=== PATIENT | female | born 1960 | race Caucasian/White ===

== ENCOUNTER 2018-01-29 14:08 | Outpatient (RCR) | payer SELFPAY | END 2018-01-29 23:59 | disposition home or self-care (01) | LOC: CR 14:08 | PROVIDERS: PCP Family Medicine; Visit Provider Family Medicine | DX: Z51.89 Encounter for other specified aftercare (principal) | CPT/HCPCS: S9472 ==

== ENCOUNTER 2018-02-26 13:18 | Outpatient (RCR) | payer SELFPAY | END 2018-02-28 23:59 | disposition home or self-care (01) | LOC: CR 13:18 | PROVIDERS: PCP Family Medicine; Visit Provider Family Medicine | DX: Z51.89 Encounter for other specified aftercare (principal) | CPT/HCPCS: S9472 ==

== ENCOUNTER 2018-03-31 13:00 | Outpatient (RCR) | payer SELFPAY | END 2018-03-31 23:59 | disposition home or self-care (01) | LOC: CR 13:00 | PROVIDERS: PCP Family Medicine; Visit Provider Family Medicine | DX: Z51.89 Encounter for other specified aftercare (principal) | CPT/HCPCS: S9472 ==

== ENCOUNTER 2018-04-28 13:00 | Outpatient (RCR) | payer SELFPAY | END 2018-04-30 23:59 | disposition home or self-care (01) | LOC: CR 13:00 | PROVIDERS: PCP Family Medicine; Visit Provider Family Medicine | DX: Z51.89 Encounter for other specified aftercare (principal) | CPT/HCPCS: S9472 ==

== ENCOUNTER 2018-05-10 00:51 | Outpatient (CLI) | payer MEDICARE, SELFPAY ==
--- NOTE | 2018-05-10 10:24 | MERGE_ITS ---
*[facility]* *[facility]* [address] [place] [address] Date of study: 05/10/2018 Transthoracic Echocardiography M-mode, complete 2D, complete spectral Doppler, and color Doppler *STUDY CONCLUSIONS* Summary: 1. Left ventricle: The cavity size was normal. The estimated ejection fraction was 50%. Some parameters suggest diastolic dysfunction. There was no evidence of elevated ventricular filling pressure by Doppler parameters. 2. Right ventricle: The cavity size was normal. Wall thickness was normal. Systolic function was normal. 3. Atrial septum: No defect or patent foramen ovale was identified. 4. Pulmonary arteries: Pulmonary systolic pressure was in the range of 30mm Hg to 40mm Hg. 5. Inferior vena cava: The vessel was patent and normal in size. The respirophasic diameter changes were in the normal range (greater than or equal to 50%), consistent with normal central venous pressure. *PATIENT PRESENTATION* Height: 165.1cm ((65in) ) S/D Pressure: 95 / 57 Weight: 84.4kg ((185.6lb) ) BSA: 2m^2 Test start time: 10:40 AM. Test stop time: 11:40 AM. ORDERING Regan Luo REFERRING Regan Luo PERFORMING Unknown PERFORMING [facility] [employer] RT Kar Chen)(ROBB)ZANE *PROCEDURE DATA* Procedure information: The patient was identified by two identifiers. This study was interpreted by [facility]. Pertinent images and digital data are archived for permanent storage and are available for subsequent review. Comparison was made to the study of 01/16/2016. Study status: Routine. Transthoracic echocardiography. M-mode, complete 2D, complete spectral Doppler, and color Doppler. A Transthoracic Echocardiogram was performed. Scanning was performed from the parasternal, apical, subcostal, and suprasternal notch acoustic windows. Images were obtained using an [id number] cardiac ultrasound machine. Image quality was good. Study completion: The patient tolerated the procedure well. History: PMH: Cardiomyopathy. *CARDIAC ANATOMY* Left ventricle: The cavity size was normal. The estimated ejection fraction was 50%. The tissue Doppler parameters were abnormal. Some parameters suggest diastolic dysfunction. There was no evidence of elevated ventricular filling pressure by Doppler parameters. Aortic valve: Trileaflet. Doppler: There was no stenosis. There was no regurgitation. VTI ratio of LVOT to aortic valve: 0.66. Valve area (VTI): 2.6cm^2. Indexed valve area (VTI): 1.3cm^2/m^2. Peak velocity ratio of LVOT to aortic valve: 0.71. Valve area (Vmax): 2.8cm^2. Indexed valve area (Vmax): 1.4cm^2/m^2. Mean velocity ratio of LVOT to aortic valve: 0.68. Valve area (Vmean): 2.7cm^2. Indexed valve area (Vmean): 1.3cm^2/m^2. Mean gradient (S): 2.9mm Hg. Peak gradient (S): 4.2mm Hg. Aorta: Aortic root: The aortic root was normal in size. Ascending aorta: The ascending aorta was moderately dilated. Mitral valve: Doppler: There was no evidence for stenosis. There was trivial regurgitation. Valve area by pressure half-time: 2.8cm^2. Indexed valve area by pressure half-time: 1.4cm^2/m^2. Left atrium: The atrium was normal in size. Atrial septum: No defect or patent foramen ovale was identified. Right ventricle: The cavity size was normal. Wall thickness was normal. Systolic function was normal. Pulmonic valve: Doppler: There was no evidence for stenosis. There was mild regurgitation. Peak gradient (S): 1.5mm Hg. Tricuspid valve: Doppler: There was mild regurgitation. Pulmonary artery: Poorly visualized. Pulmonary systolic pressure was in the range of 30mm Hg to 40mm Hg. Right atrium: The atrium was normal in size. Pericardium: There was no pericardial effusion. Systemic veins: Inferior vena cava: Well visualized. The vessel was patent and normal in size. The respirophasic diameter changes were in the normal range (greater than or equal to 50%), consistent with normal central venous pressure. Baseline ECG: Normal sinus rhythm. Measurements Left ventricle Value Reference LV ID, ED, PLAX 5.1 cm 3.5 - 6.0 LV ID, ES, PLAX 3.8 cm 2.1 - 4.0 LV PW thickness, ED, PLAX 0.8 cm LV end-diastolic volume, 1-p A2C 64 ml LV ejection fraction, 1-p A2C 47 % LV end-diastolic volume, 1-p A4C 62 ml LV ejection fraction, 1-p A4C 51 % LV e', lateral 0.057 m/sec LV E/e', lateral 8 LV e', medial 0.039 m/sec LV E/e', medial 12 LV e', average 0.048 m/sec LV E/e', average 10 Ventricular septum Value Reference IVS thickness, ED, PLAX 0.8 cm LVOT Value Reference LVOT ID, A-P 2.2 cm LVOT area 3.9 cm^2 LVOT peak velocity, S 0.73 m/sec LVOT mean velocity, S 0.57 m/sec LVOT VTI, S 15.1 cm LVOT peak gradient, S 2.2 mm Hg LVOT mean gradient, S 1.4 mm Hg Stroke volume (SV), LVOT DP 59 ml Stroke index (SV/bsa), LVOT DP 30 ml/m^2 Aortic valve Value Reference Aortic valve peak velocity, S 1 m/sec Aortic valve mean velocity, S 0.84 m/sec Aortic valve VTI, S 23.0 cm Aortic mean gradient, S 2.9 mm Hg Aortic peak gradient, S 4.2 mm Hg VTI ratio, LVOT/AV 0.66 Aortic valve area, VTI 2.6 cm^2 Velocity ratio, peak, LVOT/AV 0.71 Aortic valve area, peak velocity 2.8 cm^2 Velocity ratio, mean, LVOT/AV 0.68 Aortic valve area, mean velocity 2.7 cm^2 Aortic valve area/bsa, mean velocity 1.3 cm^2/m^2 Aorta Value Reference Aortic root ID, ED 3.4 cm Ascending aorta ID, A-P, S 3.8 cm Left atrium Value Reference LA ID, A-P, ES 3.5 cm LA ID/bsa, A-P 1.7 cm/m^2 <=2.2 LA area, ES, A4C 16.2 cm^2 8.8 - 23.4 LA area, ES, A2C 17 cm^2 LA volume/bsa, ES, 1-p A4C 21 ml/m^2 LA volume, ES, 2-p 45 ml LA volume/bsa, ES, 2-p 22 ml/m^2 LA/aortic root ratio 1.01 Mitral valve Value Reference Mitral E-wave peak velocity 0.47 m/sec Mitral A-wave peak velocity 0.67 m/sec Mitral deceleration time (H) 267 ms 150 - 230 Mitral pressure half-time 77 ms Mitral E/A ratio, peak 0.71 Mitral valve area, PHT, DP 2.8 cm^2 Pulmonary veins Value Reference Pulmonary vein peak velocity, S 0.59 m/sec Pulmonary vein peak velocity, D 0.36 m/sec Pulmonary vein velocity ratio, peak, 1.63 S/D Pulmonary vein A-wave reversal peak 0.32 m/sec velocity Tricuspid valve Value Reference Tricuspid regurg peak velocity 2.8 m/sec Tricuspid peak RV-RA gradient 31.3 mm Hg Right atrium Value Reference RA area, ES, A4C 11.1 cm^2 8.3 - 19.5 Pulmonic valve Value Reference Pulmonic peak gradient, S 1.5 mm Hg Legend: (L) and (H) reji values outside specified reference range. I have personally reviewed the images and have reviewed and edited the reported findings. Electronically signed by Manuel Rhodes MD 05/10/2018 15:58
== END 2018-05-10 01:11 ==
PROVIDERS: PCP Family Medicine; Visit Provider Internal Medicine Cardiovascular Disease
DX: I42.9 Cardiomyopathy, unspecified (principal); I47.2 Ventricular tachycardia; I10 Essential (primary) hypertension
CPT/HCPCS: 93306

== ENCOUNTER 2018-05-14 13:00 | Outpatient (RCR) | payer SELFPAY | END 2018-05-31 23:59 | LOC: CR 13:00 | PROVIDERS: PCP Family Medicine; Visit Provider Family Medicine | DX: Z51.89 Encounter for other specified aftercare (principal) | CPT/HCPCS: S9472 ==

== ENCOUNTER → 2018-05-21 13:16 | Outpatient (BNVA) | payer MEDICARE, SELFPAY | PROVIDERS: PCP Family Medicine; Visit Provider Internal Medicine Cardiovascular Disease | DX: I50.32 Chronic diastolic (congestive) heart failure (principal); E78.5 Hyperlipidemia, unspecified; E03.9 Hypothyroidism, unspecified; E66.9 Obesity, unspecified; I47.2 Ventricular tachycardia; I49.3 Ventricular premature depolarization | CPT/HCPCS: 99213 ==

== ENCOUNTER 2018-06-30 13:00 | Outpatient (RCR) | payer SELFPAY | END 2018-07-01 23:59 | disposition home or self-care (01) | LOC: CR 13:00 | PROVIDERS: PCP Family Medicine; Visit Provider Family Medicine | DX: Z51.89 Encounter for other specified aftercare (principal) | CPT/HCPCS: S9472 ==

== ENCOUNTER 2018-07-20 00:38 | Outpatient (CLI) | payer MEDICARE, SELFPAY | END 2018-07-20 00:58 | PROVIDERS: PCP Family Medicine; Visit Provider Family Medicine | DX: E03.9 Hypothyroidism, unspecified (principal) | CPT/HCPCS: 36415; 84443 ==

== ENCOUNTER 2018-07-26 13:00 | Outpatient (RCR) | payer SELFPAY | END 2018-07-29 23:59 | disposition home or self-care (01) | LOC: CR 13:00 | PROVIDERS: PCP Family Medicine; Visit Provider Family Medicine | DX: Z51.89 Encounter for other specified aftercare (principal) | CPT/HCPCS: S9472 ==

== ENCOUNTER 2018-08-27 15:20 | Outpatient (RCR) | payer SELFPAY | END 2018-08-29 23:59 | disposition home or self-care (01) | LOC: CR 15:20 | PROVIDERS: PCP Family Medicine; Visit Provider Family Medicine | DX: Z51.89 Encounter for other specified aftercare (principal) | CPT/HCPCS: S9472 ==

== ENCOUNTER 2018-09-22 13:00 | Outpatient (RCR) | payer SELFPAY | END 2018-09-28 23:59 | disposition home or self-care (01) | LOC: CR 13:00 | PROVIDERS: PCP Family Medicine; Visit Provider Family Medicine | DX: Z51.89 Encounter for other specified aftercare (principal) | CPT/HCPCS: S9472 ==

== ENCOUNTER 2018-10-29 13:15 | Outpatient (RCR) | payer SELFPAY | END 2018-10-29 23:59 | disposition home or self-care (01) | LOC: CR 13:15 | PROVIDERS: PCP Family Medicine; Visit Provider Family Medicine | DX: Z51.89 Encounter for other specified aftercare (principal) | CPT/HCPCS: S9472 ==

== ENCOUNTER → 2018-11-11 12:47 | Outpatient (BNVA) | payer MEDICARE, SELFPAY | PROVIDERS: PCP Family Medicine; Visit Provider Internal Medicine Cardiovascular Disease | DX: I50.32 Chronic diastolic (congestive) heart failure (principal); I47.2 Ventricular tachycardia; I49.3 Ventricular premature depolarization; I43 Cardiomyopathy in diseases classified elsewhere; E03.9 Hypothyroidism, unspecified; E78.1 Pure hyperglyceridemia | CPT/HCPCS: 99214 ==

== ENCOUNTER 2018-11-19 13:00 | Outpatient (RCR) | payer SELFPAY | END 2018-11-28 23:59 | disposition home or self-care (01) | LOC: CR 13:00 | PROVIDERS: PCP Family Medicine; Visit Provider Family Medicine | DX: Z51.89 Encounter for other specified aftercare (principal) | CPT/HCPCS: S9472 ==

== ENCOUNTER 2018-12-29 13:39 | Outpatient (RCR) | payer SELFPAY | END 2018-12-29 23:59 | disposition home or self-care (01) | LOC: CR 13:39 | PROVIDERS: PCP Family Medicine; Visit Provider Family Medicine | DX: Z51.89 Encounter for other specified aftercare (principal) | CPT/HCPCS: S9472 ==

== ENCOUNTER 2019-01-26 13:00 | Outpatient (RCR) | payer SELFPAY | END 2019-01-29 23:59 | disposition home or self-care (01) | LOC: CR 13:00 | PROVIDERS: PCP Family Medicine; Visit Provider Family Medicine | DX: Z51.89 Encounter for other specified aftercare (principal) | CPT/HCPCS: S9472 ==

== ENCOUNTER 2019-02-16 13:15 | Outpatient (RCR) | payer SELFPAY | END 2019-02-28 23:59 | disposition home or self-care (01) | LOC: CR 13:15 | PROVIDERS: PCP Family Medicine; Visit Provider Family Medicine | DX: Z51.89 Encounter for other specified aftercare (principal) | CPT/HCPCS: S9472 ==

== ENCOUNTER 2019-03-30 13:29 | Outpatient (RCR) | payer SELFPAY | END 2019-03-31 23:59 | disposition home or self-care (01) | LOC: CR 13:29 | PROVIDERS: PCP Family Medicine; Visit Provider Family Medicine | DX: Z51.89 Encounter for other specified aftercare (principal) | CPT/HCPCS: S9472 ==

== ENCOUNTER 2019-04-27 13:32 | Outpatient (RCR) | payer SELFPAY | END 2019-04-30 23:59 | disposition home or self-care (01) | LOC: CR 13:32 | PROVIDERS: PCP Family Medicine; Visit Provider Family Medicine | DX: Z51.89 Encounter for other specified aftercare (principal) | CPT/HCPCS: S9472 ==

== ENCOUNTER 2019-05-01 06:51 | Outpatient (RCR) | payer SELFPAY | END 2019-05-31 23:59 | disposition home or self-care (01) | LOC: CR 06:51 | PROVIDERS: PCP Family Medicine; Visit Provider Family Medicine | DX: Z51.89 Encounter for other specified aftercare (principal) ==

== ENCOUNTER 2019-06-17 09:34 | Outpatient (CLI) | payer MEDICARE, SELFPAY ==
[2019-06-17 13:04] LABS: Anion Gap 8.5 mmol/L (3-11); BUN 8 mg/dL (7-18); CO2 31.5 mmol/L (21.0-32.0); CREATININE 0.68 mg/dL (0.55-1.02); Calculated LDL 111 mg/dL; Chloride 103 mmol/L (98-107); Cholesterol 220 mg/dL (<200); Glucose 108 mg/dL (74-106); HDL Cholesterol 50 mg/dL (40-60); Potassium 3.6 mmol/L (3.5-5.1); Sodium 143 mmol/L (136-145); TSH (W/Ref FT4) 2.45 uIU/mL (0.36-3.74); Triglyceride 299 mg/dL (<150)
== END 2019-06-17 09:54 ==
PROVIDERS: PCP Family Medicine; Visit Provider Family Medicine
DX: E03.9 Hypothyroidism, unspecified (principal); E78.1 Pure hyperglyceridemia; R60.9 Edema, unspecified
CPT/HCPCS: 36415; 80048; 80061; 84443

== ENCOUNTER 2019-07-01 12:59 | Outpatient (RCR) | payer SELFPAY | END 2019-07-01 23:59 | disposition home or self-care (01) | LOC: CR 12:59 | PROVIDERS: PCP Family Medicine; Visit Provider Family Medicine | DX: Z51.89 Encounter for other specified aftercare (principal) | CPT/HCPCS: S9472 ==

== ENCOUNTER 2019-07-29 13:35 | Outpatient (RCR) | payer SELFPAY | END 2019-07-30 23:59 | disposition home or self-care (01) | LOC: CR 13:35 | PROVIDERS: PCP Family Medicine; Visit Provider Family Medicine | DX: Z51.89 Encounter for other specified aftercare (principal) | CPT/HCPCS: S9472 ==

== ENCOUNTER 2019-08-08 13:00 | Outpatient (RCR) | payer SELFPAY | END 2019-08-30 23:59 | disposition home or self-care (01) | LOC: CR 13:00 | PROVIDERS: PCP Family Medicine; Visit Provider Family Medicine | DX: Z51.89 Encounter for other specified aftercare (principal) | CPT/HCPCS: S9472 ==

== ENCOUNTER 2019-12-07 01:59 | Outpatient (CLI) | payer MEDICARE, SELFPAY ==
--- NOTE | 2019-12-07 07:45 | DI.MAMMO_ITS ---
EXAM: MAMMO SCREENING CLINICAL HISTORY: screening, Z12.39 TECHNIQUE: Mammograms were interpreted according to the usual protocol including computer analysis w Sellaround CAD system, tomosynthesis and C-view imaging. COMPARISON: 2009 through 2017 FINDINGS: The breasts are composed of scattered fibroglandular densities, Breast Density category B. No suspicious masses or suspicious microcalcifications are seen. No skin thickening or abnormal axillary lymph nodes are seen. There has been no significant change from prior exams. IMPRESSION: BI-RADS Category 1 - Negative Yearly screening mammography is recommended. Breast Density Category B, scattered fibroglandular densities.
== END 2019-12-07 02:19 ==
PROVIDERS: PCP Family Medicine; Visit Provider Family Medicine
DX: Z12.31 Encounter for screening mammogram for malignant neoplasm of breast (principal)
CPT/HCPCS: 77063; 77067

== ENCOUNTER 2020-06-21 05:06 | Outpatient (CLI) | payer MEDICARE, SELFPAY ==
[2020-06-21 09:19] LABS: Hemoglobin A1C 5.9 % (<5.7)
[2020-06-21 10:05] LABS: CREATININE 0.84 mg/dL (0.55-1.02); Calculated LDL 129 mg/dL (<100); Cholesterol 220 mg/dL (<200); HDL Cholesterol 57 mg/dL (40-60); Potassium 3.8 mmol/L (3.5-5.1); Triglyceride 174 mg/dL (<150)
== END 2020-06-21 05:26 ==
PROVIDERS: PCP Family Medicine; Visit Provider Family Medicine
DX: E03.9 Hypothyroidism, unspecified (principal); I10 Essential (primary) hypertension; E78.5 Hyperlipidemia, unspecified; R73.9 Hyperglycemia, unspecified
CPT/HCPCS: 36415; 80061; 82565; 83036; 84132; 84443

== ENCOUNTER 2021-07-02 02:03 | Outpatient (CLI) | payer MEDICARE, SELFPAY ==
[2021-07-02 08:52] LABS: CREATININE 0.8 mg/dL (0.55-1.02); Calculated LDL 145 mg/dL (<100); Cholesterol 234 mg/dL (<200); HDL Cholesterol 57 mg/dL (40-60); Potassium 4.1 mmol/L (3.5-5.1); Triglyceride 162 mg/dL (<150)
== END 2021-07-02 02:04 | disposition home or self-care (01) ==
LOC: LBO 02:03
PROVIDERS: PCP Family Medicine; Visit Provider Family Medicine
DX: E03.9 Hypothyroidism, unspecified (principal); E78.5 Hyperlipidemia, unspecified; I10 Essential (primary) hypertension
CPT/HCPCS: 36415; 80061; 82565; 84132; 84443

== ENCOUNTER → 2021-12-09 02:11 | Outpatient (CLI) | payer MEDICARE, SELFPAY ==
--- NOTE | 2021-12-09 06:45 | DI.MAMMO_ITS ---
Exam(s) MAMMO SCREENING EXAM: MAMMO SCREENING CLINICAL HISTORY: screening,Z12.39. TECHNIQUE: Bilateral full field digital CC and MLO mammographic images were obtained with 3D tomosyn thesis and utilizing computer aided detection (CAD). COMPARISON: Prior mammograms were reviewed, the most recent being November 2019. FINDINGS: No new significant radiograph findings in left breast. In the right breast there is an asymmetric density seen on the CC view approximately 5 cm in from the nipple, slightly lateral of center. No malignant-appearing microcalcification groups is region or elsewhere in either breast. IMPRESSION: 1. No radiographic evidence of malignancy in the left breast 2. Asymmetric density right breast. Spot compression CC view and breast ultrasound recommended. BI-RADS Category 0 - Assessment Incomplete: Need additional imaging evaluation Breast Density - Category B - Scattered areas of fibroglandular density Breast density Category C or D implies that the patient has dense breast tissue. Dense breast tissue can make it harder to find cancer on a mammogram. Dense breast tissue is also associated with an incr eased risk of breast cancer. This information about the result of the mammogram report was provided to the patient to raise their awareness. Use this report when you speak with the patient about their risks for breast cancer, which includes their family history. At that time, you may recommend additional screening tests (Ultrasoun d or MRI) as these tests may add significant information. A negative radiographic report should not delay biopsy if a dominant or clinically suspicious mass is present. Up to ten percent of cancers are not identified on mammography. A negative report may reinforce clinical impression. Adenosis and dense breasts may obscure an underlying neoplasm. False positive reports average 6 to 10%. Patient will receive a letter notifying them of these results.
== END ==
PROVIDERS: PCP Family Medicine; Visit Provider Family Medicine
DX: Z12.31 Encounter for screening mammogram for malignant neoplasm of breast (principal); R92.8 Other abnormal and inconclusive findings on diagnostic imaging of breast
CPT/HCPCS: 77063; 77067

== ENCOUNTER → 2021-12-16 00:45 | Outpatient (CLI) | payer MEDICARE, SELFPAY ==
--- NOTE | 2021-12-16 | DI.US_ITS ---
Exam(s) MG MAMMO SCREEN CALL BACK UNI US BREAST RT LIMITED EXAM: MG MAMMO SCREEN CALL BACK UNI CLINICAL HISTORY: F/U MAMMO, ASYMMETRIC DENSITY RT BREAST. TECHNIQUE: Craniocaudal and mediolateral oblique spot compression digital Mammography views of the r ight breast with Computer Aided Diagnosis followed by Tomosynthesis and right breast ultrasound. COMPARISON: US RIGHT BREAST ULTRASOUND {[id number]} from 06/29/2014 MG R. Spot - Same Day from 06/29/2014 MG Diagnostic Right Mammo from 12/26/2014 MG Screening Bilat Mammo from 07/02/2015 MG MG MAMMO SCREENING from 12/07/2019 MG MG MAMMO SCREENING from 12/09/2021 US US BREAST RT LIMITED from 12/16/2021 FINDINGS: Mammography/Tomosynthesis: Masses/Architectural Distortion: None seen. Microcalcifictions: No suspicious pleomorphic-type are seen. Skin Thickening/Nipple Retraction: None. Right breast US: Echotexture: Normal appearance of the glandular tissue. Shadowing: No suspicious foci. Cyst: None. Solid lesions: None seen. Ductal dilation: None. IMPRESSION: 1. No evidence of malignancy is noted. 2. Unless there is more urgent need, follow-up screening mammography is recommended, as per [place] [employer] guidelines. . BI-RADS Category 1 - Negative Breast Density - Category B - Scattered areas of fibroglandular density A mammogram that demonstrates density of C or D indicates the patient's breast tissue is dense. Dense breast tissue is very common and is not abnormal, but dense breast tissue can make it harder to find cancer on a mammogram. Also, dense breast tissue may increase their breast cancer risk. This informa tion about the result of the mammogram report was provided to the patient to raise their awareness. U se this report when you speak with the patient about their risks for breast cancer, which includes th eir family history. At that time, you may recommend for more screening tests (Ultrasound or MRI) as t hey might be useful based on their risk. A negative radiographic report should not delay biopsy if a dominant or clinically suspicious mass is present. Up to ten percent of cancers are not identified on mammography. A negative report may reinforce clinical impression. Adenosis and dense breasts may obscure an underlying neoplasm. False positive reports average 6 to 10%. Patient will receive a letter notifying them of these results.
--- OUTSIDE RECORDS SUMMARY | 2021-12-16 00:48 | XMS_ITS | Encounter Summary ---
:1960 Author Organization [facility] Address [address] [place] [address] Care Team Providers Name Role Phone Arlin Gandara MD Primary Care Provider Reason for Visit Reason Onset Date Comments Update 09/22/2012 Pt calling with gabriela mijares after seeing dentist yesterday Encounter Details Date Type Department Care Team Description 09/22/2012 Telephone [facility] Aj Cantu (Pt calling Cardiology - Jessika Erickson MD with update after [address] [facility] seeing dentist So [facility], [place], ) [address] [place] [address] (Wo rk) Social History Tobacco Use Types Packs/Day Years Used Date Never Smoker Smokeless Tobacco: Never Used Alcohol Use Standard Drinks/Week Comments No 0 (1 standard drink = 0.6 oz pure alcoho l) Sex Assigned at Date Recorded Not on file documented as of this encounter Functional Status Cognitive Status Response Date of Assessment Because of a physical, mental, or emotional condition, do Ye s 03/18/2012 you have serious difficulty concentrating, remembering, or making decisions? (5 years old or older) documented as of this encounter Miscellaneous Notes Telephone Encounter - Jes Florence RN - 09/22/[address] Cantu, okay to proceed w/ ablation on 09/29. Pt called w/ update. elephone Encounter - Jeff Pedraza - 09/22/2012 0844 EDT Pt called to report she had her tooth fixed yesterday, and her dentist said to tell Dr. Cantu this was a routine filling. Pt is hopeful it will not interfere with her pending EPS procedure on 09/29. Pt can be reached today on her cell at [phone]. documented in this encounter Plan of Treatment Upcoming Encounters Date Type Specialty Care Team Description 09/05/2022 Office Visit Cardiology Regan Luo MD [address] [place] [address] [address] [place] [address] (Wo rk) documented as of this encounter Visit Diagnoses Not on filedocumented in this encounter Care Teams Cut Off Worker Relationship Specialty Start Date End Date Arlin Gandara MD PCP - General 03/17/12 [address] [place], [place] [id number] documented as of this encounter
--- OUTSIDE RECORDS SUMMARY | 2021-12-16 00:48 | XMS_ITS | Encounter Summary ---
:1960 Author Organization [facility] Address [address] [place] [address] Care Team Providers Name Role Phone Arlin Gandara MD Primary Care Provider Regan Luo MD Unavailable Reason for Visit Reason Comments Other Encounter Details Date Type Department Care Team Description 08/01/2020 Refill [facility] - [facility] Regan Carrasquillo MD Other Cardiology Clinic [address] [place] [address] [place] [address] (Wo rk) Social History Tobacco Use Types Packs/Day Years Used Date Never Smoker Smokeless Tobacco: Never Used Alcohol Use Standard Drinks/Week Comments No 0 (1 standard drink = 0.6 oz pure alcoho l) Sex Assigned at Date Recorded Not on file documented as of this encounter Functional Status Functional Status Response Date of Assessment Are you deaf or do you have serious difficulty hearing? No 11/25/2013 Are you blind or do you have serious difficulty seeing, No 11/25/2013 even when wearing glasses? Do you have serious difficulty walking or climbing No 11/25/2013 stairs? (5 years old or older) Do you have difficulty dressing or bathing? (5 years old No 11/25/2013 or older) Because of a physical, mental, or emotional condition, do No 11/25/2013 you have difficulty doing errands alone such as visiting a doctor's office or shopping? (15 years old or older) Cognitive Status Response Date of Assessment Because of a physical, mental, or emotional condition, do Ye s 11/25/2013 you have serious difficulty concentrating, remembering, or making decisions? (5 years old or older) documented as of this encounter Ordered Prescriptions Prescription Sig Dispensed Refills Start Date End Date lisinopriL (PRINIVIL) 5 mg TAKE ONE TABLET BY 90 Tab 3 0 08/02/2020 07/22/2021 tablet MOUTH EVERY DAY documented in this encounter Plan of Treatment Upcoming Encounters Date Type Specialty Care Team Description 09/05/2022 Office Visit Cardiology Regan Luo MD [address] [place] [phone] (Wo rk) documented as of this encounter Visit Diagnoses Not on filedocumented in this encounter Discontinued Medications Medication Sig Discontinue Reason Start Date End Date lisinopriL (PRINIVIL) 5 Take 1 Tab by mouth 02/08/2020 08/02/2020 mg tablet daily. documented as of this encounter Care Teams Rescue Boat Operator Relationship Specialty Start Date End Date Arlin Gandara MD PCP - General 03/17/[address] [place] [phone] Regan Luo MD Cardiovascular Disease 05/17/[address] [place] [address] [phone] documented as of this encounter
--- OUTSIDE RECORDS SUMMARY | 2021-12-16 00:48 | XMS_ITS | Clinical Summary ---
:1960 Author Organization [facility] [place] [address] Care Team Providers Name Role Phone Arlin Gandara MD Primary Care Provider Allergies Active Allergy Reactions Severity Noted Date Comments Adhesive Tape CIS - burned s kin, CIS - burned skin Penicillins High CIS - Hives, CI S - Hives Sulfa (Sulfonamide CIS - nos ebleed, CIS - Antibiotics) nosebleed Medications Medication Sig Dispensed Refills Start Date End Date Status clopidogrel (PLAVIX) 75 0 08/12/2010 Active mg tablet multivitamin (THERAGRAN) 0 08/12/2010 Active tablet CALCIUM CITRATE/VITAMIN 0 08/12/2010 Active D3 (CALCITRATE-VITAMIN D) 315-250 mg-unit Tab aspirin (BABY ASPIRIN) 0 08/12/2010 Active 81 mg chewable tablet nitroGLYcerin 0 08/12/2010 Activ e (NITROSTAT) 0.4 mg SL tablet metoprolol succinate 50 MG = 1 0 08/12/2010 Active (TOPROL-XL) 50 mg 24 hr Tablet(s), PO, tablet Once daily Immunizations Name Administration Dates Next Due Td, adult 04/24/2003 Social History Tobacco Use Types Packs/Day Years Used Date Never Assessed Sex Assigned at Date Recorded Not on file Plan of Treatment Health Maintenance Due Date Last Done Comments Covid-19 Vaccine (#1) 1964 HIV screen 1977 Hepatitis C Screening 1977 Tdap adult 1978 HPV test 1989 PAP Smear 1989 Breast Cancer Share Decision Needed 1999 Colonoscopy 2004 Breast Cancer screening 2009 Zoster vaccine (1 of 2) 2009 Tetanus vaccine 04/24/2013 04/24/2003 Influenza (Flu) vaccine (1 of 1 - Influenza standard 01/30/2022 series) Care Teams Clinical Psychology Professor Relationship Specialty Start Date End Date Arlin Gandara MD PCP - General 04/23/10 [address] [place] [address]
--- OUTSIDE RECORDS SUMMARY | 2021-12-16 00:48 | XMS_ITS | Encounter Summary ---
:1960 Author Organization [facility] Address [address] [place] [address] Care Team Providers Name Role Phone Arlin Gandara MD Primary Care Provider Regan Luo MD Unavailable [phone] Reason for Visit Reason Comments Other Encounter Details Date Type Department Care Team Description 07/21/[address] [facility] Regan Carrasquillo MD Other Cardiology Clinic [address] [place] [address] [place] [address] (Wo rk) Social History Tobacco [...] Sig Dispensed Refills Start Date End Date potassium chloride CR TAKE ONE TABLET BY 180 Tablet 3 2021 (KLOR-CON) 10 mEq tablet MOUTH TWICE A DAY extended release lisinopriL (PRINIVIL) 5 mg TAKE ONE TABLET BY 90 Tablet 3 0 07/22/2021 tablet MOUTH EVERY DAY documented in this encounter Plan of Treatment Upcoming Encounters Date Type Specialty Care Team Description 09/05/2022 Office Visit Cardiology Regan Luo MD [address] [place] [phone] (Wo rk) documented as of this encounter Visit Diagnoses Not on filedocumented in this encounter Discontinued Medications Medication Sig Discontinue Reason Start Date End Date lisinopriL (PRINIVIL) 5 TAKE ONE TABLET BY 08/02/2020 07/22/2021 mg tablet MOUTH EVERY DAY potassium chloride CR TAKE ONE TABLET BY 07/30/2020 07/22/2021 (KLOR-CON) 10 mEq tablet MOUTH TWICE A DAY extended release documented as of this encounter Care Teams Sweet Potato Disintegrator Relationship Specialty Start Date End Date Arlin Gandara MD PCP - General 03/17/[address] [id number] Regan Luo MD Cardiovascular Disease 05/17/[address] [place] [address] [phone] documented as of this encounter
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
--- OUTSIDE RECORDS SUMMARY | 2021-12-16 00:48 | XMS_ITS | Encounter Summary ---
:1960 Author Organization [facility] Address [address] [place] [address] Care Team Providers Name Role Phone Arlin Gandara MD Primary Care Provider Reason for Visit Reason Onset Date Comments Medication Problem 03/19/2012 tylenol # ordered in patient Encounter Details Date Type Department Care Team Description 03/19/2012 Refill [facility] Yogi Head MD Medication Problem Cardiology - [place] [employer] (tylenol # ordered [address] inpatient) [place], [place] [address] [place] [id number] (Wo rk) Social History Tobacco Use Types [...] this encounter Miscellaneous Notes Telephone Encounter - Renata Van NP - 03/19/2012 1644 EDT Prescription for Tylenol #3 called to pharmacy elephone Encounter - Sheryl Gentile - 03/19/2012 1523 EDT Pt just d/c from ablation states was given a RX from being inpatient for tylenol # 3- 1 to 2 tabs x4hrs PRN for pain, #30, she states brought RX to pharmacy and the script doesn't have her name on it so the pharmacy is refusing to fill documented in this encounter Plan of Treatment Upcoming Encounters Date Type Specialty Care Team Description 09/05/2022 Office Visit Cardiology Regan Luo MD [address] [place] [address] [address] [place], [place] [address] (Wo rk) documented as of this encounter Visit Diagnoses Diagnosis Symptomatic PVCs - Primary Other premature beats documented in this encounter Care Teams Shift Nurse Manager Relationship Specialty Start Date End Date Arlin Gandara MD PCP - General 03/17/12 [address] [place], [place] [address] documented as of this encounter
--- OUTSIDE RECORDS SUMMARY | 2021-12-16 00:48 | XMS_ITS | Encounter Summary ---
:1960 Author Organization [facility] Address [address] [place] [address] Care Team Providers Name Role Phone Arlin Gandara MD Primary Care Provider Reason for Visit Reason Onset Date Comments Medications Refill 12/17/2020 pt out Encounter Details Date Type Department Care Team Description 12/17/2020 Telephone [facility] - Regan Luo ications Refill ([place] [facility] [place] [facility] out) [address] [place] [address] [address] [place] [address] (Wo rk) Social History Tobacco [...] Sig Dispensed Refills Start Date End Date furosemide (LASIX) 40 mg Take 1 Tablet by 90 Tablet 3 12/1701/18/2021 tablet mouth daily. Change to one tab daily documented in this encounter Miscellaneous Notes Telephone Encounter - Varsha Graf RN - 12/17/2020 0849 EDT Refill request from patient. He is an active patient in the office and has a follow up appointment with Dr. Luo. RX sent to pharmacy. elephone Encounter - Patricio Buchanan - 12/17/2020 0840 EDT Last DOS 06/04/20 Furosemide [facility] documented in this encounter Plan of Treatment Upcoming Encounters Date Type Specialty Care Team Description 09/05/2022 Office Visit Cardiology Regan Luo MD [address] [place] [address] [address] [place], [place] [phone] (Wo rk) documented as of this encounter Visit Diagnoses Not on filedocumented in this encounter Discontinued Medications Medication Sig Discontinue Reason Start Date End Date furosemide (LASIX) 40 mg Take 1 Tab by mouth Reorder 3 12/17/2020 tablet daily. Change to one tab daily documented as of this encounter Care Teams Fitness Services Manager Relationship Specialty Start Date End Date Arlin Gandara MD PCP - General 03/17/12 [address] [place], [place] [address] documented as of this encounter
--- OUTSIDE RECORDS SUMMARY | 2021-12-16 00:48 | XMS_ITS | Encounter Summary ---
:1960 Author Organization [facility] Address [address] [place] [address] Care Team Providers Name Role Phone Arlin Gandara MD Primary Care Provider Reason for Visit Reason Onset Date Comments Medication Problem 10/14/2012 Mexiletine Encounter Details Date Type Department Care Team Description 10/14/2012 Telephone [facility] Aj Cantu ication Problem Cardiology - Jessika Erickson MD (Mexiletine) [address] [place] [address] (Wo rk) Social History Tobacco [...] mental, or emotional condition, do Ye s 09/29/2012 you have serious difficulty concentrating, remembering, or making decisions? (5 years old or older) documented as of this encounter Miscellaneous Notes Telephone Encounter - Jes Florence RN - 10/14/2012 1345 EDT Pt started taking mexilitine on 09/29 and symptoms started yesterday. BP checked while on phone w/ me and bp = 103/62 which is customary for pt. I advised pt to treat symptoms w/ mary beth allyson or whatever works for pt for treating nausea and call tomorrow if still having problems. Will try to arrange appt for her in Dr. Gandara's office if indicated. Pt agrees w/ this plan. elephone Encounter - Whitley Kan - 10/14/2012 1320 EDT Patient is having some side effects (dizziness and nausea) Mexiletine which was prescribed while patient was in the hospital. Side effects started last night. Should patient continue to take medication. Please call patient. documented in this encounter Plan of Treatment Upcoming Encounters Date Type Specialty Care Team Description 09/05/2022 Office Visit Cardiology Regan Luo MD [address] [place] [address] [address] (Wo rk) documented as of this encounter Visit Diagnoses Not on filedocumented in this encounter Care Teams Technical Staff Engineer Relationship Specialty Start Date End Date Arlin Gandara MD PCP - General 03/17/12 [address] [place], [place] [address] documented as of this encounter
--- OUTSIDE RECORDS SUMMARY | 2021-12-16 00:48 | XMS_ITS | Encounter Summary ---
:1960 Author Organization [facility] Address [address] [place] [address] Care Team Providers Name Role Phone Arlin Gandara MD Primary Care Provider Reason for Visit Reason Onset Date Comments Medications Refill 01/18/2021 Encounter Details Date Type Department Care Team Description 01/18/2021 Refill [facility] Varsha Graf R N Medications Refill Cardiology Clinic [address] [place] [address] Social History Tobacco Use Types Packs/Day Years [...] Take 1 Tablet by 90 Tablet 3 01/18 tablet mouth daily. Change to one tab daily metoprolol SUCCinate Take 1 Tablet by 90 Tablet 3 12/03/2021 (TOPROL-XL) 50 mg tablet mouth daily. documented in this encounter Miscellaneous Notes Telephone Encounter - Varsha Graf RN - 01/18/2021 0969 EDT Refill request received by patient. Active in the office with an upcoming appointment scheduled. RX sent to pharmacy. documented in this encounter Plan of Treatment Upcoming Encounters Date Type Specialty Care Team Description 09/05/2022 Office Visit Cardiology Regan Luo MD [address] [place] [phone] (Wo rk) documented as of this encounter Visit Diagnoses Not on filedocumented in this encounter Discontinued Medications Medication Sig Discontinue Reason Start Date End Date metoprolol XL Take 1 Tab by mouth Reorder 01/27/2020 021 (TOPROL-XL) 50 mg tablet daily. furosemide (LASIX) 40 mg Take 1 Tablet by Reorder 12/17/2020 01/18/2021 tablet mouth daily. Change to one tab daily documented as of this encounter Care Teams Guest Relations Officer Relationship Specialty Start Date End Date Arlin Gandara MD PCP - General 03/17/12 [address] [place], [place] [address] documented as of this encounter
--- OUTSIDE RECORDS SUMMARY | 2021-12-16 00:48 | XMS_ITS | Encounter Summary ---
:1960 Author Organization [facility] Address [address] [place] [address] Care Team Providers Name Role Phone Arlin Gandara MD Primary Care Provider Reason for Referral Cardiology (Routine/Next Available) - Closed Specialty Diagnoses / Procedures Referred By Contact Refer red To Contact Diagnoses Premature ventricular contractions (PVCs) (VPCs) Aj Cantu Procedures ELECTROPHYSIOLOGY STUDY MD Dre [address] [phone] Referral ID Status Reason Start Date Expiration Date Visits Requ ested Visits Authorized [id number] Closed 09/20/2012 1 1 Encounter Details Date Type Department Care Team Description 09/20/2012 Orders Only [facility] Aj Cantu Pre mature ventricular Cardiology - Jessika Erickson MD contractions (PVCs) 62 Jessika Beltran [address] [place] (VPCs) (Primary Dx) So [place], [place] [id number] [place] [address], [address] [phone] (Wo rk) Social History Tobacco Use [...] or older) documented as of this encounter Plan of Treatment Upcoming Encounters Date Type Specialty Care Team Description 09/05/2022 Office Visit Cardiology Regan Luo MD [address] [place] [address] [address] [place] [address] (Wo rk) documented as of this encounter Procedures Procedure Name Priority Date/Time Associated Comments Diagnosis ELECTROPHYSIOLOGY STUDY Routine 09/29/2012 9:18 Premature R esults for this EDT ventricular procedure are i n contractions (PVCs) the resu lts (VPCs) section. documented in this encounter Results ELECTROPHYSIOLOGY STUDY (09/29/2012 9:18 EDT) Specimen Narrative CARDIOLOGY - 10/01/2012 9:48 EDT *Cardiology* [address] [place] [id number] Electrophysiology Study with Ablation Patient: Apolonia Vazquez ?Ignacio dy Date: ? 09/29/2012 ?Accession #: ?[id number] : ? 1960 Referring: Arlin Gandara Attending: Aj Cantu MD, PhD Fellow: ?Aj clancy Sa, MD Assisting: David Mcintosh Copies: SUMMARY OF PROCEDURE: - Baseline rhythm sinus rhythm. - Epicardial PVC mapping - Abaltion not performed as earliest foc us in close ??proximity to the LAD/ramus. - There were no complications. HISTORY AND INDICATIONS: ??52 y.o. femal e with daily frequent symptomatic PVC despite use of metoprolo l. She also has PVC inducible LV dysfunction and chronic systolic hear t failure. An ablation was performed last fall and suggested epicar dial focus. Metoprolol was discontinued last week in anticipation f or the procedure. PVCs ANESTHESIA: Procedure was started with consious francisco tion and local anestheia. The anesthesiology department provided monit ored anesthesia care during epicardial acces. However due to ongoing chest pain, general anesthesia was used. PROCEDURE: The risks, benefits, and alternatives to the procedure were explained and informed consent was obtained. The patient name, date of , surgica l site, and procedure were verified prior to the procedure. The pat ient was brought to electrophysiology laboratory in the fast ing state. The groin was prepped and draped in the usual sterile manner. ??Local anesthestic was administered to the access site. The rig ht femoral vein, right femoral vein, and right femoral artery were ente red under fluoroscopic guidance . ??Sheath and catheter detail( s) in table below. All catheters were placed under fluoroscopic guidance. The attending physician was physically present for the entire Electrophysiology Study and/or Ablation procedure. ?? The sub-xiphoid area was prepped and draped in the usual sterile manner. ??Local anesthestic was administered to the chest. A Tuohy needl e was slowly advanced towards the pericardium under fluoroscopic lyly nce. Access to the pericardial space was difficult and required multipl e attempts. At one point, the left pleural pace was entered. Finally a posterior pericardial access was obtained with a long needle and conf irmed by injecting a small amount of contrast. An 8 Fr Arrow sheath was then advanced into the pericardial space over the guidewire, wh ich was subsequently withdrawn. 140 cc of blood were aspirate d shortly after obtaining pericardial access. Several fluoroscopic views confirmed epicardial position. VASCULAR ACCESS AND CATHETER PROPERTIES: + +---------+ --+ + Entry site ? Sheath ?? Location s ? Catheter ? + +---------+ --+ + L femoral vein ?? 7Fr ? RA eliana izquierdo ?? 6 Fr hexapolar ? electrode ? catheter (2 mm ? spacing; ? proximal ring ? 25 cm from tip) + +---------+ --+ + L femoral vein ?? 7Fr ? RV/Para- Hisian 7 Fr ? deflectable ? quadrapolar ? electrode ? catheter (2mm ? spacing) ? + +---------+ --+ + L femoral vein ?? 8.5Fr ? Coronary sinus Bard Decapole ? 2-5-2 (eldridge), ? 6F ? + +---------+ --+ + R femoral vein ?? 8.5Fr ? --------- ----- + +---------+ --+ + R femoral artery 8Fr ? --------- ----- + +---------+ --+ + Percutaneous ? 8Fr, long Ablation ? Navistar SF ? epicardial ? Thermocool ? Bidirectional ? (DF ) 3.5mm ? + +---------+ --+ + Percutaneous ? 8Fr, long ---- Pig tail ? epicardial ? catheter for ? drainage ? + +---------+ --+ + EP STUDY: A comprehensive electrophysiology study with attempted induction was performed. Testing was done at baseline. Protocols included decremental pacing. Pacing and recording were carried out from the right atrial, right ventricular, coronar y sinus, and His bundle sites . AV MAYUR/HIS-PURKINJE CONDUCTION INTERVA LS: + + + State ? Baseline ? + + + Rhythm ? Sinus wi th frequent PVCs ? + + + Cycle length ? 730msec ? + + + A-H ? 55ms ? + + + H-V ? 55ms ? + + + A-V 1:1 ? 380ms ? + + + AV Wejossuekebach ? 370ms ? + + + V-A conduction ? Concentric ? + + + Dual AV mayur pathways No ? + + + Pre-excitation ? No ? + + + Comments ? There was 1:1 VA conduction to less ? than 310 ms. ? + + + Description of induced arrhythmia: Arrhythmia induction: ??Patient had mode rate ventricular ectopy at baseline. Frequency of ectopy was not af fected by sedation or general anesthesia. Burst RV pacing could induce ectopy, up to triplets. PVCs were positive in inferior leads with a L BBB pattern and postive in all precordial leads. There was a slugsh ini tial deflection, conssitent with suspected epicardial focus. Mapping: During initial catheter manipulation, th e sheath came out of the pericardial space - with the abaltion ca theter in the pericardium. Attempts to advance sheath over catheter failed, therefore we elected to obtain a separate epicardial access f or drainage. A second posterior epicardial acces was obtained using the same technique as described above. The mapping catheter was advanced into t he pericardial space and a 3-dimensional activation map of the clin ical PVCs was created using Carto. Points were also obtained from th e distal coronary sinus. The earliest recorded activation was at the LV summit. Activation there preceeded the onet of the QRS by 27 ms a nd unipolar had a QS morphology. Pace map had a 12/12 match. Of note, the timing on that area was similar to obtained on the jerod cent CS catheter, however the unipolar postentials were sharper. At th is point, Dr. Anthony scrubbed and performed left coronary art maria del rosario angiogram. Unfortunately, this demonstrated that the epicardial ta rget was next to the LAD and ramus, as was the distal coronary sinus. In light of that, abaltion would carry a very high risk of arterial damage and the procedure was aborted. Of note, previous mapping on th e LV and LVOT had not found any potential prior to QRS. One dose of intravenous verapamil was given without significant impact on the the ectopy frequency. Femoral artery angiogram demonstrated a high bifurcation and we opted for manual hold. Hemostasis. At the conclusions of the pr ocedure all venous and the arterial sheaths and catheters were evon karmen. Manual compression was applied to the puncture sites. Groin sit es were intact with no hematoma. The first epicardial sheath was removed. The second sheath was left in place for monitoring. No further epicard ial bleeding was seen. STUDY COMPLETION - Isovue Contrast: 60ml. - Intake: 2200ml - Output: 350ml - Estimated blood loss: 300ml. Clinical Trial: ??The patient is not enr olled in a clinical trial. At the completion of the procedure, find ings, results, any complications, and treatment plan were c ommunicated to the patient and reinforced after recovery from anesthesi a. With the patient's consent, the attending physician communicated fin dings, results, any complications, and treatment plan to [facility] and patient support persons who were present at the conclusion of the procedure. ?? Electronically signed by Aj Cantu MD, PhD 10/01/2012 09:47 Procedure Note 10/01/2012 *Cardiology* [address] [place] [address] Electrophysiology Study with Ablation Patient: Apolonia Vazquez Study Date: : 1960 Referring: Arlin Gandara Attending: Aj Cantu MD, PhD Fellow: Aj clancy Sa, MD Assisting: David Mcintosh Copies: SUMMARY OF PROCEDURE: - Baseline rhythm sinus rhythm. - Epicardial PVC mapping - Abaltion not performed as earliest foc us in close proximity to the LAD/ramus. - There were no complications. HISTORY AND INDICATIONS: 52 y.o. female with daily frequent symptomatic PVC despite use of metoprolo l. She also has PVC inducible LV dysfunction and chronic systolic hear t failure. An ablation was performed last fall and suggested epicar dial focus. Metoprolol was discontinued last week in anticipation f or the procedure. PVCs ANESTHESIA: Procedure was started with consious francisco tion and local anestheia. The anesthesiology department provided monit ored anesthesia care during epicardial acces. However due to ongoing chest pain, general anesthesia was used. PROCEDURE: The risks, benefits, and alternatives to the procedure were explained and informed consent was obtained. The patient name, date of , surgica l site, and procedure were verified prior to the procedure. The pat ient was brought to electrophysiology laboratory in the fast ing state. The groin was prepped and draped in the usual sterile manner. Local anesthestic was administered to the access site. The rig ht femoral vein, right femoral vein, and right femoral artery were ente red under fluoroscopic guidance . Sheath and catheter detail(s) in table below. All catheters were placed under fluoroscopic guidance. The attending physician was physically present for the entire Electrophysiology Study and/or Ablation procedure. The sub -xiphoid area was prepped and draped in the usual sterile manner. Local anesthestic was administered to the chest. A Tuohy needl e was slowly advanced towards the pericardium under fluoroscopic lyly nce. Access to the pericardial space was difficult and required multipl e attempts. At one point, the left pleural pace was entered. Finally a posterior pericardial access was obtained with a long needle and conf irmed by injecting a small amount of contrast. An 8 Fr Arrow sheath was then advanced into the pericardial space over the guidewire, wh ich was subsequently withdrawn. 140 cc of blood were aspirate d shortly after obtaining pericardial access. Several fluoroscopic views confirmed epicardial position. VASCULAR ACCESS AND CATHETER PROPERTIES: + +---------+ --+ + Entry site Sheath Locations Catheter + +---------+ --+ + L femoral vein 7Fr RA appendage 6 Fr hexapolar electrode catheter (2 mm spacing; proximal ring 25 cm from tip) + +---------+ --+ + L femoral vein 7Fr RV/Para-Hisian 7 F r deflectable quadrapolar electrode catheter (2mm spacing) + +---------+ --+ + L femoral vein 8.5Fr Coronary sinus B saundra Decapole 2-5-2 (VMTurbo), 6F + +---------+ --+ + R femoral vein 8.5Fr - + +---------+ --+ + R femoral artery 8Fr -- + +---------+ --+ + Percutaneous 8Fr, long Ablation Julesis tar SF epicardial Thermocool Bidirectional (DF ) 3.5mm + +---------+ --+ + Percutaneous 8Fr, long Pig tail epicardial catheter for drainage + +---------+ --+ + EP STUDY: A comprehensive electrophysiology study with attempted induction was performed. Testing was done at baseline. Protocols included decremental pacing. Pacing and recording were carried out from the right atrial, right ventricular, coronar y sinus, and His bundle sites . AV MAYUR/HIS-PURKINJE CONDUCTION INTERVA LS: + + + State Baseline + + + Rhythm Sinus with frequent PVCs + + + Cycle length 730msec + + + A-H 55ms + + + H-V 55ms + + + A-V 1:1 380ms + + + AV Aaronkebach 370ms + + + V-A conduction Concentric + + + Dual AV mayur pathways No + + + Pre-excitation No + + + Comments There was 1:1 VA conduction t o less than 310 ms. + + + Description of induced arrhythmia: Arrhythmia induction: Patient had modera te ventricular ectopy at baseline. Frequency of ectopy was not af fected by sedation or general anesthesia. Burst RV pacing could induce ectopy, up to triplets. PVCs were positive in inferior leads with a L BBB pattern and postive in all precordial leads. There was a slugsh ini tial deflection, conssitent with suspected epicardial focus. Mapping: During initial catheter manipulation, th e sheath came out of the pericardial space - with the abaltion ca theter in the pericardium. Attempts to advance sheath over catheter failed, therefore we elected to obtain a separate epicardial access f or drainage. A second posterior epicardial acces was obtained using the same technique as described above. The mapping catheter was advanced into t he pericardial space and a 3-dimensional activation map of the clin ical PVCs was created using Carto. Points were also obtained from th e distal coronary sinus. The earliest recorded activation was at the LV summit. Activation there preceeded the onet of the QRS by 27 ms a nd unipolar had a QS morphology. Pace map had a 12/12 match. Of note, the timing on that area was similar to obtained on the jerod cent CS catheter, however the unipolar postentials were sharper. At th is point, Dr. Anthony scrubbed and performed left coronary art maria del rosario angiogram. Unfortunately, this demonstrated that the epicardial ta rget was next to the LAD and ramus, as was the distal coronary sinus. In light of that, abaltion would carry a very high risk of arterial damage and the procedure was aborted. Of note, previous mapping on th e LV and LVOT had not found any potential prior to QRS. One dose of intravenous verapamil was given without significant impact on the the ectopy frequency. Femoral artery angiogram demonstrated a high bifurcation and we opted for manual hold. Hemostasis. At the conclusions of the pr ocedure all venous and the arterial sheaths and catheters were evon karmen. Manual compression was applied to the puncture sites. Groin sit es were intact with no hematoma. The first epicardial sheath was removed. The second sheath was left in place for monitoring. No further epicard ial bleeding was seen. STUDY COMPLETION - Isovue Contrast: 60ml. - Intake: 2200ml - Output: 350ml - Estimated blood loss: 300ml. Clinical Trial: The patient is not enrol led in a clinical trial. At the completion of the procedure, find ings, results, any complications, and treatment plan were c ommunicated to the patient and reinforced after recovery from anesthesi a. With the patient's consent, the attending physician communicated fin dings, results, any complications, and treatment plan to [facility] members and patient support persons who were present at the conclusion of the procedure. Electronically signed by Aj Cantu MD, PhD 10/01/2012 09:47 Performing Organization Address City/State/ZIP Code Phon e Number [facility] documented in this encounter Visit Diagnoses Diagnosis Premature ventricular contractions (PVCs ) (VPCs) - Primary Other premature beats documented in this encounter Care Teams [employer] Relationship Specialty Start Date End Date Arlin Gandara MD PCP - General 03/17/12 [address] [place] [address] documented as of this encounter
--- OUTSIDE RECORDS SUMMARY | 2021-12-16 00:48 | XMS_ITS | Encounter Summary ---
:1960 Author Organization [facility] Address [address] [place] [address] Care Team Providers Name Role Phone Arlin Gandara MD Primary Care Provider Reason for Visit Reason Comments Other PVCs Encounter Details Date Type Department Care Team Description 10/18/2012 Office Visit [facility] Aj Cantu Atr ial fibrillation Cardiology - Jessika Erickson MD ([facility]) (Primary [address]) [place], [place] [address] [place] [address], [facility] [address] [place] [address] (Wo rk) Social History Tobacco Use Types Packs/Day Years Used Date Never Smoker Smokeless Tobacco: Never Used Alcohol Use Standard Drinks/Week Comments No 0 (1 standard drink = 0.6 oz pure alcoho l) Sex Assigned at Date Recorded Not on file documented as of this encounter Last Filed Vital Signs Vital Sign Reading Time Taken Comments Blood Pressure 112/76 10/18/2012 1552 EDT Pulse 64 10/18/2012 1552 EDT Temperature - - Respiratory Rate - - Oxygen Saturation - - Inhaled Oxygen Concentration - - Weight 81.6 kg (180 lb) 10/18/2012 1552 EDT Height 165.1 cm (5' 5) 10/18/2012 1552 EDT Body Mass Index 29.95 10/18/2012 1552 EDT documented in this encounter Functional Status Cognitive Status Response Date of Assessment Because of a physical, mental, or emotional condition, do Ye s 09/29/2012 you have serious difficulty concentrating, remembering, or making decisions? (5 years old or older) documented as of this encounter Patient Instructions Patient InstructionsAj Cantu MD - 10/18/2012 17:09 EDT 1. Continue the metoprolol and mexitil 2. F/u with Dr. Luo and speak with him in detail regarding work related issues 3. Dr. Luo will contact me if we need to consider other options. 4. Start to advance your activity now via cardiorehab phase 3 at [facility] documented in this encounter Discharge Disposition Disposition Code Departure Means Destination Auto Discharge documented in this encounter Progress Notes Aj Cantu MD - 10/18/2012 1721 EDT Apolonia Vazquez is a 52 y.o.yo female presenting in clinic today status post EP study with epicardial mapping revealing PVC focus immediately adjacent to a large ramus branch. Patient was subsequently placed on metoprolol and mexiletine and feels somewhat better. She has some continued but not severe abdominal discomfort at the pericardial access sites. She has not otherwise had any chest pain chest pressure hemoptysis pain swallowing fevers night sweats chills exertional dyspnea. Chief Complaint Patient presents with ??? Other PVCs Past Medical History Diagnosis Date ??? Symptomatic PVCs ??? Blood transfusion 2000 ??? Macular degeneration ??? Fluid retention ??? History of blood transfusion ??? S/P ablation of ventricular arrhythmia mar 2012 Patient Active Problem List Diagnoses Date Noted ??? Symptomatic premature ventricular contractions 03/11/2012 Past Surgical History Procedure Date ??? Hysterectomy 2001 ??? Foot surgery right great toe tendon surgery x 2 ??? Cyst removal right neck No family history on file. History Social History ??? Marital Status: Spouse Name: N/A Number of Children: N/A ??? Years of Education: N/A Social History Main Topics ??? Smoking status: Never Smoker ??? Smokeless tobacco: Never Used ??? Alcohol Use: No ??? Drug Use: No ??? Sexually Active: None Other Topics Concern ??? None Social History Narrative ??? None Medications Prior to Today's Visit Medication Sig ??? furosemide (LASIX) 40 mg tablet Take 1 Tab by mouth daily. Change to one tab daily ??? pantoprazole (PROTONIX) 40 mg tablet Take 1 Tab by mouth daily. For 30 days and while on ibuprofen ??? mexiletine (MEXITIL) 200 mg capsule Take 1 Cap by mouth every 12 hours. Telephoned prescription to [facility] in [facility] 10/01/2012 ??? ibuprofen (MOTRIN) 600 mg tablet Take 1 Tab by mouth 3 times daily with meals. for 3 days then decrease to twice a day for 1-2 days then only as needed ??? aspirin chewable 81 mg tablet Take 1 Tab by mouth daily. ??? calcium citrate 200 mg (950 mg) Take 1 Tab by mouth daily. ??? Cholecalciferol, Vitamin D3, 400 unit Tab Take 0.5 Tabs by mouth daily. ??? furosemide (LASIX) 40 mg tablet Take 1 Tab by mouth every 48 hours. ??? furosemide (LASIX) 80 mg tablet Take 1 Tab by mouth every 48 hours. ??? acetaminophen-codeine (TYLENOL #3) 300-30 mg per tablet Take 1 Tab by mouth every 4 hours as needed for Pain. ??? metoprolol XL (TOPROL-XL) 50 mg tablet Take 50 mg by mouth daily. ??? lisinopril (PRINIVIL, ZESTRIL) 10 mg tablet Take 10 mg by mouth daily. ??? potassium chloride CR (KLOR-CON) 10 mEq TbER Take 10 mEq by mouth daily. ??? Multivitamins with Minerals Tab Take 2 Tabs by mouth 2 times daily. I-Caps ??? CALCIUM PHOSPHATE TRIB/VIT D3 (CITRACAL + D ORAL) Take by mouth daily. ??? furosemide (LASIX) 40 mg tablet Take 40-80 mg by mouth daily. Alternates dose QOD ??? pneumococcal vaccine (PPV23) (PNEUMOVAX) injection 0.5 mL ??? pantoprazole (PROTONIX) tablet 40 mg ??? ibuprofen (MOTRIN) tablet 600 mg ??? calcium citrate 200 mg (950 mg) tablet 200 mg ??? Multivitamins with Minerals tablet 1 Tab ??? lisinopril (PRINIVIL, ZESTRIL) tablet 10 mg ??? mexiletine (MEXITIL) capsule 200 mg ??? PEG 3350-Electrolytes (MIRALAX) packet 17 g ??? oxyCODONE-acetaminophen (PERCOCET) 5-325 mg per tablet 1 Tab ??? senna (SENOKOT) tablet 1-2 Tab ??? docusate sodium (COLACE) capsule 100 mg ??? metoprolol XL (TOPROL-XL) tablet 50 mg ??? acetaminophen (TYLENOL) tablet 650 mg ??? morphine injection 0.5-1 mg Allergies Allergen Reactions ??? Penicillins Swelling Swelling of body with black fingers ??? Adhesive Burnt skin ??? Latex, Natural Rubber Rash ??? Sulfa (Sulfonamide Antibiotics) Bloody nose ROS: Comprehensive 10 point ROS otherwise noncontributory. Objective: BP 112/76 Pulse 64 Ht 165.1 cm (65) Wt 81.647 kg (180 lb) BMI 29.95 kg/m2 Body mass index is 29.95 kg/(m^2). Physical Exam: General: Alert and cooperative and in no acute distress. Eyes: Conjunctivae not injected, nonicteric. Ears: Hearing grossly intact. Neck: No thyromegaly. Carotid upstroke normal, no carotid bruit and no JVD. Lungs: Clear to auscultation bilaterally. Heart: Regular, normal S1 and S2, no rub Abdomen: Soft, non-tender on palpation. Extremities: No peripheral edema. Pulses: Pedal pulses 2+ bilaterally. Lab Review: Admission on 09/29/2012, Discharged on 10/01/2012 Component Date Value ??? Sodium 09/29/2012 142 ??? Potassium 09/29/2012 4.0 ??? Chloride 09/29/2012 101 ??? CO2 09/29/2012 28 ??? BUN 09/29/2012 16 ??? Creatinine 09/29/2012 0.71 ? ? GFR, Calculated 09/29/2012 >60 ??? WBC 09/29/2012 5.72 ??? RBC 09/29/2012 4.71 ??? Hemoglobin 09/29/2012 13.8 ??? HCT 09/29/2012 40.0 ??? MCV 09/29/2012 85 ??? MCH 09/29/2012 29.3 ??? MCHC 09/29/2012 34.5 ??? PLT 09/29/2012 211 ??? RDW-CV 09/29/2012 12.5 ??? Pro Time 09/29/2012 10.0 ??? I.N.R. 09/29/2012 0.9 ??? Smear scan only: 09/29/2012 Slide was examined by a technologist to verify the WBC and/or platelet count. ??? ABO 09/29/2012 A ??? Rh Factor 09/29/2012 Negative ??? Antibody Screen 09/29/2012 Negative ??? Specimen Description 09/29/2012 Nasal ??? Result 09/29/2012 No Staphylococcus aureus detected by PCR. ??? WBC 09/29/2012 10.13 ??? RBC 09/29/2012 4.36 ??? Hemoglobin 09/29/2012 12.9 ??? HCT 09/29/2012 37.4 ??? MCV 09/29/2012 86 ??? MCH 09/29/2012 29.6 ??? MCHC 09/29/2012 34.5 ??? PLT 09/29/2012 165 ??? RDW-CV 09/29/2012 12.6 ??? Neutrophils 09/29/2012 87.3* ??? Lymphocytes 09/29/2012 7.5* ??? Monocytes 09/29/2012 4.6 ??? Eosinophils 09/29/2012 0.1* ??? Basophils 09/29/2012 0.5 ??? ABS Neutrophils 09/29/2012 8.83 ??? ABS Lymphs 09/29/2012 0.76* ??? ABS Monocytes 09/29/2012 0.47 ??? ABS Eosinophils 09/29/2012 0.01* ??? ABS Basophils 09/29/2012 0.06 ??? Type of Diff: 09/29/2012 Automated ??? Sodium 09/30/2012 138 ??? Potassium 09/30/2012 4.1 ??? Chloride 09/30/2012 104 ??? CO2 09/30/2012 24 ??? BUN 09/30/2012 16 ??? Creatinine 09/30/2012 0.75 ? ? GFR, Calculated 09/30/2012 >60 ??? Glucose, Serum 09/30/2012 107* ??? Magnesium 09/30/2012 2.0 ??? WBC 09/30/2012 8.86 ??? RBC 09/30/2012 4.08 ??? Hemoglobin 09/30/2012 12.0 ??? HCT 09/30/2012 35.0 ??? MCV 09/30/2012 86 ??? MCH 09/30/2012 29.5 ??? MCHC 09/30/2012 34.4 ??? PLT 09/30/2012 167 ??? RDW-CV 09/30/2012 12.5 ??? Neutrophils 09/30/2012 73.0 ??? Lymphocytes 09/30/2012 17.7 ??? Monocytes 09/30/2012 7.8 ??? Eosinophils 09/30/2012 0.5* ??? Basophils 09/30/2012 1.0 ??? ABS Neutrophils 09/30/2012 6.47 ??? ABS Lymphs 09/30/2012 1.57 ??? ABS Monocytes 09/30/2012 0.69 ??? ABS Eosinophils 09/30/2012 0.04 ??? ABS Basophils 09/30/2012 0.09 ??? Type of Diff: 09/30/2012 Automated ??? Sodium 10/01/2012 138 ??? Potassium 10/01/2012 4.4 ??? Chloride 10/01/2012 104 ??? CO2 10/01/2012 27 ??? BUN 10/01/2012 17 ??? Creatinine 10/01/2012 0.82 ? ? GFR, Calculated 10/01/2012 >60 ??? Magnesium 10/01/2012 2.2 ??? WBC 10/01/2012 6.39 ??? RBC 10/01/2012 3.67* ??? Hemoglobin 10/01/2012 11.0* ??? HCT 10/01/2012 31.5* ??? MCV 10/01/2012 86 ??? MCH 10/01/2012 29.9 ??? MCHC 10/01/2012 34.8 ??? PLT 10/01/2012 142 ??? RDW-CV 10/01/2012 12.8 ??? Neutrophils 10/01/2012 61.0 ??? Lymphocytes 10/01/2012 30.8 ??? Monocytes 10/01/2012 5.6 ??? Eosinophils 10/01/2012 2.0 ??? Basophils 10/01/2012 0.6 ??? ABS Neutrophils 10/01/2012 3.90 ??? ABS Lymphs 10/01/2012 1.97 ??? ABS Monocytes 10/01/2012 0.36 ??? ABS Eosinophils 10/01/2012 0.13 ??? ABS Basophils 10/01/2012 0.04 ??? Type of Diff: 10/01/2012 Automated EKG demonstrates normal sinus rhythm no PVCs Holter monitor on 11 October demonstrates a PVC burden of 14%. Assessment and Plan: The patient is feeling better on the current medical regimen therefore at this point I think is reasonable for her to continue it. She is fairly deconditioned following her procedure which was arduous therefore am recommending that she continue to not work until she sees Dr. Luo in another couple of weeks. She will continue to followup with Dr. Luo. I will be visiting Dr. Zepeda's lab at the [facility] later this week and will discuss with Bill options in this particular setting. I will followup with Dr. Luo regarding my discussion. I met with the patient for 30 minutes [id number] 20 minutes of which were spent providing counseling. Aj Cantu MD 10/18/2012 17:21 documented in this encounter Procedure Notes GENERAL EXPEDITOR, SCAN 2 - 10/20/2012 1428 EDTAssociated Order(s): ECG REPORT - SCANNED documented in this encounter Plan of Treatment Upcoming Encounters Date Type Specialty Care Team Description 09/05/2022 Office Visit Cardiology Regan Luo MD [address] [place] [address] [address] [place] [phone] (Wo rk) Scheduled Orders Name Type Priority Associated Diagnoses Order S chedule EKG 12-LEAD ECG Routine Atrial fibrillation ([facility] ) Ordered: 10/18/2012 documented as of this encounter Procedures Procedure Name Priority Date/Time Associated Diagnosis Comme nts ECG REPORT - 10/20/2012 14:28 Results for this SCANNED EDT procedure are i n the results section. EKG 12-LEAD Routine 10/18/2012 16:19 Atrial fibrillation Resu lts for this EDT (CMS-HCC) procedure are i n the results section. documented in this encounter Results ECG REPORT - SCANNED (10/20/2012 14:28 EDT) Specimen Narrative 10/20/2012 19:55 EDT Procedure Note GENERAL EXPEDITOR, SCAN 2 - 10/20/2012 14:28 EDT EKG 12-LEAD (10/18/2012 16:19 EDT) Specimen Narrative [facility] - 10/19/2012 11 :01 EDT ?[facility] ? Test Date: ?2012-10-18 Pat Name: ? APOLONIA VAZQUEZ ?Department: ?? Jessika Card ? Room: ? Gender: ? F ?[employer]ing: ?? [id number] : ?1960 ? Requested By: AJ CANTU MD Order Number: [id number] ?Reading : ?? RONNY ALONSO MD ? Measurements Intervals ?[place] ? Rate: ? 58 ? P: ?43 TN: ? 147 ?QRS: ?10 QRSD: ? 89 ? T: ?-22 QT: ? 413 ? QTc: ?410 ? 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: [id number] : 1960 Requested By: AJ PIERRE MD Order Number: [id number] Reading MD: RAFAEL ALONSO MD Measurements Intervals [place] Rate: 58 P: 43 TN: 147 QRS: 10 QRSD: 89 T: -22 QT: 413 QTc: 410 Interpretive Statements SINUS BRADYCARDIA NONSPECIFIC ST Compared to ECG 09/29/2012 15:17:00 Sinus bradycardia now present Electronically Signed On 10-19-12 11:01: 28 EDT by RONNY ALONSO MD Performing Organization Address City/State/ZIP Code Phon e Number [facility] [address] [facility] [address] [facility] [address] [place], [place] [address] documented in this encounter Visit Diagnoses Diagnosis Atrial fibrillation (HCC-CMS) (HCC) - Pr imary Atrial fibrillation documented in this encounter Discontinued Medications Medication Sig Discontinue Reason Start Date End Date calcium citrate 200 mg Take 1 Tab by Patient Stopped Taking 012 10/18/2012 (950 mg) mouth daily. documented as of this encounter Care Teams Set Decorator Relationship Specialty Start Date End Date Arlin Gandara MD PCP - General 03/17/[address] [place] [phone] documented as of this encounter
--- OUTSIDE RECORDS SUMMARY | 2021-12-16 00:48 | XMS_ITS | Encounter Summary ---
:1960 Author Organization [facility] Address [address] [place] [address] Care Team Providers Name Role Phone Arlin Gandara MD Primary Care Provider Encounter Details Date Type Department Care Team Description 11/25/2013 - [facility] Gabriel Garrison MD [address] [place] [id number] Symptomatic premature ventricular contra ctions (Primary Dx); 11/28/2013 Encounter Cardiac/Telemetry LobelNiko MD [address] [id number] Ventricular tachycardia (CMS-HCC); Unit Heart failure, left systolic , chronic (CMS-HCC); [address] [place] [address] Premature ventricular contra ctions (PVCs) (VPCs) [place], [place] [id number] Social History Tobacco Use Types Packs/Day Years Used Date Never Smoker Smokeless Tobacco: Never Used Alcohol Use Standard Drinks/Week Comments No 0 (1 standard drink = 0.6 oz pure alcoho l) Sex Assigned at Date Recorded Not on file documented as of this encounter Last Filed Vital Signs Vital Sign Reading Time Taken Comments Blood Pressure 110/59 11/28/2013 0852 EDT Pulse 70 11/27/2013 1940 EDT Temperature 36.2 ??C (97.2 ??F) 11/28/2013 0852 EDT Respiratory Rate 16 11/28/2013 0852 EDT Oxygen Saturation 98% 11/28/2013 0852 EDT Inhaled Oxygen Concentration - - Weight 80.2 kg (176 lb 11.2 oz) 11/25/20132029 EDT Height 162.6 cm (5' 4) 11/25/20132029 EDT Body Mass Index 30.33 11/25/20132029 EDT documented in this encounter Functional Status Functional [...] or older) documented as of this encounter Discharge Summaries Niko Forte MD - 11/27/2013 1754 EDT Discharge Summary Discharge Date: 11/28/13 Chief Complaint/Reason for Admission: Palpitations, fatigue Principal/Final Diagnosis: PVC, NVST Principal Procedure: none Secondary Procedures: Not applicable Condition at Discharge: Improved and Stable Assessment at Discharge: Vital signs: Patient Vitals for the past 12 hrs: BP Heart Rate Resp Temp SpO2 O2 Device 11/28/13 0852 110/59 mmHg 68 BPM 16 36.2 ??C (97.2 ??F) 98 % Room air 11/28/13 0800 - 71 BPM - - - - 11/28/13 0700 - 57 BPM - - - - 11/28/13 0605 - 55 BPM - - - - 11/28/13 0520 123/69 mmHg 62 BPM 16 35.8 ??C (96.4 ??F) 97 % Room air 11/28/13 0404 - 55 BPM - - - - 11/28/13 0305 - 55 BPM - - - - 11/28/13 0224 - 56 BPM - - - - 11/28/13 0056 - 66 BPM - - - - 11/27/13 2328 108/51 mmHg 63 BPM 16 36.4 ??C (97.5 ??F) 97 % Room air Hospital Course: Hailey Vazquez is a 53 y.o. female with complex hx of symptomatic pvcs and vtach who presents with palpitations and fatigue over the past three weeks. Day of admission, Dr. Bush noticed increased ectopy and reccommended her for transfer to [facility] for further evaluation, she was transferred on amiodarone. Upon arrival, she noticed an increased SOTO but otherwise felt well. She continued her home metoprolol, lisinopril, and lasix. She was started on IV amiodarone and transitioned to PO amiodarone the day after admission (11/27). She had an echo on 11/28 which revealed chronic left systolic heart failure with LVEF of 35-40%. Patient had improvement in symptoms with the amiodarone. She is to continue ami odarone 400mg TID for 1 week and then take amiodarone 200mg once daily. Upon discharge, patient was clinically stable. She was eating and ambulating well. She denied any chest pain, shortness of breath, nausea, vomiting. Patient will follow up with Kareem Luo of [facility] ([phone]) on 12/13/13 2:15pm. Immunization History Administered Date(s) Administered ? ? Pneumococcal Polysaccharide Vaccine (PPSV23) =>2YO SQ/IM 10/01/2012 Relevant Studies at Discharge: Echo (11/28): left systolic heart failure with LVEF of 35-40%. Diffuse hypokinesis Last Lab Results at Discharge: BUN: Lab Results Component Value Date BUN 14 11/28/2013 Creatinine: Lab Results Component Value Date CREATININE 0.70 11/28/2013 CBC: Lab Results Component Value Date WBC 4.51 11/28/2013 RBC 4.44 11/28/2013 HGB 12.8 11/28/2013 HCT 37.8 11/28/2013 MCV 85 11/28/2013 MCH 28.9 11/28/2013 MCHC 34.0 11/28/2013 PLT 195 11/28/2013 DIFFTYPE Automated 10/01/2012 Electrolytes: Lab Results Component Value Date NA 140 11/28/2013 K 3.9 11/28/2013 CL 101 11/28/2013 CO2 31 11/28/2013 No results found for this basename: HGBA1C Meds at Discharge: Medication List START taking these medications * amiodarone 200 mg tablet Commonly known as: PACERONE Take 2 Tabs by mouth 3 times daily Take 400 mg (2 tabs by mouth 3 times daily) through 12/03/13.. * amiodarone 200 mg tablet Commonly known as: PACERONE Take 1 Tab by mouth daily Begin taking 1 tab (200mg) by mouth daily on 12/04/13.. * Notice: This list has 2 medication(s) that are the same as other medications prescribed for you. Read the directions carefully, and ask your doctor or other care provider to review them with you. CHANGE how you take these medications lisinopril 5 mg tablet Commonly known as: PRINIVIL, ZESTRIL Take 1 Tab by mouth daily. What changed: medication strength CONTINUE taking these medications CITRACAL + D ORAL Take by mouth daily. furosemide 40 mg tablet Commonly known as: LASIX Take 1 Tab by mouth daily. Change to one tab daily ibuprofen 600 mg tablet Commonly known as: MOTRIN Take 1 Tab by mouth 3 times daily with meals. for 3 days then decrease to twice a day for 1-2 days then only as needed metoprolol XL 50 mg tablet Commonly known as: TOPROL-XL Take 1 Tab by mouth daily. Multivitamins with Minerals tablet Take 2 Tabs by mouth 2 times daily. I-Caps pantoprazole 40 mg tablet Commonly known as: PROTONIX Take 1 Tab by mouth daily. For 30 days and while on ibuprofen potassium chloride CR 10 mEq tablet extended release Commonly known as: KLOR-CON Take 10 mEq by mouth daily. STOP taking these medications mexiletine 200 mg capsule Commonly known as: MEXITIL Discharge Summary Completed: Dario Matamoros M.D. Internal Medicine, PGY-1 Attestation statement: I saw and examined the patient with the resident/fellow. I agree with the findings and plan of care documented in the resident's/fellow's note. documented in this encounter Discharge Instructions AppointmentsDario Matamoros MD - 11/28/2013 13:21 EDT Follow up appointment is scheduled with Kareem Luo of [facility] on Friday, December 13, 2013 at 2:15pm. Please call [phone] to confirm your appointment. It is important you follow up for proper medical management. documented in this encounter Medications at Time of Discharge Medication Sig Dispensed Refills Start Date End Date CALCIUM PHOSPHATE Take by mouth daily. 0 TRIB/VIT D3 (CITRACAL + D ORAL) ibuprofen (MOTRIN) 600 mg Take 1 Tab by mouth 20 Tab 0 0 10/01/2012 tablet 3 times daily with meals. for 3 days then decrease to twice a day for 1-2 days then only as needed Multivitamins with Take 2 Tabs by mouth 0 Minerals Tab 2 times daily. I-Caps amiodarone (PACERONE) 200 Take 2 Tabs by mouth 32 Tab 0 11/28/2013 05/27/2019 mg tablet 3 times daily Take 400 mg (2 tabs by mouth 3 times daily) through 12/03/13.. amiodarone (PACERONE) 200 Take 1 Tab by mouth 30 Tab 2 0 11/28/2013 05/27/2019 mg tablet daily Begin taking 1 tab (200mg) by mouth daily on 12/04/13.. furosemide (LASIX) 40 mg Take 1 Tab by mouth 1 Tab 0 12/17/2020 tablet daily. Change to one tab daily lisinopril (PRINIVIL, Take 1 Tab by mouth 30 Tab 2 11/2802/08/2020 ZESTRIL) 5 mg tablet daily. metoprolol XL (TOPROL-XL) Take 1 Tab by mouth 30 Tab 2 0 11/28/2013 01/27/2020 50 mg tablet daily. pantoprazole (PROTONIX) Take 1 Tab by mouth 30 Tab 0 07/201205/27/2019 40 mg tablet daily. For 30 days and while on ibuprofen potassium chloride CR Take 10 mEq by mouth 0 02/08/2020 (KLOR-CON) 10 mEq TbER 2 times daily. documented as of this encounter Ordered Prescriptions Prescription Sig Dispensed Refills Start Date End Date amiodarone (PACERONE) 200 Take 1 Tab by mouth 30 Tab 2 0 11/28/2013 05/27/2019 mg tablet daily Begin taking 1 tab (200mg) by mouth daily on 12/04/13.. metoprolol XL (TOPROL-XL) Take 1 Tab by mouth 30 Tab 2 0 11/28/2013 01/27/2020 50 mg tablet daily. lisinopril (PRINIVIL, Take 1 Tab by mouth 30 Tab 2 11/2802/08/2020 ZESTRIL) 5 mg tablet daily. amiodarone (PACERONE) 200 Take 2 Tabs by mouth 32 Tab 0 11/28/2013 05/27/2019 mg tablet 3 times daily Take 400 mg (2 tabs by mouth 3 times daily) through 12/03/13.. documented in this encounter Discharge Disposition Disposition Code Departure Means Destination Home or Self Care documented in this encounter Progress Notes Cande Gonsalez RN - 11/28/2013 1116 EDT Case Management Assessment Working Diagnosis/Presenting Problem: 53 year old female. Transfer from OSH with short bursts of non-sustained ventricular tachycardia. Living Arrangements: Hailey lives with her Sam in a one level home. There are six steps toenter which she denies difficulty ambulating. 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 Social Supports: , children. Existing Community Resources: PCP is Dr. Gandara, uses [facility]. Advanced Directives/DPOA: On file. Cultural/Spiritual Needs: Spiritual Insurance/Financial Needs: [employer] Transportation Needs: to provide. Patient Goals: To return home when medically ready. Assessment and Discharge Care Plan: Patient is independent. Plan will be d/c home when medically stable. No CM needs identified. CM will continue to follow. Cande Gonsalez RN [facility] #[id number] Eve Kohli MD - 11/27/2013 1057 EDT Cardiology Daily Progress Note Admit Date: 11/25/2013 Date of Service: 11/27/2013 Hospital LOS: 2 days CC: Palpitations Problems/Diagnosis: NSVT, PVC Overnight Events: No acute events Subjective: Reports feeling better this morning. Palpitations have continued to improve. She currently denies any chest pain, shortness of breath, nausea, vomiting. Review of Systems: A 10-point ROS was performed. Pertinent positives are listed above; all others negative unless otherwise noted. Medication Changes for the Day: All other medications were reviewed by me. Current Facility-Administered Medications Medication Route Frequency ??? acetaminophen (TYLENOL) tablet 650 mg oral Q6H PRN ??? amiodarone (PACERONE) tablet 400 mg oral TID ??? docusate sodium (COLACE) capsule 100 mg oral BID PRN ??? furosemide (LASIX) tablet 40 mg oral DAILY ??? heparin injection 5,000 Units subcutaneous Q8H ??? lisinopril (PRINIVIL, ZESTRIL) tablet 5 mg oral DAILY ??? LORazepam (ATIVAN) tablet 1 mg oral TID PRN ??? metoprolol XL (TOPROL-XL) tablet 50 mg oral DAILY ??? senna (SENOKOT) tablet 2 Tab oral AT BEDTIME PRN Objective: Physical Exam: VS: BP 132/54 Temp(Src) 36 ??C (96.8 ??F) (Tympanic) Resp 16 Ht 162.6 cm (64) Wt 80.151 kg (176 lb 11.2 oz) BMI 30.32 kg/m2 SpO2 98% General appearance: alert, cooperative, no distress Head: Normocephalic, without obvious abnormality, atraumatic Lungs: clear to auscultation bilaterally Heart: regular rate and rhythm, S1, S2 normal, no murmur, click, rub or gallop Abdomen: soft, non-tender; bowel sounds normal Extremities: extremities warm, atraumatic, no cyanosis or edema Labs: CBC: Recent Labs 11/25/13212111/26/1334 11/27/13 05 WBC 6.36 5.06 5.52 HGB 13.9 12.2 13.1 HCT 40.0 35.6 38.5 MCV 85 85 85 PLT 213 178 198 BMP: Recent Labs 11/25/13212111/26/13 0534 11/27/13 0527 NA 143 140 141 K 3.8 3.4* 4.2 CL 102 102 99 CO2 30 28 32 BUN 13 14 11 CREATININE 0.71 0.60 0.80 Assessment: Pt is a 53 y.o. female with hx of PVC induced cardiomyopathy (reduced EF) and 2 prior VT ablations (endocardial and epicardial mapping) who presented with palpitations and fatigue for the past 3 weeks with PVCs and NSVT. Started on amio gtt with significant improvement in PVCs and NSVT, and being transitioned to PO amio. Plan: Symptomatic PVCs and NSVT -transition from amio infusion to PO amio 400 TID this morning -continue home toprol xl 50 mg daily -continue home joao 5mg daily and lasix 40 mg daily PPX: heparin tid Code status: FULL CODE Dispo: pending clinical course Dario Matamoros M.D. Internal Medicine, PGY-1 I have evaluated the patient. I agree with the assessment and plan as outlined above by Dr. Matamoros. EVE GARRISON MD Attending Improvement Nurse Eve rivera MD - 11/26/2013 1025 EDT Cardiology Daily Progress Note Admit Date: 11/25/2013 Date of Service: 11/26/2013 Hospital LOS: 1 day CC: Palpitations Problems/Diagnosis: NSVT, PVC Overnight Events: Admitted overnight Subjective: Reports feeling better this morning. Headache and palpitations have improved. Review of Systems: A 10-point ROS was performed. Pertinent positives are listed above; all others negative unless otherwise noted. Medication Changes for the Day: All other medications were reviewed by me. Current Facility-Administered Medications Medication Route Frequency ??? acetaminophen (TYLENOL) tablet 650 mg oral Q6H PRN ??? amiodarone in dextrose 360 mg/200 mL (1.8 mg/mL) infusion intravenous CONTINUOUS ??? docusate sodium (COLACE) capsule 100 mg oral BID PRN ??? furosemide (LASIX) tablet 40 mg oral DAILY ??? heparin injection 5,000 Units subcutaneous Q8H ??? lisinopril (PRINIVIL, ZESTRIL) tablet 5 mg oral DAILY ??? LORazepam (ATIVAN) tablet 1 mg oral TID PRN ??? metoprolol XL (TOPROL-XL) tablet 50 mg oral DAILY ??? senna (SENOKOT) tablet 2 Tab oral AT BEDTIME PRN Objective: Physical Exam: VS: BP 118/68 Temp(Src) 36.5 ??C (97.7 ??F) (Tympanic) Resp 18 Ht 162.6 cm (64) Wt 80.151 kg (176 lb 11.2 oz) BMI 30.32 kg/m2 SpO2 100% General appearance: alert, cooperative, no distress Head: Normocephalic, without obvious abnormality, atraumatic Eyes: conjunctivae/corneas clear. PERRL, EOM's intact Lungs: clear to auscultation bilaterally Heart: regular rate and rhythm, S1, S2 normal, no murmur, click, rub or gallop Abdomen: soft, non-tender; bowel sounds normal Extremities: extremities warm, atraumatic, no cyanosis or edema Labs: CBC: Recent Labs 11/25/132 11/26/13 0534 WBC 6.36 5.06 HGB 13.9 12.2 HCT 40.0 35.6 MCV 85 85 PLT 213 178 BMP: Recent Labs 11/25/132 11/26/13 0534 NA 143 140 K 3.8 3.4* CL 102 102 CO2 30 28 BUN 13 14 CREATININE 0.71 0.60 Assessment: Pt is a 53 y.o. female with hx of PVC induced cardiomyopathy (reduced EF) and 2 prior VT ablations (endocardial and epicardial mapping) who presented with palpitations and fatigue for the past 3 weeks with PVCs and NSVT. Started on amio gtt overnight with significant improvement in PVCs and NSVT. Plan: Symptomatic PVCs and NSVT -continue amio infusion at 1 mg/min -continue home toprol xl 50 mg daily -continue home joao 5mg daily and lasix 40 mg daily -dc'd home mexilitene on admission PPX: heparin tid Code status: FULL CODE Dispo: pending clinical course Ashwini Youssef M.D. M.P.H PGY-2, #[id number] I have seen and evaluated the patient. I agree with the assessment and plan as outlined above by . We will proceed as outlined above to treat the frequent NSVT. EVE GARRISON MD Attending Cardiologist documented in this encounter H&P Notes Eve Garrison MD - 11/25/2013 8530 EDT Internal Medicine Admission H&P Admission Date: 11/25/2013 PCP: Arlin Gandara MD CC: Vtach Subjective: HPI: Hailey Vazquez is a 53 y.o. year old female with complex hx of symptomatic pvcs and vtach who presents with palpitations and fatigue over the past three weeks. 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 Dr. Bush noticed increased ectopy and reccommended her for transfer to [facility] for further evaluation, she was transferred on amiodarone. Her last dose of mexiletine was this am at 0530. Currently she says thatshe noticed an increased SOTO since she has arrived but otherwise feels well. Review of Systems A ten point review of systems performed and negative except as noted in HPI/subjective PMH PSH Past Medical History Diagnosis Date ??? Symptomatic PVCs ??? Blood transfusion 2000 ??? Macular degeneration ??? Fluid retention ??? History of blood transfusion ??? S/P ablation of ventricular arrhythmia mar 2012 Past Surgical History Procedure Laterality Date ??? Hysterectomy 2001 ??? Foot surgery right great toe tendon surgery x 2 ??? Cyst removal right neck Social History Family history History Substance Use Topics ??? Smoking status: Never Smoker ??? Smokeless tobacco: Never Used ??? Alcohol Use: No Brother with cardiomyopathy 2/2 etoh Current Facility-Administered Medications Medication Route Frequency ??? acetaminophen (TYLENOL) tablet 650 mg oral Q6H PRN ??? amiodarone in dextrose 360 mg/200 mL (1.8 mg/mL) infusion intravenous CONTINUOUS ??? docusate sodium (COLACE) capsule 100 mg oral BID PRN ??? [START ON 11/26/2013] furosemide (LASIX) tablet 40 mg oral DAILY ??? [START ON 11/26/2013] heparin injection 5,000 Units subcutaneous Q8H ??? [START ON 11/26/2013] lisinopril (PRINIVIL, ZESTRIL) tablet 5 mg oral DAILY ??? [START ON 11/26/2013] metoprolol XL (TOPROL-XL) tablet 50 mg oral DAILY ??? senna (SENOKOT) tablet 2 Tab oral AT BEDTIME PRN Allergies Allergies Allergen Reactions ??? Penicillins Swelling Swelling of body with black fingers ??? Adhesive Burnt skin ??? Latex, Natural Rubber Rash ??? Sulfa (Sulfonamide Antibiotics) Bloody nose Objective: Patient Vitals for the past 8 hrs: BP Heart Rate Resp Temp SpO2 O2 Device 11/25/132012 148/88 mmHg 77 BPM 18 36.6 ??C (97.9 ??F) 100 % Room air General appearance: alert, cooperative, no distress Head: Normocephalic, without obvious abnormality, atraumatic Eyes: conjunctivae/corneas clear. PERRL, EOM's intact Lungs: clear to auscultation bilaterally Heart: regular rate and rhythm, S1, S2 normal, no murmur, click, rub or gallop Abdomen: soft, non-tender; bowel sounds normal; no masses, no organomegaly Neurologic: Grossly normal Mental Status: awake and alert; oriented to person, place, and time Extremities: extremities warm, atraumatic, no cyanosis or edema Skin: Skin color, temperature, turgor normal. No rashes or lesions Data Review: Labs pending Assessment: 53 y.o. female with symptomatic pvcs and non-sustained vtach Plan: Symptomatic PVCs and NSVT -continue amio infusion at 1 mg/min -continue home toprol xl -continue home joao and lasix -formal ep evaluation in the am -dc mexilitene PPX: heparin tid Code status: FULL CODE Dispo: pending clinical course Yaz Bansal MD Pager # [phone] 11/25/2013 21:45 Addendum 11/25/2013 Agree with above assessment and plan. 53 year old female. Transfer from OSH with short bursts of non-sustained ventricular tachycardia. Complex hx of PVC induced cardiomyopathy (reduced EF) and 2 prior VT ablations (endocardial and epicardial mapping). Both unsuccessful as focus of PVC's close to LMCA/RI. Focus of PVC's apparently close to LVOT. Has been seen by EP in [place] previously. Currently complains of headache. Intermittent palpitations. No recent syncope. Telemetry - multiple short bursts of NSVT. Frequent PVC's. Impression: NSVT & frequent ventricular ectopy Plan: Amiodarone IV 1 mg/min, continue home B-po, stop Mexiletine. Replete electrolytes. Check baseline LFT's and TFT's Consider switching to po loading of Amiodarone in next 24-48 hours Repeat cardiac echo May need transfer to [place] (need for repeat attempt at VT ablation?) - if unable to suppress ectopy Sera Garcia MD Pager # [phone] I have evaluated the patient with Dr. Garcia (on 11/25/2013). I agree with his assessment and plan as outlined above. We will continue IV amiodarone for now and consider switching to oral tomorrow. For now, the ventricular ectopy seems to have decreased. EVE GARRISON MD Attending Cardiologist documented in this encounter Miscellaneous Notes Plan of Care - Mary Gann RN - 11/28/2013 1413 EDT D: Patient discharged home per MD. A: IV removed, catheter tip intact. Telemetry removed. RN reviewed discharge instructions and medications with patient and . Patient received prescriptions, medication sheets, and discharge instructions. R: Patient expressed good understanding of discharge instructions. They have no questions at this time. Patient dressed independently. They left via ambulating in stable condition. [facility] RN lan of Care - Niko Forte MD - 11/28/2013 1231 EDT PVC's suppressed with amiodarone Still with occasional ventricular ectopy Can send home today on amio 400 tid, drop to 200 daily in 1 week Follow up outpt with Dr. Luo lan of Care - Cailin Beauchamp RN - 11/28/2013 0110 EDT Problem: CIRCULATORY STATUS Goal: Patient Has Stable Vital Signs And Fluid Balance Outcome: Ongoing D: Pt awake in bed at 23:28. VSS, pt on RA sat 97%. Lungs CTA. Pt denies pain or sob at this time. Stated she was slight LENZ to BR. Pt in NSR with freq pvc's on monitor. A: Assessment done. Explained to pt she was scheduled for echo in am. Instructed pt to call if she has pain or sob. R: Pt states she understands. Will continue to monitor. lan of [facility] - Felix Stanley - 11/27/2013 1658 EDT Problem: FALL RISK Goal: Patient will Remain Free of Falls due to Altered Mobility Intervention: Encourage patient ambulation Data: Pt is completely independent and ambulating on the floor regularly. Pt ambulates to the solarium Action: VS and assessment completed. Response: Pt pain free and has no complaints. Felix Stanley RN 11/27/2013 16:51 lan of Care - Pinky Strickland RN - 11/27/2013 1013 EDT Problem: CIRCULATORY STATUS Goal: Patient Has Stable Vital Signs And Fluid Balance Outcome: Ongoing D: amio gtt at 1mcg/min. nsr with occ PVCs. States to have had 1 episode early this am when I coughand can't catch my breath. Denies any symptoms at this time. A: Amio gtt stopped and oral started per order. Pt education provided. R: denies any questions at this time. CTM. 1409- continues to have intermittent bi/trigemeny. States to still have period episodes of rapid onset chest spasming. Denies any other symptoms. CTM. lan of [facility] - Geri Humphries RN - 11/26/2013 205 EDT Problem: CIRCULATORY STATUS Goal: Patient Has Stable Vital Signs And Fluid Balance D: Assumed care of patient at 1900, denies pain or SOB at this time. VSS, tele shows NSR with occasional PVCs. Ecotpy much less frequent than last evening. HR 60s. No edema. Continent, voiding appropriately. No edema. States has intermittent nausea, though feels this is well controlled without the useof antiemetic. Using mary beth allyson which patient believes helps her. She denies dizziness, and/or CP/pressure. Amio gtt. Infusing. A: See MAR and DOC flow sheets. No complaints at this time. R: Continue to monitor. 0100: Pt. Awoke with coughing spell. States that she woke up coughing and feels like she has to expectorate sputum though cannot. She has had occasional bi- geminal and tri-geminal PVCs, though only briefly, currently having occasional PVCs. She states this problem has been ongoing prior to hospitalization and it spontaneously resolves after a few minutes. She does not note any alleviating treatmentsfrom home. She denies dizziness, CP/pressure, nausea at this time. WCM. VSS. Lungs sounds clear. 0130: Pt. Resting comfortably at this time. WCM lan of [facility] - Niko Blair, RN - 11/26/2013 1546 EDT Problem: CIRCULATORY STATUS Goal: Patient Has Stable Vital Signs And Fluid Balance Intervention: Assess rate, rhythm and regularity of pulses Including apical assessment for cardiology patients. D: Patient complained of 3/10 pain. Located head A: Pain interventions are 650 of tylenol R: Will continue to monitor and assess. 1600: Confirmed with Dr. Kate that we will not be halfing the amiodarione tonight and hopefully the patient will be converted to PO tomorrow morning. lan of [facility] Shani Reece RN - 11/26/2013 1052 EDT Problem: CIRCULATORY STATUS Goal: Patient Has Stable Vital Signs And Fluid Balance BP 118/68 Temp(Src) 36.5 ??C (97.7 ??F) (Tympanic) Resp 18 Ht 162.6 cm (64) Wt 80.151 kg (176 lb 11.2 oz) BMI 30.32 kg/m2 SpO2 100% D: Assumed care of patient. Patient denies pain or SOB at this time. Patient SR on tele with occasional PVC'S. A: See MAR and DOC flow sheets. No complaints at this time. R: Continue to monitor. lan of Care - Geri Humphries RN - 11/25/2013 2100 EDT Problem: CIRCULATORY STATUS Goal: Patient Has Stable Vital Signs And Fluid Balance D: Patient arrived to [place] [address] at 2014 via ambulance transfer from OSH with Amiodarone gtt running.Vital signs noted and stable, and tele applied. Patient in SR w/bigeminal and trigeminal PVCs, with NSVT, 3-6 beats, with heart rates 60-70s. Patient has occasional chest pressure with PVCs. She deniespain, SOB, dizziness, and/or vision changes. A + O x3, very pleasant, in no acute distress. No edema, voided upon arrival. Lungs clear. Amio gtt dc'd per EMS staff ppc. MD at bedside. at bedside. A; Assessment as documented in flow sheet. Admission database completed. Patient orientated to room,equipment, and care plan. Discussed use of call monique due to cardiac ectopy. Verbalizes understanding. R: Continue to monitor and document per protocol. documented in this encounter Plan of Treatment Upcoming Encounters Date Type Specialty Care Team Description 09/05/2022 Office Visit Cardiology Regan Luo MD [address] [place] [address] [address], [place] [phone] (Wo rk) documented as of this encounter Procedures Procedure Name Priority Date/Time Associated Comments Diagnosis ECG REPORT - SCANNED 12/01/2013 12:55 EDT ECG REPORT - SCANNED 11/29/2013 8:48 EDT ECHOCARDIOGRAM Routine 11/28/2013 10:09 Results f or this EDT procedure are i n the results section. COMPLETE BLOOD COUNT Routine 11/28/2013 5:28 Resu lts for this EDT procedure are i n the results section. BUN Routine 11/28/2013 5:28 Results for this EDT procedure are i n the results section. MAGNESIUM Routine 11/28/2013 5:28 Results for this EDT procedure are i n the results section. CREATININE Routine 11/28/2013 5:28 Results for this EDT procedure are i n the results section. ELECTROLYTES Routine 11/28/2013 5:28 Results for this EDT procedure are i n the results section. COMPLETE BLOOD COUNT Routine 11/27/2013 5:27 Resu lts for this EDT procedure are i n the results section. BUN Routine 11/27/2013 5:27 Results for this EDT procedure are i n the results section. MAGNESIUM Routine 11/27/2013 5:27 Results for this EDT procedure are i n the results section. CREATININE Routine 11/27/2013 5:27 Results for this EDT procedure are i n the results section. ELECTROLYTES Routine 11/27/2013 5:27 Results for this EDT procedure are i n the results section. INPATIENT ADD-ON Routine 11/26/2013 6:20 Results for this EDT procedure are i n the results section. TROPONIN I Routine 11/26/2013 5:34 Results for this EDT procedure are i n the results section. COMPLETE BLOOD COUNT Routine 11/26/2013 5:34 Resu lts for this EDT procedure are i n the results section. BUN Routine 11/26/2013 5:34 Results for this EDT procedure are i n the results section. ALT Routine 11/26/2013 5:34 Results for this EDT procedure are i n the results section. AST Routine 11/26/2013 5:34 Results for this EDT procedure are i n the results section. TSH Routine 11/26/2013 5:34 Results for this EDT procedure are i n the results section. ALKALINE PHOSPHATASE Routine 11/26/2013 5:34 Resu lts for this EDT procedure are i n the results section. MAGNESIUM Routine 11/26/2013 5:34 Results for this EDT procedure are i n the results section. CREATININE Routine 11/26/2013 5:34 Results for this EDT procedure are i n the results section. CK MB WITH TOTAL CK Routine 11/26/2013 5:34 Resul ts for this EDT procedure are i n the results section. ELECTROLYTES Routine 11/26/2013 5:34 Results for this EDT procedure are i n the results section. EKG 12-LEAD Routine 11/25/2013 23:37 Results for this EDT procedure are i n the results section. SCREENING GLUCOSE Routine 11/25/2013 21:22 Result s for this EDT procedure are i n the results section. TROPONIN I Routine 11/25/2013 21:22 Results for this EDT procedure are i n the results section. PTT Routine 11/25/2013 21:22 Results for this EDT procedure are i n the results section. PROTIME Routine 11/25/2013 21:22 Results for this EDT procedure are i n the results section. COMPLETE BLOOD COUNT Routine 11/25/2013 21:22 Res ults for this EDT procedure are i n the results section. BUN Routine 11/25/2013 21:22 Results for this EDT procedure are i n the results section. CREATININE Routine 11/25/2013 21:22 Results for this EDT procedure are i n the results section. CK MB WITH TOTAL CK Routine 11/25/2013 21:22 Resu lts for this EDT procedure are i n the results section. ELECTROLYTES Routine 11/25/2013 21:22 Results for this EDT procedure are i n the results section. documented in this encounter Results ECHOCARDIOGRAM (11/28/2013 10:09 EDT) Specimen Narrative CARDIOLOGY - 11/28/2013 10:49 EDT *Interpreting Group:* *[facility]* [address] [place] [address] *STUDY CONCLUSIONS* Summary: ?? Left ventricle: The cavity s ize was at the upper limits of normal. Wall thickness was normal. Systolic func tion was moderately reduced. The estimated ejection fraction was 35-40%. Diffuse hypokinesis. *PATIENT PRESENTATION* Height: ? 162.6cm (64in ) S/D Pressure: 123 / 69 Weight: ? 79.8kg (175.6lb ) BSA: ?1.92m^2 Test start time: ??09:40 AM. Test stop time: ??10:14 AM. ADMITTING ?Eve Garrison MD ATTENDING ?Eve Garrison MD REFERRING ?Arlin Gandara ORDERING ? Sera Garcia REFERRING ?Sera Garcia PERFORMING ?? [facility], FELLOW ? Jacquelin Morin ELA TEACHER ??Deedee Pedraza *PROCEDURE DATA* Procedure information: ??This study was interpreted by [facility] . ??Study status: ??Routine. Transthoracic echocardiography. ??M-mode, complete 2D, complete spectral Doppler, and color Doppler. A Transthoracic Echocardiogram was performed. Scanning was performed from the parasternal, apical, subcostal, and suprasternal notch acoustic windows. Images were obtained using a [employer] IE33 3 cardiac ultrasound machine. Image quality was adequate. ??Study comp letion: ??The patient tolerated the procedure well. There were no complicati ons. *INDICATIONS AND HISTORY* Indications: ?? Cardiomyopathy in other diseases classified elsewhere (425.8). ?? Labs, prior tests, procedures, and surge ry: Echocardiography (September 30, 2012). *CARDIAC ANATOMY* Left ventricle: ??The cavity size was at the upper limits of normal. Wall thickness was normal. Systolic function was moderately reduced. The estimated ejection fraction was 35-40%. Diffuse hy pokinesis. Aortic valve: ?? Trileaflet; normal thic kness leaflets. Mobility was not restricted. ??Doppler: ??Transvalvular v elocity was within the normal range. There was no stenosis. ??No significant regurg itation. Aorta: ??Aortic root: The aortic root wa s at upper normal limits. Mitral valve: ?? Structurally normal jayden ve. ?? Mobility was not restricted. Doppler: ??Transvalvular velocity was wi thin the normal range. There was no evidence for stenosis. ??Trivial regurgi tation. ?Peak gradient: 3.1mm Hg (D). Left atrium: ??The atrium was mildly dil ated. Right ventricle: ??The cavity size was m ildly dilated. Wall thickness was normal. Systolic function was normal. Pulmonic valve: ?The valve appears t o be grossly normal. ?Doppler: Transvalvular velocity was within the no rmal range. There was no evidence for stenosis. ??Trivial regurgitation. Tricuspid valve: ?? Structurally normal valve. ?Doppler: ??Transvalvular velocity was within the normal range. Th ere was no evidence for stenosis. ??Mild regurgitation. Pulmonary artery: ?? Not well visualized . The main pulmonary artery was normal-sized. Pulmonary systolic pressur e was within the normal range. Right atrium: ??The atrium was mildly di lated. Pericardium: ??There was no pericardial effusion. Systemic veins: Inferior vena cava: The vessel was mena l in size; the respirophasic diameter changes were in the normal range (greate r than or equal to 50%); findings are consistent with normal central venous pr essure. *MEASUREMENT TABLES* 2D measurements ?Normal Left ventricle Area, ED, A4C ?21.4 cm^2 ?? 17.7-47.3 Area, ES, A4C ?16.3 cm^2 ?? 7.9-31.5 Fractional area change, A4C ?24 % ?--------- Volume, ED, MOD, 1-plane ? 67 ml ? --------- Volume, ES, MOD, 1-plane ? 42 ml ? --------- Ejection fraction, MOD, 1-plane ?37 % ?--------- Stroke volume, MOD, 1-plane ?25 ml ? --------- Volume index, ED, MOD, 1-plane ? 35 ml/m^2 --------- Volume index, ES, MOD, 1-plane ? 22 ml/m^2 --------- Stroke index, MOD, 1-plane ? 13 ml/m^2 --------- Aorta Root diameter, ED ?34 mm ? --------- Ascending aorta anterior-posterior diame ter, S ?? 37 mm ? --------- Left atrium Anterior-posterior dimension ? 37 mm ? --------- Anterior-posterior dimension index ? 1.92 cm/m^2 <2.2 Superior-inferior dimension, A4C ? 37 mm ? 29-53 ?? Doppler measurements ? Normal Left ventricle IVRT ? *132 ms ? 60-100 Ea, lateral annulus, tissue Doppler ?7.02 cm/s ?? --------- E/Ea, lateral annulus, tissue Doppler ?12.6 ?--------- Mitral valve Peak E-wave velocity ? 88.4 cm/s ?? --------- Peak A-wave velocity ? 68.1 cm/s ?? --------- Deceleration time ? 179 ms ? 150-230 Peak gradient, D ?3.1 mm Hg ??--------- Peak E/A ratio ?1.3 ?--------- Legend: Mean values are shown as u=mean value. Asterisk (*) shen values outside specif ied normal range. I Raji Bocanegra MD have personally revie wed the images and the fellows interpretation and either agreed with it or have edited the findings. Electronically signed by Raji Bocanegra MD 11/28/2013 10:49 Procedure Note 11/28/2013 *Interpreting Group:* *[facility]* [address] [place] [address] *STUDY CONCLUSIONS* Summary: Left ventricle: The cavity size was at the upper limits of normal. Wall thickness was normal. Systolic func tion was moderately reduced. The estimated ejection fraction was 35-40%. Diffuse hypokinesis. *PATIENT PRESENTATION* Height: 162.6cm (64in ) S/D Pressure: 123 / 69 Weight: 79.8kg (175.6lb ) BSA: 1.92m^2 Test start time: 09:40 AM. Test stop time: 10:14 AM. ADMITTING Eve Garrison MD ATTENDING Eve Garrison MD REFERRING Arlin Gandara ORDERING Sera Garcia REFERRING Sera Garcia PERFORMING Fa, Ip FELLOW Jacquelin Morin ELA TEACHER Deedee Pedraza *PROCEDURE DATA* Procedure information: This study was in terpreted by [facility] at [facility] . Study status: Routine. Transthoracic echocardiography. M-mode, complete 2D, c omplete spectral Doppler, and color Doppler. A Transthoracic Echocardiogram was performed. Scanning was performed from the parasternal, apical, subcostal, and suprasternal notch acoustic windows. Images were obtained using a [employer] IE33 3 cardiac ultrasound machine. Image quality was adequate. Study comple tion: The patient tolerated the procedure well. There were no complicati ons. *INDICATIONS AND HISTORY* Indications: Cardiomyopathy in other dis eases classified elsewhere (425.8). Labs, prior tests, procedures, and surge ry: Echocardiography (September 30, 2012). *CARDIAC ANATOMY* Left ventricle: The cavity size was at t he upper limits of normal. Wall thickness was normal. Systolic function was moderately reduced. The estimated ejection fraction was 35-40%. Diffuse hy pokinesis. Aortic valve: Trileaflet; normal thickne ss leaflets. Mobility was not restricted. Doppler: Transvalvular veloc ity was within the normal range. There was no stenosis. No significant regurgit ation. Aorta: Aortic root: The aortic root was at upper normal limits. Mitral valve: Structurally normal valve. Mobility was not restricted. Doppler: Transvalvular velocity was with in the normal range. There was no evidence for stenosis. Trivial regurgita tion. Peak gradient: 3.1mm Hg (D). Left atrium: The atrium was mildly dilat ed. Right ventricle: The cavity size was mil dly dilated. Wall thickness was normal. Systolic function was normal. Pulmonic valve: The valve appears to be grossly normal. Doppler: Transvalvular velocity was within the no rmal range. There was no evidence for stenosis. Trivial regurgitation. Tricuspid valve: Structurally normal jayden ve. Doppler: Transvalvular velocity was within the normal range. Th ere was no evidence for stenosis. Mild regurgitation. Pulmonary artery: Not well visualized. T he main pulmonary artery was normal-sized. Pulmonary systolic pressur e was within the normal range. Right atrium: The atrium was mildly dila jo-ann. Pericardium: There was no pericardial ef fusion. Systemic veins: Inferior vena cava: The vessel was mena l in size; the respirophasic diameter changes were in the normal range (greate r than or equal to 50%); findings are consistent with normal central venous pr essure. *MEASUREMENT TABLES* 2D measurements Normal Left ventricle Area, ED, A4C 21.4 cm^2 17.7-47.3 Area, ES, A4C 16.3 cm^2 7.9-31.5 Fractional area change, A4C 24 % ------- -- Volume, ED, MOD, 1-plane 67 ml --------- Volume, ES, MOD, 1-plane 42 ml --------- Ejection fraction, MOD, 1-plane 37 % --- ------ Stroke volume, MOD, 1-plane 25 ml ------ --- Volume index, ED, MOD, 1-plane 35 ml/m^2 --------- Volume index, ES, MOD, 1-plane 22 ml/m^2 --------- Stroke index, MOD, 1-plane 13 ml/m^2 --- ------ Aorta Root diameter, ED 34 mm --------- Ascending aorta anterior-posterior diame ter, S 37 mm --------- Left atrium Anterior-posterior dimension 37 mm ----- ---- Anterior-posterior dimension index 1.92 cm/m^2 <2.2 Superior-inferior dimension, A4C 37 mm 2 9-53 Doppler measurements Normal Left ventricle IVRT *132 ms 60-100 Ea, lateral annulus, tissue Doppler 7.02 cm/s --------- E/Ea, lateral annulus, tissue Doppler 12 .6 --------- Mitral valve Peak E-wave velocity 88.4 cm/s --------- Peak A-wave velocity 68.1 cm/s --------- Deceleration time 179 ms 150-230 Peak gradient, D 3.1 mm Hg --------- Peak E/A ratio 1.3 --------- Legend: Mean values are shown as u=mean value. Asterisk (*) shen values outside specif ied normal range. I Raji Bocanegra MD have personally revie wed the images and the fellows interpretation and either agreed with it or have edited the findings. Electronically signed by Raji Bocanegra MD 11/28/2013 10:49 Performing Organization Address City/State/ZIP Code Phon e Number [facility] CARDI[facility]Y MAGNESIUM (11/28/2013 5:28 EDT) Pathologist [facility] nature Magnesium 2.1 1.7 - 2.8 mg/dl [facility] Specimen Blood specimen (specimen) Performing Organization Address City/State/ZIP Code Phon e Number [facility] [address] [place] [phone] SERVICES [facility] [address] [place] [address] HEMAGRAM (11/28/2013 5:28 EDT) Pathologist Sig nature WBC 4.51 4.0 - 12.4 K/cmm [facility] RBC 4.44 3.86 - 5.04 M/cmm [facility] Hemoglobin 12.8 11.6 - 15.2 gm/dl [facility] HCT 37.8 34.9 - 44.4 % [facility] MCV 85 81 - 98 fl [facility] MCH 28.9 26.7 - 33.3 pg [facility] MCHC 34.0 32.1 - 35.9 gm/dl [facility] PLT 195 141 - 320 K/cmm [facility] RDW-CV 12.4 11.7 - 14.6 % [facility] Specimen Blood specimen (specimen) Performing Organization Address City/[facility] Phon e Number [facility] [address] [place] [address] SERVICES [facility] [address] [place] [address] CREATININE (11/28/2013 5:28 EDT) Pathologist Sig nature Creatinine 0.70 0.52 - 1.04 mg/dl [facility] GFR, Calculated >60 >60 ml/min/1.73m2 [facility] Specimen Blood specimen (specimen) Performing Organization Address City/[facility]/ZIP [facility] Phon e Number [facility] [address] [place] [address] SERVICES [facility] [address] [place] [address] BUN (11/28/2013 5:28 EDT) Pathologist Sig nature BUN 14 10 - 26 mg/dl [facility] Specimen Blood specimen (specimen) Performing Organization Address City/[facility] Phon e Number [facility] [address] [place] [address] SERVICES [facility] [address] [place] [address] ELECTROLYTES (11/28/2013 5:28 EDT) Pathologist Sig nature Sodium 140 136 - 145 mEq/L [facility] Potassium 3.9 3.5 - 5.0 mEq/L [facility] Chloride 101 96 - 110 mEq/L [facility] CO2 31 24 - 32 mEq/L [facility] Specimen Blood specimen (specimen) Performing Organization Address City/[facility]/ZIP Code Phon e Number [facility] [address] [place] [address] SERVICES [facility] [address] [place] [address] MAGNESIUM (11/27/2013 5:27 EDT) Pathologist Sig nature Magnesium 2.2 1.7 - 2.8 mg/dl [facility] Specimen Blood specimen (specimen) Performing Organization Address City/[facility]/ZIP Code Phon e Number [facility] [address] [place] [address] SERVICES [facility] [address] [place] [address] HEMAGRAM (11/27/2013 5:27 EDT) Pathologist Sig nature WBC 5.52 4.0 - 12.4 K/cmm [facility] RBC 4.54 3.86 - 5.04 M/cmm [facility] Hemoglobin 13.1 11.6 - 15.2 gm/dl [facility] HCT 38.5 34.9 - 44.4 % [facility] MCV 85 81 - 98 fl [facility] MCH 28.9 26.7 - 33.3 pg [facility] MCHC 34.1 32.1 - 35.9 gm/dl [facility] PLT 198 141 - 320 K/cmm [facility] RDW-CV 12.6 11.7 - 14.6 % [facility] Specimen Blood specimen (specimen) Performing Organization Address City/[facility]/ZIP Code Phon e Number [facility] [address] [place] [address] SERVICES [facility] [address] [place] [address] CREATININE (11/27/2013 5:27 EDT) Pathologist Sig nature Creatinine 0.80 0.52 - 1.04 mg/dl [facility] GFR, Calculated >60 >60 ml/min/1.73m2 [facility] Specimen Blood specimen (specimen) Performing Organization Address City/[facility]/ZIP Code Phon e Number [facility] [address] [place] [address] SERVICES [facility] [address] [place] [address] BUN (11/27/2013 5:27 EDT) Pathologist Sig nature BUN 11 10 - 26 mg/dl [facility] Specimen Blood specimen (specimen) Performing Organization Address City/State/ZIP Code Phon e Number [facility] [address] [place] [address] SERVICES [facility] [address] [place] [address] ELECTROLYTES (11/27/2013 5:27 EDT) Pathologist Sig nature Sodium 141 136 - 145 mEq/L [facility] Potassium 4.2 3.5 - 5.0 mEq/L [facility] Chloride 99 96 - 110 mEq/L [facility] CO2 32 24 - 32 mEq/L [facility] Specimen Blood specimen (specimen) Performing Organization Address City/[facility]/ZIP Code Phon e Number [facility] [address] [place] [address] SERVICES [facility] [address] [place] [address] INPATIENT ADD-ON (11/26/2013 6:20 EDT) Pathologist Sig nature Tests to be added TSH,ALT,ALK [facility] PHOS,AST Number for problems [id number] [facility] Accession number [id number] [facility] Specimen Performing Organization Address City/[facility]/ZIP Code Phon e Number [facility] [address] [place] [address] SERVICES [facility] [address] [place] [address] TSH (11/26/2013 5:34 EDT) Pathologist Sig nature TSH 4.10 0.35 - 5.00 uIU/ml [facility] Specimen Performing Organization Address City/State/ZIP Code Phon e Number [facility] [address] [place] [address] SERVICES [facility] [address] [place] [address] AST (11/26/2013 5:34 EDT) Pathologist Sig nature AST 17 15 - 46 U/L [facility] Specimen Performing Organization Address City/State/ZIP Code Phon e Number [facility] [address] [place] [address] SERVICES [facility] [address] [place] [address] ALT (11/26/2013 5:34 EDT) Pathologist Sig nature ALT 29 9 - 52 U/L [facility] Specimen Performing Organization Address City/[facility]/ZIP Code Phon e Number [facility] [address] [place] [address] SERVICES [facility] [address] [place] [phone] ALKALINE PHOSPHATASE (11/26/2013 5:34 EDT) Pathologist Sig nature Total Alkaline 62 38 - 126 U/L [facility] Phosphatase Specimen Performing Organization Address City/[facility]/ZIP Code Phon e Number [facility] [address] [place] [address] SERVICES [facility] [address] [place] [address] MAGNESIUM (11/26/2013 5:34 EDT) Pathologist Sig nature Magnesium 2.0 1.7 - 2.8 mg/dl [facility] Specimen Blood specimen (specimen) Performing Organization Address [facility]/ZIP [facility] Phon e Number [facility] [address] [place] [address] SERVICES [facility] [address] [place] [address] TROPONIN I (11/26/2013 5:34 EDT) Pathologist Sig nature Troponin I (ng/mL) <0.034 <0.034 ng/ml [facility] Specimen Blood specimen (specimen) Performing Organization Address City/[facility]/ZIP Code Phon e Number [facility] [address] [place] [address] SERVICES [facility] [address] [place] [address] CK MB WITH TOTAL CK (11/26/2013 5:34 EDT) Pathologist Sig nature CK 54 30 - 135 U/L [facility] MB 0.26 <2.95 ng/ml [facility] Specimen Blood specimen (specimen) Performing Organization Address City/[facility]/ZIP Code Phon e Number [facility] [address] [place] [address] SERVICES [facility] [address] [place] [address] HEMAGRAM (11/26/2013 5:34 EDT) Pathologist Sig nature WBC 5.06 4.0 - 12.4 K/cmm [facility] RBC 4.17 3.86 - 5.04 M/cmm [facility] Hemoglobin 12.2 11.6 - 15.2 gm/dl [facility] HCT 35.6 34.9 - 44.4 % [facility] MCV 85 81 - 98 fl [facility] MCH 29.3 26.7 - 33.3 pg [facility] MCHC 34.3 32.1 - 35.9 gm/dl [facility] PLT 178 141 - 320 K/cmm [facility] RDW-CV 12.4 11.7 - 14.6 % [facility] Specimen Blood specimen (specimen) Performing Organization Address City/[facility]/ZIP Code Phon e Number [facility] [address] [place] [address] SERVICES [facility] [address] [place] [address] CREATININE (11/26/2013 5:34 EDT) Pathologist Sig nature Creatinine 0.60 0.52 - 1.04 mg/dl [facility] GFR, Calculated >60 >60 ml/min/1.73m2 [facility] Specimen Blood specimen (specimen) Performing Organization Address City/[facility]/ZIP Code Phon e Number [facility] [address] [place] [address] SERVICES [facility] [address] [place] [address] BUN (11/26/2013 5:34 EDT) Pathologist Sig nature BUN 14 10 - 26 mg/dl [facility] Specimen Blood specimen (specimen) Performing Organization Address [facility]/ZIP [facility] Phon e Number [facility] [address] [place] [address] SERVICES [facility] [address] [place] [address] (ABNORMAL) ELECTROLYTES (11/26/2013 5:34 EDT) Pathologist Sig nature Sodium 140 136 - 145 mEq/L [facility] Potassium 3.4 (L) 3.5 - 5.0 mEq/L [facility] Chloride 102 96 - 110 mEq/L [facility] CO2 28 24 - 32 mEq/L [facility] Specimen Blood specimen (specimen) Performing Organization Address City/[facility]/ZIP Code Phon e Number [facility] [address] [place] [address] SERVICES [facility] [address] [place] [address] EKG 12-LEAD (11/25/2013 23:37 EDT) Specimen Narrative [facility] EK - 11/28/2013 14:12 EDT ?[facility] ? Test Date: ?2013-11-25 Pat Name: ? HAILEY VAZQUEZ ?Department: ?? Up 5 ? Room: ? ME520 Gender: ? F ?Online Trader: ?? [id number] : ?1960 ? Requested By: YAZ BANSAL MD Order Number: [id number] ? Eva BAZAN: ?? GELY OLSON MD ? Measurements Intervals ?[place] ? Rate: ? 63 ? P: ?29 MS: ? 153 ?QRS: ?8 QRSD: ? 98 ? T: ?47 QT: ? 404 ? QTc: ?415 ? Interpretive Statements SINUS RHYTHM NONSPECIFIC ST & T-WAVE ABNORMALITY Automated Interpretation. ??Physician In terpretation to follow. Compared to ECG 10/18/2012 16:19:28 Sinus rhythm now present I reviewed the tracing and agreed or farida jo-ann the report. Electronically Signed On 11-28-13 14:12:45 EDT by GELY Garner MD. Procedure Note Gely Olson MD - 11/28/2013 [facility] Test Date: 2013-11-25 Pat Name: HAILEY VAZQUEZ Department: [place] [address] Room: [facility] Gender: F Online Trader: [id number] : 1960 Requested By: YAZ LARSON MD Order Number: [id number] Eva MD: Bon OLSON MD Measurements Intervals [place] Rate: 63 P: 29 MS: 153 QRS: 8 QRSD: 98 T: 47 QT: 404 QTc: 415 Interpretive Statements SINUS RHYTHM NONSPECIFIC ST & T-WAVE ABNORMALITY Automated Interpretation. Physician Inte rpretation to follow. Compared to ECG 10/18/2012 16:19:28 Sinus rhythm now present I reviewed the tracing and agreed or farida jo-ann the report. Electronically Signed On 11-28-13 14:12:45 EDT by GELY Garner MD. Performing Organization Address City/State/ZIP Code Phon e Number [facility] EKG [facility] EKG TROPONIN I (11/25/2013 21:22 EDT) Pathologist Sig nature Troponin I (ng/mL) <0.034 <0.034 ng/ml [facility] Specimen Blood specimen (specimen) Performing Organization Address City/[facility]/ZIP Code Phon e Number [facility]OR[facility] [address] [place] [address] SERVICES [facility] [address] [place] [address] CK MB WITH TOTAL CK (11/25/2013 21:22 EDT) Pathologist Sig nature CK 63 30 - 135 U/L [facility] MB 0.23 <2.95 ng/ml [facility] Specimen Blood specimen (specimen) Performing Organization Address City/[facility]/ZIP Code Phon e Number [facility] [address] [place] [address] SERVICES [facility] [address] [place] [address] HEMAGRAM (11/25/2013 21:22 EDT) Pathologist Sig nature WBC 6.36 4.0 - 12.4 K/cmm [facility] RBC 4.69 3.86 - 5.04 M/cmm [facility] Hemoglobin 13.9 11.6 - 15.2 gm/dl [facility] HCT 40.0 34.9 - 44.4 % [facility] MCV 85 81 - 98 fl [facility] MCH 29.7 26.7 - 33.3 pg [facility] MCHC 34.8 32.1 - 35.9 gm/dl [facility] PLT 213 141 - 320 K/cmm [facility] RDW-CV 12.3 11.7 - 14.6 % [facility] Specimen Blood specimen (specimen) Performing Organization Address City/[facility]/ZIP Code Phon e Number [facility] [address] [place] [address] SERVICES [facility] [address] [place] [address] CREATININE (11/25/2013 21:22 EDT) Pathologist Sig nature Creatinine 0.71 0.52 - 1.04 mg/dl [facility] GFR, Calculated >60 >60 ml/min/1.73m2 [facility] Specimen Blood specimen (specimen) Performing Organization Address City/[facility]/ZIP [facility] Phon e Number [facility] [address] [place] [address] SERVICES [facility] [address] [place] [address] BUN (11/25/2013 21:22 EDT) Pathologist Sig nature BUN 13 10 - 26 mg/dl [facility] Specimen Blood specimen (specimen) Performing Organization Address [facility] Phon e Number [facility] [address] [place] [address] SERVICES [facility] [address] [place] [address] ELECTROLYTES (11/25/2013 21:22 EDT) Pathologist Sig nature Sodium 143 136 - 145 mEq/L [facility] Potassium 3.8 3.5 - 5.0 mEq/L [facility] Chloride 102 96 - 110 mEq/L [facility] CO2 30 24 - 32 mEq/L [facility] Specimen Blood specimen (specimen) Performing Organization Address [facility] Phon e Number [facility] [address] [place] [address] SERVICES [facility] [address] [place] [address] PTT (11/25/2013 21:22 EDT) Pathologist Sig nature PTT 29Comment: Therapeutic 26 - 37 secs [facility] Heparin range: 65-100 seconds Specimen Blood specimen (specimen) Performing Organization Address [facility] Phon e Number [facility] [address] [place] [address] SERVICES [facility] [address] [place] [address] PROTIME (11/25/2013 21:22 EDT) Pro Time 9.9 9.5 - 12.3 [facility] secs I.N.R. 0.9 0.9 - 1.1 [facility] Comment: Ratio Moderate Intensity Coumadin INR = 2.0-3.0 Adjustments in anticoagulant therapy dose should be based upon the INR and NOT the Pro Time. Specimen Blood specimen (specimen) Performing Organization Address [facility]/ZIP [facility] Phon e Number [facility] [address] [place] [address] SERVICES [facility] [address] [place] [address] (ABNORMAL) SCREENING GLUCOSE (11/25/2013 21:22 EDT) Pathologist Drew guardado Glucose, Screening 108 (H) 70 - 100 mg/dl [facility] Specimen Blood specimen (specimen) Performing Organization Address City/State/ZIP Code Phon e Number [facility] [address] [place] [address] SERVICES [facility] [address] [place] [address] documented in this encounter Visit Diagnoses Diagnosis Ventricular tachycardia (HCC-CMS) (HCC) - Primary Paroxysmal ventricular tachycardia Symptomatic premature ventricular contra ctions Other premature beats Heart failure, left systolic, chronic (H CC-CMS) (HCC) Chronic systolic heart failure Premature ventricular contractions (PVCs ) (VPCs) Other premature beats documented in this encounter Administered Medications Inactive Administered Medications - up to 3 most recent administrations Medication Order MAR Action Action Date Dose Rate Site acetaminophen (TYLENOL) tablet 650 Given 11/27/2013 10:56 EDT 65 0 mg mg 650 mg, oral, EVERY 6 HOURS PRN, Starting on Thu11/25/13 at 2052, Until Thu11/28/13 at 1623, Pain, Routine Given 11/26/2013 15:42 EDT 650 mg amiodarone (PACERONE) tablet 400 mg Given 11/28/2013 14:12 EDT 400 mg 400 mg, oral, 3 TIMES DAILY, First dose on Thu11/27/13 at 0915, Until Discontinued, Routine Given 11/28/2013 8:57 EDT 400 mg Given 11/27/2013 20:29 EDT 400 mg amiodarone in dextrose 360 mg/200 New Bag 11/27/2013 1:28 EDT 1 mg/min 33.3 mL/hr mL (1.8 mg/mL) infusion 1 mg/min (rounded to 33.3 mL/hr), intravenous, CONTINUOUS, Starting on Thu11/25/13 at 2100, Until Thu11/27/13 at 0854, STAT New Bag 11/26/2013 20:15 EDT 1 mg/min 33.3 mL/hr Rate Documented 11/26/2013 17:23 EDT 1 mg/min 33.3 mL/hr furosemide (LASIX) tablet 40 mg Given 11/28/2013 8:57 EDT 40 mg 40 mg, oral, DAILY, First dose on 11/26/13 at 0900, Until Discontinued, Routine Given 11/27/2013 8:38 EDT 40 mg Given 11/26/2013 8:34 EDT 40 mg heparin injection 5,000 Units Given 11/28/2013 8:57 EDT 5,000 Units 5,000 Units, subcutaneous, EVERY 8 HOURS, First dose on 11/26/13 at 0000, Until Discontinued, Routine Given 11/27/2013 23:39 EDT 5,000 Units Given 11/27/2013 16:46 EDT 5,000 Units lisinopril (PRINIVIL, ZESTRIL) tablet 5 mg Given 11/28/2013 8:57 EDT 5 mg 5 mg, oral, DAILY, First dose on 11/26/13 at 0900, Until Discontinued, Routine Given 11/27/2013 8:38 EDT 5 mg Given 11/26/2013 8:34 EDT 5 mg metoprolol XL (TOPROL-XL) tablet 50 mg Given 11/28/2013 8:57 EDT 50 mg 50 mg, oral, DAILY, First dose on 11/26/13 at 0900, Until Discontinued, Routine Given 11/27/2013 8:37 EDT 50 mg Given 11/26/2013 8:34 EDT 50 mg potassium chloride SA (K-DUR, KLOR-CON M20) Given 11/26/2013 8:3 4 EDT 40 mEq tablet 40 mEq 40 mEq, oral, NOW X1, 1 dose, On 11/26/13 at 0645, Routine documented in this encounter Discontinued Medications Medication Sig Discontinue Reason Start Date End Date mexiletine (MEXITIL) Take 1 Cap by mouth Dose adjustment 10/01/2012 11/25/2013 200 mg capsule every 12 hours. Telephoned prescription to [facility] in [facility] 10/01/2012 mexiletine (MEXITIL) Take 200 mg by mouth 3 11/28/2013 200 mg capsule times daily. lisinopril (PRINIVIL, Take 5 mg by mouth daily . 11/28/2013 ZESTRIL) 10 mg tablet metoprolol XL Take 50 mg by mouth 014 (TOPROL-XL) 50 mg daily. tablet documented as of this encounter Historical Medications This list may reflect changes made after this encounter. Medication Sig Dispensed Refills Start Date End Date mexiletine (MEXITIL) 200 Take 200 mg by mouth 0 11/28/2013 mg capsule 3 times daily. added in this encounter Active and Recently Administered Medications Times are shown in EDT. Scheduled Medication Order 11/26/2013 11/27/2013 11/28/2013 amiodarone (PACERONE) tablet 400 mg 0946 (Given - Provider: Pinky Strickland RN)1344 (Given - Provider: Pinky Strickland RN)2029 (Given - Provider: Felix Stanley) 0857 (Given - Provider: Mary Gann, URIEL)1412 (Given - Provider: Mary Gann, URIEL) 400 mg, oral, 3 TIMES DAILY, First dose on 11/27/13 at 0915, Until Discontinued, Routine furosemide (LASIX) tablet 40 mg (CANCELED) 0834 (Given - Provider: Shani Reece RN) 0838 (Given - Provider: Pinky Strickland RN) 0857 (Giv en - Provider: Mary Gann RN) 40 mg, oral, DAILY, First dose on Sat at 0900, Until Discontinued, Routine heparin injection 5,000 Units (CANCELED) 0135 (Given - Provider: Geri Humphries RN)0834 (Given - Provider: Shani Reece RN)1542 (Given - Provider: Niko Blair RN)2333 (Given - Provider: Geri Humphries RN) 0838 (Given - Provider: Pinky Strickland RN)1646 (Given - Provider: Felix Stanley)2339 (Given - Provider: Cailin Beauchamp RN) 0857 (Given - Provider: Mary Gann, URIEL) 5,000 Units, subcutaneous, EVERY 8 HOURS , First dose on 11/26/13 at 0000, Until Discontinued, Routine lisinopril (PRINIVIL, ZESTRIL) tablet 5 mg 0834 (Given - Provider: Shani Reece RN) 0838 (Given - Provider: Pinky Strickland RN) 0857 (Giv en - Provider: Mary Gann RN) 5 mg, oral, DAILY, First dose on Sat 10/31 01/12 at 0900, Until Discontinued, Routine metoprolol XL (TOPROL-XL) tablet 50 mg 0834 (Given - P rovider: Shani Reece RN) 0837 (Given - Provider: Pinky Strickland, RN) 0857 (Giv en - Provider: Mary Gann RN) 50 mg, oral, DAILY, First dose on Sat at 0900, Until Discontinued, Routine potassium chloride SA (K-DUR, KLOR-CON M20) tablet 40 mEq (COMPLETED) 0834 (Given - Provider: Shani Reece RN) 40 mEq, oral, NOW X1, 1 dose, 11/26/13 at 0645, Routine Continuous Medication Order 11/26/2013 11/27/2013 11/28/2013 amiodarone in dextrose 360 mg/200 mL (1.8 mg/mL) infus ion (CANCELED) 0245 (New Bag - Provider: Geri Humphries RN)0721 (New Bag - Provider: Geri Humphries RN)1355 (New Bag - Provider: Shani Reece, URIEL)1723 (Rate Documented - Provider: Niko Blair RN)2015 (New Bag - Provider: Geri Humphries RN) 0128 (New Bag - Provider: Geri Humphries RN)0945 (Completed - Provider: Pinky Strickland RN - Comment: per order. PO started.) 1 mg/min = 33.3 mL/hr, intravenous, CONT INUOUS, Starting Thu11/25/13 at 2100, Until 11/27/13 at 0854, STAT PRN Medication Order 11/26/2013 11/27/2013 11/28/2013 acetaminophen (TYLENOL) tablet 650 mg (CANCELED) 1542 (Given - Provider: Niko Blair RN) 1056 (Given - Provider: Pinky Strickland, RN) 650 mg, oral, EVERY 6 HOURS PRN, Startin g Thu11/25/13 at 2052, Until 11/28/13 at 1623, Pain, Routine documented in this encounter Orders Medications Ordered That Might Not Have Count Last Ord ered Date First Ordered Date Been Administered docusate sodium (COLACE) capsule 100 mg 1 11/26/19 14 LORazepam (ATIVAN) tablet 1 mg 1 11/25/2013 senna (SENOKOT) tablet 2 Tab 1 11/25/2013 Procedures Count Last Ordered Date First Ordered Date ECG REPORT - SCANNED 2 12/01/2013 11/29/2013 Diet Count Last Ordered Date First Ordered Date DISCHARGE DIET 2 11/28/2013 Nursing Count Last Ordered Date First Ordered Date ACTIVITY INSTRUCTIONS 1 11/28/2013 BATHING INSTRUCTIONS 1 11/28/2013 DISCONTINUE SALINE LOCK/IV/PICC 1 11/28/2013 WOUND CARE INSTRUCTIONS 1 11/28/2013 IV Count Last Ordered Date First Ordered Date IV REQUEST 1 11/26/2013 Admission Count Last Ordered Date First Ordered Date STATUS: INPATIENT ACUTE ADMISSION 1 11/25/2013 Transfer Count Last Ordered Date First Ordered Date CHANGE ATTENDING TO: 1 11/28/2013 NOTIFY PPS OF DISCHARGE COMPLETE 1 11/28/2013 NOTIFY PPS OF ROOM CHANGE COMPLETE 1 11/25/2013 Discharge Count Last Ordered Date First Ordered Date DISCHARGE PATIENT 1 11/28/2013 Legal Count Last Ordered Date First Ordered Date MISCELLANEOUS DISCHARGE INSTRUCTIONS 3 11/28/2013 documented in this encounter Care Teams Gallery Host Relationship Specialty Start Date End Date Arlin Gandara MD PCP - General 03/17/12 [address] [place] [address] documented as of this encounter
--- OUTSIDE RECORDS SUMMARY | 2021-12-16 00:48 | XMS_ITS | Encounter Summary ---
:1960 Author Organization [facility] [place] [address] Care Team Providers Name Role Phone Arlin Gandara MD Primary Care Provider Encounter Details Date Type Department Care Team Description 08/12/2010 Hospital Encounter Same Day Program at David Garcia MD [facility] [place] [address] [place] [address] [phone] Social History Tobacco Use Types Packs/Day Years Used Date Never Assessed Sex Assigned at Date Recorded Not on file documented as of this encounter Medications at Time of Discharge Medication Sig Dispensed Refills Start Date End Date clopidogrel (PLAVIX) 75 mg 0 1 tablet multivitamin (THERAGRAN) 0 08/12/2010 tablet CALCIUM CITRATE/VITAMIN D3 0 1 (CALCITRATE-VITAMIN D) 315-250 mg-unit Tab aspirin (BABY ASPIRIN) 81 mg 0 011 chewable tablet nitroGLYcerin (NITROSTAT) 0 08/12/2010 0.4 mg SL tablet metoprolol succinate 50 MG = 1 0 08/12/2010 (TOPROL-XL) 50 mg 24 hr Tablet(s), PO, Once tablet daily documented as of this encounter Plan of Treatment Not on filedocumented as of this encounter Visit Diagnoses Not on filedocumented in this encounter Active and Recently Administered Medications Care Teams Business System Consultant Relationship Specialty Start Date End Date Arlin Gandara MD PCP - General 04/23/10 [address] [place] [address] documented as of this encounter
--- OUTSIDE RECORDS SUMMARY | 2021-12-16 00:48 | XMS_ITS | Encounter Summary ---
:1960 Author Organization [facility] Address [address] [place] [address] Care Team Providers Name Role Phone Arlin Gandara MD Primary Care Provider Reason for Visit Reason Comments Shortness of Breath 6mo F/u [facility] Encounter Details Date Type Department Care Team Description 05/27/2019 Office Visit [facility] - Regan Luo PVC (premature ventricular contraction) (Primary Dx); [facility] Cardiology MD Mayo Ventricular tachycardia ([facility]); Clinic [address] [facility] Chronic diastolic CHF (congestive heart failure), NYHA class 2 ([facility]) [address] [place] [address] [address] [place] [address] [place] [phone] Social History Tobacco Use Types Packs/Day Years Used Date Never Smoker Smokeless Tobacco: Never Used Alcohol Use Standard Drinks/Week Comments No 0 (1 standard drink = 0.6 oz pure alcoho l) Sex Assigned at Date Recorded Not on file documented as of this encounter Last Filed Vital Signs Vital Sign Reading Time Taken Comments Blood Pressure 110/72 05/27/2019 0849 EST Pulse 70 05/27/2019 0849 EST Temperature - - Respiratory Rate - - Oxygen Saturation 97% 05/27/2019 0849 EST Inhaled Oxygen Concentration - - Weight 86.2 kg (190 lb) 05/27/2019 0849 EST Height 162.6 cm (5' 4) 05/27/2019 0849 EST Body Mass Index 32.61 05/27/2019 0849 EST documented in this encounter Functional Status [...] encounter Progress Notes Regan Luo MD - 05/27/2019 0915 EST [facility] Cardiology Subjective: Chief Complaint(s): Shortness of Breath (6mo F/u [facility]) HPI: 58-year-old woman with NICM of unclear etiology and [...] Was subsequently seen by Dr. Dolan in [place] who initially startedher on Mexiletine 200mg BID. [...] intramyocardial PVC/VT focus by Dr. Dolan in [place] 03/2016. The procedure was initially not considered completely successful and she was continued on amiodarone for another year. Holter EKG in 2018 off amiodarone showed only of PVC recurrence. Echo 2018 with recovery of LV function to the low normal range. She returns to the office for followup. She reports overall being stable, with chronic dyspnea with higher levels of exertion. She is currently dealing with with a tenacious cold. She reports a dry, hacking cough with little phlegm. She denies fever, but had a few episodes of chills at the beginning of the illness 2 to 3 weeks ago. She has felt too sick to go to cardiac rehab this month. She denies exertional chest pain, shortness of breath at rest, blackout spells, edema, fevers, chills, bleeding, digestive problems, myalgia. He has occasional orthostatic dizziness. More depressed this month, due to the anniversaries of several deaths in her family. Data review: Cardiac cath (2010): Normal coronaries, [...] diabetes and coronary artery disease (3 stents):. Tobacco: c/o Tobacco Assessment (STRUCTURED) Patient Tobacco Use: Never used tobacco. 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 Mild non-ischemic cardiomyopathy atypical chest pain onset 07/12 r/o for [place] by enzymes Obesity Macular degeneration Allergies penicillin: hives,swelling: Allergy sulfa 1 of 2: bloody nose sulfa 2 of 2: bloody nose adhesive tape: burned abd: Allergy latex: sawant skin: Allergy I have reviewed current problem list and current medications. ROS: A 10-system ROS was performed, pertinent items as mentioned in HPI, otherwise negative. ROS Objective: Examination: Vitals: BP 110/72 (BP Cuff Location: Right arm, BP Patient Position: Sitting, BP Cuff Sizes: Adult, regular) Pulse 70 Ht 162.6 cm (64) Wt 86.2 kg (190 lb) SpO2 97% BMI 32.61 kg/m?? Body mass index is 32.61 kg/m??. Physical Exam GENERAL APPEARANCE: no acute [...] oriented x3, nonfocal, normal speech, gait normal. EKG: Normal sinus rhythm, 70/9, WY 150 ms, QRS 92 ms, QT 354 ms, QTC 382 ms, LVH with repolarizationabnormality. Assessment & Plan: Assessments 1. Ventricular tachycardia - 427.1 (Primary) 2. PVC's - 427.69 3. Cardiomyopathy NOS - 425.4 4. Chronic diastolic dysfunction 58-year-old woman with history of mild nonischemic cardiomyopathy and very frequent, highly symptomatic PVCs and nsVT. Epicardial PVC origin yomi-basal LV. S/p successful intramyocardial PVC/VT focusablation with a special needle catheter in [place] 2016. Now off amiodarone without significant recurrence of arrhythmia. Echo 2018 with improvement of LV EFto the low normal range. Chronic shortness of breath with higher levels of exertion most likely related to diastolic dysfunction. We will continue goal-directed medical therapy. Encouraged her to continue regular exercise and maintenance cardiac rehab program. Detailed discussion of medication effects. Total myia-cm-kqev time: 25 minutes, >50% spent counseling on above issues. 1. PVC (premature ventricular contraction) - EKG 12-LEAD 2. Heart failure, diastolic, chronic (HCC-CMS) - Continue furosemide, KCL, lisinopril 3. Ventricular tachycardia (HCC-CMS) - continue Metoprolol documented in this encounter Plan of Treatment Upcoming Encounters Date Type Specialty Care Team Description 09/05/2022 Office Visit Cardiology Regan Luo MD [address] [place] [address] [address] [place] [address] (Wo rk) documented as of this encounter Procedures Procedure Name Priority Date/Time Associated Diagnosis Comme nts EKG 12-LEAD Routine 05/27/2019 9:07 EST PVC (premature Result s for this ventricular procedure are i n contraction) the results section. documented in this encounter Results EKG 12-LEAD (05/27/2019 9:07 EST) Specimen Narrative [facility] - 019 9:07 EST ? [facility] Cardiology ? Test Date: ?2019-05-27 09:07:12 Pat Name: ? APOLONIA VAZQUEZ ?Department: ?Room: ? Gender: ? F ?Collection Analyst: ?? ES : ?1960 ? Requested By: Order Number: ?Eva BAZAN: ?? Sera Garcia MD ? Measurements Intervals ?[place] ? Rate: ? 70 ? P: ?22 WY: ? 150 ?QRS: ?-4 QRSD: ? 92 ? T: ?-32 QT: ? 354 ? QTc: ?382 ? Interpretive Statements Normal sinus rhythm Left ventricular hypertrophy with repola rization abnormality Non-specific ST changes Abnormal ECG No previous ECG available for comparison Electronically Signed On 05-27-2019 15:3 5:49 EST by Sera Garcia MD [email or web address] Procedure Note Sera Garcia MD - 05/27/2019 [facility] Cardiology Test Date: 2019-05-27 09:07:12 Pat Name: APOLONIA VAZQUEZ Department: Room: Gender: F Collection Analyst: KARINA : 1960 Requested By: Order Number: Reading MD: Sera godinez MD Measurements Intervals [place] Rate: 70 P: 22 WY: 150 QRS: -4 QRSD: 92 T: -32 QT: 354 QTc: 382 Interpretive Statements Normal sinus rhythm Left ventricular hypertrophy with repola rization abnormality Non-specific ST changes Abnormal ECG No previous ECG available for comparison Electronically Signed On 05-27-2019 15:3 5:49 EST by Sera Garcia MD [email or web address] Performing Organization Address City/State/ZIP Code Phon e Number [facility] [address] [place], [place] [id number] [place] [address] LAB documented in this encounter Visit Diagnoses Diagnosis PVC (premature ventricular contraction) - Primary Other premature beats Ventricular tachycardia (HCC-CMS) (HCC) Paroxysmal ventricular tachycardia Chronic diastolic CHF (congestive heart failure), NYHA class 2 (HCC-CMS) (HCC) Chronic diastolic heart failure documented in this encounter Discontinued Medications Medication Sig Discontinue Reason Start Date End Date amiodarone (PACERONE) Take 2 Tabs by 11/28/201305/02 200 mg tablet mouth 3 times daily Take 400 mg (2 tabs by mouth 3 times daily) through 12/03/13.. amiodarone (PACERONE) Take 1 Tab by mouth Therapy completed 014 05/27/2019 200 mg tablet daily Begin taking 1 tab (200mg) by mouth daily on 12/04/13.. pantoprazole (PROTONIX) Take 1 Tab by mouth Patient Stopped 013 05/27/2019 40 mg tablet daily. For 30 days Taking and while on ibuprofen documented as of this encounter Historical Medications This list may reflect changes made after this encounter. Medication Sig Dispensed Refills Start Date End Date omega 7-cuc-dnu-fish oil (FISH Take by mouth. 0 OIL) 360-1,200 mg capsule,delayed release(DR/EC) vit C/E/Zn/coppr/lutein/zeaxan Take by mouth. 0 (PRESERVISION AREDS-2 ORAL) levothyroxine (SYNTHROID) 50 TK 1 T PO D 4 201812/03/2021 mcg tablet added in this encounter Care Teams Pipeline Technician Relationship Specialty Start Date End Date Arlin Gandara MD PCP - General 03/17/12 [address] [place] [address] documented as of this encounter
--- OUTSIDE RECORDS SUMMARY | 2021-12-16 00:48 | XMS_ITS | Encounter Summary ---
:1960 Author Organization [facility] Address [address] [place] [address] Care Team Providers Name Role Phone Arlin Gandara MD Primary Care Provider Regan Luo MD Unavailable [phone] Reason for Visit Reason Comments Arrhythmia Encounter Details Date Type Department Care Team Description 12/03/2021 Office Visit [facility] - Regan Luo Pre mature ventricular contractions (PVCs) (VPCs) (Primary Dx); [facility] Cardiology MD [facility] Chronic diastolic CHF (congestive heart failure), NYHA class 2 (HCC-CMS) (HCC); Clinic [address] [place] [address] Nonischemic cardiomyopathy ([facility]-CMS) (HC C); [address] [place] [address] [address] History of cardiac [place] [address] [place], [place] [phone] Social History Tobacco Use Types Packs/Day [...] EDT Pulse 92 12/03/2021 0932 EDT Temperature - - Respiratory Rate - - Oxygen Saturation 95% 12/03/2021 0932 EDT Inhaled Oxygen Concentration - - Weight 85.6 kg (188 lb 12.8 oz) 12/03/2021 0932 EDT Height 162.6 cm (5' 4) 12/03/2021 0932 EDT Body Mass Index 32.41 12/03/2021 0932 EDT documented in this encounter Functional Status [...] Sig Dispensed Refills Start Date End Date levothyroxine (SYNTHROID) Take 1 Tablet by 90 Tablet 4 09/2021 50 mcg tablet mouth daily. metoprolol SUCCinate Take 1 Tablet by 90 Tablet 3 2 (TOPROL-XL) 50 mg tablet mouth daily. documented in this encounter Progress Notes Regan Luo MD - 12/03/2021 0945 EDT [facility] Cardiology Clinic Visit Subjective: Chief Complaint(s): Arrhythmia HPI: 61-year-old woman with NICM of unclear etiology and [...] Was subsequently seen by Dr. Dolan in [place] who initially startedher on Mexiletine 200mg BID. Progression to more frequent nsVT and sxs in 07/2013, when Mexiletine was increased to 200mg TID. After a period with better sxs control, she presented with recurrent episodes of severe palpitations and lightheadedness. EKG showed ongoing incessant VT situation with a pattern of 2 sinus beats alternating with 5-7 beat runs of nsVT. She was started on Amiodarone. As she continued to have symptomatic PVCs and nonsustained VT despite amiodarone therapy, she had a needle catheter ablation of her intramyocardial PVC/VT focus by Dr. Dolan in [place] 03/2016. The procedure was initially not considered completely successful and she was continued on amiodarone for another year. Holter EKG in 2018 off amiodarone showed only of PVC recurrence. Echo 2018 with recovery of LV function to the low normal range. She returns to the office for followup. She reports doing well from a cardiac standpoint. She is able to walk her dog lbs long distances and doing garden work. She has dyspnea only with higher levels of exertion, walking long distances or with heavy lifting. Rare fluttering in her chest. She recently switched from 2 meals a day to 3 smaller meals for weight loss as recommended by dietitian, however unfortunately, happened to gain some weight. She denies exertional chest pain, shortness of breath at rest, blackout spells, edema, fevers, chills, bleeding, digestive problems, myalgia. Going to a prediabetes class. Data review: Cardiac cath (2010): Normal coronaries, [...] furosemide (LASIX) 40 mg tablet Take 1 Tablet by mouth daily. Change to one tab daily 90 Tablet 3 ??? ibuprofen (MOTRIN) 600 mg tablet Take 1 Tab by mouth 3 times daily with meals. for 3 days then decrease to twice a day for 1-2 days then only as needed 20 Tab 0 ??? levothyroxine (SYNTHROID) 50 mcg tablet Take 1 Tablet by mouth daily. 90 Tablet 4 ??? lisinopriL (PRINIVIL) 5 mg tablet TAKE ONE TABLET BY MOUTH EVERY DAY 90 Tablet 3 ??? LORazepam (ATIVAN) 0.5 mg tablet Take 1 mg by mouth as needed for Anxiety. ??? metoprolol SUCCinate (TOPROL-XL) 50 mg tablet Take 1 Tablet by mouth daily. 90 Tablet 3 ??? Multivitamins with Minerals Tab Take 2 Tabs by mouth 2 times daily. I-Caps ??? omega 7-kjn-moz-fish oil (FISH OIL) 360-1,200 mg capsule,delayed release(DR/EC) Take by mouth. (Patient not taking: Reported on 12/03/2021) ??? potassium chloride CR (KLOR-CON) 10 mEq tablet extended release TAKE ONE TABLET BY MOUTH TWICE ADAY 180 Tablet 3 ??? triamcinolone (ARISTOCORT) 0.5 % ointment APPLY A SMALL AMOUNT TOPICALLY TO SKIN TWICE A DAY DO NOT APPLY IN THE SAME AREA FOR MORE THAN 2 WEEKS AND DO NOT APPLY TO THE FACE (Patient not taking: Reported on 12/03/2021) ??? vit C/E/Zn/coppr/lutein/zeaxan (PRESERVISION AREDS-2 ORAL) Take by mouth. No current facility-administered medications for this visit. Past Medical History Very frequent PVC and nsVT from an epicardial yomi-basal LV focus close to the LMCA bifurcation, s/p intramyocardial needle catheter ablation 2014, [facility]. Mild non-ischemic cardiomyopathy atypical chest pain onset 07/12 r/o for [place] by enzymes Obesity Macular degeneration Allergies penicillin: hives,swelling: Allergy sulfa 1 of 2: bloody nose sulfa 2 of 2: bloody nose adhesive tape: burned abd: Allergy latex: sawant skin: Allergy I have reviewed current problem list and current medications. ROS: A 10-system ROS was performed, pertinent items as mentioned in HPI, otherwise negative. ROS Objective: Examination: Vitals: BP 110/66 (BP Cuff Location: Right arm, BP Patient Position: Sitting, BP Cuff Sizes: Adult, regular) Pulse 92 Ht 162.6 cm (64) Wt 85.6 kg (188 lb 12.8 oz) SpO2 95% BMI 32.41 kg/m?? Body massindex is 32.41 kg/m??. Physical Exam GENERAL APPEARANCE: no acute distress, pleasant, cooperative. HEENT EYES: conjunctiva clear, sclerae anicteric. NECK: supple, no carotid bruit. CHEST: normal shape and expansion. HEART: regular rate and rhythm, normal S1S2, no murmurs, rub or gallop. LUNGS: clear to auscultation & percussion, good air entry bilaterally. ABDOMEN: soft, NT/ND, BS present. EXTREMITIES: no clubbing, no cyanosis, no edema. PERIPHERAL PULSES: carotid, radial, PT: 2+ bilaterally. SKIN: warm & dry. NEUROLOGIC EXAM: alert & oriented x3, nonfocal, normal speech, gait normal. EKG 07/2019: Normal sinus rhythm, 79/min, OR 150 ms, QRS 92 ms, QT 354 ms, QTC 382 ms, LVH with repolarization abnormality. Assessment & Plan: 1. Premature ventricular contractions (PVCs) (VPCs) 2. Chronic diastolic CHF (congestive heart failure), NYHA class 2 (HCC-CMS) ([facility]) 3. Nonischemic cardiomyopathy (HCC-CMS) ([facility]) 4. History of cardiac radiofrequency ablation 61-year-old woman with history of mild nonischemic cardiomyopathy and very frequent, highly symptomatic PVCs and nsVT. Epicardial PVC origin yomi-basal LV. S/p successful intramyocardial PVC/VT focusablation with needle catheter in [place] 2015. Discontinued amiodarone without significant recurrence of arrhythmia. Echo 2018 with improvement of LV EF to the low normal range. Continues doing well, improved shortness of breath, now with higher levels of exertion only, likely related to diastolic dysfunction. Continue goal-directed medical therapy. Encouraged her to continue regular exercise program. Discussed nutrition and weight loss issues. I spent a total of 30 minutes on the date of this encounter meeting with the patient and reviewing documentation/coordinating care as described in the above note. No procedures were performed at the time of the visit. documented in this encounter Plan of Treatment Upcoming Encounters Date Type Specialty Care Team Description 09/05/2022 Office Visit Cardiology Regan Luo MD [address] [facility] [address] [place] [address] (Wo rk) documented as of this encounter Visit Diagnoses Diagnosis Premature ventricular contractions (PVCs ) (VPCs) - Primary Other premature beats Chronic diastolic CHF (congestive heart failure), NYHA class 2 (HCC-CMS) (HCC) Chronic diastolic heart failure Nonischemic cardiomyopathy (HCC-CMS) (HC C) Other primary cardiomyopathies History of cardiac radiofrequency ablati on documented in this encounter Discontinued Medications Medication Sig Discontinue Reason Start Date End Date levothyroxine (SYNTHROID) TK 1 T PO D Reorder 04/23/2019 50 mcg tablet metoprolol SUCCinate Take 1 Tablet by Reorder 01/18/202109/2021 (TOPROL-XL) 50 mg tablet mouth daily. documented as of this encounter Care Teams Assistant Press Operator Relationship Specialty Start Date End Date Arlin Gandara MD PCP - General 03/17/12 [address] [place], [place] [id number] Regan Luo MD Cardiovascular Disease 05/17/21 [address] [facility] [address] [place] [address] documented as of this encounter
--- OUTSIDE RECORDS SUMMARY | 2021-12-16 00:48 | XMS_ITS | Encounter Summary ---
:1960 Author Organization [facility] Address [address] [place] [address] Care Team Providers Name Role Phone Arlin Gandara MD Primary Care Provider Regan Luo MD Unavailable [phone] Reason for Visit Reason Comments Follow-up 11mo Congestive Heart Failure Other PVCs, NICM Encounter Details Date Type Department Care Team Description 05/17/2021 Office Visit [facility] - Regan Luo Pre mature ventricular contractions (PVCs) (VPCs) (Primary Dx); [facility] Cardiology MD [facility] Chronic diastolic CHF (congestive heart failure), NYHA class 2 (HCC-CMS) (HCC); Clinic [address] [facility] Nonischemic cardiomyopathy (HCC-CMS) (HC C); [address] [place] [address] [address] History of cardiac radiofrequency ablati on; [place] [address] [place] Obesity (BMI 30.0-34.9); [phone] [address] Pacemaker battery depletion; [phone] Bilateral groin pain (Work) Social History Tobacco Use Types Packs/Day Years Used Date Never Smoker Smokeless Tobacco: Never Used Alcohol Use Standard Drinks/Week Comments No 0 (1 standard drink = 0.6 oz pure alcoho l) Sex Assigned at Date Recorded Not on file documented as of this encounter Last Filed Vital Signs Vital Sign Reading Time Taken Comments Blood Pressure 98/62 05/17/2021 1022 EST Pulse 74 05/17/2021 1022 EST Temperature - - Respiratory Rate - - Oxygen Saturation 97% 05/17/2021 1022 EST Inhaled Oxygen Concentration - - Weight 82.6 kg (182 lb 3.2 oz) 05/17/2021 1022 EST Height 162.6 cm (5' 4) 05/17/2021 1022 EST Body Mass Index 31.27 05/17/2021 1022 EST documented in this encounter Functional Status [...] encounter Progress Notes Regan Luo MD - 05/17/2021 1030 EST [facility] Cardiology Clinic Visit Subjective: Chief Complaint(s): Follow-up (11mo), Congestive Heart Failure, and Other (PVCs, NICM) HPI: 60-year-old woman with NICM of unclear [...] Was subsequently seen by Dr. Dolan in [place] who initially startedher on Mexiletine 200mg BID. [...] intramyocardial PVC/VT focus by Dr. Dolan in [place] 03/2016. The procedure was initially not considered completely successful and she was continued on amiodarone for another year. Holter EKG in 2018 off amiodarone showed only of PVC recurrence. Echo 2018 with recovery of LV function to the low normal range. She returns to the office for followup. She reports doing well from a cardiac standpoint. She has a new puppy dog, which motivates her to do longer walks. She reports mainly dyspnea with higher levels of exertion, walking long distances or with heavy lifting. Occasional fluttering in her chest. She is currently mainly concerned about and bothered by bilateral groin pain in the ablation catheter entry areas. R sided mainly localized, L sided with radiation to the medial aspect of her thigh. Gets worse with exercise. She denies exertional chest pain, shortness [...] ONE TABLET BY MOUTH EVERY DAY 90 Tab 3 ??? LORazepam (ATIVAN) 0.5 mg tablet Take 1 mg by mouth as needed for Anxiety. ??? metoprolol SUCCinate (TOPROL-XL) 50 mg tablet Take 1 Tablet by mouth daily. 90 Tablet 3 ??? Multivitamins with Minerals Tab Take 2 Tabs by mouth 2 times daily. I-Caps ??? omega 8-axq-fcm-fish oil (FISH OIL) 360-1,200 mg capsule,delayed release(DR/EC) Take by mouth. ??? potassium chloride CR (KLOR-CON) 10 mEq tablet extended release TAKE ONE TABLET BY MOUTH TWICE ADAY 180 Tab 3 ??? triamcinolone (ARISTOCORT) 0.5 % ointment APPLY A SMALL AMOUNT TOPICALLY TO SKIN TWICE A DAY DO NOT APPLY IN THE SAME AREA FOR MORE THAN 2 WEEKS AND DO NOT APPLY TO THE FACE ??? vit C/E/Zn/coppr/lutein/zeaxan (PRESERVISION AREDS-2 ORAL) Take by mouth. No current facility-administered medications for this visit. Past Medical History Very frequent PVC and nsVT from an epicardial yomi-basal LV focus close to the LMCA bifurcation, s/p intramyocardial needle catheter ablation 2014, [facility]. Mild non-ischemic cardiomyopathy atypical chest pain onset 07/12 r/o for [place] by enzymes Obesity Macular degeneration Allergies penicillin: hives,swelling: Allergy sulfa 1 of 2: bloody nose sulfa 2 of 2: bloody nose adhesive tape: burned abd: Allergy latex: sawant skin: Allergy I have reviewed current problem list and current medications. ROS: A 10-system ROS was performed, pertinent items as mentioned in HPI, otherwise negative. ROS Objective: Examination: Vitals: BP 98/62 (BP Cuff Location: Right arm, BP Patient Position: Sitting, BP Cuff Sizes: Adult, regular) Pulse 74 Ht 162.6 cm (64) Wt 82.6 kg (182 lb 3.2 oz) SpO2 97% BMI 31.27 kg/m?? Body mass index is 31.27 kg/m??. Physical Exam GENERAL APPEARANCE: no acute distress, pleasant, cooperative. HEENT EYES: conjunctiva clear, scleraeanicteric. NECK: supple, no carotid bruit. CHEST: normal shape and expansion. HEART: regular rate and rhythm, normal S1S2, no murmurs, rub or gallop. LUNGS: clear to auscultation & percussion, goodair entry bilaterally. ABDOMEN: soft, NT/ND, BS present. EXTREMITIES: no clubbing, no cyanosis, no edema. B Groins without swelling or bruit, slightly tender to palpation. PERIPHERAL PULSES: carotid, radial, PT: 2+ bilaterally. SKIN: warm & dry. NEUROLOGIC EXAM: alert & oriented x3, nonfocal, normal speech, gait normal. EKG 07/2019: Normal sinus rhythm, 79/min, MD 150 ms, QRS 92 ms, QT 354 ms, QTC 382 ms, LVH with repolarization abnormality. Assessment & Plan: 1. Premature ventricular contractions (PVCs) (VPCs) 2. Chronic diastolic CHF (congestive heart failure), NYHA class 2 (HCC-CMS) ([facility]) 3. Nonischemic cardiomyopathy (HCC-CMS) ([facility]) 4. History of cardiac radiofrequency ablation 5. Obesity (BMI 30.0-34.9) 6. Pacemaker battery depletion 60-year-old woman with history of mild nonischemic cardiomyopathy and very frequent, highly symptomatic PVCs and nsVT. Epicardial PVC origin yomi-basal LV. S/p successful intramyocardial PVC/VT focusablation with a special needle catheter in [place] 2015. Discontinued amiodarone without significant recurrence of arrhythmia. Echo 2018 with improvement of LV EF to the low normal range. Chronic shortness of breath with higher levels of exertion most likelyrelated to diastolic dysfunction. Continue goal-directed medical therapy. Encouraged her to continueregular exercise program. Her recent onset of groin pain could be musculoskeletal related to her recently increased physical activity related to walking her dog. However this could also be related to femoral hernia or scar tissue or pseudoaneurysm related to her s/p 3 EP procedures. We discussed possible imaging with US or CT.Will discuss with vascular surgeon, then order imaging. I spent a total of 30 minutes on the date of this encounter meeting with the patient and reviewing documentation/coordinating care as described in the above note. No procedures were performed at the time of the visit. documented in this encounter Plan of Treatment Upcoming Encounters Date Type Specialty Care Team Description 09/05/2022 Office Visit Cardiology Regan Luo MD [address] [place] [address] [address] [place] [address] (Wo rk) documented as of this encounter Visit Diagnoses Diagnosis Premature ventricular contractions (PVCs ) (VPCs) - Primary Other premature beats Chronic diastolic CHF (congestive heart failure), NYHA class 2 (HCC-CMS) (HCC) Chronic diastolic heart failure Nonischemic cardiomyopathy (HCC-CMS) (HC C) Other primary cardiomyopathies History of cardiac radiofrequency ablati on Obesity (BMI 30.0-34.9) Obesity, unspecified Pacemaker battery depletion Fitting and adjustment of cardiac pacema ker Bilateral groin pain Abdominal pain, unspecified site documented in this encounter Care Teams Envelope Adjuster Relationship Specialty Start Date End Date Arlin Gandara MD PCP - General 03/17/12 [address] [place], [place] [id number] Regan Luo MD Cardiovascular Disease 05/17/[address] [place] [address] [address] [place] [address] documented as of this encounter
--- OUTSIDE RECORDS SUMMARY | 2021-12-16 00:48 | XMS_ITS | Encounter Summary ---
:[address] [facility] Address [address] [place] [address] Care Team Providers Name Role Phone Arlin Gandara MD Primary Care Provider Reason for Visit Reason Comments Cardiac Testing Encounter Details Date Type Department Care Team Description 10/11/2012 Procedure visit [facility] Alrin Jensen, DRAWING SUPERVISOR [address] [facility] [place], [address] [place] [address] Symptomatic premature ventricular contra ctions; Cardiology - Jessika Enriquez PVC's (premature ventricular contraction s) [address] [place] [address] Social History Tobacco Use Types Packs/Day Years [...] 09/05/2022 Office Visit Cardiology Regan Luo MD [address] [place] [address] [address] [place] [phone] (Wo rk) documented as of this encounter Procedures Procedure Name Priority Date/Time Associated Diagnosis Comme nts HOLTER MONITOR Routine 10/11/2012 14:24 EDT Symptomatic premat ure Results for this ventricular procedure are i n contractions the results PVC's (premature section. ventricular contractions) documented in this encounter Results HOLTER MONITOR (10/11/2012 14:24 EDT) Specimen Narrative [facility] - 10/22/2012 14 :19 EDT ?[facility] ? Test Date: ?2012-10-11 Pat Name: ? APOLONIA VAZQUEZ ?Department: ?? Jessika Calixto ? Room: ? Gender: ?Customer Service Rep: ?[id number] : ?1960 ? Requested By: TYE Grimes Order Number: [id number] ?Eva BAZAN: ?? EMILY GEIGER MD ? Interpretive Statements 24 Hour Holter for PVCs 1. Baseline: sinus rhythm with frequent PVCs. ?Min: 47 bpm ?Av bpm ?Max: 105 bpm 2. Very frequent unifocal PVCs, 330 trip lets, 390 couplets, 8798 bigeminy, 3 trigeminy. Several runs of NSVT, longest at 7 beats. Ventricular ectopy a nd rhythms are suppressed during sleep 3. No PACs 4. No significant pauses 5. Pt experienced skipping and racing during ventricular ectopy and NSVT. This is an abnormal Holter This is a preliminary report. ??Edited b y RONNY PUENTE MD on 10-14-12 16:34:51 EDT Electronically Signed On 10-22-12 14:19: 24 EDT by EMILY GEIGER MD Procedure Note Emily Geiger MD - 10/22/2012 [facility] Test Date: 2012-10-11 Pat Name: APOLONIA VAZQUEZ Department: [facility] Room: Gender: Customer Service Rep: [id number] : 1960 Requested By: KERRY Grimes Order Number: [id number] Reading MD: CHESTER GEIGER MD Interpretive Statements 24 Hour Holter for PVCs 1. Baseline: sinus rhythm with frequent PVCs. Min: 47 bpm Av bpm Max: 105 bpm 2. Very frequent unifocal PVCs, 330 trip lets, 390 couplets, 8798 bigeminy, 3 trigeminy. Several runs of NSVT, longest at 7 beats. Ventricular ectopy a nd rhythms are suppressed during sleep 3. No PACs 4. No significant pauses 5. Pt experienced skipping and racing during ventricular ectopy and NSVT. This is an abnormal Holter This is a preliminary report. Edited by RONNY PUENTE MD on 10-14-12 16:34:51 EDT Electronically Signed On 10-22-12 14:19: 24 EDT by EMILY GEIGER MD Performing Organization Address City/State/ZIP Code Phon e Number [facility] [address] [facility] [address] [facility] [address] [place], [place] [address] documented in this encounter Visit Diagnoses Diagnosis Symptomatic premature ventricular contra ctions Other premature beats PVC's (premature ventricular contraction s) Other premature beats documented in this encounter Care Teams Director Data Processing Relationship Specialty Start Date End Date Arlin Gandara MD PCP - General 03/17/12 [address] [place], [place] [address] documented as of this encounter
--- OUTSIDE RECORDS SUMMARY | 2021-12-16 00:48 | XMS_ITS | Encounter Summary ---
:1960 Author Organization [facility] Address [address] [place] [address] Care Team Providers Name Role Phone Arlin Montoya MD Primary Care Provider Reason for Referral Cardiology (Routine/Next Available) - Closed Specialty Diagnoses / Procedures Referred By Contact Refer red To Contact Diagnoses Symptomatic premature ventricular contractions PVC's (premature ventricular contractions) Arlin Beck, Procedures HOLTER MONITOR HISTOLOGY SPECIALIST [address] [facility], [facility] [address] [place] [id number] Referral ID Status Reason Start Date Expiration Date Visits Requ ested Visits Authorized [id number] Closed 10/01/2012 1 1 Encounter Details Date Type Department Care Team Description 09/29/2012 - [facility] Aj Cantu PVC 's (premature ventricular contractions) (Primary Dx); 10/01/2012 Encounter Cardiac/Telemetry MD Dre Symptomatic premature ventricular contra ctions; [address] Pericardial effusion; [address] [facility] [address] Cardiac tamponade [facility], [address] [place] [address], [facility] [place] [phone] Social History Tobacco Use Types Packs/Day Years Used Date Never Smoker Smokeless Tobacco: Never Used Alcohol Use Standard Drinks/Week Comments No 0 (1 standard drink = 0.6 oz pure alcoho l) Sex Assigned at Date Recorded Not on file documented as of this encounter Last Filed Vital Signs Vital Sign Reading Time Taken Comments Blood Pressure 110/75 10/01/2012 1543 EDT Pulse 82 10/01/2012 0847 EDT Temperature 36.4 ??C (97.5 ??F) 10/01/2012 0847 EDT Respiratory Rate 18 10/01/2012 0443 EDT Oxygen Saturation 94% 10/01/2012 1543 EDT Inhaled Oxygen Concentration - - Weight 84.9 kg (187 lb 3.2 oz) 10/01/2012 0550 EDT Height 163.8 cm (5' 4.5) 09/29/2012 0705 EDT Body Mass Index 31.64 09/29/2012 0705 EDT documented in this encounter Functional Status Cognitive Status Response Date of Assessment Because of a physical, mental, or emotional condition, do Ye s 09/29/2012 you have serious difficulty concentrating, remembering, or making decisions? 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 Principal Procedure: Epicardial mapping Date: 09/29/2012 Secondary Procedures: Pericardial drain 09/29/12 - removed later same day Condition at Discharge: Fair Assessment at Discharge: Vital signs: Patient Vitals for the past 8 hrs BP Pulse Heart Rate Resp Temp SpO2 O2 Device 10/01/12 1543 110/75 82 18 94% Room air 10/01/12 1202 85/48 mmHg - 60 BPM - - 98 % - 10/01/12 1141 116/76 mmHg - - - - - - 10/01/12 0847 103/60 mmHg 82 - - 36.4 ??C (97.5 ??F) 93 % Room air Telemetry: NSR with freq ventricular bigemeny and short runs of NSVT Cor: S1S2 Irreg - no murmur no rub asculated Lungs: Juan Carlos clear to ausculation ant/post Abd: + bowel sounds, non-tender Right and left femoral access sites: soft, no bleed/hematoma Extr: + DP pulse juan carlos, no peripheral edema, no cyanosis Neuro: grossly normal mental status : awake, alet & oriented X3 Skin: no apparent rash Hospital Course: Hailey Vazquez is a 52 y.o. female with daily frequent symptomatic PVC despite useof metoprolol. Symptoms include palpitations and at times lightheadedness. She also has PVC inducible LV dysfunction and chronic systolic heart failure (LVEF 40-45%). An ablation was performed last fall (s/p ablation 03/2012) that suggested epicardial focus. Metoprolol was discontinued last week in anticipation for the procedure. 09/29/2012 Unfortunately epicardial mapping demonstrated focus to be too close to coronaries- No ablation was performed. Pericardial access was difficult and there was pericardial bleeding initially. She spent the night in the MICU and remained stable. 09/30/12 transfer to [place] [id number] - chest discomfort - still toradolol 15 mg q6hr - no further morphine -using incentive spirometer. Addition of trial of ranolazine 500 mg twice a day and started [id number] mg twice a day. Became hypotensive and lightheaded after first does of verapamil. No significant decrease in PVC's overnight. Discontinued verapamil and ranolazine. 10/01/12 transitioned to oral ibuprofen 600 mg with meals for pericarditis and effective control of chest discomfort - ambulating slowly in guerrier. Addesd pantoprazole for 30 day especially while on ibuprofen Started mexiletine 200 mg q12hrs and continued metoprlol xl 50 mg daily Decreased furosemide to 40 mg daily with KCL 10 meq daily , continue lisinopril 10 mg daily . To have 24 hr holter monitor after on mexiletine for 1 week Cardiology F/u Dr Aj Cantu on 10/18/12 at 4pm - banner holter monitor Cardiology f/u Dr Derian Luo on 10/29/12 at 9:30 am in [facility] cardiology clinic Discharged 10/01/12 New medications prescribed or medications modified at discharge: Medication Sig Dispense Refill ??? furosemide (LASIX) 40 mg tablet Take 1 Tab by mouth daily. Change to one tab daily ??? pantoprazole (PROTONIX) 40 mg tablet Take 1 Tab by mouth daily. For 30 days and while on ibuprofen 30 Tab 0 ??? mexiletine (MEXITIL) 200 mg capsule Take 1 Cap by mouth every 12 hours. Telephoned prescription to [facility] in [facility] 10/01/2012 60 Cap 2 ??? ibuprofen (MOTRIN) 600 mg tablet Take 1 Tab by mouth 3 times daily with meals. for 3 days then decrease to twice a day for 1-2 days then only as needed 20 Tab 0 Medications prior to admission that will be resumed at discharge: Medication Sig Dispense Refill ??? calcium citrate 200 mg (950 mg) Take 1 Tab by mouth daily. 30 Each 3 ??? metoprolol XL (TOPROL-XL) 50 mg tablet Take 50 mg by mouth daily. ??? lisinopril (PRINIVIL, ZESTRIL) 10 mg tablet Take 20 mg by mouth daily. ??? potassium chloride CR (KLOR-CON) 10 mEq TbER Take 20 mEq by mouth daily. ??? Multivitamins with Minerals Tab Take 2 Tabs by mouth 2 times daily. I-Caps ??? CALCIUM PHOSPHATE TRIB/VIT D3 (CITRACAL + D ORAL) Take by mouth daily. Immunization History Administered Date(s) Administered ? ? Pneumococcal Polysaccharide Vaccine (PPSV23) =>2YO SQ/IM 10/01/2012 Diagnostic Studies: 09-30-2012 Limited echocardiogram Summary: 1. Inferior vena cava: The vessel was normal in size; the respirophasic diameter changes were in the normal range (greater than or equal to 50%); findings are consistent with normal central venous pressure. 2. Pericardium, extracardiac: There was no significant pericardial effusion. 09-30-2012 Limited echocardiogram Summary: 1. Study data: Limited study to assess for a pericardial effusion. 2. Inferior vena cava: The vessel was normal in size; the respirophasic diameter changes were in the normal range (greater than or equal to 50%); findings are consistent with normal central venous pressure. 3. Pericardium, extracardiac: A trivial pericardial effusion was identified along the right ventricular free wall. Relevant Studies at Discharge: none Last Lab Results at Discharge: BUN: Lab Results Component Value Date BUN 17 10/01/2012 Creatinine: Lab Results Component Value Date CREATININE 0.82 10/01/2012 CBC: Lab Results Component Value Date WBC 6.39 10/01/2012 RBC 3.67* 10/01/2012 HGB 11.0* 10/01/2012 HCT 31.5* 10/01/2012 MCV 86 10/01/2012 MCH 29.9 10/01/2012 MCHC 34.8 10/01/2012 PLT 142 10/01/2012 DIFFTYPE Automated 10/01/2012 Electrolytes: Lab Results Component Value Date NA 138 10/01/2012 K 4.4 10/01/2012 CL 104 10/01/2012 CO2 27 10/01/2012 INR: Lab Results Component Value Date INR 0.9 09/29/2012 INR 0.8* 03/18/2012 PROTIME 10.0 09/29/2012 PROTIME 9.6 03/18/2012 No results found for this basename: HGBA1C cc: PCP: ARLIN MONTOYA MD Referring Prov:Aj Cantu Discharge Summary Completed: Yes Attestation statement: I saw and examined the patient with the resident/fellow. I agree with the findings and plan of care documented in the resident's/fellow's note. documented in this encounter Discharge Instructions InstructionsHamlyArlin warner NP - 10/01/2012 Discharge Instructions for PVC Ablation Patients 1. Wound Care: ?? You may remove the Band-Aids/Dressings from the sites the next morning ?? You may shower the following day. ?? No tub bathing for five days. This includes hot tubs and pools. 2. Call your physician or nurse if: ?? You develop drainage, redness, or swelling at any of the sites ?? You develop a fever ?? You develop increased tenderness and/or increased bruising over sites which doesn't resolve in 2 days ?? You develop a persistent and/or productive cough ?? Your symptoms reoccur 3. Activity: ?? You can resume your normal activities in one week, unless you have been instructed otherwise ?? If you are traveling by car or airplane in the next week, you will need to stand and move around every 2 hours to promote circulation ?? No vigorous activity for 2 weeks. Avoid running, squatting and heavy lifting (>10 lbs) during this time period. ?? You may resume driving after 48 hours unless instructed otherwise ?? You may return to work after 5 days if your work demands are not physical. If your job entails strenuous activity, a two week waiting period is recommended. 4. Medications: ?? Resume prior medications unless otherwise instructed ? Started Mexiletine 200 mg every 12 hours ?? Ibuprofen 600 mg with meals three times a day for 3 days then decrease to twice a day for 1-2 days then use as needed ?? Pantoprazole 40 mg daily for one month and while on Ibuprofen ?? Change furosemide to 40 mg daily ?? Discontinue aspirin 5. Appointments: See Dr. ARLIN MONTOYA MD in 1 week Please call for an appointment. Follow up with Dr. Aj Cantu, Manager Of International on October 18, 2012 at 4pm - Office number - please call with any questions or concerns Follow- up with Dr Derian Luo on ThuOctober 29, 2012 at 9:30am at [facility] - office number We will arrange for a follow up Holter monitor to be mailed to you. Once on mexiletine for 1 week - wear holter monitor for 24 hours - please call Dr Cantu's office with any questions [phone] If you have any questions or concerns, please don't hesitate to call the Cardiac Arrhythmia Service at [facility] at x [phone] (or dial direct-[phone]) and leave a message for Jes Florence RN and she will return your call as soon as possible. documented in this encounter Medications at Time of Discharge Medication Sig Dispensed Refills Start Date End Date CALCIUM PHOSPHATE Take by mouth daily. 0 TRIB/VIT D3 (CITRACAL + D ORAL) ibuprofen (MOTRIN) 600 Take 1 Tab by mouth 3 20 Tab 0 mg tablet times daily with meals. for 3 days then decrease to twice a day for 1-2 days then only as needed Multivitamins with Take 2 Tabs by mouth 2 0 Minerals Tab times daily. I-Caps calcium citrate 200 mg Take 1 Tab by mouth 30 Each 3 03/0110/18/2012 (950 mg) daily. furosemide (LASIX) 40 Take 1 Tab by mouth 1 Tab 0 10/0112/17/2020 mg tablet daily. Change to one tab daily lisinopril (PRINIVIL, Take 5 mg by mouth daily . 0 11/28/2013 ZESTRIL) 10 mg tablet metoprolol XL Take 50 mg by mouth 0 (TOPROL-XL) 50 mg daily. tablet mexiletine (MEXITIL) Take 1 Cap by mouth 60 Cap 2 201211/25/2013 200 mg capsule every 12 hours. Telephoned prescription to [facility] in [facility] 10/01/2012 pantoprazole (PROTONIX) Take 1 Tab by mouth 30 Tab 0 07/201205/27/2019 40 mg tablet daily. For 30 days and while on ibuprofen potassium chloride CR Take 10 mEq by mouth 2 0 02/08/2020 (KLOR-CON) 10 mEq TbER times daily. documented as of this encounter Ordered Prescriptions Prescription Sig Dispensed Refills Start Date End Date ibuprofen (MOTRIN) 600 Take 1 Tab by mouth 3 20 Tab 0 mg tablet times daily with meals. for 3 days then decrease to twice a day for 1-2 days then only as needed mexiletine (MEXITIL) Take 1 Cap by mouth 60 Cap 2 201211/25/2013 200 mg capsule every 12 hours. Telephoned prescription to [facility] in [facility] 10/01/2012 pantoprazole (PROTONIX) Take 1 Tab by mouth 30 Tab 0 07/201205/27/2019 40 mg tablet daily. For 30 days and while on ibuprofen furosemide (LASIX) 40 Take 1 Tab by mouth 1 Tab 0 10/0112/17/2020 mg tablet daily. Change to one tab daily documented in this encounter Discharge Disposition Disposition Code Departure Means Destination Home or Self Care documented in this encounter Progress Notes Amelia Jeronimo RN - 09/30/2012 1509 EDT 14:00: Report received from Starr Paul RN. 14:40: Pt in bed, no complaints, pt in no apparent distress. 15:00: Report given to Dang Loo RN. Deedee Veliz RN - 09/30/2012 1043 EDT Case Management Assessment Working Diagnosis/Presenting Problem: Hailey is a 52 y/o female admitted s/p failed ablation with pericardial bleeding. Living Arrangements: Hailey lives with her Sam in a one level home. There are six steps toenter which she denies difficulty ambulating. 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 Social Supports: , children. Existing Community Resources: PCP is Dr. Montoya, uses [facility]. Advanced Directives/DPOA: On file. Cultural/Spiritual Needs: Spiritual Insurance/Financial Needs: [employer] Transportation Needs: to provide. Patient Goals: To return home when medically ready. Assessment and Discharge Care Plan: Hailey is a pleasant, previously independent 52 y/o female admitted s/p failed ablation. Hailey denies any needs at this time. Will continue to follow for any d/c needs. Deedee Smith RN, BSN #[id number] Chris Antoine MD - 09/30/2012 3432 EDT Brief overnight note 09/30/2012 Patient with some continued pleuritic chest pain. No SOB. Relieved partially with IV Ketorolac and Morphine. Blood pressure in 80's systolic overnight. Not tachycardic. Continues to have frequent PVC's. Bedside echo performed 6 am - No pericardial effusion noted on parasternal long- axis and short axis views. Plan: Transfer to cardiology telemetry floor Incentive spirometry Should be able to restart Aspirin - defer to Cardiology Continue Metoprolol and Ranolazine Lisinopril written for tonight - administer if BP tolerates Further management as per Cardiology Sera Garcia MD Pager # [phone] Attestation statement: I saw and examined the patient with the resident/fellow. I agree with the findings and plan of care documented in the resident's/fellow's note. Chris Escobedo MD Aj almeida Sa, MD - 09/29/2012 1655 EDT Patient seen. Doing well with reasonable pain control. CXR does not demonstrate a pneumothorax. Echoshows no pericardial effusion and there has been only minimal pericardial drainage. I removed epicardial sheath. Pain is slightly better. erline Doherty - 09/29/2012 0650 EDT 0700 Hailey Vazquez Arrived in CVU walking, used BR prior to admission. Orders released and acknowledged by RN. Denies pain at this time. 0700 Labs sent stat; EP prep completed. 0715 Unable to reconcile med list as MD in system. 0720 Spouse at bedside, call monique with in reach, stretcher in low position, side rails up. Report toco-signing RN. 0722 To EP lab via stretcher with transport and spouse. SPENCER Sin 0725 Unable to access med list- - called ASHER Moore RN with update of meds taken. Mm 0745 Med list reconcilled. MM documented in this encounter H&P Notes Emily Geiger MD - 09/30/2012 0732 EDT Cardiology H&P PCP: ARLIN MONTOYA MD Chief Complaint: Epicardial procedure HPI: 52 y.o. female with daily frequent symptomatic PVC despite use of metoprolol. She also has PVC inducible LV dysfunction and chronic systolic heart failure. An ablation was performed last fall and suggested epicardial focus. Metoprolol was discontinued last week in anticipation for the procedure. Unfortunately epicardial mapping demonstrated focus to be too close to coronaries. No ablation was performed. Pericardial access was difficult and there was pericardial bleeding initially. She spent the night in the MICU and remained stable. This morning she denies abdominal pain or SOB. Chest discomfort is slightly better. A 10-point review of systems was conducted. Pertinent positives are noted in HPI. Past Medical History Diagnosis Date ??? Symptomatic PVCs ??? Blood transfusion 2000 ??? Macular degeneration ??? Fluid retention ??? History of blood transfusion ??? S/P ablation of ventricular arrhythmia mar 2012 Prescriptions prior to admission Medication ??? aspirin chewable 81 mg tablet ??? calcium citrate 200 mg (950 mg) ??? Cholecalciferol, Vitamin D3, 400 unit Tab ??? furosemide (LASIX) 40 mg tablet ??? furosemide (LASIX) 80 mg tablet ??? acetaminophen-codeine (TYLENOL #3) 300-30 mg per tablet ??? furosemide (LASIX) 40 mg tablet ??? metoprolol XL (TOPROL-XL) 50 mg tablet ??? lisinopril (PRINIVIL, ZESTRIL) 10 mg tablet ??? potassium chloride CR (KLOR-CON) 10 mEq TbER ??? Multivitamins with Minerals Tab ??? CALCIUM PHOSPHATE TRIB/VIT D3 (CITRACAL + D ORAL) Allergies as of 09/27/2012 - Ronny as Reviewed 03/18/2012 Allergen Reaction Noted ??? Penicillins Swelling 03/18/2012 ??? Adhesive 03/18/2012 ??? Latex, natural rubber Rash 03/18/2012 ??? Sulfa (sulfonamide antibiotics) 03/18/2012 History Social History ??? Marital Status: Spouse Name: N/A Number of Children: N/A ??? Years of Education: N/A Occupational History ??? Not on file. Social History Main Topics ??? Smoking status: Never Smoker ??? Smokeless tobacco: Never Used ??? Alcohol Use: No ??? Drug Use: No ??? Sexually Active: Not on file Other Topics Concern ??? Not on file Social History Narrative ??? No narrative on file History reviewed. No pertinent family history. Exam Patient Vitals for the past 8 hrs: BP Temp Temp src Resp SpO2 09/30/12 0700 91/60 mmHg - - 19 96 % 09/30/12 0600 84/48 mmHg - - 20 96 % 09/30/12 0500 88/56 mmHg - - 20 94 % 09/30/12 0400 86/56 mmHg 36.3 ??C (97.3 ??F) Tympanic 20 95 % 09/30/12 0200 74/50 mmHg - - 17 96 % 09/30/12 0100 87/43 mmHg - - 18 96 % 09/30/12 0000 89/50 mmHg 36.5 ??C (97.7 ??F) Tympanic 18 95 % Gen: NAD, female appears stated age Neck: JVP is not eelvated CV: irr, no rub Lungs: CTAB Abd: soft, NT/ND, no OM, +BS Ext: no c/c/e Pulses: dpp 2+ and symmetric Neuro: A + O x 3 Data Lab Results Component Value Date/Time NA 138 09/30/2012421 K 4.1 09/30/2012421 CL 104 09/30/2012421 CO2 24 09/30/2012421 BUN 16 09/30/2012421 CREATININE 0.75 09/30/2012421 MG 2.0 09/30/2012421 Lab Results Component Value Date/Time WBC 8.86 09/30/2012421 HCT 35.0 09/30/2012421 PLT 167 09/30/2012421 MCV 86 09/30/2012421 Lab Results Component Value Date/Time INR 0.9 09/29/2012 0715 PTT 28 03/18/2012 0634 No results found for this basename: CHOL, LDLBASE, HDL, TRIG, HGBA1C No results found for this basename: BNP, NTBNP, CK, MB, TROPONINI Telemetry: Frequent ectopy with NSVT - up to 5 beats A/P: #1 LV summit PVC - unable to perform ablation due to proximity to coronaries #2 S/p pericardial access with ongoing pericarditis #3 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 Vazquez is recovering well. She still has frequent ventricular ectopy, being treated with metoprolol and ranolazine at the moment. Good pain control with current meds. Plan: - transfer to - limited echo - CXR PA and lateral - continue Toradol - attempt to transition to oral narcotics - start bowel regim D/W Dr. Alondra mcgee sa, MD Bookkeepers Supervisor pager [phone] Attestation statement: I saw and examined the patient with the resident/fellow. I agree with the findings and plan of care documented in the resident's/fellow's note. S/p epicardial approach to vT, acute pericarditis No effusion by echo Pain control with toradol and morphine for pericardial pain. tx m5 Start verapamil 80 bid Nas Weeks MD - 09/29/2012 7246 EDT MICU H&P Chief Complaint/Reason for admission: Observation post EP study/pericardial drain Date of Admission: 09/29/2012 History of Present Illness Hailey Vazquez is a 52 y.o. female with history of non ischemic cardiomyopathy (EF 40-45%) and frequent PVCs s/p ablation 03/2012 who continued to have frequent PVCs and runs of NSVT and presented forrepeat ablation with epicardial access. Procedure was notable for difficult epicardial acces, entering the left pleural space with moderate pericardial bleeding (~200cc). One epicardial sheath was leftin place due to possibility of ongoing pericardial bleeding. She is admitted to MICU for monitoring overnight. On arrival, she complains of 8/10 chest pain radiating to her bilateral shoulder-blades. She denies any other compaints. Review of Systems - A complete 10 point ROS was performed and pertinent positive and negative findings listed in HPI, otherwise negative. Past Medical History Diagnosis Date ??? Symptomatic PVCs ??? Blood transfusion 2000 ??? Macular degeneration ??? Fluid retention ??? History of blood transfusion ??? S/P ablation of ventricular arrhythmia mar 2012 Past Surgical History Procedure Date ??? Hysterectomy 2000 ??? Foot surgery right great toe tendon surgery x 2 ??? Cyst removal right neck Medications prior to admission aspirin chewable 81 mg tablet calcium citrate 200 mg (950 mg) Cholecalciferol, Vitamin D3, 400 unit Tab furosemide (LASIX) 40 mg tablet furosemide (LASIX) 80 mg tablet acetaminophen-codeine (TYLENOL #3) 300-30 mg per tablet furosemide (LASIX) 40 mg tablet metoprolol XL (TOPROL-XL) 50 mg tablet lisinopril (PRINIVIL, ZESTRIL) 10 mg tablet potassium chloride CR (KLOR-CON) 10 mEq TbER Multivitamins with Minerals Tab CALCIUM PHOSPHATE TRIB/VIT D3 (CITRACAL + D ORAL) Allergies Allergies Allergen Reactions ??? Penicillins Swelling Swelling of body with black fingers ??? Adhesive Burnt skin ??? Latex, Natural Rubber Rash ??? Sulfa (Sulfonamide Antibiotics) Bloody nose Family History History reviewed. No pertinent family history. Social History History Substance Use Topics ??? Smoking status: Never Smoker ??? Smokeless tobacco: Never Used ??? Alcohol Use: No OBJECTIVE Vitals: BP 137/72 Temp(Src) 36.6 ??C (97.9 ??F) (Temporal) Resp 16 Ht 163.8 cm (64.5) Wt 82.555 kg (182 lb) BMI 30.76 kg/m2 SpO2 97% General: middle aged woman lying in bed, uncomfortable secondary to pain, NAD HEENT: NC/AT, anicteric sclera, conjunctiva non-injected, MMM Lungs: +BS b/l in anterior lung tapia and posterior bases CV: irregular, regular rate, nl S1, S2, no m/r/g Abdomen: soft non tender non distended +BS Extremities: warm, no cyanosis or edema, 2+ DP pulses b/l. B/l groin sites with c/d/i dressing, no mass or hematoma Skin: warm and dry, no rash or lesion Neuro: AAOx3, sensation and strength grossly intact Lines: PIV Tubes/Ruvalcaba: Ruvalcaba in place draining clear yellow urine Medications reviewed. CBC: Lab Results Component Value Date WBC 5.72 09/29/2012 RBC 4.71 09/29/2012 HGB 13.8 09/29/2012 HCT 40.0 09/29/2012 MCV 85 09/29/2012 MCH 29.3 09/29/2012 MCHC 34.5 09/29/2012 PLT 211 09/29/2012 NEUTROABS 3.70 03/19/2012 BMP: Lab Results Component Value Date NA 142 09/29/2012 K 4.0 09/29/2012 CL 101 09/29/2012 CO2 28 09/29/2012 BUN 16 09/29/2012 CREATININE 0.71 09/29/2012 Coagulation: Lab Results Component Value Date PROTIME 10.0 09/29/2012 INR 0.9 09/29/2012 PTT 28 03/18/2012 Studies CXR: pending Limitied Echo: pending ASSESSMENT Hailey Vazquez is a 52 y.o. female with a PMHx of nonischemic cardiomyopathy chronic systolic heartfailure, frequent symptomatic PVCs, no s/p epicardial ablation procedure complicaed by entering the pleural space and pericardial bleeding. PLAN Respiratory - CXR to evaluate for pneumothorax Cardiovascular - resume metoprolol XL 50mg today, lisinopril tomorrow am - start ranolazine 500mg BID - limited Echo pending, EP to pull drain if no effusion - hold ASA - toradol/tylenol for post-procedure pain - morphine PRN GI - no acute issues FEN/Renal - daily lytes, replete PRN - no acute issues ID - no acute issues Endocrine - no acute issues Neuro/Psych - no acute issues Heme/Onc - recheck CBC this afternoon Ppx: - hold anticoagulation in setting of pericardial bleed Lines: PIVs Code: FULL Consults: EP cardiology Pratibha Scherer MD, PGY1, [phone] 09/29/2012 14:09 Attestation statement: I saw and examined the patient with the resident/fellow. I agree with the findings and plan of care documented in the resident's/fellow's note. CXR personally reviewed showing rosy/o pneumothorax. 52 yo woman with frequent symptomatic PVCs admitted to MICU for observation after attempted ablation. Epicardial approach was used and a locus was identified but not amenable to ablation. The case was complicated by bleeding requiring placement of a pericardial drain. She arrives to MICU hemodynamically stable but complaining of back and chest pain. After echocardiogram was performed without e/o pericardial effusion, the drain was removed by EP. Wewill monitor overnight. documented in this encounter Procedure Notes CHARGEBACK SPECIALIST, SCAN 2 - 10/07/2012 1347 EDTAssociated Order(s): ECG REPORT - SCANNED CHARGEBACK SPECIALIST, SCAN 2 - 10/07/2012 1347 EDTAssociated Order(s): INVASIVE CARDIOLOGY REPORT-SCANNED CHARGEBACK SPECIALIST, SCAN 2 - 10/04/2012 1352 EDTAssociated Order(s): ECG REPORT - SCANNED Aj Cartwright MD - 09/29/2012 1403 EDT Electrophysiology Laboratory Preliminary Report -- Invasive Electrophysiology Procedure Date of Service/Procedure: 09/29/2012 Attending Physician: Aj Cantu MD Fellow: Aj mcgee Sa, MD Pre-Procedure Diagnosis/Indication: Hailey Vazquez is a 52 y.o. year old female Presents to [facility] Electrophysiology Laboratory on [address] for EP study - PVCs Anesthesia: A moderate level of anesthesia/conscious sedation was used., Local anesthesia was used.,General anesthesia was used.. Access: Right femoral vein 1 x 8.5 fr Left femoral vein 1 x 8.5 fr and 2 x 7.0 fr Right femoral artery 1 x 8.0 fr Subzyphoid (epicardial) 2 x 8.0 fr Post-Procedure Condition: The condition of the patient was Good. Complications: None. Estimated Blood Loss: Minimal. Unless otherwise noted, there were no specimens removed, cultures obtained, or drains retained. Clinical Trial: The patient is not enrolled in a clinical trial. Summary of Procedure: Venous and arterial access Difficult epicardial access, complicated by entering the left pleural space once and moderate pericardial bleeding (200 cc at the beginning of the procedure) EP study and PVC mapping Sheath could not be advanced in the pericardium space over catheter Another pericardial access was obtained PVC mapping Earliest activation at the LV summit epicardial Left coronary angiogram performed Target too close to LAD and large ramus No ablation delivered No further bleeding from epicardial space. Venous and arterial sheaths removed and manual pressure held One epicardial sheath removed. Another sheath left in place Post-Procedure Diagnosis: PVCs Plan: see post-procedure orders, bedrest for 4 hour(s) and Ketorolac for pericardial pain. At the completion of the procedure, the attending physician has explained the findings, therapies, any complications and treatment plan to the patient. With the patients consent, all family members andpatient support persons who were present at the conclusion of the procedure have been notified of these results and treatment plans as well. - Restart metoprolol - Start ranolazine - Limited echo latter this afternoon - If no significant effusion, we will remove epicardial sheath - Discontinue aspirin Post Procedural Disposition: Transfer to MICU overnight for monitoring Reference: Hospitalization Criteria for Pacemaker and ICD Placement and EP/Ablation; Heart Rhythm Society; Revised October, Final report will appear on imaging tab when complete. AJ MCGEE SA, MD 09/29/2012 14:03 Attending Attestation: I saw and evaluated the patient. I discussed the case with the fellow and agree with the findings and plan as documented above. Aj Cantu MD PhD Attending Attestation: I was present during the entire procedure. I saw and examined the patient. I agree with the findingsand plan of care documented in the fellow's note. Aj Cantu MD, PhD Aj Cantu MD - 09/29/2012 0740 EDT Cardiology H&P PCP: ARLIN MONTOYA MD Chief Complaint: PVC HPI: 52 y.o. female with daily frequent symptomatic PVC despite use of metoprolol. She also has PVC inducible LV dysfunction and chronic systolic heart failure. An ablation was performed last fall and suggested epicardial focus. Metoprolol was discontinued last week in anticipation for the procedure. A 10-point review of systems was conducted. Pertinent positives are noted in HPI. Past Medical History Diagnosis Date ??? Symptomatic PVCs ??? Blood transfusion 2000 ??? Macular degeneration ??? Fluid retention ??? History of blood transfusion ??? S/P ablation of ventricular arrhythmia mar 2012 Prescriptions prior to admission Medication ??? aspirin chewable 81 mg tablet ??? calcium citrate 200 mg (950 mg) ??? Cholecalciferol, Vitamin D3, 400 unit Tab ??? furosemide (LASIX) 40 mg tablet ??? furosemide (LASIX) 80 mg tablet ??? acetaminophen-codeine (TYLENOL #3) 300-30 mg per tablet ??? furosemide (LASIX) 40 mg tablet ??? metoprolol XL (TOPROL-XL) 50 mg tablet ??? lisinopril (PRINIVIL, ZESTRIL) 10 mg tablet ??? potassium chloride CR (KLOR-CON) 10 mEq TbER ??? Multivitamins with Minerals Tab ??? CALCIUM PHOSPHATE TRIB/VIT D3 (CITRACAL + D ORAL) Allergies as of 09/27/2012 - Ronny as Reviewed 03/18/2012 Allergen Reaction Noted ??? Penicillins Swelling 03/18/2012 ??? Adhesive 03/18/2012 ??? Latex, natural rubber Rash 03/18/2012 ??? Sulfa (sulfonamide antibiotics) 03/18/2012 History Social History ??? Marital Status: Spouse Name: N/A Number of Children: N/A ??? Years of Education: N/A Occupational History ??? Not on file. Social History Main Topics ??? Smoking status: Never Smoker ??? Smokeless tobacco: Never Used ??? Alcohol Use: No ??? Drug Use: No ??? Sexually Active: Other Topics Concern ??? Not on file Social History Narrative ??? No narrative on file History reviewed. No pertinent family history. Exam Patient Vitals for the past 8 hrs: BP Temp Temp src Resp SpO2 Height Weight 09/29/12 0705 137/72 mmHg 36.6 ??C (97.9 ??F) Temporal 16 97 % 163.8 cm (64.5) 82.555 kg (182 lb) Gen: NAD, female appears stated age HEENT: PERRL, mmm CV: rrr, nl s1+s2, no m/r/g Lungs: CTAB Abd: soft, NT/ND, no OM, +BS Ext: no c/c/e Pulses: dpp 2+ and symmetric Neuro: A + O x 3 Data Lab Results Component Value Date/Time NA 139 03/18/2012 0634 K 4.1 03/18/2012 0634 CL 104 03/18/2012 0634 CO2 27 03/18/2012 0634 BUN 18 03/18/2012 0634 CREATININE 0.60 03/18/2012 0634 Lab Results Component Value Date/Time WBC PENDING 09/29/2012 0715 HCT 40.0 09/29/2012 0715 PLT PENDING 09/29/2012 0715 MCV 85 09/29/2012 0715 Lab Results Component Value Date/Time INR 0.9 09/29/2012 0715 PTT 28 03/18/2012 0634 No results found for this basename: CHOL, LDLBASE, HDL, TRIG, HGBA1C No results found for this basename: BNP, NTBNP, CK, MB, TROPONINI ECG: PND A/P: 52 y.o. 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 We will proceed to EP study and possible ablation, including epicardial access. D/W Dr. Alondra mcgee sa, MD Bookkeepers Supervisor pager [phone] Attending Attestation: I saw and evaluated the patient. I discussed the case with the fellow and agree with the findings and plan as documented above. Aj Cantu MD PhD documented in this encounter OR Notes Anesthesia Procedure Notes - CHARGEBACK SPECIALIST, SCAN 2 - 10/07/2012 1347 EDT documented in this encounter Miscellaneous Notes Scanned Note-Null - CHARGEBACK SPECIALIST, SCAN 2 - 10/07/2012 1347 EDT canned Note- Null - CHARGEBACK SPECIALIST, SCAN 2 - 10/07/2012 1347 EDT canned Note- Null - CHARGEBACK SPECIALIST, SCAN 2 - 10/07/2012 1347 EDT lan of Steven - Afshan Castañeda RN - 10/01/2012 1605 EDT Problem: DISCHARGE PLANNING Goal: Patient???s Continuum Of Care Needs Are Met Outcome: Met This Shift D: Patient to be discharged per MD. A: IV removed, catheter tip intact. Telemetry removed. RN reviewed discharge instructions and medications with patient and . Patient received prescriptions, medication sheets, and discharge instructions. R: Patient expressed good understanding of discharge instructions. They have no questions at this time. Patient dressed independently. They left via wheelchair to [facility]. lan of Mindy Reyna RN - 10/01/2012 0002 EDT Problem: CIRCULATORY STATUS Goal: Patient Has Stable Vital Signs And Fluid Balance Outcome: Ongoing D: Assumed care. Alert/oriented x 3. Admitted for ablation. Bilateral groin site with CDI dressing. + pulses. Dressing on the upper abdomen CDI s/p drain.CP aggravated when ambulating to BR and when deep breathing. A: Assessment and VS done.Scheduled pain med given.Tele monitor on. Call monique by bedside. R: Will CTM 0600: assisted pt to BR lan of Steven - Shani Reece RN - 09/30/2012 2144 EDT Problem: CIRCULATORY STATUS Goal: Patient Has Stable Vital Signs And Fluid Balance D: Assumed care of patient. Patient denies pain or SOB at this time. Patient had 6 beats run of V tack and continues to have bigeminy with HR of 80's to 90's. MD Mora aware. A: See MAR and DOC flow sheets. No complaints at this time. R: Continue to monitor. lan of Shani Kulkarni RN - 09/30/2012 1637 EDT Problem: CIRCULATORY STATUS Goal: Patient Has Stable Vital Signs And Fluid Balance D: Patient arrived to [place] [address]. Vital signs noted, and tele applied. Patient in SR with heart rate in 80s. Patient denies chest pain, SOB, and discomfort. A; Assessment as documented in flow sheet. Admission database completed. Patient orientated to room,equipment, and care plan. R: Continue to monitor and document per protocol. lan of Starr Rosario RN - 09/30/2012 1242 EDT Problem: RESPIRATORY FUNCTION/OXYGENATION Goal: Patient Will Maintain Patent Airway Data:RA sats 96-97%. Resp effort better, & chest discomfort lessened. To radiology for chest pa & lat. Still having frequent PVC's but less runs. Verapamil added Action:activity increased, up to chair, transfer orders written Response:tolerating increased activity. Waiting for m5 bed Starr Paul RN 09/30/2012 12:37 lan of Lucrecia Victoria - 09/30/2012 0642 EDT Problem: PAIN Goal: Patient???s Pain And Discomfort Are Adequately Managed Outcome: Ongoing Data: Restful, reports 4-11/08 chest pain w/ deep inspirationn and w/ coughing. O2 sats= 96% on RA all cage shift manager, other VSS, groin sites D&I, +pedal pulses. Small 2X2 dsg at lower L chest wall D&I. Action: medicated with 1mg morphine q4hrs prn pain per orders at pt's request. Repots increased ability to deep breathe and cough after morphine. Response: restful overnight shift, remains in SR w/ bigeminty and trigeminy unifocal PVCs. Occasional 4 beat runs of PVCs self limited. Will cont to monitor. Lucrecia Mustafa RN 09/30/2012 6:39 lan of Georgia Naidu - 09/29/2012 1909 EDT Problem: CIRCULATORY STATUS Goal: Patient Has Stable Vital Signs And Fluid Balance Data: Patient arrived on unit from EP lab. Pericardial drain in place, capped. Patient having multiple PVCs (symptomatic). C/o pain in chest. VSS Action: Cardiology attached drain to suction, Medicated with Toradol/morphine. Response: Drain removed by cardiology. Relief from pain. Continues with runs of PVCs Georgia Jackson RN 09/29/2012 18:53 canned Note- Null - CHARGEBACK SPECIALIST, SCAN 2 - 09/29/2012 0646 EDT canned Note- Null - CHARGEBACK SPECIALIST, SCAN 2 - 09/29/2012 0646 EDT documented in this encounter Plan of Treatment Upcoming Encounters Date Type Specialty Care Team Description 09/05/2022 Office Visit Cardiology Regan Luo MD [address] [place] [address] [address] [place] [address] (Wo rk) documented as of this encounter Procedures Procedure Name Priority Date/Time Associated Comments Diagnosis ECG REPORT - SCANNED 10/07/2012 13:47 Res ults for this EDT procedure are i n the results section. INVASIVE CARDIOLOGY 10/07/2012 13:47 Resu lts for this REPORT-SCANNED EDT procedure are in the results section. ECG REPORT - SCANNED 10/04/2012 13:52 Res ults for this EDT procedure are i n the results section. DIFFERENTIAL Routine 10/01/2012 6:25 Results for this EDT procedure are i n the results section. COMPLETE BLOOD COUNT Routine 10/01/2012 6:25 Resu lts for this EDT procedure are i n the results section. COMPLETE BLOOD COUNT Routine 10/01/2012 6:25 AND DIFFERENTIAL EDT BUN Routine 10/01/2012 6:25 Results for this EDT procedure are i n the results section. MAGNESIUM Routine 10/01/2012 6:25 Results for this EDT procedure are i n the results section. CREATININE Routine 10/01/2012 6:25 Results for this EDT procedure are i n the results section. ELECTROLYTES Routine 10/01/2012 6:25 Results for this EDT procedure are i n the results section. ECHOCARDIOGRAM LIMITED Routine 09/30/2012 14:25 R esults for this EDT procedure are i n the results section. CHEST PA AND LATERAL Routine 09/30/2012 9:40 Resu lts for this EDT procedure are i n the results section. DIFFERENTIAL Routine 09/30/2012 4:22 Results for this EDT procedure are i n the results section. COMPLETE BLOOD COUNT Routine 09/30/2012 4:22 Resu lts for this EDT procedure are i n the results section. COMPLETE BLOOD COUNT Routine 09/30/2012 4:22 AND DIFFERENTIAL EDT BUN Routine 09/30/2012 4:22 Results for this EDT procedure are i n the results section. MAGNESIUM Routine 09/30/2012 4:22 Results for this EDT procedure are i n the results section. GLUCOSE, SERUM Routine 09/30/2012 4:22 Results fo r this EDT procedure are i n the results section. CREATININE Routine 09/30/2012 4:22 Results for this EDT procedure are i n the results section. ELECTROLYTES Routine 09/30/2012 4:22 Results for this EDT procedure are i n the results section. DIFFERENTIAL Routine 09/29/2012 17:44 Results for this EDT procedure are i n the results section. COMPLETE BLOOD COUNT Routine 09/29/2012 17:44 Res ults for this EDT procedure are i n the results section. COMPLETE BLOOD COUNT STAT 09/29/2012 17:44 AND DIFFERENTIAL EDT ECHOCARDIOGRAM LIMITED Routine 09/29/2012 15:56 R esults for this EDT procedure are i n the results section. EKG 12-LEAD Routine 09/29/2012 15:17 Results for this EDT procedure are i n the results section. PORTABLE CHEST 1 VIEW Routine 09/29/2012 15:05 Re sults for this EDT procedure are i n the results section. MRSA PCR Routine 09/29/2012 14:44 Results for this EDT procedure are i n the results section. TYPE AND SCREEN STAT 09/29/2012 10:47 Results for this EDT procedure are i n the results section. SMEAR REVIEW Routine 09/29/2012 7:15 Results for this EDT procedure are i n the results section. PROTIME STAT 09/29/2012 7:15 Results for this EDT procedure are i n the results section. COMPLETE BLOOD COUNT STAT 09/29/2012 7:15 Resu lts for this EDT procedure are i n the results section. BUN STAT 09/29/2012 7:15 Results for this EDT procedure are i n the results section. CREATININE STAT 09/29/2012 7:15 Results for this EDT procedure are i n the results section. ELECTROLYTES STAT 09/29/2012 7:15 Results for this EDT procedure are i n the results section. documented in this encounter Results HOLTER MONITOR (10/11/2012 14:24 EDT) Specimen Narrative [facility] - 10/22/2012 14 :19 EDT ?[facility] ? Test Date: ?2012-10-11 Pat Name: ? HAILEY VAZQUEZ ?Department: ?? [facility] ? Room: ? Gender: ?Bobbin Winder Tender: ?[id number] : ?1960 ? Requested By: TYE Grimes Order Number: [id number] ?Reading MD: ?? EMILY GEIGER MD ? Interpretive Statements [...] [facility] Test Date: 2012-10-11 Pat Name: HAILEY VAZQUEZ Department: [facility] Room: Gender: Bobbin Winder Tender: [id number] : 1960 Requested By: KERRY Grimes Order Number: [id number] Reading MD: CHESTER GEIGER MD Interpretive Statements [...] Organization Address City/State/ZIP Code Phon e Number [facility] [address] [facility] [id number] [facility] [address] [place], [place] [address] ECG REPORT - SCANNED (10/07/2012 13:47 EDT) Specimen Narrative 10/07/2012 14:34 EDT Procedure Note CHARGEBACK SPECIALIST, SCAN 2 - 10/07/2012 13:47 EDT INVASIVE CARDIOLOGY REPORT-SCANNED (10/07/2012 13:47 EDT) Specimen Narrative 10/07/2012 14:34 EDT Procedure Note CHARGEBACK SPECIALIST, SCAN 2 - 10/07/2012 13:47 EDT ECG REPORT - SCANNED (10/04/2012 13:52 EDT) Specimen Narrative 10/04/2012 18:18 EDT Procedure Note CHARGEBACK SPECIALIST, SCAN 2 - 10/04/2012 13:52 EDT DIFFERENTIAL (10/01/2012 6:25 EDT) Pathologist Sig nature Neutrophils 61.0 45.5 - 79.7 % [facility] Lymphocytes 30.8 15.0 - 46.8 % [facility] Monocytes 5.6 1.8 - 12.0 % [facility] Eosinophils 2.0 0.6 - 6.9 % [facility] Basophils 0.6 0.2 - 1.4 % [facility] ABS Neutrophils 3.90 2.20 - 8.85 K/cmm [facility] ABS Lymphs 1.97 1.09 - 3.30 K/cmm [facility] ABS Monocytes 0.36 0.1 - 0.8 K/cmm [facility] ABS Eosinophils 0.13 0.03 - 0.61 K/cmm [facility] ABS Basophils 0.04 0.01 - 0.11 K/cmm [facility] Type of Diff: Automated [facility] Specimen Performing Organization Address City/State/ZIP Code Phon e Number [facility] [address] [place] [address] SERVICES [facility] [address] [place] [address] (ABNORMAL) HEMAGRAM (10/01/2012 6:25 EDT) Pathologist Sig nature WBC 6.39 4.0 - 12.4 K/cmm [facility] RBC 3.67 (L) 3.86 - 5.04 M/cmm [facility] Hemoglobin 11.0 (L) 11.6 - 15.2 gm/dl [facility] HCT 31.5 (L) 34.9 - 44.4 % [facility] MCV 86 81 - 98 fl [facility] MCH 29.9 26.7 - 33.3 pg [facility] MCHC 34.8 32.1 - 35.9 gm/dl [facility] PLT 142 141 - 320 K/cmm [facility] RDW-CV 12.8 11.7 - 14.6 % [facility] Specimen Performing Organization Address [facility]/ZIP Code Phon e Number [facility] [address] [place] [address] SERVICES [facility] [address] [place] [address] MAGNESIUM (10/01/2012 6:25 EDT) Pathologist Sig nature Magnesium 2.2 1.7 - 2.8 mg/dl [facility] Specimen Blood specimen (specimen) Performing Organization Address City/[facility]/ZIP Code Phon e Number [facility] [address] [place] [address] SERVICES [facility] [address] [place] [address] CREATININE (10/01/2012 6:25 EDT) Pathologist Sig nature Creatinine 0.82 0.52 - 1.04 mg/dl [facility] GFR, Calculated >60 >60 ml/min/1.73m2 [facility] Specimen Blood specimen (specimen) Performing Organization Address [facility] Phon e Number [facility] [address] [place] [address] SERVICES [facility] [address] [place] [address] BUN (10/01/2012 6:25 EDT) Pathologist Sig nature BUN 17 10 - 26 mg/dl [facility] Specimen Blood specimen (specimen) Performing Organization Address [facility] Phon e Number [facility] [address] [place] [address] SERVICES [facility] [address] [place] [address] ELECTROLYTES (10/01/2012 6:25 EDT) Pathologist Sig nature Sodium 138 136 - 145 mEq/L [facility] Potassium 4.4 3.5 - 5.0 mEq/L [facility] Chloride 104 96 - 110 mEq/L [facility] CO2 27 24 - 32 mEq/L [facility] Specimen Blood specimen (specimen) Performing Organization Address [facility]/[place]IP [facility] Phon e Number [facility] [address] [place] [address] SERVICES [facility] [address] [place] [address] ECHOCARDIOGRAM LIMITED (09/30/2012 14:25 EDT) Specimen Narrative CARDIOLOGY - 09/30/2012 14:57 EDT *Interpreting Group:* *[facility]* [address] [place] [address] *STUDY CONCLUSIONS* Summary: 1. Study data: Limited study to assess f or a pericardial ?? effusion. 2. Inferior vena cava: The vessel was no rmal in size; the ?? respirophasic diameter changes were in the normal range ?? (greater than or equal to 50%); find ings are consistent ?? with normal central venous pressure. 3. Pericardium, extracardiac: A trivial pericardial effusion ?? was identified along the right ventr icular free wall. *PATIENT PRESENTATION* Height: ? 162.6cm (64in ) S/D Pressure: 98 / 61 Weight: ? 82.7kg (182lb ) BSA: ?1.96m^2 Test start time: ??01:00 PM. Test stop time: ??01:20 PM. ADMITTING ?Aj Cantu MD , PhD ATTENDING ?Aj Cantu MD , PhD REFERRING ?Arlin Montoya PERFORMING ?? [facility], ORDERING ? Aj Madrid USPS LETTER CARRIER ??Deedee Pedraza *PROCEDURE DATA* Procedure information: ??This study was interpreted by [facility] at [facility]. ??Study status: Routine. Transthoracic echocardiography. ??M-mode, limited 2D, limited spectral Doppler, and color Doppler. A T ransthoracic Echocardiogram was performed. Scanning was performed fr om the parasternal, apical, and subcostal acoustic windows. Images w ere obtained using a Jose [id number] cardiac ultrasound machine. Image quality was adequate. ??Study completion: ??The patient tolerated the procedure well. There were no complications. *INDICATIONS AND HISTORY* Indications: ?? Unspecified disease of p ericardium (423.9). Labs, prior tests, procedures, and surge ry: Echocardiography (September 29, 2012). *CARDIAC ANATOMY* Pulmonary artery: ?? Pulmonary systolic pressure was within the normal range, in the range of 30mm Hg to 35mm H g. Right atrium: ??The atrium was normal in size. Pericardium: ??A trivial pericardial eff usion was identified along the right ventricular free wall. Systemic veins: Inferior vena cava: The vessel was mena l in size; the respirophasic diameter changes were in the normal rang e (greater than or equal to 50%); findings are consistent with mena l central venous pressure. *MEASUREMENT TABLES* 2D measurements ?Normal Left ventricle Volume, ES, MOD, 1-plane ? 44.8 m l ? ------ Volume index, ES, MOD, 1-plane ?? 23 ml/ m^2 ------ Legend: Mean values are shown as u=mean value. Asterisk (*) shen values outside specif ied normal range. Electronically signed by Terence Allison MD 09/30/2012 14:57 Procedure Note 09/30/2012 *Interpreting Group:* *[facility]* [address] [place] [address] *STUDY CONCLUSIONS* Summary: 1. Study data: Limited study to assess f or a pericardial effusion. 2. Inferior vena cava: The vessel was no rmal in size; the respirophasic diameter changes were in the normal range (greater than or equal to 50%); finding s are consistent with normal central venous pressure. 3. Pericardium, extracardiac: A trivial pericardial effusion was identified along the right ventricu lar free wall. *PATIENT PRESENTATION* Height: 162.6cm (64in ) S/D Pressure: 98 / 61 Weight: 82.7kg (182lb ) BSA: 1.96m^2 Test start time: 01:00 PM. Test stop time: 01:20 PM. ADMITTING Aj Cantu MD, PhD ATTENDING Aj Cantu MD, PhD REFERRING Arlin Montoya [facility], ORDERING Aj Madrid USPS LETTER CARRIER Deedee Pedraza *PROCEDURE DATA* Procedure information: This study was in terpreted by [facility] at [facility]. Study status: Routine. Transthoracic echocardiography. M-mode, limited 2D, limited spectral Doppler, and color Doppler. A T ransthoracic Echocardiogram was performed. Scanning was performed fr om the parasternal, apical, and subcostal acoustic windows. Images w ere obtained using a Jose [id number] 5 cardiac ultrasound machine. Image quality was adequate. Study completion: The patient tolerated the pr ocedure well. There were no complications. *INDICATIONS AND HISTORY* Indications: Unspecified disease of tracee cardium (423.9). Labs, prior tests, procedures, and surge ry: Echocardiography (September 29, 2012). *CARDIAC ANATOMY* Pulmonary artery: Pulmonary systolic pre ssure was within the normal range, in the range of 30mm Hg to 35mm H g. Right atrium: The atrium was normal in s ize. Pericardium: A trivial pericardial effus ion was identified along the right ventricular free wall. Systemic veins: Inferior vena cava: The vessel was mena l in size; the respirophasic diameter changes were in the normal rang e (greater than or equal to 50%); findings are consistent with mena l central venous pressure. *MEASUREMENT TABLES* 2D measurements Normal Left ventricle Volume, ES, MOD, 1-plane 44.8 ml ------ Volume index, ES, MOD, 1-plane 23 ml/m^2 ------ Legend: Mean values are shown as u=mean value. Asterisk (*) shen values outside specif ied normal range. Electronically signed by Terence Allison MD 09/30/2012 14:57 Performing Organization Address City/State/ZIP Code Phon e Number [facility] MA[facility] CARDIOLOGY CHEST PA AND LATERAL (09/30/2012 9:40 EDT) Anatomical Region Laterality Modality Other Specimen Narrative [facility] RADI[facility]Y - 09/30/2012 10:33 EDT CHEST PA AND LAT ??September 30, 2012 09:40:00 AM Clinical history/Comments: chest pain Comparison: AP portable chest 18 hours p rior Dual-energy technique with reconstructio ns in normal, soft tissue and bone windows was used. Findings: PA and lateral views of the est show no pneumothorax. There are increasing angular opacities a t the lung bases, left more than right, with tenting of the left hem idiaphragm indicating volume loss, presumably areas of subsegmental a telectasis. No signs of pulmonary vascular congestion or signifi cant pleural fluid. Osseous structures without significant finding. No lines or tubes. Impression: Worsening bibasilar left mor e than right opacities, presumably areas of subsegmental atelect asis. No ??pneumothorax. Procedure Note 09/30/2012 CHEST PA AND LAT September 30, 2012 09:40:00 A M Clinical history/Comments: chest pain Comparison: AP portable chest 18 hours p rior Dual-energy technique with reconstructio ns in normal, soft tissue and bone windows was used. Findings: PA and lateral views of the est show no pneumothorax. There are increasing angular opacities a t the lung bases, left more than right, with tenting of the left hem idiaphragm indicating volume loss, presumably areas of subsegmental a telectasis. No signs of pulmonary vascular congestion or signifi cant pleural fluid. Osseous structures without significant finding. No lines or tubes. Impression: Worsening bibasilar left mor e than right opacities, presumably areas of subsegmental atelect asis. No pneumothorax. Performing Organization Address City/State/ZIP Code Phon e Number [facility] MAIN CAMPUS [facility] RADIOLOGY (ABNORMAL) DIFFERENTIAL (09/30/2012 4:22 EDT) Pathologist Sig nature Neutrophils 73.0 45.5 - 79.7 % [facility] Lymphocytes 17.7 15.0 - 46.8 % [facility] Monocytes 7.8 1.8 - 12.0 % [facility] Eosinophils 0.5 (L) 0.6 - 6.9 % [facility] Basophils 1.0 0.2 - 1.4 % [facility] ABS Neutrophils 6.47 2.20 - 8.85 K/cmm [facility] ABS Lymphs 1.57 1.09 - 3.30 K/cmm [facility] ABS Monocytes 0.69 0.1 - 0.8 K/cmm [facility] ABS Eosinophils 0.04 0.03 - 0.61 K/cmm [facility] ABS Basophils 0.09 0.01 - 0.11 K/cmm [facility] Type of Diff: Automated [facility] Specimen Performing Organization Address [facility]/ZIP Code Phon e Number [facility] [address] [place] [address] SERVICES [facility] [address] [place] [address] HEMAGRAM (09/30/2012 4:22 EDT) Pathologist Sig nature WBC 8.86 4.0 - 12.4 K/cmm [facility] RBC 4.08 3.86 - 5.04 M/cmm [facility] Hemoglobin 12.0 11.6 - 15.2 gm/dl [facility] HCT 35.0 34.9 - 44.4 % [facility] MCV 86 81 - 98 fl [facility] MCH 29.5 26.7 - 33.3 pg [facility] MCHC 34.4 32.1 - 35.9 gm/dl [facility] PLT 167 141 - 320 K/cmm [facility] RDW-CV 12.5 11.7 - 14.6 % [facility] Specimen Performing Organization Address [facility]/[place]IP [facility] [place] e Number [facility] [address] [place] [address] SERVICES [facility] [address] [place] [address] MAGNESIUM (09/30/2012 4:22 EDT) Pathologist Sig nature Magnesium 2.0 1.7 - 2.8 mg/dl [facility] Specimen Blood specimen (specimen) Performing Organization Address City/[facility]/ZIP Code Phon e Number [facility] [address] [place] [address] SERVICES [facility] [address] [place] [address] (ABNORMAL) GLUCOSE, SERUM (09/30/2012 4:22 EDT) Pathologist Sig nature Glucose, Serum 107 (H) 70 - 100 mg/dl [facility] Specimen Blood specimen (specimen) Performing Organization Address [facility]/ZIP [facility] Phon e Number [facility] [address] [place] [address] SERVICES [facility] [address] [place] [address] CREATININE (09/30/2012 4:22 EDT) Pathologist Sig nature Creatinine 0.75 0.52 - 1.04 mg/dl [facility] GFR, Calculated >60 >60 ml/min/1.73m2 [facility] Specimen Blood specimen (specimen) Performing Organization Address [facility]/ZIP Code Phon e Number [facility] [address] [place] [address] SERVICES [facility] [address] [place] [address] BUN (09/30/2012 4:22 EDT) Pathologist Sig nature BUN 16 10 - 26 mg/dl [facility] Specimen Blood specimen (specimen) Performing Organization Address [facility]/ZIP [facility] [place]on [place] Number [facility] [address] [place] [address] SERVICES [facility] [address] [place] [address] ELECTROLYTES (09/30/2012 4:22 EDT) Pathologist Sig nature Sodium 138 136 - 145 mEq/L [facility] Potassium 4.1 3.5 - 5.0 mEq/L [facility] Chloride 104 96 - 110 mEq/L [facility] CO2 24 24 - 32 mEq/L [facility] Specimen Blood specimen (specimen) Performing Organization Address [facility] Phon e Number [facility] [address] [place] [address] SERVICES [facility] [address] [place] [address] (ABNORMAL) DIFFERENTIAL (09/29/2012 17:44 EDT) Pathologist Sig nature Neutrophils 87.3 (H) 45.5 - 79.7 % [facility] Lymphocytes 7.5 (L) 15.0 - 46.8 % [facility] Monocytes 4.6 1.8 - 12.0 % [facility] Eosinophils 0.1 (L) 0.6 - 6.9 % [facility] Basophils 0.5 0.2 - 1.4 % [facility] ABS Neutrophils 8.83 2.20 - 8.85 K/cmm [facility] ABS Lymphs 0.76 (L) 1.09 - 3.30 K/cmm [facility] ABS Monocytes 0.47 0.1 - 0.8 K/cmm [facility] ABS Eosinophils 0.01 (L) 0.03 - 0.61 K/cmm [facility] ABS Basophils 0.06 0.01 - 0.11 K/cmm [facility] Type of Diff: Automated [facility] Specimen Performing Organization Address City/[facility] Phon e Number [facility] [address] [place] [address] SERVICES [facility] [address] [place] [address] HEMAGRAM (09/29/2012 17:44 EDT) Pathologist [facility] nature WBC 10.13 4.0 - 12.4 K/cmm [facility] RBC 4.36 3.86 - 5.04 M/cmm [facility] Hemoglobin 12.9 11.6 - 15.2 gm/dl [facility] HCT 37.4 34.9 - 44.4 % [facility] MCV 86 81 - 98 fl [facility] MCH 29.6 26.7 - 33.3 pg [facility] MCHC 34.5 32.1 - 35.9 gm/dl [facility] PLT 165 141 - 320 K/cmm [facility] RDW-CV 12.6 11.7 - 14.6 % [facility] Specimen Performing Organization Address [facility] Phon e Number [facility] [address] [place] [address] SERVICES [facility] [address] [place] [address] ECHOCARDIOGRAM LIMITED (09/29/2012 15:56 EDT) Specimen Narrative CARDIOLOGY - 09/29/2012 15:59 EDT *Interpreting Group:* *[facility]* [address] [place] [address] *STUDY CONCLUSIONS* Summary: 1. Inferior vena cava: The vessel was no rmal in size; the ?? respirophasic diameter changes were in the normal range ?? (greater than or equal to 50%); find ings are consistent ?? with normal central venous pressure. 2. Pericardium, extracardiac: There was no significant ?? pericardial effusion. *PATIENT PRESENTATION* Height: ? 162.6cm (64in ) S/D Pressure: 125 / 70 Weight: ? 82.7kg (182lb ) BSA: ?1.96m^2 Test start time: ??03:15 PM. Test stop time: ??03:39 PM. ADMITTING ?Aj Cantu MD , PhD ATTENDING ?Aj Cantu MD , PhD PERFORMING ?? Aj Cantu MD, PhD REFERRING ?Arlin Montoya FELLOW ? Aj mcgee Sa, MD USPS LETTER CARRIER ??Pratibha Griffith CHASTITY PERFORMING ?? [facility], ORDERING ? Aj Madrid SCRUB ?David Mcintosh *PROCEDURE DATA* Procedure information: ??This study was interpreted by [facility] at [facility]. ??Study status: Routine. Transthoracic echocardiography. ??M-mode, limited 2D, limited spectral Doppler, and color Doppler. A T ransthoracic Echocardiogram was performed. Scanning was performed fr om the parasternal, apical, and subcostal acoustic windows. Images w ere obtained using a Jose [id number] 4 cardiac ultrasound machine. Image quality was good. ??Study completion: ??The patient tolerated the procedure well. *INDICATIONS AND HISTORY* Indications: ?? Unspecified disease of p ericardium (423.9). ?? *CARDIAC ANATOMY* Tricuspid valve: ?? Doppler: ?? Mild reg urgitation. Pulmonary artery: ?? Pulmonary systolic pressure was within the normal range. Pericardium: ??There was no significant pericardial effusion. Systemic veins: Inferior vena cava: The vessel was mena l in size; the respirophasic diameter changes were in the normal rang e (greater than or equal to 50%); findings are consistent with mena l central venous pressure. Electronically signed by Nolberto Sanders MD 09/29/2012 15:58 Procedure Note 09/29/2012 *Interpreting Group:* *[facility]* [address] [place] [address] *STUDY CONCLUSIONS* Summary: 1. Inferior vena cava: The vessel was no rmal in size; the respirophasic diameter changes were in the normal range (greater than or equal to 50%); finding s are consistent with normal central venous pressure. 2. Pericardium, extracardiac: There was no significant pericardial effusion. *PATIENT PRESENTATION* Height: 162.6cm (64in ) S/D Pressure: 125 / 70 Weight: 82.7kg (182lb ) BSA: 1.96m^2 Test start time: 03:15 PM. Test stop time: 03:39 PM. ADMITTING Aj Cantu MD, PhD ATTENDING Aj Cantu MD, PhD PERFORMING Aj Cantu MD, Ph D REFERRING Arlin Montoya FELLOW Aj mcgee Sa, MD USPS LETTER CARRIER Pratibha Griffith, [facility] PERFORMING [employer], [employer]p ORDERING Aj Madrid SCRUB Dayna David *PROCEDURE DATA* Procedure information: This study was in terpreted by [facility] at [facility]. Study status: Routine. Transthoracic echocardiography. M-mode, limited 2D, limited spectral Doppler, and color Doppler. A T ransthoracic Echocardiogram was performed. Scanning was performed fr om the parasternal, apical, and subcostal acoustic windows. Images w ere obtained using a Jose [id number] 4 cardiac ultrasound machine. Image quality was good. Study completion: The patient tolerated the pr ocedure well. *INDICATIONS AND HISTORY* Indications: Unspecified disease of tracee cardium (423.9). *CARDIAC ANATOMY* Tricuspid valve: Doppler: Mild regurgita tion. Pulmonary artery: Pulmonary systolic pre ssure was within the normal range. Pericardium: There was no significant pe ricardial effusion. Systemic veins: Inferior vena cava: The vessel was mena l in size; the respirophasic diameter changes were in the normal rang e (greater than or equal to 50%); findings are consistent with mena l central venous pressure. Electronically signed by Nolberto Sanders MD 09/29/2012 15:58 Performing Organization Address [facility]/State/[facility] Code Phon e Number [facility] CARDIOLOGY [facility] CARDIOLOGY EKG 12-LEAD (09/29/2012 15:17 EDT) Specimen Narrative [facility] - 09/30/2012 15 :05 EDT ?[facility] ? Test Date: ?2012-09-29 Pat Name: ? HAILEY VAZQUEZ ?Department: ?? Up 4 ? Room: ? M411 Gender: ? F ?Bobbin Winder Tender: ?? MP : ?1960 ? Requested By: AJ MCGEE SA MD Order Number: [id number] ?Reading MD: ?? FELICE SANATNA MD ? Measurements Intervals ?Elmo ? Rate: ? 86 ? P: ?28 NM: ? 183 ?QRS: ?-5 QRSD: ? 98 ? T: ?72 QT: ? 364 ? QTc: ?407 ? Interpretive Statements SINUS RHYTHM WITH FREQUENT VENTRICULAR P REMATURE COMPLEXES NONSPECIFIC ST ABNORMAL RHYTHM ECG Compared to ECG 03/18/2012 14:12:21 No significant changes Electronically Signed On 09-30-12 15:05: 30 EDT by FELICE SANTANA MD Procedure Note Felice Santana MD - 09/30/2012 [facility] Test Date: 2012-09-29 Pat Name: HAILEY VAZQUEZ Department: [facility] 4 Room: [facility] Gender: F Bobbin Winder Tender: TERRI : 1960 Requested By: AJ MCGEE SA, MD Order Number: [id number] Reading MD: RAFAEL SANTANA MD Measurements Intervals Elmo Rate: 86 P: 28 NM: 183 QRS: -5 QRSD: 98 T: 72 QT: 364 QTc: 407 Interpretive Statements SINUS RHYTHM WITH FREQUENT VENTRICULAR P REMATURE COMPLEXES NONSPECIFIC ST ABNORMAL RHYTHM ECG Compared to ECG 03/18/2012 14:12:21 No significant changes Electronically Signed On 09-30-12 15:05: 30 EDT by FELICE SANTANA MD Performing Organization Address City/State/ZIP Code Phon e Number [facility] [address] [facility] [address] [facility] [address] [place], [place] [address] PORTABLE CHEST 1 VIEW (09/29/2012 15:05 EDT) Anatomical Region Laterality Modality Other Specimen Narrative [facility] RADI[facility] - 09/29/2012 15:13 EDT PORTABLE CHEST 1 VIEW ??September 29, 2012 03:05:00 PM Signs and Symptoms/Comments: ?? ablation procedure - pericardial effusion. Pneumothorax? pvc pericardial access Comparison: None Findings: A supine radiograph was obtain ed. Tubing overlie the heart is presumably a pericardial drain. The c ardiac size is normal for technique and the lungs are clear aside from patchy opacity in the left base that likely reflects atelectas is. There is no evidence of edema. There is no evidence of pneumotho rax, but one cannot be excluded on this recumbent radiograph. Procedure Note 09/29/2012 PORTABLE CHEST 1 VIEW September 29, 2012 03:05 :00 PM Signs and Symptoms/Comments: ablation pr ocedure - pericardial effusion. Pneumothorax? pvc pericardial access Comparison: None Findings: A supine radiograph was obtain ed. Tubing overlie the heart is presumably a pericardial drain. The c ardiac size is normal for technique and the lungs are clear aside from patchy opacity in the left base that likely reflects atelectas is. There is no evidence of edema. There is no evidence of pneumotho rax, but one cannot be excluded on this recumbent radiograph. Performing Organization Address City/State/ZIP Code Phon e Number [facility] MAIN CAMPUS [facility] RADIOLOGY MRSA MOLECULAR DETECTION (09/29/2012 14:44 EDT) Specimen Nasal [facility] Description LAB Result No Staphylococcus [facility] aureus detected by LAB PCR. Specimen Other (qualifier value) - Other Performing Organization Address [facility]/[place]IP [facility]on e Number [facility] [address] [place] [address] SERVICES [facility] [address] [place] [address] TYPE AND SCREEN (09/29/2012 10:47 EDT) Pathologist Sig nature ABO A [facility] Rh Factor Negative [facility] Antibody Screen NegativeComment: [facility] SPECIMEN WILL BE HELD UNTIL 2359 ON 10/02/2012 Specimen Blood specimen (specimen) Performing Organization Address [facility]/ZIP Code Phon e Number [facility] [address] [place] [address] SERVICES [facility] [address] [place] [address] SMEAR REVIEW (09/29/2012 7:15 EDT) Smear scan only: Slide was examined by DALE MURPHY a technologist to verify the WBC and/or platelet count. Specimen Performing Organization Address [facility]/ZIP [facility] [place] e Number [facility] [address] [place] [address] SERVICES [facility] [address] [place] [address] PROTIME (09/29/2012 7:15 EDT) Pro Time 10.0 9.5 - 13.1 [facility] secs I.N.R. 0.9 0.9 - 1.1 [facility] Comment: Ratio Moderate Intensity Coumadin INR = 2.0-3.0 Adjustments in anticoagulant therapy dose should be based upon the INR and NOT the Pro Time. Specimen Blood specimen (specimen) Performing Organization Address City/[facility]/ZIP Code Phon e Number [facility] [address] [place] [address] SERVICES [facility] [address] [place] [address] HEMAGRAM (09/29/2012 7:15 EDT) Pathologist Sig nature WBC 5.72 4.0 - 12.4 K/cmm [facility] RBC 4.71 3.86 - 5.04 M/cmm [facility] Hemoglobin 13.8 11.6 - 15.2 gm/dl [facility] HCT 40.0 34.9 - 44.4 % [facility] MCV 85 81 - 98 fl [facility] MCH 29.3 26.7 - 33.3 pg [facility] MCHC 34.5 32.1 - 35.9 gm/dl [facility] PLT 211 141 - 320 K/cmm [facility] RDW-CV 12.5 11.7 - 14.6 % [facility] Specimen Blood specimen (specimen) Performing Organization Address City/[facility]/ZIP [facility] [place] e Number [facility] [address] [place] [address] SERVICES [facility] [address] [place] [address] CREATININE (09/29/2012 7:15 EDT) Pathologist Sig [facility] Creatinine 0.71 0.52 - 1.04 mg/dl [facility] GFR, Calculated >60 >60 ml/min/1.73m2 [facility] Specimen Blood specimen (specimen) Performing Organization Address City/[facility]/ZIP Code Phon e Number [facility] [address] [place] [address] SERVICES [facility] [address] [place] [address] BUN (09/29/2012 7:15 EDT) Pathologist Sig nature BUN 16 10 - 26 mg/dl [facility] Specimen Blood specimen (specimen) Performing Organization Address City/[facility]/ZIP Code Phon e Number [facility] [address] [place] [address] SERVICES [facility] [address] [place] [address] ELECTROLYTES (09/29/2012 7:15 EDT) Pathologist Sig nature Sodium 142 136 - 145 mEq/L [facility] Potassium 4.0 3.5 - 5.0 mEq/L [facility] Chloride 101 96 - 110 mEq/L [facility] CO2 28 24 - 32 mEq/L [facility] Specimen Blood specimen (specimen) Performing Organization Address City/State/ZIP Code Phon e Number [facility] [address] [place] [address] SERVICES [facility] [address] [place] [address] documented in this encounter Visit Diagnoses Diagnosis PVC's (premature ventricular contraction s) - Primary Other premature beats Symptomatic premature ventricular contra ctions Other premature beats Pericardial effusion Unspecified disease of pericardium Cardiac tamponade Symptomatic premature ventricular contra ctions Other premature beats PVC's (premature ventricular contraction s) Other premature beats documented in this encounter Administered Medications Inactive Administered Medications - up to 3 most recent administrations Medication Order MAR Action Action Date Dose Rate Site acetaminophen (TYLENOL) tablet 650 Given 09/29/2012 19:30 EDT 65 0 mg mg 650 mg, oral, EVERY 6 HOURS PRN, Starting on Thu09/29/12 at 1435, Until Thu10/01/12 at 1820, Pain, Routine calcium citrate 200 mg (950 mg) tablet 2 00 mg Given 10/01/2012 9:03 EDT 200 mg 200 mg, oral, DAILY, First dose on Thu09/29/12 at 1445, Until Discontinued, Routine Given 09/30/2012 8:05 EDT 200 mg Given 09/29/2012 15:38 EDT 200 mg docusate sodium (COLACE) capsule 100 mg Given 10/01/2012 9:11 EDT 100 mg 100 mg, oral, 2 TIMES DAILY, First dose on Thu09/30/12 at 2100, Until Discontinued, Routine Given 09/30/2012 20:13 EDT 100 mg ibuprofen (MOTRIN) tablet 600 mg Given 10/01/2012 14:00 EDT 600 mg 600 mg, oral, 3 TIMES DAILY WITH MEALS, First dose on Thu10/01/12 at 1130, Until Discontinued, Routine ketOROLAC (TORADOL) injection 15 mg Given 10/01/2012 6:10 EDT 15 mg 15 mg, intravenous, EVERY 6 HOURS, 20 doses, First dose (after last reorder) on Thu09/29/12 at 1430, Last dose on Thu10/04/12 at 0600, Routine Given 09/30/2012 23:26 EDT 15 mg Given 09/30/2012 17:27 EDT 15 mg metoprolol XL (TOPROL-XL) tablet 50 mg Given 10/01/2012 13:00 EDT 50 mg 50 mg, oral, DAILY, First dose on Thu09/29/12 at 1445, Until Discontinued, Routine Given 09/30/2012 8:05 EDT 50 mg Given 09/29/2012 15:58 EDT 50 mg mexiletine (MEXITIL) capsule 200 mg Given 10/01/2012 15:00 EDT 200 mg 200 mg, oral, EVERY 12 HOURS, First dose on Thu10/01/12 at 1345, Until Discontinued, Routine morphine injection 0.5-1 mg Given 09/30/2012 9:20 EDT 1 mg 0.5-1 mg, intravenous, EVERY 4 HOURS PRN, Starting on Thu09/29/12 at 1521, Until Thu10/01/12 at 1820, Pain, Routine Given 09/30/2012 3:45 EDT 1 mg Given 09/29/2012 23:17 EDT 1 mg Multivitamins with Minerals tablet 1 Tab Given 10/01/2012 14:01 EDT 1 Tablet 1 Tablet, oral, 2 TIMES DAILY, First dose on Thu10/01/12 at 1215, Until Discontinued, Routine pantoprazole (PROTONIX) tablet 40 mg Given 10/01/2012 14:01 EDT 40 mg 40 mg, oral, DAILY, First dose on Thu10/01/12 at 1130, Until Discontinued, Routine PEG 3350-Electrolytes (MIRALAX) packet 1 7 g Given 10/01/2012 9:03 EDT 17 g 17 g, oral, DAILY, First dose on Thu09/30/12 at 1300, Until Discontinued, Routine ranolazine (RANEXA) ER tablet 500 mg Given 09/30/2012 20:13 EDT 500 mg 500 mg, oral, 2 TIMES DAILY, First dose on Thu09/29/12 at 2100, Until Discontinued, Routine Given 09/30/2012 8:05 EDT 500 mg Given 09/29/2012 22:00 EDT 500 mg senna (SENOKOT) tablet 1-2 Tab Given 09/30/2012 20:13 EDT 1 Tablet 1-2 Tablet, oral, AT BEDTIME, First dose on Thu09/30/12 at 2100, Until Discontinued, Routine sodium chloride 0.9 % (NS) infusion New Bag 09/29/2012 7:10 EDT 30 mL/hr 30 mL/hr at 30 mL/hr, 30 mL/hr, intravenous, CONTINUOUS, Starting on Thu09/29/12 at 0715, Until Thu09/29/12 at 1419, Routine, Preprocedure verapamil (CALAN) tablet 80 mg Given 09/30/2012 12:26 EDT 80 mg 80 mg, oral, EVERY 12 HOURS, First dose on Thu09/30/12 at 1100, Until Discontinued, Routine documented in this encounter Discontinued Medications Medication Sig Discontinue Reason Start Date End Date aspirin chewable 81 mg Take 1 Tab by mouth 03/24/2012 10/01/2012 tablet daily. Cholecalciferol, Take 0.5 Tabs by mouth Error 03/19/2012 0 10/01/2012 Vitamin D3, 400 unit daily. Tab furosemide (LASIX) 40 Take 1 Tab by mouth Error 03/19/2012 10/01/2012 mg tablet every 48 hours. furosemide (LASIX) 80 Take 1 Tab by mouth Error 03/19/2012 10/01/2012 mg tablet every 48 hours. acetaminophen-codeine Take 1 Tab by mouth 03/19/2012 10/01/2012 (TYLENOL #3) 300-30 mg every 4 hours as per tablet needed for Pain. furosemide (LASIX) 40 Take 40-80 mg by mouth 10/01/2012 mg tablet daily. Alternates dose QOD documented as of this encounter Active and Recently Administered Medications Times are shown in EDT. Scheduled Medication Order 09/29/2012 09/30/2012 10/01/2012 calcium citrate 200 mg (950 mg) tablet 200 mg (CANCELE D) 3242 (Given - Provider: Georgia Jackson) 0805 (Given - Provider: Starr Paul RN) 0903 (Given - Provider: Afshan Castañeda RN) 200 mg, oral, DAILY, First dose on Thu09/29/12 at 1445, Until Dis continued docusate sodium (COLACE) capsule 100 mg (CANCELED) 2012 (Given - Provider: Shani Reece RN) 0911 (Given - Provider: Afshan Castañeda RN) 100 mg, oral, 2 TIMES DAILY, First dose on Thu09/30/12 at 2100, Until Discontinued ibuprofen (MOTRIN) tablet 600 mg 1400 (Given - Provider: Afshan Castañeda RN) 600 mg, oral, 3 TIMES DAILY WITH MEALS, First dose on Thu10/01/12 at 1130, Until Discontinued ketOROLAC (TORADOL) injection 15 mg (CANCELED) 1437 (G iven - Provider: Georgia Jackson)1805 (Given - Provider: Georgia Jackson)2316 (Given - Provider: Lucrecia Mustafa) 0552 (Given - Provider: Lucrecia Mustafa)12 30 (Given - Provider: Starr Paul RN)1727 (Given - Provider: Shani Reece RN)2326 (Given - Provider: Mindy White RN - Comment: chest pain) 0610 (Given - Provider: Mindy White RN) 15 mg, intravenous, EVERY 6 HOURS, 20 do ses, First dose on Thu09/29/12 at 1430, Last dose on Thu10/04/12 at 0600 metoprolol XL (TOPROL-XL) tablet 50 mg (CANCELED) 1558 (Given - Provider: Georgia Jackson) 0805 (Given - Provider: Starr Paul RN) 0902 (Hold - Provider: Afshan Castañeda RN - Reason: Change in condition)1300 (Given - Provider: Afshan Castañeda, URIEL) 50 mg, oral, DAILY, First dose on Thu09/29/12 at 1445, Until Disc ontinued mexiletine (MEXITIL) capsule 200 mg 1500 (Given - Provider: Afshan Castañeda RN) 200 mg, oral, EVERY 12 HOURS, First dose on Thu10/01/12 at 1345, Until Discontinued Multivitamins with Minerals tablet 1 Tab (CANCELED) 1401 (Given - Provider: Afshan Castañeda RN) 1 Tab, oral, 2 TIMES DAILY, First dose o n Thu10/01/12 at 1215, Until Discontinued pantoprazole (PROTONIX) tablet 40 mg 1401 (Given - Provider: Afshan Castañeda, URIEL) 40 mg, oral, DAILY, First dose on Thu10/01/12 at 1130, Until Disc ontinued PEG 3350-Electrolytes (MIRALAX) packet 17 g (CANCELED) 1515 (Not Given - Provider: Dang Loo RN - Reason: Other - Comment: not given by previous nurse) 09 (Given - Provider: Afshan Castañeda, URIEL) 17 g, oral, DAILY, First dose on Thu09/30/12 at 1300, Until Disco ntinued ranolazine (RANEXA) ER tablet 500 mg (CANCELED) 220 ( Given - Provider: Lucrecia Msutafa) 08 (Given - Provider: Pascual Lang)2012 (Given - Provider: Shani Reece RN) 903 (Hold - Provider: Afshan Castañeda RN - Reason: Change in condition) 500 mg, oral, 2 TIMES DAILY, First dose on Thu09/29/12 at 2100, Until Discontinued senna (SENOKOT) tablet 1-2 Tab (CANCELED) 2012 (Given - Provider: Shani Reece RN) 1-2 Tab, oral, AT BEDTIME, First dose on Thu09/30/12 at 2100, Until Discontinued verapamil (CALAN) tablet 80 mg (CANCELED) 1226 (Given - Provider: Starr Paul, URIEL)2008 (Hold - Provider: Shani Reece RN - Reason: Other - Comment: hold per MD Mora) 09 (Hold - Provider: Afshan Castañeda RN - Reason: Order parameters not met) 80 mg, oral, EVERY 12 HOURS, First dose on Thu09/30/12 at 1100, Until Discontinued Continuous Medication Order 09/29/2012 09/30/2012 10/01/2012 sodium chloride 0.9 % (NS) infusion (CANCELED) 0710 (N ew Bag - Provider: Namrata Kemp, URIEL) at 30 mL/hr, 30 mL/hr, intravenous, CONT INUOUS, Starting Thu09/29/12 at 0715, Until Thu09/29/12 at 1419 PRN Medication Order 09/29/2012 09/30/2012 10/01/2012 acetaminophen (TYLENOL) tablet 650 mg (CANCELED) 1930 (Given - Provider: Lucrecia Mustafa) 650 mg, oral, EVERY 6 HOURS PRN, Startin g Thu09/29/12 at 1435, Until Thu10/01/12 at 1820, Pain morphine injection 0.5-1 mg (CANCELED) 1534 (Given - P rovider: Georgia Jackson)1929 (Given - Provider: Lucrecia Mustafa)2317 (Given - Provider: Lucrecia Mustafa) 0345 (Given - Provider: Lucrecia Mustafa)09 20 (Given - Provider: Starr Paul RN) 0.5-1 mg, intravenous, EVERY 4 HOURS PRN , Starting Thu09/29/12 at 1521, Until Thu10/01/12 at 1820, Pain documented in this encounter Orders Medications Ordered That Might Not Have Count Last Ord ered Date First Ordered Date Been Administered calcium citrate 200 mg (950 mg) tablet 200 1 10/01 mg furosemide (LASIX) tablet 40 mg 1 10/01/2012 lisinopril (PRINIVIL, ZESTRIL) tablet 10 1 013 mg mexiletine (MEXITIL) capsule 150 mg 1 10/01/2012 lisinopril (PRINIVIL, ZESTRIL) tablet 20 3 013 09/29/2012 mg oxyCODONE-acetaminophen (PERCOCET) 5-325 1 013 mg per tablet 1 Tab acetaminophen-codeine (TYLENOL #3) 300-30 1 2012 mg per tablet 1 Tab atropine 0.1 mg/mL 10 mL syringe 0.5-1 mg 1 2012 fentaNYL citrate (PF) 50 mcg/mL injection 1 2012 heparin 1,000 unit/mL injection 1 09/29/2012 heparin in D5W 25,000 unit/250 mL infusion 1 09/29 isoproterenol (ISUPREL) 0.2 mg/mL 1 09/29/2012 injection ketOROLAC (TORADOL) 30 mg/mL (1 mL) 1 09/29/2012 injection ketOROLAC (TORADOL) injection 15 mg 1 09/29/2012 lidocaine 10 mg/mL (1 %) injection 2 09/29/2012 midazolam (VERSED) 1 mg/mL injection 2 09/29/2012 potassium chloride infusion 20 mEq 1 09/29/2012 Lab Orders Without Results Count Last Ordered Date Fir st Ordered Date POCT GLUCOSE 1 09/29/2012 Nursing Count Last Ordered Date First Ordered Date CONTRAINDICATION TO ANTICOAGULATION 2 09/29/2012 THERAPY INSERT PERIPHERAL IV 1 09/29/2012 Admission Count Last Ordered Date First Ordered Date STATUS: INPATIENT ACUTE ADMISSION 1 09/29/2012 Transfer Count Last Ordered Date First Ordered Date NOTIFY PPS OF DISCHARGE COMPLETE 1 10/01/2012 PPS NOTIFICATION OF PATIENT ARRIVAL ON 2 3 09/29/2012 UNIT TRANSFER PATIENT 1 09/30/2012 Discharge Count Last Ordered Date First Ordered Date DISCHARGE PATIENT 1 10/01/2012 documented in this encounter Care Teams Dynamite Cartridge Crimper Relationship Specialty Start Date End Date Arlin Montoya MD PCP - General 03/17/12 [address] [place] [address] documented as of this encounter
--- OUTSIDE RECORDS SUMMARY | 2021-12-16 00:48 | XMS_ITS | Encounter Summary ---
:1960 Author Organization [facility] Address [address] [place] [address] Care Team Providers Name Role Phone Arlin Gandara MD Primary Care Provider Reason for Visit Reason Onset Date Comments Other 01/24/2020 disability forms Encounter Details Date Type Department Care Team Description 01/24/2020 Telephone [facility] - Regan Luo [facility] er (disability [facility] Cardiology Clin ic MD [facility] forms) [address] [place] [address] [address] [place] [address] (Wo rk) Social History Tobacco [...] this encounter Miscellaneous Notes Telephone Encounter - Patricio Buchanan - 02/01/2020 1107 EDT Completed form faxed to [facility] and scanned into the pts chart. LDM on pts VM to let her know. Telephone Encounter - Regan Luo MD - 01/31/2020 2238 EDT Done today. JM elephone Encounter - Patricio Buchanan - 01/24/2020 1219 EDT Pt has faxed over [employer] forms which need to be filled out and returned to [facility] by 02/14/20. Forms are in Luo's box (blank forms scanned in also.) Pt requests a call to let her know once this has beencompleted. documented in this encounter Plan of Treatment Upcoming Encounters Date Type Specialty Care Team Description 09/05/2022 Office Visit Cardiology Regan Luo MD [address] [place] [address] [address] [place] [address] (Wo rk) documented as of this encounter Visit Diagnoses Not on filedocumented in this encounter Care Teams Structures Mechanic Relationship Specialty Start Date End Date Arlin Gandara MD PCP - General 03/17/12 [address] [place], [place] [id number] documented as of this encounter
--- OUTSIDE RECORDS SUMMARY | 2021-12-16 00:48 | XMS_ITS | Encounter Summary ---
:1960 Author Organization [facility] Address [address] [place] [address] Care Team Providers Name Role Phone Arlin Gandara MD Primary Care Provider Reason for Visit Reason Onset Date Comments Other 09/21/2012 Encounter Details Date Type Department Care Team Description 09/21/2012 Telephone [facility] Aj Cantu Cardiology - Jessika Erickson MD [address] [phone] [address] [place], [place] [address] (Wo rk) Social History Tobacco Use Types [...] Encounter - Jes Florence RN - 09/22/2012 1029 EDT See note, 09/22 Telephone Encounter - Jes Florence RN - 09/21/2012 1305 EDT Pt will call me w/ update after she sees the dentist on 09/23. I sent email update to Dr. Cantu,Dr. Luo and Veronique, lacing operator, letting them know about this development. I'll follow up w/ them after she calls w/ update and contact pt if ablation needs to be postponed. elephone Encounter - Xin Aldrich - 09/21/2012 1237 EDT Pt broke tooth and may need to have this removed 09-23. Pt wants to be sure this will not delay her heart surgery next week. Please call documented in this encounter Plan of Treatment Upcoming Encounters Date Type Specialty Care Team Description 09/05/2022 Office Visit Cardiology Regan Luo MD [address] [place] [address] [address] [place] [address] (Wo rk) documented as of this encounter Visit Diagnoses Not on filedocumented in this encounter Care Teams Traffic Line Painter Relationship Specialty Start Date End Date Arlin Gandara MD PCP - General 03/17/[address] [place] [id number] documented as of this encounter
--- OUTSIDE RECORDS SUMMARY | 2021-12-16 00:48 | XMS_ITS | Encounter Summary ---
:1960 Author Organization [facility] Address [address] [place] [address] Care Team Providers Name Role Phone Arlin Gandara MD Primary Care Provider Reason for Visit Reason Onset Date Comments Follow-up 09/17/2012 Encounter Details Date Type Department Care Team Description 09/17/2012 Telephone [facility] Aj Cantu [facility] [place]- Cardiology - Jessika Erickson MD [address] [phone] [address] [place], [place] [address] (Wo rk) Social History [...] Telephone Encounter - Jes Florence RN - 09/20/2012 1157 EDT Pt contacted by Veronique, senior scheduler, and procedure scheduled for 09/29/12. Pt aware. elephone Encounter - Xin Aldrich - 09/17/2012 1555 EDT Pt was in 4-3 and was told she would be scheduled for surgery in 2 weeks and hasn't heard from anyone. Please call documented in this encounter Plan of Treatment Upcoming Encounters Date Type Specialty Care Team Description 09/05/2022 Office Visit Cardiology Regan Luo MD [address] [place] [address] [address] [place] [address] (Wo rk) documented as of this encounter Visit Diagnoses Not on filedocumented in this encounter Care Teams Director Title Relationship Specialty Start Date End Date Arlin Gandara MD PCP - General 03/17/12 [address] [place], [place] [id number] documented as of this encounter
--- OUTSIDE RECORDS SUMMARY | 2021-12-16 00:48 | XMS_ITS | Encounter Summary ---
:1960 Author Organization [facility] Address [address] [place] [address] Care Team Providers Name Role Phone Arlin Gandara MD Primary Care Provider Encounter Details Date Type Department Care Team Description 10/13/2012 Hospital Encounter [facility] - WAITING, TO BE ADDED [facility] Arlin Beck, WORKPLACE REHABILITATION OFFICER [address] [facility], [address] [place] [address] [address] [place] [address] Social History Tobacco Use Types Packs/Day Years [...] or older) documented as of this encounter Medications at [...] capsule every 12 hours. Telephoned prescription to [facility] 10/01/2012 pantoprazole (PROTONIX) Take 1 Tab by mouth 30 Tab 0 07/201205/27/2019 40 mg tablet daily. For 30 days and while on ibuprofen potassium chloride CR Take 10 mEq by mouth 2 0 02/08/2020 (KLOR-CON) 10 mEq TbER times daily. documented as of this encounter Discharge Disposition Disposition Code Departure Means Destination Home or Self Care documented in this encounter Procedure Notes FUEL HANDLER, SCAN 2 - 10/26/2012 1423 EDTAssociated Order(s): PROCEDURE REPORTS - SCANNED documented in this encounter Plan of Treatment Upcoming Encounters Date Type Specialty Care Team Description 09/05/2022 Office Visit Cardiology Regan Luo MD [address] [place] [address] [address] [place] [phone] (Wo rk) documented as of this encounter Procedures Procedure Name Priority Date/Time Associated Diagnosis Comme nts PROCEDURE REPORTS - 10/26/2012 14:26 Resu lts for this SCANNED EDT procedure are i n the results section. documented in this encounter Results PROCEDURE REPORTS - SCANNED (10/26/2012 14:26 EDT) Specimen Narrative 10/26/2012 15:26 EDT Procedure Note FUEL HANDLER, SCAN 2 - 10/26/2012 14:26 EDT documented in this encounter Visit Diagnoses Not on filedocumented in this encounter Care Teams Pipeline Maintenance Supervisor Relationship Specialty Start Date End Date Arlin Gandara MD PCP - General 03/17/12 [address] [place] [address] documented as of this encounter
--- OUTSIDE RECORDS SUMMARY | 2021-12-16 00:48 | XMS_ITS | Encounter Summary ---
:1960 Author Organization [facility] Address [address] [place] [address] Care Team Providers Name Role Phone Arlin Gandara MD Primary Care Provider Reason for Visit Reason Onset Date Comments Other 09/28/2012 Pt calling to report she did not get ablation instructions--abl tomorrow, 09/29 Encounter Details Date Type Department Care Team Description 09/28/2012 Telephone [facility] Aj Cantu Ot er (Pt calling to Cardiology - Jessika Erickson MD report she did not get [address] [facility] ablation So [facility], yan Up nstructions--abl [address] [address] tomorrow, 09/29) [phone] [place] [address] (Wo rk) Social History Tobacco [...] Telephone Encounter - Jes Florence RN - 09/30/2012 1305 EDT noted elephone Encounter - Jeff Pedraza - 09/28/2012 1616 EDT Pt scheduled for PVC ablation tomorrow with Dr. Cantu, states she never received her pre-procedure instructions and information. Looked in pt's chart, and letters were complete. Printed them out and scanned them, and emailed them to pt at [email or web address]. Called Veronique Martinez to ask if she had sent pt these instructions prior. She states she had, but pt had not replied to verify receipt. Let Veronique know I was sending them today. Called pt back and let her know they were sent. I noticed the letter instructed pt to stop her Metoprolol on 09/22. Asked pt if she had done so. She states someone called her on 09/22, and she had already taken dose, but she stopped it on 09/23. documented in this encounter Plan of Treatment Upcoming Encounters Date Type Specialty Care Team Description 09/05/2022 Office Visit Cardiology Regan Luo MD [address] [place] [address] [address] [place] [address] (Wo rk) documented as of this encounter Visit Diagnoses Not on filedocumented in this encounter Care Teams Vehicle Check In Clerk Relationship Specialty Start Date End Date Arlin Gandara MD PCP - General 03/17/12 [address] [place], [place] [address] documented as of this encounter
--- OUTSIDE RECORDS SUMMARY | 2021-12-16 00:48 | XMS_ITS | Encounter Summary ---
:1960 Author Organization [facility] Address [address] [place] [address] Care Team Providers Name Role Phone Arlin Gandara MD Primary Care Provider Reason for Visit Reason Comments Follow-up Arrhythmia Shortness of Breath Encounter Details Date Type Department Care Team Description 11/29/2019 Office Visit [facility] - Regan Luo Pre mature ventricular contractions (PVCs) (VPCs) (Primary Dx); [facility] [place] Chronic diastolic CHF (congestive heart failure), NYHA class 2 ([facility]); Clinic [address] [facility] Ventricular tachycardia ([facility]); [address] [facility] [address] Obesity (BMI 30.0-34.9); [place] [address] [place] Nonischemic cardiomyopathy ( [facility]) [phone] [phone] Social History Tobacco Use Types Packs/Day Years Used Date Never Smoker Smokeless Tobacco: Never Used Alcohol Use Standard Drinks/Week Comments No 0 (1 standard drink = 0.6 oz pure alcoho l) Sex Assigned at Date Recorded Not on file documented as of this encounter Last Filed Vital Signs Vital Sign Reading Time Taken Comments Blood Pressure 120/80 11/29/2019 0806 EDT Pulse 80 11/29/2019 0806 EDT Temperature - - Respiratory Rate - - Oxygen Saturation 97% 11/29/2019 0806 EDT Inhaled Oxygen Concentration - - Weight 86 kg (189 lb 8 oz) 11/29/2019 0806 EDT Height 162.6 cm (5' 4) 11/29/2019 0806 EDT Body Mass Index 32.53 11/29/2019 0806 EDT documented in this encounter Functional Status [...] encounter Progress Notes Regan Luo MD - 11/29/2019 0815 EDT [facility] [place] Subjective: Chief Complaint(s): Follow-up HPI: 58-year-old woman with NICM of unclear [...] Was subsequently seen by Dr. Dolan in [place] who initially startedher on Mexiletine 200mg BID. [...] intramyocardial PVC/VT focus by Dr. Dolan in [place] 03/2016. The procedure was initially not considered completely successful and she was continued on amiodarone for another year. Holter EKG in 2018 off amiodarone showed only of PVC recurrence. Echo 2018 with recovery of LV function to the low normal range. She returns to the office for followup. She reports being stable, rare dyspnea with higher levels ofexertion, walking long distances or with heavy lifting. No recent flutterning in her chest, occasional mild orthostatic dizziness, rare chest wall muscle tightness. Goes walking for exercise every other day. She denies exertional chest pain, shortness of breath at rest, blackout spells, edema, fevers, chills, bleeding, digestive problems, myalgia. Curretly trying to lose weight with the 310 diet, with plant-based shakes. [...] TK 1 T PO D 4 ??? lisinopril (PRINIVIL, ZESTRIL) 5 mg tablet Take 1 Tab by mouth daily. 30 Tab 2 ??? LORazepam (ATIVAN) 0.5 mg tablet Take 1 mg by mouth as needed for Anxiety. ??? metoprolol XL (TOPROL-XL) 50 mg tablet Take 1 Tab by mouth daily. 30 Tab 2 ??? Multivitamins with Minerals Tab Take 2 Tabs by mouth 2 times daily. I-Caps ??? omega 7-ihx-vff-fish oil (FISH OIL) 360-1,200 mg capsule,delayed release(DR/EC) Take by mouth. ??? potassium chloride CR (KLOR-CON) 10 mEq TbER Take 10 mEq by mouth 2 times daily. ??? vit C/E/Zn/coppr/lutein/zeaxan (PRESERVISION AREDS-2 ORAL) Take by mouth. No current facility-administered medications for this visit. Past Medical History Very frequent PVC and nsVT from an epicardial yomi-basal LV focus close to the LMCA bifurcation, s/p intramyocardial needle catheter ablation 2014, [facility]. Mild non-ischemic cardiomyopathy atypical chest pain onset 07/12 r/o for OK by enzymes Obesity Macular degeneration Allergies penicillin: hives,swelling: Allergy sulfa 1 of 2: bloody nose sulfa 2 of 2: bloody nose adhesive tape: burned abd: Allergy latex: sawant skin: Allergy I have reviewed current problem list and current medications. ROS: A 10-system ROS was performed, pertinent items as mentioned in HPI, otherwise negative. ROS Objective: Examination: Vitals: BP 120/80 (BP Cuff Location: Right arm, BP Patient Position: Sitting, BP Cuff Sizes: Adult, regular) Pulse 80 Ht 162.6 cm (64) Wt 86 kg (189 lb 8 oz) SpO2 97% BMI 32.53 kg/m?? Body mass index is 32.53 kg/m??. Physical Exam GENERAL APPEARANCE: no acute [...] normal. EKG 07/2019: Normal sinus rhythm, 79/min, HI 150 ms, QRS 92 ms, QT 354 ms, QTC 382 ms, LVH with repolarization abnormality. Assessment & Plan: 1. Premature ventricular contractions (PVCs) (VPCs) 2. Chronic diastolic CHF (congestive heart failure), NYHA class 2 (HCC-CMS) 3. Ventricular tachycardia (HCC-CMS) 4. Obesity (BMI 30.0-34.9) 5. Nonischemic cardiomyopathy (HCC-CMS) 58-year-old woman with history of mild nonischemic cardiomyopathy and very frequent, highly symptomatic PVCs and nsVT. Epicardial PVC origin yomi-basal LV. S/p successful intramyocardial PVC/VT focusablation with a special needle catheter in [place] 2015. Now off amiodarone without significant recurrence of arrhythmia. Echo 2018 with improvement of LV EFto the low normal range. Chronic shortness of breath with higher levels of exertion most likely related to diastolic dysfunction. Continue goal-directed medical therapy. Encouraged her to continue regular exercise and maintenance cardiac rehab program. Detailed discussion of medication effects and dietary strategies. Will try to find out if she can have access to the CHT Dietary support system via her PCP ([facility] in [place], [place]).Total ldvr-fm-dmin time: 25 minutes, >50% spent counseling on above issues. 1. PVC (premature ventricular contraction) - continue Metoprolol 2. Heart failure, diastolic, chronic (HCC-CMS) - Continue furosemide, KCL, lisinopril 3. Ventricular tachycardia (HCC-CMS) - continue Metoprolol documented in this encounter Plan of Treatment Upcoming Encounters Date Type Specialty Care Team Description 09/05/2022 Office Visit Cardiology Regan Luo MD [address] [facility] [address] [place] [phone] (Wo rk) documented as of this encounter Visit Diagnoses Diagnosis Premature ventricular contractions (PVCs ) (VPCs) - Primary Other premature beats Chronic diastolic CHF (congestive heart failure), NYHA class 2 (HCC-CMS) (HCC) Chronic diastolic heart failure Ventricular tachycardia (HCC-CMS) (HCC) Paroxysmal ventricular tachycardia Obesity (BMI 30.0-34.9) Obesity, unspecified Nonischemic cardiomyopathy (HCC-CMS) (HC C) Other primary cardiomyopathies documented in this encounter Historical Medications This list may reflect changes made after this encounter. Medication Sig Dispensed Refills Start Date End Date LORazepam (ATIVAN) 0.5 mg Take 1 mg by mouth as 0 tablet needed for Anxiety. added in this encounter Care Teams Motion Picture Narrator Relationship Specialty Start Date End Date Arlin Gandara MD PCP - General 03/17/12 [address] [place] [address] documented as of this encounter
--- OUTSIDE RECORDS SUMMARY | 2021-12-16 00:48 | XMS_ITS | Encounter Summary ---
:1960 Author Organization [place] [address] Care Team Providers Name Role Phone Arlin Gandara MD Primary Care Provider Encounter Details Date Type Department Care Team Description 10/21/2019 Hospital [place] [address] Social History Tobacco Use Types Packs/Day Years [...] Not on filedocumented as of this encounter Procedures Procedure Name Priority Date/Time Associated Diagnosis Comme nts COVID-19 PCR Timed 10/21/2019 12:00 PM Results for this EDT procedure are i n the results section . documented in this encounter Results COVID-19 PCR (10/21/2019 12:00 PM EDT) [facility] Method Time Signature SARS-CoV-2 Not Detected Not Detected [place] RNA [facility] Comment: This result should be interpreted in com bination with the clinical observations, patient history and epidem iological information. For testing of asymptomatic individuals, assay performa nce characteristics and clinical utility have not been evaluated. Testing for SARS-CoV-2 (Severe acute respiratory syndrome coronavirus 2, form erly known as 2019 novel coronavirus or 2019-nCoV) to aid in the diagnosis of CO VID-19 is performed using the [employer] RealTime SARS-CoV-2 as authorized by the FDA Emergency Use Authorization (EUA). This EUA assay is intended for In-vitro Diagnostic (IVD) use with respiratory specimens such as nasopharyngeal swabs c ollected from individuals during the acute phase of infection. This assay is performed based on the instructions for use provided by the [employer] and additional guidance provided by CDC and FDA. Testing is performed in the [facility] within the Department of Path ology and Laboratory Medicine at [facility], cert ified under the Clinical Laboratory Improvement Amendments of 1988 (CLIA), 4 2 U.S.C. ?? 263a, to perform high complexity tests. Assay performance has been verified according to clinical laboratory regulatory requirements. Test results are provided above. A resul t of Not Detected indicates that the viral RNA target is not present but does not preclude SARS-CoV-2 infection. False negative results may occur if a sp ecimen is improperly collected, transported or handled; if amplification inhibitors are present; or if inadequate numbers of viral particles ar e present in the specimen. A result of Detected suggests a current or recent infection and the patient is presumed to be infected. As required or requested by public health authorities, positive specimens may be sent for additional monica ting. Positive and negative predictive values for this test are highly dependen t on disease prevalence. A result of Invalid indicates that neither the vir al RNA targets nor the internal control target was detected. An invalid result s uggests the presence of inhibitors. Recollection is recommended in the case of an invalid result. CDC COVID-19 criteria for testing on hum an specimens and clinical management guidance information are available at th e CDC Coronavirus Disease 2019 (COVID-19) webpage under Information fo r Healthcare Professionals (https://www.cdc.gov/coronavirus/2019-nc ov/hcp/index.html) Additional information about this and ot her EUA tests can be found in provider and patient fact sheets at the following FDA website: https://www.fda.gov/medical-devices/ftiwicijf-bfqgqoqlmf-hkpgabc-devices/emergen fb-lpx-znnbbhyqjfkdcf#jmmaz53sgj SARS-Cov-2 RNA Source INTERNAL AUDITOR Swab [facility] Specimen (Source) Anatomical Collection Method Collection Time Re ceived Time Location / / Volume Laterality Nasopharyngeal swab Other / Unknown 10/21/2019 12:00 0 10/22/2019 (specimen) PM EDT 5:59 AM EDT Resulting Agency Comment Spec In Lab Romeo Gutiérrez DO MICROBIOLOGY - GENERAL ORDER AMARIS Performing Organization Address City/State/[place] [address] documented in this encounter Visit Diagnoses Not on filedocumented in this encounter Care Teams Router Setter Relationship Specialty Start Date End Date Arlin Gandara MD PCP - General 04/23/10 [address] [place] [address] documented as of this encounter
--- OUTSIDE RECORDS SUMMARY | 2021-12-16 00:48 | XMS_ITS | Encounter Summary ---
:1960 Author Organization [facility] Address [address] [place] [address] Care Team Providers Name Role Phone Arlin Gandara MD Primary Care Provider Reason for Visit Reason Onset Date Comments Medications Refill 01/27/2020 Encounter Details Date Type Department Care Team Description 01/27/2020 Refill [facility] - [facility] [place] Chris Lyons RN Medications Refill Cardiology Clinic [address] [place] [address] Social History Tobacco Use Types [...] Sig Dispensed Refills Start Date End Date metoprolol XL (TOPROL-XL) Take 1 Tab by mouth 90 Tab 3 0 01/27/2020 01/18/2021 50 mg tablet daily. metoprolol XL (TOPROL-XL) Take 1 Tab by mouth 90 Tab 3 0 01/27/2020 01/27/2020 50 mg tablet daily. documented in this encounter Plan of Treatment Upcoming Encounters Date Type Specialty Care Team Description 09/05/2022 Office Visit Cardiology Regan Luo MD [address] [place] [address] [address] [place], [place] [address] (Wo rk) documented as of this encounter Visit Diagnoses Not on filedocumented in this encounter Discontinued Medications Medication Sig Discontinue Reason Start Date End Date metoprolol XL (TOPROL-XL) Take 1 Tab by mouth Reorder 11/29/19 14 01/27/2020 50 mg tablet daily. metoprolol XL (TOPROL-XL) Take 1 Tab by mouth Reorder 01/27/20 20 01/27/2020 50 mg tablet daily. documented as of this encounter Care Teams Stock Order Lister Relationship Specialty Start Date End Date Arlin Gandara MD PCP - General 03/17/12 [address] [place], [place] [address] documented as of this encounter
--- OUTSIDE RECORDS SUMMARY | 2021-12-16 00:48 | XMS_ITS | Encounter Summary ---
:1960 Author Organization [facility] Address [address] [place] [address] Care Team Providers Name Role Phone Arlin Gandara MD Primary Care Provider Reason for Visit Reason Onset Date Comments Medications Refill 02/08/2020 Encounter Details Date Type Department Care Team Description 02/08/2020 [place] [facility] [place] [facility] [place] Kennedy RN Medications Refill Card[facility] Clinic [address] [place] [address] Social History Tobacco Use Types [...] Date End Date lisinopriL (PRINIVIL) 5 mg Take 1 Tab by mouth 90 Tab 1 02/08/2020 08/02/2020 tablet daily. potassium chloride CR Take 1 Tab by mouth 180 Tab 1 02/0705/08/2020 (KLOR-CON) 10 mEq tablet 2 times daily for extended release 90 days. potassium chloride CR Take 1 Tab by mouth 180 Tab 1 02/0702/08/2020 (KLOR-CON) 10 mEq tablet 2 times daily for extended release 90 days. lisinopriL (PRINIVIL) 5 mg Take 1 Tab by mouth 90 Tab 1 02/08/2020 02/08/2020 tablet daily. documented in this encounter Miscellaneous Notes Telephone Encounter - Ana Kennedy RN - 02/08/2020 0848 EDT Requested Prescriptions Signed Prescriptions Disp Refills ??? potassium chloride CR (KLOR-CON) 10 mEq tablet extended release 180 Tab 1 Sig: Take 1 Tab by mouth 2 times daily for 90 days. Authorizing Provider: ALLAN LUO Ordering User: ANA KENNEDY ??? lisinopriL (PRINIVIL) 5 mg tablet 90 Tab 1 Sig: Take 1 Tab by mouth daily. Authorizing Provider: ALLAN LUO Ordering User: ANA KENNEDY documented in this encounter Plan of Treatment Upcoming Encounters Date Type Specialty Care Team Description 09/05/2022 Office Visit Cardiology Allan Luo MD [address] [place] [address] [address] (Wo rk) documented as of this encounter Visit Diagnoses Not on filedocumented in this encounter Discontinued Medications Medication Sig Discontinue Reason Start Date End Date potassium chloride CR Take 10 mEq by Reorder 01/2020 (KLOR-CON) 10 mEq TbER mouth 2 times daily. lisinopril (PRINIVIL, Take 1 Tab by mouth Reorder 11/28/2013 02/08/2020 ZESTRIL) 5 mg tablet daily. lisinopriL (PRINIVIL) 5 Take 1 Tab by mouth Reorder 02/08/2020 02/08/2020 mg tablet daily. potassium chloride CR Take 1 Tab by mouth Reorder 02/08/2020 02/08/2020 (KLOR-CON) 10 mEq tablet 2 times daily for extended release 90 days. documented as of this encounter Care Teams Crater And Packer Relationship Specialty Start Date End Date Arlin Gandara MD PCP - General 03/17/12 [address] [place] [address] documented as of this encounter
--- OUTSIDE RECORDS SUMMARY | 2021-12-16 00:48 | XMS_ITS | Encounter Summary ---
:1960 Author Organization [facility] Address [address] [place] [address] Care Team Providers Name Role Phone Arlin Gandara MD Primary Care Provider Regan Luo MD Unavailable [phone] Reason for Visit Reason Comments Other Encounter Details Date Type Department Care Team Description 07/28/2020 Refill [facility] - [facility] [place] Regan Carrasquillo MD Other Cardiology Clinic [address] [place] [address] [place] [address] (Wo rk) Social History Tobacco [...] chloride CR TAKE ONE TABLET BY 180 Tab 3 202007/22/2021 (KLOR-CON) 10 mEq tablet MOUTH TWICE A DAY extended release documented in this encounter Plan of Treatment Upcoming Encounters Date Type Specialty Care Team Description 09/05/2022 Office Visit Cardiology Regan Luo MD [address] [place] [phone] (Wo rk) documented as of this encounter Visit Diagnoses Not on filedocumented in this encounter Discontinued Medications Medication Sig Discontinue Reason Start Date End Date potassium chloride CR Take 20 mEq by 03/06/2020 (KLOR-CON) 10 mEq tablet mouth daily. extended release documented as of this encounter Care Teams Acid Recovery Operator Relationship Specialty Start Date End Date Arlin Gandara MD PCP - General 03/17/12 [address] [place], [place] [id number] Regan Luo MD Cardiovascular Disease 05/17/[address] [place] [address] [phone] documented as of this encounter
--- OUTSIDE RECORDS SUMMARY | 2021-12-16 00:48 | XMS_ITS | Encounter Summary ---
:1960 Author Organization [facility] Address [address] [place] [address] Care Team Providers Name Role Phone Arlin Gandara MD Primary Care Provider Reason for Visit Reason Comments Shortness of Breath Irregular Heart Beat Encounter Details Date Type Department Care Team Description 09/01/2012 Office Visit [facility] Aj Cantu Pre mature ventricular contractions (PVCs) (VPCs) (Primary Dx); Cardiology - [facility] MD Dre Nonischemic cardiomyopathy (CMS-HCC) [place] [address] [place] [address], [address] [place] [address], [place] [address] (Wo rk) Social History Tobacco [...] documented as of this encounter Progress Notes Aj Cantu MD - 09/01/2012 1242 EDT Apolonia Vazquez is a 52 y.o.yo female presenting in clinic today for discussion regarding possible epicardial mapping and ablation of left ventricular outflow tract PVCs. 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 Luo brought the patient to the EP lab in May where she was found to have an epicardial focus that could not be ablated from the coronary vein. The patient continues to have frequent PVCs and nonsustained ventricular tachycardia. No chief complaint on file. Past Medical History Diagnosis Date ??? Symptomatic PVCs ??? Blood transfusion 2000 ??? Macular degeneration ??? Fluid retention Patient Active Problem List Diagnoses Date Noted [...] History Narrative ??? No narrative on file Medications Prior to Today's Visit Medication Sig ??? aspirin chewable 81 mg tablet Take [...] 4 hours as needed for Pain. ??? furosemide (LASIX) 40 mg tablet Take 40-80 mg by mouth daily. Alternates dose QOD ??? metoprolol XL (TOPROL-XL) 50 mg tablet [...] + D ORAL) Take by mouth daily. Allergies Allergen Reactions ??? Penicillins Swelling Swelling of body with black fingers ??? Adhesive Burnt skin ??? Latex, Natural Rubber Rash ??? Sulfa (Sulfonamide Antibiotics) Bloody nose ROS: Comprehensive 10 point ROS otherwise noncontributory. Objective: There were no vitals taken for this visit. There is no height or weight on file to calculate BMI. Physical Exam: General: Alert and cooperative and in no acute distress. Assessment and Plan: This is a 52-year-old female with nonischemic dilated cardiac myopathy with frequent uniform outflowtract PVCs that are epicardial the latter possibly contributing to or exacerbating her myopathy and congestive heart failure symptoms. We had a long discussion about epicardial mapping with the identical risks described for her regarding an EP study and ablation with the added risks of epicardial painand bleeding. We also discussed the possibility that anesthesia may suppress her PVCs. I think is a good understanding of the attendant risks and would like to proceed as soon as we can get her in to the lab. I spent a total of 45 minutes in face to face time with this patient and 25 minutes of that time wasspent in counseling and coordination of care as described in the progress note. Aj Cantu MD 09/01/2012 12:42 documented in this encounter Plan of Treatment Upcoming Encounters Date Type Specialty Care Team Description 09/05/2022 Office Visit Cardiology Regan Luo MD [address] [place] [address] [address] [place] [address] (Wo rk) documented as of this encounter Visit Diagnoses Diagnosis Premature ventricular contractions (PVCs ) (VPCs) - Primary Other premature beats Nonischemic cardiomyopathy (HCC-CMS) (HC C) Other primary cardiomyopathies documented in this encounter Care Teams Special Agent Secret Service Relationship Specialty Start Date End Date Arlin Gandara MD PCP - General 03/17/12 [address] [place], [place] [id number] documented as of this encounter
--- OUTSIDE RECORDS SUMMARY | 2021-12-16 00:49 | XMS_ITS | Encounter Summary ---
:1960 Author Organization [facility] Address [address] [place] [address] Care Team Providers Name Role Phone Arlin Montoya MD Primary Care Provider Encounter Details Date Type Department Care Team Description 03/18/2012 - Hospital Encounter [facility] Allan James Symptomatic PVCs 03/19/2012 Cardiac/Telemetry MD [facility] [address] [place] [address] [address] [place] [address] [phone] Social History Tobacco Use Types Packs/Day Years Used Date Never Smoker Smokeless Tobacco: Never Used Alcohol Use Standard Drinks/Week Comments No 0 (1 standard drink = 0.6 oz pure alcoho l) Sex Assigned at Date Recorded Not on file documented as of this encounter Last Filed Vital Signs Vital Sign Reading Time Taken Comments Blood Pressure 101/56 03/19/201218 EDT Pulse 89 03/19/2012 0918 EDT Temperature 36.5 ??C (97.7 ??F) 03/19/2012 0918 EDT Respiratory Rate 18 03/19/2012 0918 EDT Oxygen Saturation 96% 03/19/2012 0918 EDT Inhaled Oxygen Concentration - - Weight 83.5 kg (184 lb) 03/18/2012 0653 EDT Height 165.1 cm (5' 5) 03/18/2012 0653 EDT Body Mass Index 30.62 03/18/2012 0653 EDT documented in this encounter Functional Status Cognitive Status Response Date of Assessment Because of a physical, mental, or emotional condition, do Ye s 03/18/2012 you have serious difficulty concentrating, remembering, or making decisions? (5 years old or older) documented as of this encounter Discharge Summaries Puneet Head MD - 03/19/2012 1147 EDT Discharge Summary Chief Complaint/Reason for Admission: PVC ablation Principal/Final Diagnosis: NICM Principal Procedure: ablation Date: 03/18/2012 Secondary Procedures: Not applicable Condition at Discharge: Good Assessment at Discharge: Vital signs: Patient Vitals for the past 12 hrs: BP Pulse Heart Rate Resp Temp SpO2 O2 Device 03/19/12 0918 101/56 mmHg 89 - 18 36.5 ??C (97.7 ??F) 96 % Room air 03/19/12 0607 - - 84 BPM - - - - 03/19/12 0455 - - 67 BPM - - - - 03/19/12 0343 102/57 mmHg - 80 BPM 16 - 97 % Room air 03/19/12 0300 - - 81 BPM - - - - 03/19/12 0059 - - 78 BPM - - - - Patient Active Problem List Diagnoses ??? Symptomatic PVCs Hospital Course: 51-year-old woman with nonischemic cardiomyopathy of unclear etiology and frequent PVC.No significant suppression on her current beta po dose. Blood pressure does not allow further dose increases. Some improvement of LV function on heart failure medication with beta po, TOYA inhibitor and diuretic. PVC morphology on EKG suggestive of possible septal or left ventricular outflow tract origin. On 03/18/12 she underwent an attempt to ablate her frequent PVC's. The procedure included: 1. Mapping of PVC to the yomi-lateral aspect of the LVOT adjacent to the anterior mitral Annulus. 2. Extensive RF application in this area from epicardial (via distal CS) and endocardial (retrograde arterial/ transaortic approach). 3. Decreased occurrence, but no complete cessation of PVC activity post-RF. 4. During the initial mapping procedure, there was a brief run of SVT, c/w AVNRT, this could not be reproduced later. Attempted induction of arrhythmia only yielded single Echo beats. 5. Procedure terminated at this point. After angiogram of the R GOLF STUD RIVETER, the 8F Angioseal Closure systemwas used for arterial hemostasis. Re-ablation attempt with epicardial access in general anesthesia would be the next step. The patient developed a right groin hematoma post procedure. Pressure dressing was applied and bleeding stopped. The following morning no further bleeding was noted. On exam there was no bruit or thrill, hematoma appeared stable. Hct dropped from 37 to 33. She was oob and ambulating in the halls with minimal discomfort. Taking tylenol only for pain. She was given a prescription for tylenol #3 tabs incase her pain worsened at home. She was discharged to home with the instructions to go to the closest ER should she experience sudden onset of groin pain, further swelling of the area, lightheadedness,dizziness, palpitations, SOB or chest pain. She will follow up with Dr. James in two weeks where they will discuss possible re ablation with an epicardial approach. No changes were made to her medications. Medications prior to admission that will be [...] + D ORAL) Take by mouth daily. New medications prescribed at discharge: Medication Sig Dispense Refill ??? aspirin chewable 81 mg tablet Take 1 Tab by mouth daily. 30 Tab 3 ??? calcium citrate 200 mg (950 mg) Take 1 Tab by mouth daily. 30 Each 3 ??? Cholecalciferol, Vitamin D3, 400 unit Tab Take 0.5 Tabs by mouth daily. 30 Tab 3 ??? furosemide (LASIX) 40 mg tablet Take 1 Tab by mouth every 48 hours. 30 Tab 3 ??? furosemide (LASIX) 80 mg tablet Take 1 Tab by mouth every 48 hours. 30 Tab 3 Diagnostic Studies: n/a Relevant Studies at Discharge: none Last Lab Results at Discharge: BUN: Lab Results Component Value Date BUN 18 03/18/2012 Creatinine: Lab Results Component Value Date CREATININE 0.60 03/18/2012 CBC: Lab Results Component Value Date WBC 6.48 03/19/2012 RBC 3.83* 03/19/2012 HGB 11.4* 03/19/2012 HCT 33.2* 03/19/2012 MCV 87 03/19/2012 MCH 29.7 03/19/2012 MCHC 34.3 03/19/2012 PLT 172 03/19/2012 DIFFTYPE Automated 03/19/2012 Electrolytes: Lab Results Component Value Date NA 139 03/18/2012 K 4.1 03/18/2012 CL 104 03/18/2012 CO2 27 03/18/2012 INR: Lab Results Component Value Date INR 0.8* 03/18/2012 PROTIME 9.6 03/18/2012 No results found for this basename: HGBA1C cc: PCP: ARLIN MONTOYA Referring Prov:Mayo Ruelas Discharge Summary Completed: 03/19/12 Attestation statement: Supervising Physician I saw and examined Mrs. Vazquez on morning rounds with a cardiac electrophysiology service on March 19, 2012. I agree with the plans as outlined above. Mrs. Vazquez will followup with Dr. Bush as scheduled. documented in this encounter Discharge Instructions InstructionsMarcela Agrawal NP - 03/18/2012 [facility] Department of Cardiology Ablation Discharge Instructions: Hailey Vazquez has had an attempted Ablation today Performed by Phone# : Wound Care: You May Shower tomorrow.NO Tub bath, Swimming or Jacuzzi use for 1 Week. -Remove the dressings from the sites the next morning in the shower. Dry area gently & then place a clean dry Band Aid in each site daily after your shower for the next 3-4 days. DO NOT put any lotion, powder or Antibiotic ointment on procedure areas. Watch areas for any signs of infection or bleeding. Call Our Office If You Have Any Of The Following Problems: -You develop drainage, redness, or swelling at any of the sites -You develop a fever -You develop increased tenderness and/or increased bruising over sites which does not resolve in 2 days. -Your symptoms resume -You have any questions Activity: -You can resume your normal activities in 1 week, unless you have been otherwise instructed. -If you are traveling by car or airplane in the next week, you will need to stand and move around every 2 hours to promote circulation. -No vigorous activity for 1 week -You may resume driving after 3-4 days You may return to work in 3-4 days unless directed otherwise by your Doctor. Medications: -Resume your prior medications UNLESS otherwise indicated by your Doctor. Appointments: See Dr. James on April 05 at 3:30 for follow up Please call our office if you have any questions or concerns about your Ablation sites. We can be reached At documented in this encounter Medications at Time of Discharge Medication Sig Dispensed Refills Start Date End Date CALCIUM PHOSPHATE Take by mouth daily. 0 TRIB/VIT D3 (CITRACAL + D ORAL) Multivitamins with Take 2 Tabs by mouth 0 Minerals Tab 2 times daily. I-Caps aspirin chewable 81 mg Take 1 Tab by mouth 30 Tab 3 03/0210/01/2012 tablet daily. calcium citrate 200 mg Take 1 Tab by mouth 30 Each 3 03/0110/18/2012 (950 mg) daily. Cholecalciferol, Vitamin Take 0.5 Tabs by 30 Tab 3 03/1910/01/2012 D3, 400 unit Tab mouth daily. furosemide (LASIX) 40 mg Take 1 Tab by mouth 30 Tab 3 10/01/2012 tablet every 48 hours. furosemide (LASIX) 40 mg Take 40-80 mg by 0 10/01/2012 tablet mouth daily. Alternates dose QOD furosemide (LASIX) 80 mg Take 1 Tab by mouth 30 Tab 3 10/01/2012 tablet every 48 hours. lisinopril (PRINIVIL, Take 5 mg by mouth daily . 0 11/28/2013 ZESTRIL) 10 mg tablet metoprolol XL Take 50 mg by mouth 0 (TOPROL-XL) 50 mg tablet daily. potassium chloride CR Take 10 mEq by mouth 0 02/08/2020 (KLOR-CON) 10 mEq TbER 2 times daily. documented as of this encounter Ordered Prescriptions Prescription Sig Dispensed Refills Start Date End Date furosemide (LASIX) 80 mg Take 1 Tab by mouth 30 Tab 3 10/01/2012 tablet every 48 hours. furosemide (LASIX) 40 mg Take 1 Tab by mouth 30 Tab 3 10/01/2012 tablet every 48 hours. Cholecalciferol, Vitamin Take 0.5 Tabs by 30 Tab 3 03/1910/01/2012 D3, 400 unit Tab mouth daily. calcium citrate 200 mg Take 1 Tab by mouth 30 Each 3 03/0110/18/2012 (950 mg) daily. aspirin chewable 81 mg Take 1 Tab by mouth 30 Tab 3 03/0210/01/2012 tablet daily. documented in this encounter Discharge Disposition Disposition Code Departure Means Destination Home or Self Care documented in this encounter Progress Notes [employer], SCAN 2 - 03/24/2012 1332 EDT Cande Mendoza RN - 03/19/2012 1142 EDT Brief Case Management Assessment Reason for Hospitalization: Pt admitted for elective ablation - failed procedure Current Living Arrangements: Pt lives in [facility] with her , Sam Current Social, Health Care and Community Supports: Sam Vazquez, , Identified Case Management/Social Work Needs and Issues (housing, care, financial, transportation, cultural, spiritual, emotional, legal, etc.): Pt is independent. She works part-time. She has [employer] and uses [employer] in [facility] Case Management Actions (completed and planned): Met with pt and Sam and explained role. Plan d/c today. Pt declined the need for help at d/c. Cande Gonsalez RN #[id number] Jeannie Mccarty RN - 03/18/2012 1616 EDT Assuming care of pt.. Turned pt. onto right side. Propped c pillows. Rt. And Lt. Fem sites D&I, no hematoma. D/C james intact. 1650 Dr. James in to talk c pt and spouse. Denies groin or back discomfort, only slight SOTO. Dr. James requesting 2 hour longer bedrest. Tele. NSR c freq PVCs. 1700 Report given to Karlie TREVINO on M5. 1745 Transferred to M5 via stretcher on tele. c son and spouse and belongings. No C/O. Alanna Pedraza RN - 03/18/2012 1352 EDT Hailey Vazquez arrived to CVU via stretcher @ 1331s/p aborted drop hammer set up operator ablation procedure, james catheter in place, Bed in low position, side rails up, call monique in reach,bacilio po liquids, family @ bedside. Post procedure vital signs, CMST's, bilat groin sites monitored as ordered. 1415 pt c/ mild h/a 2/, medicated. Family members in to see pt. Dr James in to see pt, 1430 pt resting, repositioned to L side for comfort. Pt states back relief after position change. 1530 pt reports mild nausea. 1600 report to [facility]. KET arsJoan guerrier RN - 03/18/2012 0724 EDT Hailey Vazquez arrived to the Cardiovascular Unit via ambulatory. Patient identified per [facility] policy and oriented to Unit. Reviewed pre-procedure instructions with Hailey Vazquez. Patient denies pain. Discussed history, med list, allergies, NPO, sedation,& procedure information. All questions answered & patient verbalizes understanding. Pre-PVC ablation prep completed. Stretcher in low position with side rails up & call monique within patient reach. Patient's family is at bedside. Post procedure cart driver is spouse. Patient c/o significant urinary urgency issue since Hysterectomy-prefers james placed. documented in this encounter H&P Notes Allan James MD - 03/18/2012 0807 EDT Cardiology EP H&P Admit Date: 03/18/2012 Date of Service: 03/18/2012 PCP: ARLIN MONTOYA Code Status: Prior Chief Complaint: Palpitations HPI:51-year-old woman with nonischemic cardiomyopathy of unclear etiology and frequent PVC. Hailey was diagnosed with cardiomyopathy and PVC in spring 2010. Her LVEF at that time was 40%, cardiac catheterization showed normal coronaries and elevated LVEDP. She was started on heart failure medication with improvement of symptoms and LVEF. In the course of the summer she has developed progressive symptoms with palpitations and discomfort in the back of her chest, with a cramping feeling that radiates from between her shoulder blades up to the back of her neck. In recent weeks this has happened daily, often several times today. She also reports that she often feels unwell and experiences somedizziness when she gets up too quickly. By her report, her TSH has been tested to be normal within the last one to 2 years. She denies exertional chest pain, shortness of breath with ADLs, blackout spells, edema, fevers, chills, bleeding, digestive problems, myalgia. Prior Cardiac History: Cardiac cath (2010): Normal coronaries, elevated LVEDP. Echocardiogram (07/2010): Mildly decreased LV function, LVEF 45-50%, diffuse mild hypokinesis, no significant valvular abnormalities. Holter EKG (12/29/2011): Sinus rhythm, mean sinus rate 78 beats per minute, no unusual pauses or bradycardia, no atrial fibrillation, single PVCs, 500 per hour, frequently accompanied by symptoms of chest discomfort and PVCs. No ventricular tachycardia. PMH PSH Past Medical History Diagnosis Date ??? Symptomatic PVCs ??? Blood transfusion 2000 ??? Macular degeneration ??? Fluid retention Past Surgical History Procedure Date ??? Hysterectomy 2000 ??? Foot surgery right great toe tendon surgery x 2 ??? Cyst removal right neck Social History Family History History Substance Use Topics ??? Smoking status: Never Smoker ??? Smokeless tobacco: Never Used ??? Alcohol Use: No Mother with diabetes and coronary artery disease (3 stents):. Medications Prescriptions prior to admission Medication Sig Dispense Refill ??? furosemide (LASIX) 40 mg tablet Take 40-80 mg by mouth daily. Alternates dose QOD ??? metoprolol XL (TOPROL-XL) 50 mg tablet Take 50 mg by mouth daily. ??? lisinopril (PRINIVIL, ZESTRIL) 10 mg tablet Take 20 mg by mouth daily. ??? aspirin chewable 81 mg tablet Take 81 mg by mouth daily. ??? potassium chloride CR (KLOR-CON) 10 mEq TbER Take 20 mEq by mouth daily. ??? Multivitamins with Minerals Tab Take 2 Tabs by mouth 2 times daily. I-Caps ??? CALCIUM PHOSPHATE TRIB/VIT D3 (CITRACAL + D ORAL) Take by mouth daily. Allergies Allergies Allergen Reactions ??? Penicillins Swelling Swelling of body with black fingers ??? Adhesive Burnt skin ??? Latex, Natural Rubber Rash ??? Sulfa(Sulfonamide Antibiotics) Bloody nose Review of Systems: A ten point review of systems was performed. Pertinent positives are listed above in HPI, all othersare negative. Objective/Physical Exam: VS: Patient Vitals for the past 8 hrs: BP Resp Temp SpO2 O2 Device 03/18/12 0653 116/61 mmHg 20 36.6 ??C (97.9 ??F) 97 % Room air Pain: No data found. Weight: Weight : 83.462 kg (184 lb) Body mass index is 30.62 kg/(m^2). Glucose Readings (last 8 hours): No results found for this basename: GLUCOSEFINGE:8 in the last 72 hours Exam: General appearance: alert, cooperative, no distress Skin: Skin color, temperature, turgor normal. No rashes or lesions Head: Normocephalic, without obvious abnormality, atraumatic Eyes: conjunctivae/corneas clear. Throat/Mouth: lips, mucosa, and tongue normal Neck: supple, symmetrical and no JVD Lungs: clear to auscultation bilaterally Heart: regular rate and rhythm, S1, S2 normal, no murmur, click, rub or gallop Abdomen: soft, non-tender; bowel sounds nl Mental Status: awake and alert; oriented to person, place, and time Extremities: extremities warm, atraumatic, no cyanosis or edema Pulses: femoral & DP 1+ and symmetric Pressure Ulcer Present on admission? No Data Review: Labs: I have personally reviewed CBC: Lab Results Component Value Date WBC 4.93 03/18/2012 RBC 4.39 03/18/2012 HGB 13.1 03/18/2012 HCT 37.3 03/18/2012 MCV 85 03/18/2012 MCH 29.8 03/18/2012 MCHC 35.1 03/18/2012 PLT 192 03/18/2012 BMP: Lab Results Component Value Date NA 139 03/18/2012 K 4.1 03/18/2012 CL 104 03/18/2012 CO2 27 03/18/2012 BUN 18 03/18/2012 CREATININE 0.60 03/18/2012 Coagulation: Lab Results Component Value Date PROTIME 9.6 03/18/2012 INR 0.8* 03/18/2012 PTT 28 03/18/2012 eGFR calculation: GFR, Calculated Date Value Range Status 03/18/2012 >60 >60 (ml/min/1.73m2) Final Assessment: 51-year-old woman with mild nonischemic cardiomyopathy and very frequent, highly symptomatic PVCs. No significant suppression on her current beta po dose. Blood pressure does not allow further dose increases. Some improvement of LV function on heart failure medication with beta po, TOYA inhibitor and diuretic. PVC morphology on EKG suggestive of possible septal or left ventricular outflow tract origin. Discussed possibility of arterial access and specific issues and complications. Plan : PVC ablation today. Discharge Plan: Home or self care today or tomorrow. ALLAN JAMES MD 03/18/2012 8:07 documented in this encounter Procedure Notes [employer], SCAN 2 - 03/24/2012 1332 EDTAssociated Order(s): CARDIAC CATHERIZATION REPORT - SCANNED [employer], SCAN 2 - 03/24/2012 1332 EDTAssociated Order(s): ECG REPORT - SCANNED [employer], SCAN 2 - 03/24/2012 1332 EDTAssociated Order(s): ECG REPORT - SCANNED [employer], SCAN 2 - 03/23/2012 0831 EDTAssociated Order(s): ECG REPORT - SCANNED Allan Caicedo MD - 03/18/2012 1605 EDTProcedure(s): [id number]-Procedure Diagnose(s): PVCs (premature ventricular contractions); Cardiomyopathy (HCC) Post-Procedure Diagnose(s): PVC's (premature ventricular contractions); Cardiomyopathy (HCC) Electrophysiology Laboratory Preliminary Report -- Invasive Electrophysiology Procedure Date of Service/Procedure: 03/18/2012 Attending Physician: Allan James MD Assistants: Aj Cantu MD PhD David Mcintosh RN Pre-Procedure Diagnosis/Indication: Hailey Vazquez is a 51 y.o. year old female Presents to [facility] Electrophysiology Laboratory on [address] for Electrophysiological study which isIndicated for PVC based on findings of EP study an ablation was indicated for LV PVC. Anesthesia: A moderate level of anesthesia/conscious sedation was used., Local anesthesia was used.. Access: Right femoral vein 1 x 8.5 fr Left femoral vein 1 x 7.0 fr and 8.5 fr Right femoral artery 1 x 8.0 fr Post-Procedure Condition: The condition of the patient was Good. Complications: None. Estimated Blood Loss: Minimal. Unless otherwise noted, there were no specimens removed, cultures obtained, or drains retained. Clinical Trial: The patient is enrolled in a clinical trial (Trial Name: Long- term f/u post ablation. ). The trial does not involve an investigational device exemption. Summary of Procedure: 1. Mapping of PVC to the yomi-lateral aspect of the LVOT adjacent to the anterior mitral Annulus. 2. Extensive RF application in this area from epicardial (via distal CS) and endocardial (retrograde arterial/ transaortic approach). 3. Decreased occurrence, but no complete cessation of PVC activity post-RF. 4. During the initial mapping procedure, there was a brief run of SVT, c/w AVNRT, this could not be reproduced later. Attempted induction of arrhythmia only yielded single Echo beats. 5. Procedure terminated at this point. After angiogram of the R GOLF STUD RIVETER, the 8F Angioseal Closure system was used for arterial hemostasis. Re-ablation attempt with epicardial access in general anesthesia would be the next step. Post-Procedure Diagnosis: LV/LVOT PVC Plan: see post-procedure orders and bedrest for 4 hour(s). At the completion of the procedure, the attending physician has explained the findings, therapies, any complications and treatment plan to the patient. With the patients consent, all family members andpatient support persons who were present at the conclusion of the procedure have been notified of these results and treatment plans as well. Post Procedural Disposition: Bedded outpatient is indicated. Reference: Hospitalization Criteria for Pacemaker and ICD Placement and EP/Ablation; Heart Rhythm Society; Revised October, ALLAN JAMES MD 03/18/2012 16:09 documented in this encounter Miscellaneous Notes Scanned Note-Null - [employer], SCAN 2 - 03/24/2012 1332 EDT canned Note- Null - [employer], SCAN 2 - 03/24/2012 1332 EDT canned Note- Null - [employer], SCAN 2 - 03/24/2012 1332 EDT lan of [place] - Karlie Marshall RN - 03/19/2012 1029 EDT Problem: CIRCULATORY STATUS Goal: Patient Has Stable Vital Signs And Fluid Balance Intervention: Assess rate, rhythm and regularity of pulses Including apical assessment for cardiology patients. Data: Patient continues to be in NSR with some bigeminy. Action: Assumed patient care at 0730 and patient A&O x 3 with no c/o pain. Patient states she has some slight discomfort at R groin site. Small, stable hematoma present. Pressure dressing removed by Marcela Becker NP this AM and bandaid had small amount of ooze on it. Patient up in hallways ambulating. Response: Will CTM. 1300: D/C IV, D/C tele, D/C home. Discharge instructions reviewed and patient verbalized understanding. 1 Rx given to patient. Patient left via wheelchair with pushing her in a stable condition. Karlie Marshall RN 03/19/2012 10:26 lan of [facility] - 03/18/2012 2306 EDT Problem: CIRCULATORY STATUS Goal: Patient Has Stable Vital Signs And Fluid Balance Outcome: Ongoing D: notified dr. Mora of patient's right groin hematoma largening in size. Patient reports pain 5/10 with movement of right leg. Patient also in vent. Bigeminy . A: csmt's intact. Bounding pedal pulses. bp low 100's R: will ctm and assess. lan of [facility] - Karlie Marshall RN - 03/18/2012 1820 EDT Problem: CIRCULATORY STATUS Goal: Patient Has Stable Vital Signs And Fluid Balance Intervention: Assess rate, rhythm and regularity of pulses Including apical assessment for cardiology patients. Data: New admission Action: Patient arrived to [place] [id number]. Vital signs noted. Tele applied. Patient NSR in 70's with frequent PVC's. Patient denies chest pain and SOB. Patient c/o slight burning sensation in chest. R groin intact with stable ooze tender hematoma and L groin CDI. Patient oriented to room, equipment, and careplan. Patient on bedrest until 1900. Assessment as documented in flowsheet. Admission database complete. Response: Will continue to monitor and document per protocol. Karlie Marshall RN 03/18/2012 18:16 canned Note-Null - [employer], SCAN 2 - 03/18/2012 0548 EDT canned Note- Null - [employer], SCAN 2 - 03/18/2012 0548 EDT documented in this encounter Plan of Treatment Upcoming Encounters Date Type Specialty Care Team Description 09/05/2022 Office Visit Cardiology Allan James MD [address] [place] [address] [address] [place] [address] (Wo rk) documented as of this encounter Procedures Procedure Name Priority Date/Time Associated Comments Diagnosis ECG REPORT - SCANNED 03/24/2012 13:32 Res ults for this EDT procedure are i n the results section. ECG REPORT - SCANNED 03/24/2012 13:32 Res ults for this EDT procedure are i n the results section. INVASIVE CARDIOLOGY 03/24/2012 13:32 Resu lts for this REPORT-SCANNED EDT procedure are in the results section. ECG REPORT - SCANNED 03/23/2012 8:31 Resu lts for this EDT procedure are i n the results section. DIFFERENTIAL Routine 03/19/2012 3:42 Results for this EDT procedure are i n the results section. COMPLETE BLOOD COUNT Routine 03/19/2012 3:42 Resu lts for this EDT procedure are i n the results section. COMPLETE BLOOD COUNT Routine 03/19/2012 3:42 AND DIFFERENTIAL EDT EKG 12-LEAD Routine 03/18/2012 14:12 Results for this EDT procedure are i n the results section. ACT, CELITE ISTAT Routine 03/18/2012 12:40 Result s for this EDT procedure are i n the results section. ACT, CELITE ISTAT Routine 03/18/2012 11:58 Result s for this EDT procedure are i n the results section. ACT, CELITE ISTAT Routine 03/18/2012 11:16 Result s for this EDT procedure are i n the results section. ACT, CELITE ISTAT Routine 03/18/2012 10:44 Result s for this EDT procedure are i n the results section. PTT STAT 03/18/2012 6:34 Results for this EDT procedure are i n the results section. PROTIME STAT 03/18/2012 6:34 Results for this EDT procedure are i n the results section. COMPLETE BLOOD COUNT STAT 03/18/2012 6:34 Resu lts for this EDT procedure are i n the results section. BUN STAT 03/18/2012 6:34 Results for this EDT procedure are i n the results section. CREATININE STAT 03/18/2012 6:34 Results for this EDT procedure are i n the results section. ELECTROLYTES STAT 03/18/2012 6:34 Results for this EDT procedure are i n the results section. documented in this encounter Results CARDIAC CATHERIZATION REPORT - SCANNED (03/24/2012 13:32 EDT) Specimen Narrative 03/24/2012 13:45 EDT Procedure Note [employer], SCAN 2 - 03/24/2012 13:32 EDT ECG REPORT - SCANNED (03/24/2012 13:32 EDT) Specimen Narrative 03/24/2012 13:45 EDT Procedure Note [employer], SCAN 2 - 03/24/2012 13:32 EDT ECG REPORT - SCANNED (03/24/2012 13:32 EDT) Specimen Narrative 03/24/2012 13:45 EDT Procedure Note [employer], SCAN 2 - 03/24/2012 13:32 EDT ECG REPORT - SCANNED (03/23/2012 8:31 EDT) Specimen Narrative 03/23/2012 11:59 EDT Procedure Note [employer], SCAN 2 - 03/23/2012 8:31 EDT DIFFERENTIAL (03/19/2012 3:42 EDT) Pathologist Sig nature Neutrophils 57.2 45.5 - 79.7 % [facility] Lymphocytes 36.2 15.0 - 46.8 % [facility] Monocytes 4.7 1.8 - 12.0 % [facility] Eosinophils 1.4 0.6 - 6.9 % [facility] Basophils 0.5 0.2 - 1.4 % [facility] ABS Neutrophils 3.70 2.20 - 8.85 K/cmm [facility] ABS Lymphs 2.35 1.09 - 3.30 K/cmm [facility] ABS Monocytes 0.30 0.1 - 0.8 K/cmm [facility] ABS Eosinophils 0.09 0.03 - 0.61 K/cmm [facility] ABS Basophils 0.04 0.01 - 0.11 K/cmm [facility] Type of Diff: Automated [facility] Specimen Performing Organization Address City/[facility] Code Phon e Number [facility] [address] [place] [address] SERVICES [facility] [address] [place] [address] (ABNORMAL) HEMAGRAM (03/19/2012 3:42 EDT) Pathologist Sig nature WBC 6.48 4.0 - 12.4 K/cmm [facility] RBC 3.83 (L) 3.86 - 5.04 M/cmm [facility] Hemoglobin 11.4 (L) 11.6 - 15.2 gm/dl [facility] HCT 33.2 (L) 34.9 - 44.4 % [facility] MCV 87 81 - 98 fl [facility] MCH 29.7 26.7 - 33.3 pg [facility] MCHC 34.3 32.1 - 35.9 gm/dl [facility] PLT 172 141 - 320 K/cmm [facility] RDW-CV 12.5 11.7 - 14.6 % [facility] Specimen Performing Organization Address City/[facility]/ZIP Code Phon e Number [facility] [address] [place] [address] SERVICES [facility] [address] [place] [address] EKG 12-LEAD (03/18/2012 14:12 EDT) Specimen Narrative [facility] - 03/20/2012 11 :27 EDT ?[facility] ? Test Date: ?2012-03-18 Pat Name: ? HAILEY VAZQUEZ ?Department: ?? CVU ? Room: ? CVU01 Gender: ? F ?Polisher Brass: ?? [id number] : ?1960 ? Requested By: ERIKA LEMUS Order Number: [id number] ?Reading MD: ?? GELY DUTTON MD ? Measurements Intervals ?[place] ? Rate: ? 83 ? P: ?50 VT: ? 171 ?QRS: ?7 QRSD: ? 94 ? T: ?34 QT: ? 358 ? QTc: ?397 ? Interpretive Statements SINUS RHYTHM WITH OCCASIONAL VENTRICULAR PREMATURE COMPLEXES NONSPECIFIC ST No previous ECG available for comparison Electronically Signed On 03-20-12 11:27: 11 EDT by GELY DUTTON MD Procedure Note Gely Dutton MD - 03/20/2012 [facility] Test Date: 2012-03-18 Pat Name: HAILEY VAZQUEZ Department: CVU Room: [facility] Gender: F Polisher Brass: [id number] : 1960 Requested By: ERIKA SINCLAIR Order Number: [id number] Reading MD: PHILIP SILVA MD Measurements Intervals [place] Rate: 83 P: 50 VT: 171 QRS: 7 QRSD: 94 T: 34 QT: 358 QTc: 397 Interpretive Statements SINUS RHYTHM WITH OCCASIONAL VENTRICULAR PREMATURE COMPLEXES NONSPECIFIC ST No previous ECG available for comparison Electronically Signed On 03-20-12 11:27: 11 EDT by GELY DUTTON MD Performing Organization Address City/[facility] Code Phon e Number [facility] [address] [facility] [address] [facility] [address] [place], [place] [address] [facility] ACT, CELITE ISTAT (03/18/2012 12:40 EDT) Activated Clotting 283 [facility] Time Tech ID [id number] [facility] Comment: Test performed by Cardiology. Baseline ref range for ACT = 84 to 139 seconds For non baseline ref ranges see procedure. Specimen Performing Organization Address [facility]/ZIP [facility] Phon e Number [facility] [address] [place] [address] SERVICES [facility] [address] [place] [address] ACT, CELITE ISTAT (03/18/2012 11:58 EDT) Activated Clotting 287 [facility] Time Tech ID [id number] [facility] Comment: Test performed by Cardiology. Baseline ref range for ACT = 84 to 139 seconds For non baseline ref ranges see procedure. Specimen Performing Organization Address [facility] Phon e Number [facility] [address] [place] [address] SERVICES [facility] [address] [place] [address] ACT, CELITE ISTAT (03/18/2012 11:16 EDT) Activated Clotting 283 [facility] Time Tech ID [id number] [facility] Comment: Test performed by Cardiology. Baseline ref range for ACT = 84 to 139 seconds For non baseline ref ranges see procedure. Specimen Performing Organization Address [facility] Phon e Number [facility] [address] [place] [address] SERVICES [facility] [address] [place] [address] ACT, CELITE ISTAT (03/18/2012 10:44 EDT) Activated Clotting 257 [facility] Time Tech ID [id number] [facility] Comment: Test performed by Cardiology. Baseline ref range for ACT = 84 to 139 seconds For non baseline ref ranges see procedure. Specimen Performing Organization Address [facility]/ZIP [facility] Phon e Number [facility] [address] [place] [address] SERVICES [facility] [address] [place] [address] PTT (03/18/2012 6:34 EDT) Pathologist Sig nature PTT 28Comment: Therapeutic 26 - 37 secs [facility] Heparin range: 65-100 seconds Specimen Blood specimen (specimen) Performing Organization Address City/[facility]/ZIP Code Phon e Number [facility] [address] [place] [address] SERVICES [facility] [address] [place] [address] (ABNORMAL) PROTIME (03/18/2012 6:34 EDT) Pro Time 9.6 9.5 - 13.1 [facility] secs I.N.R. 0.8 (L) 0.9 - 1.1 [facility] Comment: Ratio Moderate Intensity Coumadin INR = 2.0-3.0 Adjustments in anticoagulant therapy dose should be based upon the INR and NOT the Pro Time. Specimen Blood specimen (specimen) Performing Organization Address [facility]/ZIP Code Phon e Number [facility] [address] [place] [address] SERVICES [facility] [address] [place] [address] HEMAGRAM (03/18/2012 6:34 EDT) Pathologist Sig nature WBC 4.93 4.0 - 12.4 K/cmm [facility] RBC 4.39 3.86 - 5.04 M/cmm [facility] Hemoglobin 13.1 11.6 - 15.2 gm/dl [facility] HCT 37.3 34.9 - 44.4 % [facility] MCV 85 81 - 98 fl [facility] MCH 29.8 26.7 - 33.3 pg [facility] MCHC 35.1 32.1 - 35.9 gm/dl [facility] PLT 192 141 - 320 K/cmm [facility] RDW-CV 12.6 11.7 - 14.6 % [facility] Specimen Blood specimen (specimen) Performing Organization Address [facility]/ZIP [facility] Phon e Number [facility] [address] [place] [address] SERVICES [facility] [address] [place] [address] CREATININE (03/18/2012 6:34 EDT) Pathologist Sig formerly [facility] Creatinine 0.60 0.52 - 1.04 mg/dl [facility] GFR, Calculated >60 >60 ml/min/1.73m2 [facility] Specimen Blood specimen (specimen) Performing Organization Address City/[facility]/ZIP Code Phon e Number [facility] [address] [place] [address] SERVICES [facility] [address] [place] [address] BUN (03/18/2012 6:34 EDT) Pathologist Sig nature BUN 18 10 - 26 mg/dl [facility] Specimen Blood specimen (specimen) Performing Organization Address City/[facility]/ZIP [facility] Phon e Number [facility] [address] [place] [address] SERVICES [facility] [address] [place] [address] ELECTROLYTES (03/18/2012 6:34 EDT) Pathologist Sig nature Sodium 139 136 - 145 mEq/L [facility] Potassium 4.1 3.5 - 5.0 mEq/L [facility] Chloride 104 96 - 110 mEq/L [facility] CO2 27 24 - 32 mEq/L [facility] Specimen Blood specimen (specimen) Performing Organization Address City/State/ZIP Code Phon e Number [facility] [address] [place] [address] SERVICES [facility] [address] [place] [address] documented in this encounter Visit Diagnoses Diagnosis Symptomatic PVCs Other premature beats documented in this encounter Administered Medications Inactive Administered Medications - up to 3 most recent administrations Medication Order MAR Action Action Date Dose Rate Site acetaminophen (TYLENOL) tablet 650 Given 03/18/2012 22:52 EDT 65 0 mg mg 650 mg, oral, EVERY 4 HOURS PRN, Starting on Emeli 03/18/12 at 1405, Until Thu03/19/12 at 1507, Pain, Routine, Postprocedure Given 03/18/2012 19:50 EDT 650 mg Given 03/18/2012 14:22 EDT 650 mg aspirin chewable tablet 81 mg Given 03/19/2012 10:17 EDT 81 mg 81 mg, oral, DAILY, First dose on Thu03/19/12 at 0900, Until Discontinued, Routine calcium citrate 200 mg (950 mg) tablet 2 00 mg Given 03/19/2012 10:18 EDT 200 mg 200 mg, oral, DAILY, First dose on Thu03/19/12 at 0900, Until Discontinued, Routine Cholecalciferol (Vitamin D3) tablet 200 Given 03/19/2012 10:18 E DT 200 Units Units 200 Units, oral, DAILY, First dose on Thu03/19/12 at 0900, Until Discontinued, Routine furosemide (LASIX) tablet 40 mg Given 03/18/2012 19:42 EDT 40 mg 40 mg, oral, NOW X1, 1 dose, On Emeli 03/18/12 at 1830, Routine furosemide (LASIX) tablet 80 mg Given 03/19/2012 10:17 EDT 80 mg 80 mg, oral, EVERY 48 HOURS, First dose on Thu03/19/12 at 0800, Until Discontinued, Routine lisinopril (PRINIVIL, ZESTRIL) tablet 20 mg Given 03/19/2012 10:18 EDT 20 mg 20 mg, oral, DAILY, First dose on Thu03/19/12 at 0900, Until Discontinued, Routine metoprolol XL (TOPROL-XL) tablet 50 mg Given 03/19/2012 10:17 EDT 50 mg 50 mg, oral, DAILY, First dose on Thu03/19/12 at 0900, Until Discontinued, Routine Multivitamins with Minerals tablet 2 Tab Given 03/19/2012 10:17 EDT 2 Tablets 2 Tablet, oral, DAILY, First dose on Thu03/18/12 at 1815, Until Discontinued, Routine potassium chloride SA (K-DUR, KLOR-CON M10) Given 03/19/2012 10: 17 EDT 20 mEq tablet 20 mEq 20 mEq, oral, DAILY, First dose on Thu03/19/12 at 0900, Until Discontinued, Routine Given 03/18/2012 20:15 EDT 20 mEq sodium chloride 0.9 % (NS) infusion New Bag 03/18/2012 6:50 EDT 30 mL/hr 30 mL/hr at 30 mL/hr, 30 mL/hr, intravenous, CONTINUOUS, Starting on Thu03/18/12 at 0700, Until Thu03/19/12 at 1507, Routine, Preprocedure documented in this encounter Discontinued Medications Medication Sig Discontinue Reason Start Date End Date aspirin chewable 81 mg Take 81 mg by mouth 03/19/2012 tablet daily. documented as of this encounter Historical Medications This list may reflect changes made after this encounter. Medication Sig Dispensed Refills Start Date End Date CALCIUM PHOSPHATE Take by mouth daily. 0 TRIB/VIT D3 (CITRACAL + D ORAL) Multivitamins with Take 2 Tabs by mouth 0 Minerals Tab 2 times daily. I-Caps potassium chloride CR Take 10 mEq by mouth 0 02/08/2020 (KLOR-CON) 10 mEq TbER 2 times daily. aspirin chewable 81 mg Take 81 mg by mouth 0 03/19/2012 tablet daily. lisinopril (PRINIVIL, Take 5 mg by mouth daily . 0 11/28/2013 ZESTRIL) 10 mg tablet metoprolol XL Take 50 mg by mouth 0 (TOPROL-XL) 50 mg tablet daily. furosemide (LASIX) 40 mg Take 40-80 mg by 0 10/01/2012 tablet mouth daily. Alternates dose QOD added in this encounter Active and Recently Administered Medications Times are shown in EDT. Scheduled Medication Order 03/17/2012 03/18/2012 03/19/2012 aspirin chewable tablet 81 mg (CANCELED) 1017 (Given - Provider: Karlie Marshall RN) 81 mg, Oral, DAILY, First dose on Thu03/19/12 at 0900, Until Di scontinued calcium citrate 200 mg (950 mg) tablet 200 mg 1018 (Given - Provider: Karlie Marshall RN) 200 mg, Oral, DAILY, First dose on Thu03/19/12 at 0900, Until D iscontinued Cholecalciferol (Vitamin D3) tablet 200 Units 1018 (Given - Provider: Karlie Marshall RN) 200 Units, Oral, DAILY, First dose on Thu03/19/12 at 0900, Until Discontinued furosemide (LASIX) tablet 40 mg (COMPLETED) 1941 (Given - Provider: Lexus Giron) 40 mg, Oral, NOW X1, 1 dose, Emeli 03/18/12 at 1830 furosemide (LASIX) tablet 40 mg 40 mg, Oral, EVERY 48 HOURS, First dose on 03/20/12 at 0800, Until Discontinued furosemide (LASIX) tablet 80 mg 1017 (Given - Provider: Karlie Marshall RN) 80 mg, Oral, EVERY 48 HOURS, First dose on Thu03/19/12 at 0800, Until Discontinued lisinopril (PRINIVIL, ZESTRIL) tablet 20 mg (CANCELED) 1018 (Given - Provider: Karlie Marshall RN) 20 mg, Oral, DAILY, First dose on Thu03/19/12 at 0900, Until Di scontinued metoprolol XL (TOPROL-XL) tablet 50 mg (CANCELED) 1016 (Given - Provider: Karlie Marshall RN) 50 mg, Oral, DAILY, First dose on Thu03/19/12 at 0900, Until Di scontinued Multivitamins with Minerals tablet 2 Tab (CANCELED) 1943 (Hold - Provider: Lexus Giron - Reason: Other - Comment: took today) 1017 (Given - Provider: Karile Marshall, URIEL) 2 Tab, Oral, DAILY, First dose on Emeli 03/18/12 at 1815, Until Di scontinued potassium chloride SA (K-DUR, KLOR-CON M10) tablet 20 mEq (C ANCELED) 2014 (Given - Provider: Leuxs Giron) 1017 (Given - Provider: Karlie parsons, URIEL) 20 mEq, Oral, DAILY, First dose on Thu03/19/12 at 0900, Until D iscontinued Continuous Medication Order 03/17/2012 03/18/2012 03/19/2012 sodium chloride 0.9 % (NS) infusion (CANCELED) 0650 (New Bag - Provider: Joan Soto, URIEL) at 30 mL/hr, 30 mL/hr, Intravenous, CONT INUOUS, Starting Emeli 03/18/12 at 0700, Until Thu03/19/12 at 1507 PRN Medication Order 03/17/2012 03/18/2012 03/19/2012 acetaminophen (TYLENOL) tablet 650 mg (CANCELED) 1422 (Given - Provider: Alanna Pedraza RN)1950 (Given - Provider: Lexus Giron)2252 (Given - Provider: Lexus Girno) 650 mg, Oral, EVERY 4 HOURS PRN, Startin g Emeli 03/18/12 at 1405, Until Thu03/19/12 at 1507, Pain documented in this encounter Orders Medications Ordered That Might Not Have Count Last Ord ered Date First Ordered Date Been Administered calcium phosphate-vitamin D3 250 mg 1 03/18/2012 calcium- 250 unit Chew 1 Tab fentanyl citrate (PF) 50 mcg/mL injection 2 2011 furosemide (LASIX) tablet 40 mg 1 03/18/2012 furosemide (LASIX) tablet 40-80 mg 1 03/18/2012 heparin 1,000 unit/mL injection 2 03/18/2012 heparin in D5W 25,000 unit/250 mL infusion 1 03/18 isoproterenol (ISUPREL) 0.2 mg/mL 1 03/18/2012 injection lidocaine 10 mg/mL (1 %) injection 2 03/18/2012 midazolam (VERSED) 1 mg/mL injection 2 03/18/2012 ondansetron (PF) (ZOFRAN) 4 mg/2 mL 1 03/18/2012 injection oxycodone-acetaminophen (PERCOCET) 5-325 1 012 mg per tablet 1 Tab protamine 10 mg/mL injection 1 03/18/2012 Lab Orders Without Results Count Last Ordered Date Fir st Ordered Date POCT GLUCOSE 1 03/18/2012 Nursing Count Last Ordered Date First Ordered Date INSERT PERIPHERAL IV 1 03/18/2012 Admission Count Last Ordered Date First Ordered Date STATUS: INPATIENT DOSA/DOPA DAY OF 1 03/18/2012 SURGERY/PROCEDURE ADMISSION STATUS: OUTPATIENT MEDICAL OP BED/SERVICES 1 03/18 STATUS: OUTPATIENT OBSERVATION SERVICES 1 03/18/20 12 Transfer Count Last Ordered Date First Ordered Date NOTIFY PPS OF DISCHARGE COMPLETE 1 03/19/2012 PPS NOTIFICATION OF PATIENT ARRIVAL ON 1 2 UNIT Discharge Count Last Ordered Date First Ordered Date DISCHARGE PATIENT 1 03/19/2012 documented in this encounter Care Teams Collection Team Lead Relationship Specialty Start Date End Date Arlin Montoya MD PCP - General 03/17/12 [address] [place] [address] documented as of this encounter
--- OUTSIDE RECORDS SUMMARY | 2021-12-16 00:49 | XMS_ITS | Encounter Summary ---
:1960 Author Organization [facility] Address [address] [place] [address] Care Team Providers Name Role Phone Unknown, Provider Primary Care Provider Encounter Details Date Type Department Care Team Description 12/01/2006 Results Only [facility] - Elma Sumner, Chr istopher, conversion DO [address] [facility] [address] [place] [address] [place] [address] [phone] (Wo rk) Social History Tobacco Use Types Packs/Day Years Used Date Never Assessed Sex Assigned at Date Recorded Not on file documented as of this encounter Plan of Treatment Upcoming Encounters Date Type Specialty Care Team Description 09/05/2022 Office Visit Cardiology Regan Luo MD [address] [place] [address] [address] [place] [address] [phone] (Wo rk) documented as of this encounter Procedures Procedure Name Priority Date/Time Associated Diagnosis Comme [facility] SURGICAL PATHOLOGY Routine 12/01/2006 0:00 EDT Re sults for this procedure are i n the results section. documented in this encounter Results SURGICAL PATHOLOGY (12/01/2006 0:00 EDT) Pathology Report: SURGICAL PATHOLOGY REPORT [facility] Reports generated via electronic interface contain rogerio ginal data; LAB however they are lacking the format of the original re port. Caution should be taken when reading/interpreting unfo rmatted reports. Name: ? APOLONIA VAZQUEZ ? Accession #: ? [id number] ? : ? 1960 (Age: 46) ??F ? Collect Date: ? 12/01/2006 ? Location: ? [facility] ? Receive Date: ? 007 ? Provider: JESUS SUMNER DO Copy to: YUDY SCHREIBER MD ? Final Pathologic Diagnosis: ? Skin of neck, right posterior, excision: - Pilomatricoma with calcification and ossification. Document reviewed and electronically signed by: LEAH BARRETT MD Report ??Date: 12/03/2006 16:50 By the signature above, the attending physician certif ies that he/she has personally conducted a gross and/or microscopic examin ation of the described specimens and rendered or confirmed the above diagnosi s. Specimen(s) Received: ? Nodule R posterior neck Clinical History: ? Mass on R neck Gross Description: ? Received in formalin labelled Vazquez and nodule R posterior neck is an unoriented roughly circular excision which measures 1.0 x 0.9 x 0.5 cm. ??While one surface exhibits bruce-yellow lobulated adipose tiss ue, no definitive epidermis can be grossly mp ntified. ??The specimen is black inked. ??The specimen is serially sectioned to rev eal a firm calcified white-yellow cut surface with a minimal amount of attached y ellow lobulated adipose tissue. ??[employer] sales representative education courses section is submitted for light microscopy following de calcification. ??(Dr. Lacey)/[facility] End of Report Specimen Performing Organization Address City/State/ZIP Code Phon e Number [facility] [address] [place] [address] SERVICES [facility] [address] [place] [address] documented in this encounter Visit Diagnoses Not on filedocumented in this encounter Care Teams Vibratory Pile Driver Relationship Specialty Start Date End Date Unknown, Provider, PCP - General 04/18/09 03/16/12 documented as of this encounter
--- OUTSIDE RECORDS SUMMARY | 2021-12-16 00:49 | XMS_ITS | Encounter Summary ---
:[address] [facility] Address [address] [place] [address] Care Team Providers Name Role Phone Unknown, Provider Primary Care Provider Encounter Details Date Type Department Care Team Description 11/29/1999 Results Only [facility] - Jose Elias Salazar MD conversion [address] [place] [address] Social History Tobacco Use Types Packs/Day Years Used Date Never Assessed Sex Assigned at Date Recorded Not on file documented as of this encounter Plan of Treatment Upcoming Encounters Date Type Specialty Care Team Description 09/05/2022 Office Visit Cardiology Regan Luo MD [address] [place] [address] [address] [place] [phone] (Wo rk) documented as of this encounter Procedures Procedure Name Priority Date/Time Associated Diagnosis Comme [facility] CYTOPATHOLOGY Routine 11/29/1999 0:00 EDT Results for this procedure are i n the results section . documented in this encounter Results CYTOPATHOLOGY (11/29/1999 0:00 EDT) Pathology Report: CYTOPATHOLOGY REPORT [facility] Reports generated via electronic interface contain rogerio ginal data; however they are lacking the format of the original re port. Caution should be taken when reading/interpreting unfo rmatted reports. Name: ? APOLONIA KWONG ? Accession #: ? [id number] : ? 1960 (Age: 39) ??F ?Collect Date: ? 11/01 Location: ? [facility] ? Receive Date : ? 12/04/1999 Provider: ?JOSE ELIAS BLACKMAN MD Copy to: ? Specimen/Source: ?ThinPrep Pap Test, Cervix/ Endocervix Last Menstrual Period: ? 10/30/99 Menstrual/ Status: ? Menorrhagia Previous Gynecologic Pathology: ? Yes Other: ? Additional clinical information: Fibroid uterus, Nl ex am. ? SPECIMEN ADEQUACY ? Satisfactory for evaluation but limited by scan t squamous epithelial component secondary to excessive blood. GENERAL CATEGORIZATION ? Within Normal Limits ? Document reviewed and electronically signed by: ? Velvet Connor, ??SCT(ASCP) ? Report Date: ??12/06/1999 08:54 End of Report Specimen Performing Organization Address City/State/ZIP Code Phon e Number [facility] [address] [place] [address] SERVICES [facility] [address] [place] [address] documented in this encounter Visit Diagnoses Not on filedocumented in this encounter Care Teams Cruise Agent Relationship Specialty Start Date End Date Unknown, Provider, PCP - General 04/18/09 03/16/12 documented as of this encounter
--- OUTSIDE RECORDS SUMMARY | 2021-12-16 00:49 | XMS_ITS | Encounter Summary ---
:1960 Author Organization [facility] Address [address] [place] [address] Care Team Providers Name Role Phone Unknown, Provider MD Primary Care Provider Encounter Details Date Type Department Care Team Description 05/22/2000 Results Only [facility] - Jose Elias Salazar MD conversion [address] [place] [address] Social History Tobacco Use Types Packs/Day Years Used Date Never Assessed Sex Assigned at Date Recorded Not on file documented as of this encounter Plan of Treatment Upcoming Encounters Date Type Specialty Care Team Description 09/05/2022 Office Visit Cardiology Regan Luo MD [address] [place] [address]- [address] [place] [address] (Wo rk) documented as of this encounter Procedures Procedure Name Priority Date/Time Associated Diagnosis Comme [facility] SURGICAL PATHOLOGY Routine 05/22/2000 0:00 EST Re sults for this procedure are i n the results section. documented in this encounter Results SURGICAL PATHOLOGY (05/22/2000 0:00 EST) Pathology Report: SURGICAL PATHOLOGY REPORT JUANITO LUGO Reports generated via electronic interface contain rogerio ginal data; LAB however they are lacking the format of the original re port. Caution should be taken when reading/interpreting unfo rmatted reports. Name: ? APOLONIA VAZQUEZ ? Accession #: ? [id number] ? : ? 1960 (Age: 39) ??F ? Collect Date: ? 05/22/2000 ? Location: ? [facility] ? Receive Date: ? 000 ? Provider: JOSE ELIAS BLACKMAN MD Copy to: JORGE LUIS FULTON MD ? Final Pathologic Diagnosis: ? Endometrium, curettage: - Fragments of late secretory and menstrual pattern en dometrium. - Fragments of benign squamous mucosa. Document reviewed and electronically signed by: JOHN FULTON MD Report ??Date: 05/28/2000 14:33 By the signature above, the attending physician certif ies that he/she has personally conducted a gross and/or microscopic examin ation of the described specimens and rendered or confirmed the above diagnosi s. Specimen(s) Received: ? #1 endometrial curettings Clinical History: ? Menorrhagia; fibroid uterus Gross Description: ? Received in formalin labelled Vazquez and endometrial curettings are 6 cc of red-brown tissue fragments. The specimen is subm itted entirely as (A1) through (A3). ??(ANA LAURA [employer])/susan End of Report Specimen Performing Organization Address City/State/ZIP Code Phon e Number [facility] [address] [place] [address] SERVICES [facility] [address] [place] [address] documented in this encounter Visit Diagnoses Not on filedocumented in this encounter Care Teams Commercial Underwriter Relationship Specialty Start Date End Date Unknown, Provider, PCP - General 04/18/09 03/16/12 documented as of this encounter
--- OUTSIDE RECORDS SUMMARY | 2021-12-16 00:49 | XMS_ITS | Encounter Summary ---
:1960 Author Organization [facility] Address [address] [place] [address] Care Team Providers Name Role Phone Unknown, Provider Primary Care Provider Arlin Gandara MD Primary Care Provider Encounter Details Date Type Department Care Team Description 03/05/2012 Pre-Procedure Orders [facility] José Antonio Luo Symptomatic PVCs Encounter Cardiology - Jessika Huber MD [address] [place], [place] [id number] [place] [address] [phone] Social History Tobacco Use Types Packs/Day Years Used Date Never Assessed Sex Assigned at Date Recorded Not on file documented as of this encounter Plan of Treatment Upcoming Encounters Date Type Specialty Care Team Description 09/05/2022 Office Visit Cardiology Regan Luo MD [address] [facility] [address] [place] [address] (Wo rk) documented as of this encounter Procedures Procedure Name Priority Date/Time Associated Diagnosis Comme nts CARDIAC ABLATION Routine 03/18/2012 10:42 Results for this PROCEDURE EDT procedure are i n the results section. documented in this encounter Results CARDIAC ABLATION PROCEDURE (03/18/2012 10:42 EDT) Specimen Narrative CARDIOLOGY - 05/06/2012 14:27 EST *Cardiology* [address] [place] [address] Electrophysiology Study with Ablation Patient: Apolonia Vazquez ?Ignacio dy Date: ? 03/18/2012 ?Accession #: ?[id number] : ? 1960 Referring: Attending: Regan Luo MD Fellow: Assisting: David Mcintosh RN Copies: ?Mayo Ruelas MD SUMMARY OF PROCEDURE: - Baseline rhythm sinus rhythm with mult iple PVCs. - UnsuccessfulPVC ablation attempt in th e yomi-basal LV. - At the conclusion of the procedure the patient was in ??sinus rhythm. - There were no complications. HISTORY AND INDICATIONS: ??51-year-old w willie with nonischemic cardiomyopathy of unclear etiology and f requent PVC. Shewas diagnosed with cardiomyopathy and PVC in spring 2010. Her LVEF at that time was 40%, cardiac catheteriz ation showed normal coronaries and elevated LVEDP. She was started on h eart failure medication with improvement of symptoms and LVEF. In the course of the summer she has developed progressive symptoms with palp itations and discomfort in the back of her chest, with a cramping feeli ng that radiates from between her shoulder blades up to the back of he r neck. In recent weeks this has happened daily, often several times a day. ANESTHESIA: Conscious sedation and local anesthesia. PROCEDURE: The risks, benefits, and alternatives to [...] the access site. The rig ht femoral vein and arteryand left femoral vein were entered under flu oroscopic guidance with the modified Seldinger technique. Sheath and catheter detail(s) in table below. All catheters were placed under f luoroscopic guidance. The attending physician was physically prese nt for the entire Electrophysiology Study and/or Ablation procedure. VASCULAR ACCESS AND CATHETER PROPERTIES: +--------+ +------+ --+ + Access # Entry site Sheath Locations ? Catheter ? +--------+ +------+ --+ + 1 ? L femoral 7Fr ?? RA eliana schreibere ?? 6 Fr hexapolar ? vein ? electrode ? catheter (2 mm ? spacing; ? proximal ring 25 ? cm from tip) ? +--------+ +------+ --+ + 2 ? L femoral 8.5Fr RV/Para-H isian 7 Fr deflectable ? vein ? quadrapolar ? electrode ? catheter (2mm ? spacing) ? +--------+ +------+ --+ + 3 ? R femoral 8.5Fr Ablation ? [employer] ? vein ? Thermocool ? Bidirectional ? (DF) 3.5mm ? +--------+ +------+ --+ + 4 ? R femoral 8Fr ?? Ablation ? [employer] ? artery ? Thermocool ? Bidirectional ? (DF) 3.5mm ? +--------+ +------+ --+ + EP STUDY: A comprehensive electrophysiology study with attempted induction was performed. Testing was done at baseline. Measurements of refractory periods were obtained. Protocols include d decremental pacing. Pacing and recording were carried out from the right atrial, right ventricular, and His bundle sites . AV MAYUR/HIS-PURKINJE CONDUCTION INTERVA LS: + + + State ? Baseline ? + + + Rhythm ? Sinus with frequent PVC/ bigemini ? + + + Rate ? 60bpm ? + + + Cycle length ?? 1000msec ? + + + A-H ? 45ms ? + + + H-V ? 60ms ? + + + A-V 1:1 ? 390ms ? + + + AV Wenckebach ?? 380ms ? + + + V-A 1:1 ? 320ms ? + + + AV mayur echoes Yes ? + + + Pre-excitation No ? + + + Comments ? Ventricular bigemini during RAA pacing at ? CL 720-540ms. ? + + + Description of induced arrhythmia: Arrhythmia induction: ??Attempts at [facility] were unsuccessful at inducing SVT. Mapping: A Carto shell of the RVOT was made. Site s were mapped with [id number] electroanatomical activat ion mapping and pace mapping. Mapping was performed during RA pacing, RV pacing, and His bundle pacing. There was no area with early, pr e-QRS activation in the RVOT. A Heparin drip was started with an ACT t arget > 300. Wethenbrought the ablation catheter to the LV via retrogra de aortic access andcreated a Carto shell of the LVOT and the adjacent yomi-basal LV. Earliest activation was found in the yomi-basal LV adjacent to the proximal anterior LVOT.Pace mapping in the LV was performed at several sites near the site of earliest activation. Th ere was no sufficient morphology match for ablation. Catheter manipulation induced a brief run of SVT that was compatible with AVNR T, but later supraventricular arrhythmia induction attempts were not s uccessful. To verify the possibility of an epicardi al origin of the PVC we brought the ablation catheter backto the right side and to the distal, anterior part of the coronary sinus.This yielded a site withsignificantly earlier activation alpa n anyendocardial sited mapped before.The site with earliest activation and best pacemap was targeted. ABLATION PROCEDURE: We proceeded with RF application to the site of earliest activation and best pace mapping morphology,which w as located an estimated 2-3 cm distance from the lefy main coronary art maria del rosario bifurcation. Radiofrequency ablation was appliedin se veral pulsesthe local area without significant decrease in PVCoccur rence.The power was initially limited to 15W, later increased to 20 W. RF application was limited several times by high impedance and temp erature. Subsequently we brought the ablation catheter back to th e adjacent anterobasal endocardial area and applied several pul ses of RF energy at sites of early pre-QRS activation, again without success. For another time, the catheter was brought to the previous abl ation areain the distal CS and RF energy was applied at 25W maximum wit hout cessation or reduction in PVC activity. In view of the current fin dings, the PVC orgin most likely has an epicardial location not re achable for ablation from the CS.In view of the prolonged procedureand fluoro time wetherefore decided to conclude the procedure. Hemostasis: All sheaths and catheters we re removed from the body. Arterial access was closed with an 8F An gioseal system, after a femoral artery angiogram had confirmed a suitable vessel anatomy. Compression was applied to the venous pu ncture sites. Groin sites were intact without hematoma. STUDY COMPLETION - Fluoroscopy time: 40min. - Isovue Contrast: 20ml. - Patient in-room time: 10:10 AM. - Patient out-of-room time: 01:12 PM. - Intake: 1400ml - Output: 300ml - Estimated blood loss: 30ml. Clinical Trial: ??The patient is not enr olled in a clinical trial. PLAN: ??See post procedure orders. Bed r est for 4hours. At the completion of the procedure, find ings, results, any complications, and treatment plan were c ommunicated to the patient and reinforced after recovery from anesthesi a. With the patient's consent, the attending physician communicated fin dings, results, any complications, and treatment plan to [facility] members and patient support persons who were present at the conclusion of the procedure. POST PROCEDURAL DISPOSITION: Bedded outpatient status is indicated. ?Electronically signed by Regan Luo MD 05/06/2012 14:26 Procedure Note 05/06/2012 *Cardiology* [address] [place] [address] Electrophysiology Study with Ablation Patient: Apolonia Vazquez Study Date: : 1960 Referring: Attending: Regan Luo MD Fellow: Assisting: David Mcintosh RN Copies: Mayo Ruelas MD SUMMARY OF PROCEDURE: - Baseline rhythm sinus rhythm with mult iple PVCs. - UnsuccessfulPVC ablation attempt in th e yomi-basal LV. - At the conclusion of the procedure the patient was in sinus rhythm. - There were no complications. HISTORY AND INDICATIONS: 51-year-old wom an with nonischemic cardiomyopathy of unclear etiology and f requent PVC. Shewas diagnosed with cardiomyopathy and PVC in spring 2010. Her LVEF at that time was 40%, cardiac catheteriz ation showed normal coronaries and elevated LVEDP. She was started on h eart failure medication with improvement of symptoms and LVEF. In the course of the summer she has developed progressive symptoms with palp itations and discomfort in the back of her chest, with a cramping feeli ng that radiates from between her shoulder blades up to the back of he r neck. In recent weeks this has happened daily, often several times a day. ANESTHESIA: Conscious sedation and local anesthesia. PROCEDURE: The risks, benefits, and alternatives to [...] the access site. The rig ht femoral vein and arteryand left femoral vein were entered under flu oroscopic guidance with the modified Seldinger technique. Sheath and catheter detail(s) in table below. All catheters were placed under f luoroscopic guidance. The attending physician was physically prese nt for the entire Electrophysiology Study and/or Ablation procedure. VASCULAR ACCESS AND CATHETER PROPERTIES: +--------+ +------+ --+ + Access # Entry site Sheath Locations C atheter +--------+ +------+ --+ + 1 L femoral 7Fr RA appendage 6 Fr h exapolar vein electrode catheter (2 mm spacing; proximal ring 25 cm from tip) +--------+ +------+ --+ + 2 L femoral 8.5Fr RV/Para-Hisian 7 F r deflectable vein quadrapolar electrode catheter (2mm spacing) +--------+ +------+ --+ + 3 R femoral 8.5Fr Ablation [employer] vein Thermocool Bidirectional (DF) 3.5mm +--------+ +------+ --+ + 4 R femoral 8Fr Ablation [employer] artery Thermocool Bidirectional (DF) 3.5mm +--------+ +------+ --+ + EP STUDY: A comprehensive electrophysiology study with attempted induction was performed. Testing was done at baseline. Measurements of refractory periods were obtained. Protocols include d decremental pacing. Pacing and recording were carried out from the right atrial, right ventricular, and His bundle sites . AV MAYUR/HIS-PURKINJE CONDUCTION INTERVA LS: + + + State Baseline + + + Rhythm Sinus with frequent PVC/ bigemi ni + + + Rate 60bpm + + + Cycle length 1000msec + + + A-H 45ms + + + H-V 60ms + + + A-V 1:1 390ms + + + AV Wenckebach 380ms + + + V-A 1:1 320ms + + + AV mayur echoes Yes + + + Pre-excitation No + + + Comments Ventricular bigemini during R AA pacing at CL 720-540ms. + + + Description of induced arrhythmia: Arrhythmia induction: Attempts at induct ion were unsuccessful at inducing SVT. Mapping: A Carto shell of the RVOT was made. Site s were mapped with [id number] electroanatomical activat ion mapping and pace mapping. Mapping was performed during RA pacing, RV pacing, and His bundle pacing. There was no area with early, pr e-QRS activation in the RVOT. A Heparin drip was started with an ACT t arget > 300. Wethenbrought the ablation catheter to the LV via retrogra de aortic access andcreated a Carto shell of the LVOT and the adjacent yomi-basal LV. Earliest activation was found in the yomi-basal LV adjacent to the proximal anterior LVOT.Pace mapping in the LV was performed at several sites near the site of earliest activation. Th ere was no sufficient morphology match for ablation. Catheter manipulation induced a brief run of SVT that was compatible with AVNR T, but later supraventricular arrhythmia induction attempts were not s uccessful. To verify the possibility of an epicardi al origin of the PVC we brought the ablation catheter backto the right side and to the distal, anterior part of the coronary sinus.This yielded a site withsignificantly earlier activation alpa n anyendocardial sited mapped before.The site with earliest activation and best pacemap was targeted. ABLATION PROCEDURE: We proceeded with RF application to the site of earliest activation and best pace mapping morphology,which w as located an estimated 2-3 cm distance from the lefy main coronary art maria del rosario bifurcation. Radiofrequency ablation was appliedin se veral pulsesthe local area without significant decrease in PVCoccur rence.The power was initially limited to 15W, later increased to 20 W. RF application was limited several times by high impedance and temp erature. Subsequently we brought the ablation catheter back to th e adjacent anterobasal endocardial area and applied several pul ses of RF energy at sites of early pre-QRS activation, again without success. For another time, the catheter was brought to the previous abl ation areain the distal CS and RF energy was applied at 25W maximum wit hout cessation or reduction in PVC activity. In view of the current fin dings, the PVC orgin most likely has an epicardial location not re achable for ablation from the CS.In view of the prolonged procedureand fluoro time wetjosefore decided to conclude the procedure. Hemostasis: All sheaths and catheters we re removed from the body. Arterial access was closed with an 8F An gioseal system, after a femoral artery angiogram had confirmed a suitable vessel anatomy. Compression was applied to the venous pu ncture sites. Groin sites were intact without hematoma. STUDY COMPLETION - Fluoroscopy time: 40min. - Isovue Contrast: 20ml. - Patient in-room time: 10:10 AM. - Patient out-of-room time: 01:12 PM. - Intake: 1400ml - Output: 300ml - Estimated blood loss: 30ml. Clinical Trial: The patient is not enrol led in a clinical trial. PLAN: See post procedure orders. Bed res t for 4hours. At the completion of the procedure, find ings, results, any complications, and treatment plan were c ommunicated to the patient and reinforced after recovery from anesthesi a. With the patient's consent, the attending physician communicated fin dings, results, any complications, and treatment plan to [facility] members and patient support persons who were present at the conclusion of the procedure. POST PROCEDURAL DISPOSITION: Bedded outpatient status is indicated. E lectronically signed by Regan Luo MD 05/06/2012 14:26 Performing Organization Address City/State/ZIP Code Phon e Number [facility] documented in this encounter Visit Diagnoses Diagnosis Symptomatic PVCs Other premature beats documented in this encounter Orders Medications Ordered That Might Not Have Count Last Ord ered Date First Ordered Date Been Administered sodium chloride 0.9 % (NS) infusion 1 03/11/2012 documented in this encounter Care Teams Dog And Cat Food Cook Relationship Specialty Start Date End Date Unknown, Provider, PCP - General 04/18/09 03/16/12 Arlin Gandara MD PCP - General 03/17/[address] [place] [id number] documented as of this encounter
--- OUTSIDE RECORDS SUMMARY | 2021-12-16 00:49 | XMS_ITS | Encounter Summary ---
:[address] [facility] [place] Address [address] [place] [address] Care Team Providers Name Role Phone Unknown, Provider MD Primary Care Provider Encounter Details Date Type Department Care Team Description 06/04/2000 Results Only [facility] - Jose Elias Salazar MD conversion [address] [place] [address] Social History Tobacco Use Types Packs/Day Years Used Date Never Assessed Sex Assigned at Date Recorded Not on file documented as of this encounter Plan of Treatment Upcoming Encounters Date Type Specialty Care Team Description 09/05/2022 Office Visit Cardiology Regan Luo MD [address] [place] [address]- [address] [place] [address] (Wo rk) documented as of this encounter Procedures Procedure Name Priority Date/Time Associated Diagnosis Comme [facility] SURGICAL PATHOLOGY Routine 06/04/2000 0:00 EST Re sults for this procedure are i n the results section. documented in this encounter Results SURGICAL PATHOLOGY (06/04/2000 0:00 EST) Pathology Report: SURGICAL PATHOLOGY REPORT JUANITO LUGO Reports generated via electronic interface contain rogerio ginal data; LAB however they are lacking the format of the original re port. Caution should be taken when reading/interpreting unfo rmatted reports. Name: ? APOLONIA VAZQUEZ ? Accession #: ? [id number] ? : ? 1960 (Age: 39) ??F ? Collect Date: ? 06/04/2000 ? Location: ? [facility] ? Receive Date: ? 001 ? Provider: JOSE ELIAS BLACKMAN MD Copy to: JORGE LUIS FULTON MD ? Final Pathologic Diagnosis: A. ?Uterus, cer vix, left fallopian tube, and left ovary, hysterectomy and left salpingo-oophorectomy: 1. ?Cervix: ? - No pathologic features. 2. ?Endometrium: ? - Inactive endometrium. 3. ?Myometrium: ? - Submucosal, intramural, and subserosal leiomy kyler. 4. ?Serosa: ? - No pathologic features. 5. ?Left fallopian tube: ? - No pathologic features. 6. ?Left ovary: ? - Serous cystadenoma. B. ?Ovary, right, fragments of cyst wall, excision: 1. ?Consistent with a simple cyst. Document reviewed and electronically signed by: Yecenia Rust [facility] Report ??Date: 06/08/2000 18:16 By the signature above, the attending physician certif ies that he/she has personally conducted a gross and/or microscopic examin ation of the described specimens and rendered or confirmed the above diagnosi s. Specimen(s) Received: A. ?#1 Uterus, left ovary and tube, cervi x B. ?#2 Cyst wall-R ovarian cyst Clinical History: ? Enlarged uterine fibroid, menorrhagia Gross Description: ? Received in formalin labelled George paredes nd #1 uterus, left ovary and tube, cervix are fragments of corpus uteri with attac hed fallopian tube and ovary and cervix. ??The uterus is previously incised. ??The corpus uteri and cervix weigh 215 grams and it measures, anterior to posterior 5.5 cm, cornu to cornu 7.1 cm, and fundus to cervix 12.5 cm. ??Please note that these measurements are approximations due to th e incised nature of the specimen. ??The ectocervix is bruce-pink and focally hemorrhagic. ??The endocerv ix is bruce-white and furrowed. The uterine cavity is previously incised to reveal a l arge white myomatous nodule extending from the anterior endomyometriu m and filling the endometrial cavity. Serial sectioning of this ??nodule reveals a white whorled cut surface, however, there are focal are as of softening. ??The softened areas are bruce-white in color and without hemorrhage. ??They occupy approx. 50% of the myomatous nodule. ??This nodule which is also previously incised, is covered by endometrium on its entire surface. ??It measures 3.5 x 2.7 x 2.2 cm. ??The endometrium is bruce-white and measures 0.1 t o 0.2 cm in thickness. ??The myometrium is bruce-pink and trabeculated. ??It conta ins multiple myomatous nodules that vary in diameter from 0.1 to 1.1 cm. ??They d id not contain any hemorrhage or necrosis. ??They are located both intramurally and subserosal ly. ??The serosal surface is bruce-pink, smooth and shiny. The fallopian tube measures 6.9 cm i n length and varies in diameter from 0.5 to 1.1 cm toward the fimbriated end. ??The serosal surface is bruce-pink, smooth and shiny. ??The tubo-ovarian ligament contains multiple cysts that range from 0.5 x 0.4 x 0.3 cm to 1.6 x 1.3 x 0.7 cm. ??This largest cyst is located just inferior to the ampulla of the fall opian tube. ??Externally, the cysts are smooth in contour. They contain a yellow-bruce viscous fluid. ??The inner lining of the largest cyst has a smooth wall but conta ins a roughly circumscribed bruce-white gran ular slightly raised papule that measures 0.3 cm in diameter. ??The fallopian tu be lumen has a bruce-white granular material, and the wall measures 0.1 to 0.2 cm in thickness. ??The wall is focally hemorrhagic. ??The ovary measures 2.9 x 2.8 x 0.7 cm. ??The external surf joao is bruce-pink and lobulated. ??A cut surface reveals a hemorrhagic corpus albicans and multiple cyst like structures that vary in diamet er from 0.2 to 0.4 cm. ??The cysts are located along the periphery of the ovary. ??The remaining tissue is bruce-pink and smooth. BLOCK COKER A1 ?Half of endo and ectocervix A2 ? Other half of endo and ectocervix A3 ?Half of endomyometrium A4 ?Other half of endomyometrium ? A5 ? Four represe ntative sections of the solid component of the myomatous nodules that ?protrude into the endometrial cav ity. A6-A8 ? Three business center representative sections of the softe alex areas within the myomatous nodule that protrudes into the endometrial c avity. A9,A10 ? Chronic Care Nurse sections of the remaining myomatous nodule. A11 ? Two business center representative cross sections of the fal lopian tube. A12 ?Three representa tive sections of the largest cyst in the tubal ovarian ligament. ??It contains the above mentioned white gran ular area. ?? A13,A14 ? Two business center representative sections of ovaries. ? Received in formalin labelled Vazquez and #2 cyst wall are two fragments of bruce-pink irregu larly shaped pieces of tissue that measure 1.9 x 0.6 x 0.5 and 1.9 x 0.8 x 0.4 cm . ??There are no cystic contents as the structure is incised, however, the inner cyst glover are smooth. ?? B1 ?Two business center representative sections of the cy st wall (Dr. Madden)/rush End of Report Specimen Performing Organization Address City/State/ZIP Code Phon e Number [facility] [address] [place] [address] SERVICES [facility] [address] [place] [address] documented in this encounter Visit Diagnoses Not on filedocumented in this encounter Care Teams Material Engineer Relationship Specialty Start Date End Date Unknown, Provider, PCP - General 04/18/09 03/16/12 documented as of this encounter
--- OUTSIDE RECORDS SUMMARY | 2021-12-16 00:49 | XMS_ITS | Encounter Summary ---
:1960 Author Organization [facility] Address [address] [place] [address] Care Team Providers Name Role Phone Unknown, Provider Primary Care Provider Encounter Details Date Type Department Care Team Description 08/10/2009 Results Only [facility] - [address] [address] [phone] Social History Tobacco Use Types Packs/Day Years Used Date Never Assessed Sex Assigned at Date Recorded Not on file documented as of this encounter Plan of Treatment Upcoming Encounters Date Type Specialty Care Team Description 09/05/2022 Office Visit Cardiology Regan Luo MD [address] [place] [address] [phone] (Wo rk) documented as of this encounter Procedures Procedure Name Priority Date/Time Associated Diagnosis Comme nts SURGICAL PATHOLOGY Routine 08/10/2009 0:00 EST Re sults for this procedure are i n the results section. documented in this encounter Results SURGICAL PATHOLOGY (08/10/2009 0:00 EST) Pathology Report: SURGICAL PATHOLOGY REPORT ? SOLOMON GRISEL Reports generated via electr onic interface contain original data; ? LAB however they are lacking the format of the original report. ? Caution should be taken when reading/interpreting unformatted reports. ? Name: ? APOLONIA VAZQUEZ ? Accession #: ? [id number] ? : ? 1960 (Age: 49) ??F ? Collec t Date: ? 08/10/2009 ? Location: ? [facility] ? R eceive Date: ? 08/11/2009 ? Provider: MARGARITA J CAMILO DPM ? Copy to: YUDY GRESSER MD ? Final Pathologic Diagnosis: ? Soft tissue, plantar aspect of right great toe, excision: ? 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 ? Document reviewed and electr onically signed by: ? Otf Tapia, ? Report ??Date: 08/14/2009 15 :35 ? By the signature above, the attending physician certifies that he/she has ? personally conducted a gross and/or microscopic examination of the described ? specimens and rendered or co nfirmed the above diagnosis. ? Specimen(s) Received: ? Fibroma, plantar aspe ct R great toe ? Clinical History: ? Plantar fibromatosis vs ganglion cyst right great toe ? Gross Description: ? Received in formalin labelled Vazquez, Apolonia and fibroma plantar aspect right great toe is a bruce-ye llow, lobulated, 1.7 x 1.5 x 0.5 cm indurated soft ?? tissue. ??Upon sectioning, t he cut surfaces are bruce-yellow and firm. ??The ? specimen is inked, bisected, and one half is submitted in one cassette. ??(M. ? Villegas)/cjh ? End of Report ? Specimen Performing Organization Address City/State/ZIP Code Phon e Number [facility] [address] [place] [address] SERVICES [facility] [address] [place] [address] documented in this encounter Visit Diagnoses Not on filedocumented in this encounter Care Teams Vein Access Technician Relationship Specialty Start Date End Date Unknown, Provider, PCP - General 04/18/09 03/16/12 documented as of this encounter
--- OUTSIDE RECORDS SUMMARY | 2021-12-16 00:49 | XMS_ITS | Encounter Summary ---
:1960 Author Organization [facility] Address [address] [place] [address] Care Team Providers Name Role Phone Unknown, Provider Primary Care Provider Encounter Details Date Type Department Care Team Description 08/23/2004 Results Only [facility] - Eze Page DPM Maple conversion [facility] [address] [place] [phone] (Wo rk) Social History Tobacco Use Types Packs/Day Years Used Date Never Assessed Sex Assigned at Date Recorded Not on file documented as of this encounter Plan of Treatment Upcoming Encounters Date Type Specialty Care Team Description 09/05/2022 Office Visit Cardiology Regan Luo MD [address] [place] [address] [phone] (Wo rk) documented as of this encounter Procedures Procedure Name Priority Date/Time Associated Diagnosis Comme [facility] SURGICAL PATHOLOGY Routine 08/23/2004 0:00 EST Re sults for this procedure are i n the results section. documented in this encounter Results SURGICAL PATHOLOGY (08/23/2004 0:00 EST) Pathology Report: SURGICAL PATHOLOGY REPORT JUANITO LUGO Reports generated via electronic interface contain rogerio ginal data; LAB however they are lacking the format of the original re port. Caution should be taken when reading/interpreting unfo rmatted reports. Name: ? APOLONIA VAZQUEZ ? Accession #: ? [id number] ? : ? 1960 (Age: 44) ??F ? Collect Date: ? 08/23/2004 ? Location: ? [facility] ? Receive Date: ? 005 ? Provider: EZE PAGE DPM Copy to: YUDY SCHREIBER MD ? Final Pathologic Diagnosis: ? Soft tissue of toe, right great, mass, excision : - Giant cell tumor tendon sheath. ??See comment. Comment: ? This case was reviewe d at intradepartmental consultation conference. Dr. Yecenia Rust also reviewed this case in consult an d he concurs with diagnosis. ??(Dr. Scales)/[facility] [place] Document reviewed and electronically signed by: LASHANDA SCALES MD Report ??Date: 08/27/2004 15:40 By the signature above, the attending physician certif ies that he/she has personally conducted a gross and/or microscopic examin ation of the described specimens and rendered or confirmed the above diagnosi s. Specimen(s) Received: ? Soft tissue mass right great toe Clinical History: ? Right great toe excision soft tissue mass Gross Description: ? Received in formalin labelled Vazquez and right great toe soft tissue mass is a 1.5 x 1.5 x 0.7 c m, pink-bruce, previously incised, well-circumscribed, rubbery nodule which has a white-bruce, glistening capsu le. ??The specimen is inked, sectioned, and the cut surfaces a re heterogeneous, white-yellow to red. The specimen is entirely submitted as follows: BLOCK KEYA1 ?Body A2, A3 ?Perpendicular sections of ends (Pipe Ruvalcaba)/lgk End of Report Specimen Performing Organization Address City/State/ZIP Code Phon e Number [facility] [address] [place] [address] SERVICES [facility] [address] [place] [address] documented in this encounter Visit Diagnoses Not on filedocumented in this encounter Care Teams Rn Ante Partum Relationship Specialty Start Date End Date Unknown, Provider, PCP - General 04/18/09 03/16/12 documented as of this encounter
== END ==
PROVIDERS: PCP Family Medicine; Visit Provider Family Medicine
DX: R92.8 Other abnormal and inconclusive findings on diagnostic imaging of breast (principal); Z12.31 Encounter for screening mammogram for malignant neoplasm of breast
CPT/HCPCS: 76642; 77063; 77067

== ENCOUNTER 2022-07-01 08:44 | Outpatient (CLI) | payer MEDICARE, SELFPAY ==
[2022-07-01 13:38] LABS: CREATININE 0.8 mg/dL (0.55-1.02); Calculated LDL 96 mg/dL (<100); Cholesterol 201 mg/dL (<200); Estimated GFR 83.26 (mL/min/1.73m2); HDL Cholesterol 54 mg/dL (40-60); Potassium 3.6 mmol/L (3.5-5.1); TSH (W/Ref FT4) 2.47 uIU/mL (0.36-3.74); Triglyceride 258 mg/dL (<150)
== END 2022-07-01 08:45 | disposition home or self-care (01) ==
LOC: LOS 08:44
PROVIDERS: PCP Family Medicine; Referring Provider Family Medicine; Visit Provider Family Medicine
DX: E03.9 Hypothyroidism, unspecified (principal); I10 Essential (primary) hypertension; E78.5 Hyperlipidemia, unspecified
CPT/HCPCS: 36415; 80061; 82565; 84132; 84443

== ENCOUNTER 2023-08-03 14:45 | Outpatient (CLI) | payer MEDICARE, SELFPAY ==
[2023-08-03 11:12] LABS: Hemoglobin A1C 5.8 % (<5.7)
[2023-08-03 12:08] LABS: ALT 38 U/L (14-59); AST 24 U/L (15-37); Albumin 4.2 g/dL (3.4-5.0); Alkaline Phosphatase 78 U/L (46-116); Anion Gap 6.3 mmol/L (3-11); BUN 20 mg/dL (7-18); Bilirubin, Total 0.7 mg/dL (0.2-1.0); CO2 31.7 mmol/L (21.0-32.0); CREATININE 0.9 mg/dL (0.55-1.02); Calcium 9.7 mg/dL (8.5-10.1); Calculated LDL 134 mg/dL (<100); Chloride 99 mmol/L (98-107); Cholesterol 233 mg/dL (<200); Estimated GFR 71.39 (mL/min/1.73m2); Glucose 106 mg/dL (74-106); HDL Cholesterol 61 mg/dL (40-60); Potassium 3.6 mmol/L (3.5-5.1); Sodium 137 mmol/L (136-145); Total Protein 7.7 g/dL (6.4-8.2); Triglyceride 193 mg/dL (<150)
[2023-08-03 18:29] LABS: Hepatitis C Ab w Rflx HCV PCR Negative (Negative)
== END 2023-08-03 14:46 | disposition home or self-care (01) ==
PROVIDERS: PCP Family Medicine; Visit Provider Nurse Practitioner Family
DX: Z00.00 Encounter for general adult medical examination without abnormal findings (principal)
CPT/HCPCS: 36415; 80053; 80061; 86803; 83036; 84443

== ENCOUNTER → 2023-08-17 03:50 | Outpatient (CLI) | payer MEDICARE, SELFPAY ==
--- NOTE | 2023-08-17 07:30 | DI.DEXA_ITS ---
Exam(s) XR DEXA BONE DENSITY W/WO HAMZAH EXAM: XR DEXA BONE DENSITY W/WO HAMZAH CLINICAL HISTORY: osteoporosis screening in postmenopausal woman,z78.0 TECHNIQUE: [employer] C densitometer analysis of left hip, lumbar spine and left forearm. Lat eral survey image of the thoracic and lumbar spine. COMPARISON: No exams were available for comparison FINDINGS: Lateral view of the thoracic and lumbar spine shows no evidence of compression fractures. Bone mineral density measurements of the lumbar spine correspond to a total T-score of -0.2, in the normal range. Bone mineral density measurements of the left hip correspond to a total T-score of 0.5. The femoral neck T-score is -0.1, in the normal range.. Theleft forearm bone mineral density measurements correspond to a T-score of the distal 3rd of -0.5, in the normal range.. IMPRESSION: Normal bone mineral density.
== END ==
PROVIDERS: PCP Family Medicine; Visit Provider Nurse Practitioner Family
DX: Z12.31 Encounter for screening mammogram for malignant neoplasm of breast (principal); Z78.0 Asymptomatic menopausal state; Z13.820 Encounter for screening for osteoporosis
CPT/HCPCS: 77063; 77067; 77080

== ENCOUNTER 2024-04-20 13:27 | Outpatient (CLI) | payer MEDICARE, SELFPAY ==
--- NOTE | 2024-04-20 | DI.RAD_ITS ---
Exam(s) XR NASAL BONES EXAM: XR NASAL BONES CLINICAL HISTORY: Contusion of nose, initial encounter, S00.33XA. TECHNIQUE: 2D digital imaging was performed. COMPARISON: No exams were available for comparison FINDINGS: 3 views No evidence of nasal bone fracture. Nasal septum appears relatively midline. IMPRESSION: No evidence of nasal bone fracture. DATA REPOSITORY: RADIATION DOSE DELIVERED:
== END 2024-04-20 13:47 ==
LOC: DI 13:28
PROVIDERS: PCP Family Medicine; Visit Provider Physician Assistant Medical
DX: S00.33XA Contusion of nose, initial encounter (principal); X58.XXXA Exposure to other specified factors, initial encounter
CPT/HCPCS: 70160

== ENCOUNTER 2024-08-09 08:55 | Outpatient (CLI) | payer MEDICARE, SELFPAY ==
[2024-08-09 12:38] LABS: BUN 14 mg/dL (7-18); CREATININE 0.8 mg/dL (0.55-1.02); Calcium 9.8 mg/dL (8.5-10.1); Chloride 104 mmol/L (98-107); Estimated GFR 81.72 (mL/min/1.73m2); Glucose 96 mg/dL (74-106); Sodium 144 mmol/L (136-145); TSH (W/Ref FT4) 3.18 uIU/mL (0.36-3.74)
== END 2024-08-09 08:56 | disposition home or self-care (01) ==
LOC: LOS 08:55
PROVIDERS: PCP Family Medicine; Referring Provider Family Medicine; Visit Provider Family Medicine
DX: E03.9 Hypothyroidism, unspecified (principal); E87.1 Hypo-osmolality and hyponatremia
CPT/HCPCS: 36415; 80048; 84443

== ENCOUNTER 2024-08-10 08:39 | Emergency (ER) | payer MEDICARE, SELFPAY ==
[2024-08-10 08:45] VITALS: BP 114/66; PULSE 74; RESP 16; TEMP 36.7; O2SAT 96
--- NOTE | 2024-08-10 08:45 | DI.RAD_ITS ---
Exam(s) XR WRIST RT COMPLETE EXAM: XR WRIST RT COMPLETE CLINICAL HISTORY: pain and deformity. TECHNIQUE: 2D digital imaging was performed of the right wrist. Three views were obtained. PA, lat eral and oblique views were obtained. COMPARISON: CR RIGHT LITTLE FINGER from 08/28/2017 FINDINGS: BONES: There is an acute nondisplaced intra-articular fracture involving the lateral half of the dist al radius. No bony destructive lesion is seen. JOINTS: The carpal bones are normally aligned. SOFT TISSUE: Soft tissue swelling around the wrist. IMPRESSION: Nondisplaced intra-articular acute distal radial fracture. DATA REPOSITORY: RADIATION DOSE DELIVERED:
[2024-08-10] MEDS: Ibuprofen 600 MG TAB PO (09:05)
--- NOTE | 2024-08-10 09:05 | W.ED.GENAD ---
Discharge Plan Disposition Patient Disposition: Home Condition: Stable Discharge Details Clinical Impression: Distal radius fracture Primary Care Provider: Marco A Valentine ED Provider: Alexus Morgan Home Meds and New Rx's Prescriptions: New morphine 15 mg tablet 15 mg PO BID PRNQty: 6 0RF Continued metoprolol succinate 50 mg capsule,sprinkle,ER 24hr 50 mg PO DAILY Qty: 90 3RF furosemide 40 mg tablet 40 - 80 mg PO DAILY Qty: 180 3RF lisinopril 5 mg tablet 5 mg PO DAILY Qty: 90 3RF calcium citrate-vitamin D3 [Calcitrate-Vitamin D] 1 EACH tablet 1 tab PO BID potassium chloride [Klor-Con 10] 10 mEq tablet extended release 10 meq PO BID Qty: 180 4RF lorazepam 0.5 mg tablet 0.5 mg PO HS PRN (Reason: anxiety) Qty: 30 0RF Rx Instructions: prn anxiety/insomnia levothyroxine 50 mcg tablet 50 mcg PO DAILY Qty: 90 3RF Discharge Instructions Instructions: Radius Fracture (DC), [facility] ED Additional Instructions: ice, rest, elevate use sling as needed, but need to range shoulder so it does not become stiff Take Tylenol 500 mg every 4 hours as needed for pain do not exceed 3 g of Tylenol daily Morphine is an addictive medication and you should not operate a vehicle for 8 hours after taking it, you may take one half tab to a complete tab as needed for discomfort Be sure to follow-up with orthopedist to schedule an appointment within the next several days Return earlier with new or worsening complaints including worsening pain numbness or tingling or skin discoloration Referrals: James Ortgea MD [ [facility] STAFF PHYSICIAN] - Discharge Data Discharge Date/Time-TO BE ENTERED AT DEPARTURE: 08/10/24 10:25 HPI General Date/Time Provider Initiated Documentation: 08/10/24 08:51. HPI Narrative: The patient is a 64-year-old female with a history of dilated cardiomyopathy who presents with right wrist pain after tripping and falling over her dog. She landed on her right wrist and reports that it was deformed and quite painful. She has not taken any medications prior to arrival. She reports no additional injuries. Related Data Home Medications ?Medication ?Instructions ?Recorded ?Confirmed calcium 315 mg (as 1 tab PO BID 08/31/12 08/10/24 citrate)-vitamin D3 6.25 mcg (250 unit) tablet (Calcitrate) potassium chloride 10 mEq 10 meq PO BID #180 tabs 01/24/19 08/10/24 tablet,extended release (Klor-Con) lorazepam 0.5 mg tablet 0.5 mg PO HS PRN anxiety #30 05/10/21 08/10/24 tab-caps levothyroxine 50 mcg tablet 50 mcg PO DAILY #90 tab-caps 03/24/24 08/10/24 furosemide 40 mg tablet 40 - 80 mg (1 - 2 x 40 mg) PO 06/07/24 08/10/24 DAILY #180 tabs lisinopril 5 mg tablet 5 mg PO DAILY #90 tabs 06/07/24 08/10/24 metoprolol succinate 50 mg capsule 50 mg PO DAILY #90 caps 08/09/24 08/10/24 sprinkle, ext. release 24 hr morphine 15 mg immediate release 15 mg PO BID PRN #6 tabs 08/10/24 tablet Previous Rx's ?Medication ?Instructions ?Recorded potassium chloride 10 mEq 10 meq PO BID #180 tabs 01/24/19 tablet,extended release (Klor-Con) lorazepam 0.5 mg tablet 0.5 mg PO HS PRN anxiety #30 05/10/21 tab-caps levothyroxine 50 mcg tablet 50 mcg PO DAILY #90 tab-caps 03/24/24 furosemide 40 mg tablet 40 - 80 mg (1 - 2 x 40 mg) PO 06/07/24 DAILY #180 tabs lisinopril 5 mg tablet 5 mg PO DAILY #90 tabs 06/07/24 metoprolol succinate 50 mg capsule 50 mg PO DAILY #90 caps 08/09/24 sprinkle, ext. release 24 hr morphine 15 mg immediate release 15 mg PO BID PRN #6 tabs 08/10/24 tablet Allergies Allergy/AdvReac Type Severity Reaction Status Date / Time Penicillins Allergy Severe HIVES; Verified 08/10/24 08:50 SWELLING latex Allergy Intermediate Skin Rash Verified 08/10/24 08:50 and swelling Sulfa (Sulfonamide AdvReac Mild BLOODY NOSE Verified 08/10/24 08:50 Antibiotics) adhesive AdvReac LOCAL Verified 08/10/24 08:50 REDNESS AND IRRITATION General Stated Complaint: Orthopedic KAIT: 4 Exam Narrative Exam Narrative: General Appearance: Patient is alert and oriented, GCS 15. Vital signs: Within normal limits. HEENT: Pupils are equal, round, and reactive to light and accommodation. Respiratory: Within normal limits. Back, Musculoskeletal: Patient is ambulatory with steady gait. Extremities: There is tenderness and a small deformity noted to the right wrist, no tenderness to the elbow or hand. Skin: Warm and dry, no rash. Neurological: She is neurovascularly intact. Course Vital Signs Vital signs: Vital Signs Temperature 36.7 C 08/10/24 08:45 Pulse 74 08/10/24 08:45 Respiratory Rate 16 08/10/24 08:45 Blood Pressure 114/66 08/10/24 08:45 Pulse Oximetry 96 08/10/24 08:45 Temperature 36.7 C 08/10/24 08:45 Temperature Source Oral 08/10/24 08:45 Pulse 74 08/10/24 08:45 Respiratory Rate 16 08/10/24 08:45 Blood Pressure 114/66 08/10/24 08:45 Blood Pressure Position Sitting 08/10/24 08:45 Pulse Oximetry 96 08/10/24 08:45 Oxygen Delivery Method Room Air 08/10/24 08:45 Oxygen Flow Rate 0 08/10/24 08:45 Pain Level 8 08/10/24 08:51 Medical Decision Making Imaging X-ray shows a nondisplaced radius fracture that is intra-articular. Procedure: Ortho-Glass volar splint was applied to the right wrist. The patient remained neurovascularly intact pre and post application. Initial Assessment: 64-year-old female with history of dilated cardiomyopathy presents with right wrist pain after tripping and falling over her dog. Wrist was deformed and painful. No additional injuries reported. ED Course: - X-ray ordered: nondisplaced radius fracture, intra-articular - Ortho-Glass volar splint applied - Patient remained neurovascularly intact pre and post application - No evidence of compartment syndrome - Discharged home with prescription for morphine IR p.r.n. pain, Motrin, and Tylenol - Supportive care with sling and return precautions reviewed Final Assessment: Patient with right wrist pain due to nondisplaced radius fracture, intra-articular. Splint applied, patient neurovascularly intact, discharged with pain management and follow-up instructions. Clinical Impression: - Nondisplaced radius fracture, intra-articular Disposition: - Discharge - Follow-Up: Orthopedics for radial fracture Patient Education: Supportive care with sling and return precautions reviewed, patient expressed understanding. MDM Components Evaluation: - Number of Differential Diagnoses or Management Options: Nondisplaced radius fracture, intra-articular - Amount and Complexity of Data Reviewed: X-ray - Risk of Complication and Morbidity or Mortality: Low risk given no evidence of compartment syndrome and patient remained neurovascularly intact. 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) Acquired hyperlipoproteinemia (Chronic) Hypothyroidism (acquired) (Chronic) Obesity (Chronic) Ventricular tachycardia (paroxysmal) (Chronic) Frequent PVCs (Chronic) VT (ventricular tachycardia) (Acute 02/09/15) V tach/ PVCs, attempted ablation at [facility] 2013 Successful needle catheter ablation in [place] 2016 Pericarditis (Acute 12/16/13) 5/ s/p drainage Palpitations (Acute 08/28/17) PVCs (premature ventricular contractions) (Acute 02/09/15) Obesity (Acute) Mallet deformity of right little finger (Acute 09/07/17) Hypertriglyceridemia (Acute) Fatigue (Acute) Cardiomyopathy (Acute 12/16/13) idiopathic dilated cardiomyopathy (normal cath 07/2012, EF 35-40% 10/2013, LVEF 45% 2015) Arrhythmia, ventricular (Acute 12/16/13) symptomatic PVC and V tach Anxiety (Acute 06/15/15) Age-related macular degeneration (Acute) Surgical History Hysterectomy, Laproscopic right ovary remains Recurrent major depression in partial remission (03/20/16) ATRIAL ABLATION-CARMINE Family History Mother Diabetes Heart disease Hyperlipidemia Dementia Brain aneurysm Father , MURDERED at age 45. Alcohol abuse Brother , age 61 Alcohol abuse Heart disease PACEMAKER Sister Skin cancer Maternal Grandfather No problems noted. Paternal Grandfather , MURDERED at age 68. No problems noted. Maternal Grandmother No problems noted. Paternal Grandmother No problems noted. Sister COPD (chronic obstructive pulmonary disease) Brother Alcohol use disorder Heart disease Son No problems noted. Son No problems noted. Social History (Updated 08/09/24 @ 11:22 by Shira Garnica) Smoking/Tobacco Use Status: Never Second Hand Exposure: Yes Smoking risk assessment performed?: Yes Alcohol Intake: never Drug use: Never Substance use type: does not use Counseling given: No Adopted: No Caregiver/Support person: No Household members: none Housing: house Number of Children: 2 number of grandchildren: 2 Communication Needs: None Education Level: high school Details: 12th Do you need help understanding health information?: Rarely current occupation: Disabled Pets and animals: Yes Pets and animals: dog(s) Sexually active: No Do you think of yourself as: straight/heterosexual Current gender identity: female What is your relationship status?: How often do you talk on the phone with friends or family?: three or more times per week How often do you get together with friends or relatives?: twice per week How often do you attend jain or gnosticist services?: 1-3 times per year Do you belong to any clubs or organized social groups?: yes Panel score (0-1 are the most socially isolated patients): 2 What type of physical activity do you participate in: walking and other Details: gym Duration: 45-60 minutes/day Frequency: daily Emi/Anabaptist: None Special emi needs: No Seatbelt use: always Drive intox or ride w/intox courtesy driver: No Do you feel safe at home: Yes Victim of physical abuse: No Victim of emotional abuse: No Victim of sexual abuse: No
== END 2024-08-10 10:25 | disposition home or self-care (01) ==
PROVIDERS: Emergency Provider Physician Assistant; PCP Family Medicine
DX: S52.511A Displaced fracture of right radial styloid process, initial encounter for closed fracture (principal); I10 Essential (primary) hypertension; I42.0 Dilated cardiomyopathy; W01.0XXA Fall on same level from slipping, tripping and stumbling without subsequent striking against object, initial encounter; Y93.K1 Activity, walking an animal; Y92.89 Other specified places as the place of occurrence of the external cause
CPT/HCPCS: 29125; 99283; 73110

== ENCOUNTER 2024-08-17 15:56 | Outpatient (CLI) | payer MEDICARE, SELFPAY ==
--- NOTE | 2024-08-17 14:30 | DI.RAD_ITS ---
Exam(s) XR WRIST RT LIMITED EXAM: XR WRIST RT LIMITED INDICATION: F/U FRACTURE. COMPARISON: CR XR WRIST RT COMPLETE from 08/10/2024 TECHNIQUE: 2D digital imaging was performed. Two views. FINDINGS: The radial styloid fracture remains nondisplaced and is barely visualized on the current exam. No ne w abnormalities. DATA REPOSITORY: RADIATION DOSE DELIVERED:
== END 2024-08-17 15:57 | disposition home or self-care (01) ==
LOC: DIORS 15:56
PROVIDERS: PCP Family Medicine; Referring Provider Family Medicine; Visit Provider Student in an Organized Health Care Education/Training Program
DX: S52.511A Displaced fracture of right radial styloid process, initial encounter for closed fracture; W01.0XXA Fall on same level from slipping, tripping and stumbling without subsequent striking against object, initial encounter; I42.0 Dilated cardiomyopathy; R06.02 Shortness of breath
CPT/HCPCS: 99213; 73100

== ENCOUNTER 2024-08-24 16:07 | Outpatient (CLI) | payer MEDICARE, SELFPAY ==
--- NOTE | 2024-08-24 11:00 | DI.RAD_ITS ---
Exam(s) XR WRIST RT LIMITED EXAM: XR WRIST RT LIMITED CLINICAL HISTORY: F/U FRACTURE. TECHNIQUE: 2D digital imaging was performed. COMPARISON: CR XR WRIST RT COMPLETE from 08/10/2024 FINDINGS: Two views The radial styloid fracture is again noted to be barely visible with further healing. No displacemen t. No obvious step at the articular surface. No significant ulnar variance. Bone density normal. No osseous lesions IMPRESSION: Further healing of nondisplaced radial styloid fracture. DATA REPOSITORY: RADIATION DOSE DELIVERED:
== END 2024-08-24 16:08 | disposition home or self-care (01) ==
LOC: DIORS 16:07
PROVIDERS: PCP Family Medicine; Referring Provider Family Medicine; Visit Provider Student in an Organized Health Care Education/Training Program
DX: S52.511D Displaced fracture of right radial styloid process, subsequent encounter for closed fracture with routine healing (principal); X58.XXXD Exposure to other specified factors, subsequent encounter; R60.0 Localized edema
CPT/HCPCS: 99213; 73100

== ENCOUNTER 2024-08-30 00:52 | Outpatient (CLI) | payer MEDICARE, SELFPAY ==
--- NOTE | 2024-08-30 07:15 | DI.MAMMO_ITS ---
Exam(s) MAMMO SCREENING EXAM: MAMMO SCREENING CLINICAL HISTORY: screening,z12.39 TECHNIQUE: Bilateral full field digital CC and MLO mammographic images were obtained with 3D tomosyn thesis and utilizing computer aided detection (CAD). COMPARISON: Available for comparison. FINDINGS: Masses/Architectural Distortion: No suspicious masses are seen. No areas of architectural distortion are present. The asymmetric breast tissue in the upper outer quadrant of the right breast appears s table. Microcalcifications: No suspicious pleomorphic-type are seen. Skin Thickening/Nipple Retraction: None. IMPRESSION: 1. No significant interval change with no specific features of malignancy noted. 2. Unless there is more urgent need, screening mammography is recommended, as per [place] guidelines. BI-RADS Category 1 - Negative Breast Density - Category B - Scattered areas of fibroglandular density Breast density category C or D implies that the patient has dense breast tissue. Dense breast tissue is very common and is not abnormal but dense breast tissue can make it harder to find cancer on a ma mmogram. Also, dense breast tissue may increase their breast cancer risk. This information about the result of the mammogram report was provided to the patient to raise their awareness. Use this report when you speak with the patient about their risks for breast cancer, which includes their family hist ory. At that time, you may recommend for more screening tests (Ultrasound or MRI) as they might be us eful based on their risk. A negative radiographic report should not delay biopsy if a dominant or clinically suspicious mass is present. Up to ten percent of cancers are not identified on mammography. A negative report may reinforce clinical impression. Adenosis and dense breasts may obscure an underlying neoplasm. False positive reports average 6 to 10%. Patient will receive a letter notifying them of these results.
== END 2024-08-30 01:12 ==
LOC: DI 00:53
PROVIDERS: PCP Family Medicine; Visit Provider Family Medicine
DX: Z12.31 Encounter for screening mammogram for malignant neoplasm of breast (principal); R92.323 Mammographic fibroglandular density, bilateral breasts
CPT/HCPCS: 77063; 77067

== ENCOUNTER 2024-09-21 09:00 | Outpatient (CLI) | payer MEDICARE, SELFPAY ==
--- NOTE | 2024-09-21 08:15 | DI.RAD_ITS ---
Exam(s) XR WRIST RT LIMITED EXAM: XR WRIST RT LIMITED CLINICAL HISTORY: f/u fracture. TECHNIQUE: 2D digital imaging was performed of the right wrist. Two views were obtained. PA and la teral views were obtained. COMPARISON: CR XR WRIST RT COMPLETE from 08/10/2024 CR XR WRIST RT LIMITED from 08/24/2024 FINDINGS: BONES: There has been no change in alignment of the proximal radial fracture. Components of the frac ture visualized particularly on the lateral view. No bony destructive lesion is seen. JOINTS: The carpal bones are normally aligned. SOFT TISSUE: Normal. IMPRESSION: Stable distal right radial fracture. DATA REPOSITORY: RADIATION DOSE DELIVERED:
== END 2024-09-21 09:01 | disposition home or self-care (01) ==
LOC: DIORS 09:00
PROVIDERS: PCP Family Medicine; Visit Provider Student in an Organized Health Care Education/Training Program
DX: S52.511D Displaced fracture of right radial styloid process, subsequent encounter for closed fracture with routine healing; X58.XXXD Exposure to other specified factors, subsequent encounter
CPT/HCPCS: 99213; 73100

== ENCOUNTER 2024-10-11 01:52 | Outpatient (CLI) | payer MEDICARE, SELFPAY ==
--- NOTE | 2024-10-11 10:30 | DI.US_ITS ---
APPROVED REPORT EXAM: Comprehensive 2D, Doppler, and color-flow Echocardiogram Patient Location: Out-Patient Health Record Technician: Yeyo Ball RDCS (AE) Indications: History of nonischemic cardiomyopathy, chronic diastolic CHF, PVCs, LENZ Other Information Study Quality: Adequate. Technically limited study due to body habitus. Conclusion Normal left ventricular wall thickness and chamber size. Ejection fraction is 50%. There are no seg mental wall motion abnormalities Normal right ventricular size and function Both atria are normal in size There is no structural or hemodynamically significant valvular disease Estimated right ventricular systolic pressure is 27 mmHg Ascending aorta measures 3.64 cm Wall motion Left Ventricle The left ventricle is normal size. Left ventricular systolic function is borderline There is normal l eft ventricular wall thickness. No segmental wall motion abnoramlities There is no ventricular septal defect visualized. LVEF is 50%. Right Ventricle The right ventricle is normal size. The right ventricular systolic function is normal. Atria The left atrium size is normal. The right atrium size is normal. The interatrial septum is intact wit h no evidence for an atrial septal defect. Aortic Valve The aortic valve is normal in structure. Aortic valve is trileaflet. There is no aortic valvular sten osis. No aortic regurgitation is present. Mitral Valve The mitral valve is normal in structure. No evidence of mitral valve stenosis. There is no mitral jayden ve regurgitation noted. Tricuspid Valve The tricuspid valve is normal in structure. There is no tricuspid valve stenosis. Trace tricuspid reg urgitation. The RVSP is 27.4 mmHg. Pulmonic Valve The pulmonary valve is normal in structure. There is no pulmonic valvular stenosis. Trace pulmonic re gurgitation. Great Vessels The aortic root is normal in size. The ascending aorta is mildly dilated. Aortic arch is normal in ca liber. IVC is normal in size and collapses >50% with inspiration. Pericardium There is no pericardial effusion. 2D Dimensions IVSD d PLAX 0.86 cm F: 0.6-1.0 Ao Root d 2.92 cm F: 2.7 - 3.3 LVPW d PLAX 0.88 cm F: 0.6 - 1.0 Ao Asc Diam d 3.64 cm F: 2.3 - 3.1 LVID d PLAX 5.29 cm F: 3.8 - 5.2 LVDs 3.93 cm F: 2.2 - 3.5 LV EF Teichholz 50.4 % FS 25.83 % LV EDV (Teich) 135.0 mL LV ESV (Teich) 67.0 mL Stroke Vol Index (Teich) 35.81 M-Mode TAPSE 1.70 cm (M/F) >1.7 Auto EF LV EDV A4C 70.1 mL LV EDV A2C 85.4 mL LV EDV BP 78.7 mL LV ESV A4C 38.2 mL LV ESV A2C 42.5 mL LV ESV BP 40.5 mL LVEF(%) A4C 45.5 % LVEF(%) A2C 50.3 % LVEF(%) BP 48.6 % LV SV A4C 31.9 ml LV SV A2C 42.9 ml LV SV BP 38.2 ml LV CO A4C 2.3 L/min LV CO A2C 2.6 L/min LV CO BP 2.4 L/min HR A4C 71.44 BPM HR A2C 60.41 BPM LV EDV Index (BP) LA Volume LA Length A4C 3.9 cm LA Length A2C 4.8 cm LA Area A4C s 7.84 cm2 LA Area A2C s 10.12 cm2 LA Vol A4C A-L 13.40 mL LA Vol A2C A-L 18.29 mL LA Vol Biplane A-L 17.3 mL LA Vol/BSA A4C A-L LA Vol/BSA A2C A-L LA Vol/BSA BP A-L 9.1 mL/m2 LA Vol A4C MOD 12.9 mL LA Vol A2C MOD 17.8 mL LA Vol BP MOD 16.0 mL RA Volume RA Area A4C 5.1 cm2 RA ESV A4C (A-L) 5.6mL RA Vol/BSA A4C A-L RA Length A4C 4.0 cm RA ESV A4C (MOD) 5.3mL LV Diastology MV E' medial 0.059 (>0.07 m/s) MV E Vmax 0.34 (0.4-1.3 m/s) MV E/E' MED 5.74 (<14) MV A Vmax 0.65 (0.4-1.3 m/s) MV E' lateral 0.077 (>0.1 m/s) E/A Ratio 0.5 MV E/E' LAT 4.37 (<14) MV E' Average 0.068 m/s MV E/E'(average) 4.96 Aortic Valve AoV Vmax 0.95 m/s LVOT Vmax 0.66 m/s AoV Peak Grad 3.6 mmHg LVOT Peak Grad 1.8 mmHg AoV Area (Vmax) 2.49 cm2 LVOT VTI 0.169 m AoV VTI 0.220 m LVOT Mean Grad 0.9 mmHg AoV Mean Yoav. 0.75 m/s LVOT SV 60.44 mL AoV Mean Grad 2.5 mmHg LVOT Diam s 2.10 cm AoV Area (VTI) 2.75 cm2 AV Regurg Peak Gr. 3.64 mmHg Velocity Ratio 0.69 Mitral Valve MV DT 169 (160-240 msec) Pulmonary Valve PV Vmax 0.70 (0.5-1.5 m/s) RVOT Vmax 0.51 m/s PV Peak Grad 2.0 mmHg RVOT Peak Gr. 1.1 mmHg PV Mean Yoav 0.51 m/s RVOT VTI 0.103 m PV Mean Grad 1.1 mmHg RVOT Mean Gr. 0.6 mmHg Tricuspid Valve RA Pressure 3.00 mmHg TR Vmax 2.47 m/s TR Peak Grad 24.4 mmHg RVSP (TR) 27.4 mmHg
== END 2024-10-11 02:12 ==
LOC: DI 01:52
PROVIDERS: PCP Family Medicine; Visit Provider Internal Medicine Cardiovascular Disease
DX: I42.8 Other cardiomyopathies
CPT/HCPCS: 93306

== ENCOUNTER 2025-05-21 16:44 | Emergency (ER) | payer MEDICARE, SELFPAY ==
[2025-05-21 16:45] VITALS: BP 150/83; PULSE 87; RESP 16; TEMP 36.7; O2SAT 96
--- NOTE | 2025-05-21 16:45 | RT.EKG_ITS ---
APPROVED REPORT Exam: Resting ECG Reason for Exam: shoulder pain Patient Location: E HR:79 bpm ECG Measurements Heart Rate 79 AXIS ME 167 P 35 QRSd 97 QRS 19 QT 320 T 235 QTc 366 Conclusion Sinus rhythm...normal P axis, V-rate 60- 99 Nonspecific repol abnormality, diffuse leads...ST dep, T flat/neg, ant/lat/inf No STEMI
--- NOTE | 2025-05-21 17:15 | DI.RAD_ITS ---
Exam(s) XR SHOULDER RT COMPLETE 2+V EXAM: XR SHOULDER RT COMPLETE 2+V CLINICAL HISTORY: pain s/p fall. TECHNIQUE: 2D digital imaging was performed of the right shoulder. Four images were obtained. AP, Grashey, Y-view and axillary views were obtained. COMPARISON: No exams were available for comparison FINDINGS: BONES: No acute fracture is present. No bony destructive lesion is seen. JOINTS: No dislocation present. Mild degenerative changes are seen at the glenohumeral joint. SOFT TISSUE: Normal. IMPRESSION: 1. There is no acute fracture or dislocation. 2. The preliminary [facility] report was reviewed. DATA REPOSITORY: RADIATION DOSE DELIVERED:
[2025-05-21] MEDS: Acetaminophen 500 MG TAB 1000 MG PO (18:06)
[2025-05-21] MEDS: Ibuprofen 400 MG TAB PO (18:06)
--- NOTE | 2025-05-21 18:24 | W.ED.GENAD ---
Discharge Plan Disposition Patient Disposition: Home Discharge Details Clinical Impression: Injury of right rotator cuff, Acute myofascial pain Primary Care Provider: Marco A Valentine ED Provider: Mckay Villegas Home Meds and New Rx's Prescriptions: New cyclobenzaprine 10 mg tablet 10 mg PO TID PRNQty: 20 0RF No Action furosemide 40 mg tablet 40 - 80 mg PO DAILY Qty: 180 3RF lisinopril 5 mg tablet 5 mg PO DAILY Qty: 90 3RF levothyroxine 50 mcg tablet 50 mcg PO DAILY Qty: 90 3RF easy tears 1 drp PO BID PRN calcium citrate-vitamin D3 [Calcitrate-Vitamin D] 1 EACH tablet 1 tab PO BID potassium chloride [Klor-Con 10] 10 mEq tablet extended release 10 meq PO BID Qty: 180 4RF lorazepam 0.5 mg tablet 0.5 mg PO HS PRN (Reason: anxiety) Qty: 30 0RF Rx Instructions: prn anxiety/insomnia metoprolol succinate 50 mg tablet extended release 24 hr 50 mg PO DAILY Qty: 90 3RF Discharge Instructions Instructions: Rotator cuff injury, Dry Needling Additional Instructions: As discussed, I believe you have an injury to your right rotator cuff that is been causing your shoulder pain, because of this you have been compensating which has caused a pain to develop in the muscles of your right shoulder and neck. Please follow-up with both physical therapy with the attached paperwork, and you have been referred to orthopedics for further management of your shoulder pain. Please follow-up with your primary care provider regarding your visit to the emergency department today. Be sure to discuss results of all test performed here today to include radiology, and laboratory testing as well as results for any pending cultures. Should your symptoms worsen, or if you develop new concerning symptoms, please return immediately emergency department for further evaluation. Stand Alone Forms: Physical Therapy Referral, Portal Information Referrals: James Ortega MD [ [facility] STAFF PHYSICIAN, Orthopaedic Surgical] HPI General Date/Time Provider Initiated Documentation: 05/21/25 16:48. HPI Narrative: MDM/Narrative: 64-year-old female presents for evaluation of right shoulder pain, with associated neck and back pain. Exam notable for 2 palpable trigger points in her right trap, as well as exam findings consistent with rotator cuff pathology. No neurovascular deficits noted. Patient treated with trigger point injections, and x-ray of the shoulder was obtained, patient was referred to physical therapy, as well as orthopedics. Disposition: Home HPI: 64-year-old female presents for evaluation of right shoulder pain which has been chronic for approximately 8 months after a trip and fall in which she injured her right wrist. She is at the time she was complaining of right shoulder pain however no one ever truly evaluated it and never had x-rays performed. She notes progressive pain worse with movements overhead, and lifting of objects in her right shoulder. Today she also notes worsening pain on the right shoulder extending right neck. Denies any new trauma, fever, chills numbness, weakness or any other concerning symptoms. ROS: Negative besides as mentioned above Exam: Gen: A&O NAD HEENT: NCAT, EOMI, not icteric. External ears normal. No rhinorrhea. Moist mucous membranes. Neck: Supple, full range of motion, no observable masses, No meningeal sign. Lungs: No Respiratory distress. CV: RRR, no edema. Abdomen: Soft, nondistended, No rebound tenderness. MSK: 2 areas of palpable spasm in the right trapezius with significant tenderness to palpation. Right shoulder without apparent traumatic injuries, however external rotation, internal rotation, Hawking's, and empty can test all produce significant pain to the right shoulder. Skin: No rashes, petechiae, lesions. Normal color per patient. Neuro: Normal Gait, Grossly intact. Psych: Appropriate for situation. Rhythm: NSR Rate: 79 Lyons: Normal axis Intervals: Normal intervals Other findings: No acute ST segment or T wave changes to suggest acute ischemia. Radiology: PROCEDURE INFORMATION: Exam: XR Right Shoulder Exam date and time: 05/21/2025 6:47 PM Age: 64 years old Clinical indication: Other: Pain, S/P fall TECHNIQUE: Imaging protocol: Radiologic exam of the right shoulder. Views: 2 or more views. COMPARISON: No relevant prior studies available. FINDINGS: Bones/joints: Normal. Soft tissues: Normal. IMPRESSION: No acute posttraumatic abnormality seen. Thank you for allowing us to participate in the care of your patient. Dictated and Authenticated by: Kerline Doshi MD Related Data Home Medications ?Medication ?Instructions ?Recorded ?Confirmed calcium 315 mg (as 1 tab PO BID 08/31/12 05/21/25 citrate)-vitamin D3 6.25 mcg (250 unit) tablet (Calcitrate) potassium chloride 10 mEq 10 meq PO BID #180 tabs 01/24/19 05/21/25 tablet,extended release (Klor-Con) lorazepam 0.5 mg tablet 0.5 mg PO HS PRN anxiety #30 05/10/21 05/21/25 tab-caps furosemide 40 mg tablet 40 - 80 mg (1 - 2 x 40 mg) PO 06/07/24 05/21/25 DAILY #180 tabs lisinopril 5 mg tablet 5 mg PO DAILY #90 tabs 06/07/24 05/21/25 easy tears 1 drp PO BID PRN 09/21/24 05/21/25 levothyroxine 50 mcg tablet 50 mcg PO DAILY #90 tab-caps 02/09/25 05/21/25 metoprolol succinate 50 mg 50 mg PO DAILY #90 tabs 04/28/25 05/21/25 tablet,extended release 24 hr cyclobenzaprine 10 mg tablet 10 mg PO TID PRN #20 tabs 05/21/25 Previous Rx's ?Medication ?Instructions ?Recorded potassium chloride 10 mEq 10 meq PO BID #180 tabs 01/24/19 tablet,extended release (Klor-Con) lorazepam 0.5 mg tablet 0.5 mg PO HS PRN anxiety #30 05/10/21 tab-caps furosemide 40 mg tablet 40 - 80 mg (1 - 2 x 40 mg) PO 06/07/24 DAILY #180 tabs lisinopril 5 mg tablet 5 mg PO DAILY #90 tabs 06/07/24 levothyroxine 50 mcg tablet 50 mcg PO DAILY #90 tab-caps 02/09/25 metoprolol succinate 50 mg 50 mg PO DAILY #90 tabs 04/28/25 tablet,extended release 24 hr cyclobenzaprine 10 mg tablet 10 mg PO TID PRN #20 tabs 05/21/25 Allergies Allergy/AdvReac Type Severity Reaction Status Date / Time Penicillins Allergy Severe HIVES; Verified 05/21/25 16:52 SWELLING latex Allergy Intermediate Skin Rash Verified 05/21/25 16:52 and swelling Sulfa (Sulfonamide AdvReac Mild BLOODY NOSE Verified 05/21/25 16:52 Antibiotics) adhesive AdvReac LOCAL Verified 05/21/25 16:52 REDNESS AND IRRITATION General Stated Complaint: Orthopedic KAIT: 4 Course Vital Signs Vital signs: Vital Signs Temperature 36.7 C 05/21/25 16:45 Pulse 87 05/21/25 16:45 Respiratory Rate 16 05/21/25 16:45 Blood Pressure 150/83 H 05/21/25 16:45 Pulse Oximetry 96 05/21/25 16:45 Temperature 36.7 C 05/21/25 16:45 Temperature Source Temporal Artery Scan 05/21/25 16:45 Pulse 87 05/21/25 16:45 Respiratory Rate 16 05/21/25 16:45 Blood Pressure 150/83 H 05/21/25 16:45 Blood Pressure Position Sitting 05/21/25 16:45 Pulse Oximetry 96 05/21/25 16:45 Oxygen Delivery Method Room Air 05/21/25 16:45 Oxygen Flow Rate 0 05/21/25 16:45 Pain Level 8 05/21/25 16:45 Medical Decision Making Quality:SDOH Health Related Social Needs: Health related social needs details none PFSH All Active Problems (Updated 05/21/25 @ 19:45 by Mckay Villegas MD) Acute myofascial pain (Acute) Injury of right rotator cuff (Acute) Skin tag (Acute) Contact dermatitis (Acute ~12/2022) Sleep disturbance (Acute) Dysplastic skin lesion (Acute) Shoulder pain, left (Acute) Atrophic vaginitis (Acute) Swelling, mass, or lump in head and neck (Acute) Migraine (Acute) Sciatica (Acute) Status post laparoscopic hysterectomy (Acute) Diastolic dysfunction with chronic heart failure (Chronic) Acquired hyperlipoproteinemia (Chronic) Hypothyroidism (acquired) (Chronic) Obesity (Chronic) Ventricular tachycardia (paroxysmal) (Chronic) Frequent PVCs (Chronic) VT (ventricular tachycardia) (Acute 02/09/15) V tach/ PVCs, attempted ablation at [facility] 2013 Successful needle catheter ablation in [place] 2016 Pericarditis (Acute 12/16/13) 5/13 s/p drainage Palpitations (Acute 08/28/17) PVCs (premature ventricular contractions) (Acute 02/09/15) Obesity (Acute) Mallet deformity of right little finger (Acute 09/07/17) Hypertriglyceridemia (Acute) Fatigue (Acute) Cardiomyopathy (Acute 12/16/13) idiopathic dilated cardiomyopathy (normal cath 07/2012, EF 35-40% 10/2013, LVEF 45% 2015) Arrhythmia, ventricular (Acute 12/16/13) symptomatic PVC and V tach Anxiety (Acute 06/15/15) Age-related macular degeneration (Acute) Surgical History Hysterectomy, Laproscopic right ovary remains Recurrent major depression in partial remission (03/20/16) ATRIAL ABLATION-[facility] Family History Mother Diabetes Heart disease Hyperlipidemia Dementia Brain aneurysm Father , MURDERED at age 45. Alcohol abuse Brother , age 61 Alcohol abuse Heart disease PACEMAKER Sister Skin cancer Maternal Grandfather No problems noted. Paternal Grandfather , MURDERED at age 68. No problems noted. Maternal Grandmother No problems noted. Paternal Grandmother No problems noted. Sister COPD (chronic obstructive pulmonary disease) Brother Alcohol use disorder Heart disease Son No problems noted. Son No problems noted. Social History (Updated 08/09/24 @ 11:22 by Shira Garnica) Smoking/Tobacco Use Status: Never Second Hand Exposure: Yes Smoking risk assessment performed?: Yes Alcohol Intake: never Drug use: Never Substance use type: does not use Counseling given: No Adopted: No Caregiver/Support person: No Household members: children Housing: house Number of Children: 2 number of grandchildren: 2 Communication Needs: None Education Level: high school Details: 12th Do you need help understanding health information?: Rarely current occupation: Disabled Pets and animals: Yes Pets and animals: dog(s) Sexually active: No Do you think of yourself as: straight/heterosexual Current gender identity: female What is your relationship status?: How often do you talk on the phone with friends or family?: three or more times per week How often do you get together with friends or relatives?: once per week How often do you attend nondenominational or alevism services?: decline to answer Do you belong to any clubs or organized social groups?: decline to answer Panel score (0-1 are the most socially isolated patients): 1 What type of physical activity do you participate in: walking and other Details: Cardiac rehab Duration: 45-60 minutes/day Frequency: daily Emi/Roman Catholic: None Special emi needs: No Seatbelt use: always Drive intox or ride w/intox passenger coach driver: No Do you feel safe at home: Yes Victim of physical abuse: No Victim of emotional abuse: No Victim of sexual abuse: No
[2025-05-21 18:33] VITALS: RESP 12; O2SAT 98
[2025-05-21] MEDS: Lidocaine 1% Multi-Dose W/EPI 1/100,000 10 ML VIAL IJ (18:33)
[2025-05-21 18:40] VITALS: BP 116/64; PULSE 85; O2SAT 97
--- NOTE | 2025-05-21 19:26 | DI.VRAD_ITS ---
PROCEDURE INFORMATION: Exam: XR Right Shoulder Exam date and time: 05/21/2025 6:47 PM Age: 64 years old Clinical indication: Other: Pain, S/P fall TECHNIQUE: Imaging protocol: Radiologic exam of the right shoulder. Views: 2 or more views. COMPARISON: No relevant prior studies available. FINDINGS: Bones/joints: Normal. Soft tissues: Normal. IMPRESSION: No acute posttraumatic abnormality seen. Dictated and Authenticated by: Kerline Doshi MD. Orderin Bakari Bashir MD
[2025-05-21] MEDS: Cyclobenzaprine 10 MG TAB, 3 TABS/BTL PO (19:55)
== END 2025-05-21 20:00 | disposition home or self-care (01) ==
PROVIDERS: Emergency Provider General Practice; PCP Family Medicine
DX: S46.001A Unspecified injury of muscle(s) and tendon(s) of the rotator cuff of right shoulder, initial encounter (principal); M79.18 Myalgia, other site; X58.XXXA Exposure to other specified factors, initial encounter; Z91.81 History of falling
CPT/HCPCS: 99283 ×2; 20552; 93005; 73030; 93010; J2004